=== PATIENT | female | born 1945 | race Caucasian/White ===

== ENCOUNTER 2017-12-18 03:31 | Inpatient (IN) | payer MEDICARE, SELFPAY ==
[2017-12-18] VITALS (13 sets, daily range): BP systolic 89–109; BP diastolic 45–74; PULSE 54–115; RESP 16–20; TEMP 36.7–38.5; O2SAT 88–98; BMI 31.6
--- NOTE | 2017-12-18 03:53 | RAD_ITS ---
STUDY: X-RAY CHEST REASON FOR EXAM: Female, 72 years old. Status post port placement Friday 12/15. Stage IV endocrine cancer. Nausea, vomiting, fever 100.6 TECHNIQUE: Single AP portable view of the chest. COMPARISON: None. FINDINGS: Right internal jugular approach port with catheter tip over the mid superior vena cava in good position. There is no demonstrated pneumothorax. Indistinct parenchymal opacification, somewhat masslike 2.7 x 3 cm right base. Overall increased interstitial markings. There is no demonstrated pleural abnormality. Normal size heart. Normal mediastinum and nikolay. Normal visualized pulmonary arteries. There is atherosclerotic calcification of the aortic arch with tortuosity. Status post lower thoracic hardik placement.. Normal visualized ribs, clavicles, and shoulders. There is no demonstrated abnormality of the visualized soft tissue structures of the upper abdomen. RAD/Chest 1 View (Portable) IMPRESSION: Port appears in good position, no pneumothorax. Airspace disease in the right base possible pneumonia, neoplasm not entirely excluded, follow-up examination to resolution recommended. Mild interstitial prominence may be acute or chronic. Electronically Signed: Rebekah Vegas MD at 5:10 EST , Service support ,
--- NOTE | 2017-12-18 03:57 | ED.VISSUMM ---
- ER Visit Summary Date of Service: 12/18/17 Chief Complaint: [] Fever History of Present Illness: The patient is a 72 F [] presents with fever with a history of endocrine cancer requiring chemo and radiation therapy. Patient had a chest port placed less than 48 hours ago. Patient has mild tenderness around the site. Patient's daughter at the bedside reports patient had a fever of 100.6 at home. Patient reports nausea/vomiting/diarrhea. Reports mild headache. Denies hematemesis. No other complaints at this time. Physical Examination: [] Afebrile, vital signs stable. Elderly female no acute distress. Cardiovascular exam is regular rate and rhythm. Lungs are clear to auscultation. Abdomen is soft and nontender. No lower extremity edema. Test Results: [] Elevated white blood cell count of 27.5. Chemistries normal. LFTs normal. Lactic acid 1.5. Flu swab negative. Chest x-ray 2 views shows right lower lobe infiltrate. Urinalysis pending, blood cultures and urine cultures pending. Emergency Department Course and Treatment: [] Patient provided fluids, Phenergan, Toradol, Benadryl. On serial examination patient had improvement of symptoms. After x-ray results are identified patient was started on vancomycin and Zosyn for broad-spectrum antibiotic coverage. Patient was counseled regarding her diagnostic and laboratory findings as well as the family. They are amenable to admission and further treatment. Case was discussed with the hospitalist Dr. Harmon. Patient will be admitted to the general medical floor. Treatment Plan: [] Admit to general medical floor for IV antibiotics. Disposition: [] Admit, stable. Impression: [] Health care acquired pneumonia Endocrine cancer This note was generated with [employer] dictation software. It may contain incorrect words, spelling, and punctuation that were not noted in review of the chart prior to signing ED Disposition - Plan for ED Patient: Chief Complaint: Nausea/Vomiting/Diarrhea Referrals: Mitchell Whiteside MD [Primary Care Provider] -
[2017-12-18 04:32] LABS: Absolute Lymphocyte Count 1.09 X10^3/ul (0.83-4.51); Absolute Neutrophil Count 23.5 X10^3/uL (2.0-7.7); Basophil# 0.03 X10^3/uL; Basophil% 0.1 % (0-1); Eosinophil# 0.04 X10^3/uL; Eosinophils% 0.1 % (0-5); Hematocrit 35.7 % (37-47); Hemoglobin 11.3 g/dl (12.0-15.0); Lymphocyte # 1.09 X10^3/ul (4.0); Mean Corp Hgb Conc 31.7 g/gl (32-36); Mean Corpuscular Hgb 30.3 pg (27.0-32.0); Mean Corpuscular Volume 95.7 fL (81-99); Mean Platelet Vol. 9.3 fl (6.2-12.0); Monocyte# 2.73 X10^3/uL; Monocyte% 9.9 % (0-10); Neutrophil # 23.51 X10^3/uL (2.7-7.7); Neutrophil % 85.6 % (47-70); Platelet Count 278 K/mm3 (150-450); RBC Distribution Width CV 14.8 % (11.6-14.6); RBC Distribution Width SD 49.2 fl (35.1-43.9); Red Blood Count 3.73 M/mm3 (4.2-5.4); White Blood Count 27.5 K/mm3 (4.4-11.0)
[2017-12-18 04:35] LABS: Differential Indicated SCAN CRITERIA MET; POSITIVE COUNT NO; POSITIVE DIFFERENTIAL YES; POSITIVE MORPHOLOGY NO
[2017-12-18] MEDS: Ketorolac 30 MG/ML Syringe 15 MG IV (04:39)
[2017-12-18] MEDS: DiphenhydrAMINE 50 MG/ML Syringe 25 MG IV (04:40)
[2017-12-18 04:45] LABS: ALB/GLOB Ratio 0.6 RATIO (0.9-2.4); AST(SGOT) 15 U/L (15-37); Alanine Aminotransfer ALT/SGPT 19 U/L (12-78); Albumin, Serum 2.9 g/dL (3.4-5.0); Alkaline Phosphatase 86 U/L (45-117); Anion Gap 9 (5-15); BUN 11 mg/dL (7-18); BUN/Creat Ratio 10.5 RATIO (10-20); Chloride 100 mmol/L (98-107); Creatinine, Serum 1.05 mg/dL (0.55-1.02); EST Glomerular Filtration Rate 55 mL/min (>60); Est Glom Filt Rate - Afr Amer 67 mL/min (>60); Estimated Creatinine Clearance 43.05 ml/min; Globulin 4.7 g/dL (2.2-4.2); Glucose 146 mg/dL (70-110); Lactic Acid 1.5 mmol/L (0.4-2.0); Potassium 3.4 mmol/L (3.5-5.1); Protein, Total 7.6 g/dL (6.4-8.2); Sodium Level 134 mmol/L (136-145)
[2017-12-18 05:00] LABS: Differential Comment SCANNED
--- NOTE | 2017-12-18 05:31 | PCM.HP.STD ---
Problem List (1) Endocrine cancer Status: Chronic (2) History of tobacco use Status: Chronic (3) Obesity (BMI 30.0-34.9) Status: Chronic History of Present Illness Date of Admission: 12/18/17 Chief Complaint: Nausea, emesis, diarrhea, fever The patient is a 72 y/o F w/ PMHx: Obesity, Former Tobacco use, Stage IV Endocrine Cancer on chemotherapy and radiation with port placement ~ 48 hours prior who presents to the [facility] ED on 12/18/17 w/ no marked pulmonary sxs although daughter notes an occasional cough to clear her throat over the last 2 weeks with onset starting at 4:00 pm the day prior fatigue, malaise, poor appetite followed by the abrupt onset early this AM of nausea, emesis and diarrhea. She and her family note she recently completed treatment for clostridium difficile infection. The daughter notes the smell of the stool was similar. She denies any dyspnea complaints. She recently transitioned from [facility] to [facility] continued treatment and notes that she has recently been noted to have cervical and mediastinal lymphadenopathy primarily on the R with Dr. Arriaga belief that there is right lung involvement. She was supposed to start her second round of chemotherapy on this coming Thursday. Her daughter notes that she originally dx when she noted worsening pelvic and thoracic back pain w/ eventually noted tumor on her T 10 spinal region w/ surgical intervention and bx at that time w/ noted metastatic disease following further evaluation to the cervical region, lumbar region, pelvic region as well as the lower skull. In the ED work-up included T 98.8, HR 54, BP 108/74, RR 20, 94%, CBC w/ WBC 27.5, Hgb 11.3, Plts 278 with L shift, CMP w/ Na 134, K 3.4, BUn/Cr 11/1.05, glucose 146, LA 1.5, CXR w/ port in place, Bld Cx x 2, influenza rapid panel unremarkable, airspace disease in the right base, possible pneumonia, neoplasm not entirely excluded, mild interstitial prominence. Past Medical History Past Medical History (Chronic Problems): Chronic Problems Endocrine cancer (Chronic) History of tobacco use (Chronic) Obesity (BMI 30.0-34.9) (Chronic) Allergies diazepam [From Valium] Adverse Reaction (Verified 12/18/17 03:38) Other Home Medications: Ambulatory Orders Medication Instructions Recorded Acetaminophen [Tylenol] 650 mg PO TID PRN 12/18/17 Lactobacillus Acidophilus 1 each PO DAILY 12/18/17 [Acidophilus Lactobacilli] Morphine Sulfate [Morphine Sulfate 15 mg PO Q8 12/18/17 ER] Omeprazole [Prilosec] 20 mg PO DAILY 12/18/17 Oxycodone [Oxyir] 5 mg PO Q4H PRN PRN 12/18/17 ProCHLORPERazine [Compazine] 10 mg PO Q8 PRN 12/18/17 Surgical History: - - Back surgery, port placement. 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 Review of Systems Constitutional: Reports: Anorexia, Chills, Fever, Malaise, Weakness, Fatigue. Denies: Weight Change HEENT: Denies: Head Aches, Sinus Congestion, Sinus Drainage Cardiovascular: Denies: Chest Pain, Palpitations Respiratory: Reports: Cough. Denies: Shortness of Breath, Shortness of breath at rest, Shortness of breath upon exertion, Sputum production Gastrointestinal: Reports: Diarrhea, Nausea, Vomiting. Denies: Abdominal Pain Genitourinary: Denies: Dysuria Musculoskeletal: Reports: Back Pain, Joint Pain, Joint stiffness, Joint swelling, Joint Tenderness, Neck Pain, Shoulder Pain Skin: Denies: Rash, Wounds Neurological: Denies: Numbness, Tingling, Focal weakness Psychiatric: Denies: Anxiety, Depression, Homicidal Ideations, Suicidal Ideations Hematologic/ Lymphatic: Denies: Easy Bruising, Easy Bleeding VTE Information - Inpt Only VTE Present on Admission: No VTE Mechan Device Prophylaxis: SCD's VTE Pharm Prophylaxis ordered?: Yes Subjective: Seated upright in the ED bed, fatigued appearance. Objective: Physical Examination: General: awake, alert, oriented x 3 and cooperative, seated upright in the ED bed, fatigued appearance, ill appearing. Skin: normal color, turgor, no icterus, cyanosis. HEENT: AT/NC, EOMI, PERRLA, dry MM, no carotid bruits or JVD noted. Lungs: Diminished BS BL bases, moderate effort, no rales, ronchi or wheezing. Heart: Regular rate and rhythm; no gallop, rub audible. Abdomen: soft, mild generalized TTP, not markedly distended, mildly hyperactive BS, no HSM. Extremities: no cyanosis, clubbing, or edema. Neurological: patient awake, alert, oriented x 3; cognitive function intact; pupils equally reactive to light and accomodation; cranial nerves II-XII grossly normal, moving all 4 extremities, no focal deficits, strength severely globally decreased secondary to acute presentation. Psychiatric: affect appears fatigued, no acute evidence of depressive or anxiety feelings. - Physical Exam Vital Signs Temp Pulse Resp BP Pulse Ox 98.8 F 54 L 20 H 108/74 94 12/18/17 03:33 12/18/17 03:33 12/18/17 03:33 12/18/17 03:33 12/18/17 03:33 Weight: 184 lb 8.43 oz Body Mass Index (BMI) 31.6 Microbiology Past 72 Hours 12/18/17 04:24 Influenza Types A,B Direct FA (RODNEY) - Final Mucosa - Nasopharyngeal Laboratory Tests Past 24 Hrs 12/18/17 12/18/17 12/18/17 04:10 04:10 04:10 WBC 27.5 H RBC 3.73 L Hgb 11.3 L Hct 35.7 L MCV 95.7 MCH 30.3 MCHC 31.7 L RDW 14.8 H RDW Differential 49.2 H Plt Count 278 MPV 9.3 Immature Gran % (Auto) 0.300 Neut % (Auto) 85.6 H Lymph % (Auto) 4.0 L [place] % (Auto) 9.9 Eos % (Auto) 0.1 Baso % (Auto) 0.1 Absolute Neuts (auto) 23.5 H Absolute Lymphs (auto) 1.09 Total Counted Not Reportable Differential Comment SCANNED Diff Path Review May foll Sodium 134 L Potassium 3.4 L Chloride 100 Carbon Dioxide 25.0 Anion Gap 9 BUN 11 Creatinine 1.05 H Estim Creat Clear Calc 43.05 Est GFR (MDRD) Af Amer 67 Est GFR (MDRD) Non-Af 55 L BUN/Creatinine Ratio 10.5 Glucose 146 H Lactic Acid 1.5 Calcium 9.0 Total Bilirubin 0.60 AST 15 ALT 19 Alkaline Phosphatase 86 Total Protein 7.6 Albumin 2.9 L Globulin 4.7 H Albumin/Globulin Ratio 0.6 L Assessment/Plan The patient is a 72 y/o F w/ PMHx: Obesity, Former Tobacco use, Stage IV Endocrine Cancer on chemotherapy and radiation with port placement ~ 48 hours prior who presents to the [facility] ED on 12/18/17 w/ no marked pulmonary sxs although daughter notes an occasional cough to clear her throat over the last 2 weeks with onset starting at 4:00 pm the day prior fatigue, malaise, poor appetite followed by the abrupt onset early this AM of nausea, emesis and diarrhea. She and her family note she recently completed treatment for clostridium difficile infection. 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 PNA: CXR in the ED w/ ? RLL infiltrate although from discussions with patient lend me to believe this is more likely cancer. She was already administered vanc and zosyn per ED secondary to their belief of possible PNA. Admission CBC w/ WBC 27.5 with L shift. Will admit to [facility] on telemetry, maintain on oxygen with wean as tolerated to room air, PRN albuterol, initiate oral vancomycin and IV flagyl for suspected c-diff infection pending stool studies, HOB, IS parameters, will additionally request sputum cultures and urine antigens given possibility of PNA. Bld cx x 2 obtained in the ED. May need to consider CT Chest. Hem/Onc consulted, pending. Defer further PNA abx given already dosed in the ED and lower suspicion and do not want to worsen c-diff status. Will allow clears if able to tolerate, PRN anti-emetics, pain regimen. Hold famotidine/PPI regimens given c-diff history and current suspicions. (2) Hypokalemia: Admission K+ 3.4, supplementation given, repeat level in AM. (3) Hyperglycemia: Admission glucose 146, likely stress with infection, HgbA1c pending. (4) Obesity: Weight loss and lifestyle changes encouraged. (5) History of Tobacco use: Encourage continued cessation. (6) Metastatic Stage IV Endocrine Cancer: s/p recent port < 48 hours prior, s/p chemo and radiation treatment history, mag and phos pending. Hem/Onc consulted, pending. (7) Chronic Pain Syndrome: Maintain on chronic pain regimen, PRN additional oral/IV, fall precautions, position changes, PT and OT assessment. (8) DVT Prophylaxis: SCDs, lovenox. Code Visit Inpatient E&M: 66297 Init Hosp L3
[2017-12-18 05:39] LABS: Bacteria 0 SEEN /hpf (None Seen)
[2017-12-18 05:44] LABS: Color, Urine Yellow (Yellow); Glucose, Dipstick Normal (Normal); Ketone-Dipstick 5 mg/dl (Negative); Leukocyte Esterase-Dipstick 100 /ul (Negative); Nitrite-Dipstick Negative (Negative); Occult Blood-Urine 250 /ul (Negative); Protein-Dipstick 100 mg/dl (Negative); Urine Bilirubin Dipstick Negative (Negative); Urine Clarity Sl. Cloudy (Clear); Urine Urobilinogen Normal (Normal)
--- NOTE | 2017-12-18 05:45 | HP.PCM_ITS ---
Problem List (1) Endocrine cancer Status: Chronic (2) History of tobacco use Status: Chronic (3) Obesity (BMI 30.0-34.9) Status: Chronic History of Present Illness Date of Admission: 12/18/17 Chief Complaint: Nausea, emesis, diarrhea, fever The patient is a 72 y/o F w/ PMHx: Obesity, Former Tobacco use, Stage IV Endocrine Cancer on chemotherapy and radiation with port placement ~ 48 hours prior who presents to the [facility] ED on 12/18/17 w/ no marked pulmonary sxs although daughter notes an occasional cough to clear her throat over the last 2 weeks with onset starting at 4:00 pm the day prior fatigue, malaise, poor appetite followed by the abrupt onset early this AM of nausea, emesis and diarrhea. She and her family note she recently completed treatment for clostridium difficile infection. The daughter notes the smell of the stool was similar. She denies any dyspnea complaints. She recently transitioned from [facility] to [facility] continued treatment and notes that she has recently been noted to have cervical and mediastinal lymphadenopathy primarily on the R with Dr. Arriaga belief that there is right lung involvement. She was supposed to start her second round of chemotherapy on this coming Thursday. Her daughter notes that she originally dx when she noted worsening pelvic and thoracic back pain w / eventually noted tumor on her T 10 spinal region w/ surgical intervention and bx at that time w/ noted metastatic disease following further evaluation to the cervical region, lumbar region, pelvic region as well as the lower skull. In the ED work-up included T 98.8, HR 54, BP 108/74, RR 20, 94%, CBC w/ WBC 27.5, Hgb 11.3, Plts 278 with L shift, CMP w/ Na 134, K 3.4, BUn/Cr 11/1.05, glucose 146, LA 1.5, CXR w/ port in place, Bld Cx x 2, influenza rapid panel unremarkable, airspace disease in the right base, possible pneumonia, neoplasm not entirely excluded, mild interstitial prominence. Past Medical History Past Medical History (Chronic Problems): Chronic Problems Endocrine cancer (Chronic) History of tobacco use (Chronic) Obesity (BMI 30.0-34.9) (Chronic) Allergies diazepam [From Valium] Adverse Reaction (Verified 12/18/17 03:38) Other Home Medications: Ambulatory Orders Medication Instructions Recorded Acetaminophen [Tylenol] 650 mg PO TID PRN 12/18/17 Lactobacillus Acidophilus 1 each PO DAILY 12/18/17 [Acidophilus Lactobacilli] Morphine Sulfate [Morphine Sulfate 15 mg PO Q8 12/18/17 ER] Omeprazole [Prilosec] 20 mg PO DAILY 12/18/17 Oxycodone [Oxyir] 5 mg PO Q4H PRN PRN 12/18/17 ProCHLORPERazine [Compazine] 10 mg PO Q8 PRN 12/18/17 Surgical History: - - Back surgery, port placement. 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 Review of Systems Constitutional: Reports: Anorexia, Chills, Fever, Malaise, Weakness, Fatigue. Denies: Weight Change HEENT: Denies: Head Aches, Sinus Congestion, Sinus Drainage Cardiovascular: Denies: Chest Pain, Palpitations Respiratory: Reports: Cough. Denies: Shortness of Breath, Shortness of breath at rest, Shortness of breath upon exertion, Sputum production Gastrointestinal: Reports: Diarrhea, Nausea, Vomiting. Denies: Abdominal Pain Genitourinary: Denies: Dysuria Musculoskeletal: Reports: Back Pain, Joint Pain, Joint stiffness, Joint swelling , Joint Tenderness, Neck Pain, Shoulder Pain Skin: Denies: Rash, Wounds Neurological: Denies: Numbness, Tingling, Focal weakness Psychiatric: Denies: Anxiety, Depression, Homicidal Ideations, Suicidal Ideations Hematologic/ Lymphatic: Denies: Easy Bruising, Easy Bleeding VTE Information - Inpt Only VTE Present on Admission: No VTE Mechan Device Prophylaxis: SCD's VTE Pharm Prophylaxis ordered?: Yes Subjective: Seated upright in the ED bed, fatigued appearance. Objective: Physical Examination: General: awake, alert, oriented x 3 and cooperative, seated upright in the ED bed, fatigued appearance, ill appearing. Skin: normal color, turgor, no icterus, cyanosis. HEENT: AT/NC, EOMI, PERRLA, dry MM, no carotid bruits or JVD noted. Lungs: Diminished BS BL bases, moderate effort, no rales, ronchi or wheezing. Heart: Regular rate and rhythm; no gallop, rub audible. Abdomen: soft, mild generalized TTP, not markedly distended, mildly hyperactive BS, no HSM. Extremities: no cyanosis, clubbing, or edema. Neurological: patient awake, alert, oriented x 3; cognitive function intact; pupils equally reactive to light and accomodation; cranial nerves II-XII grossly normal, moving all 4 extremities, no focal deficits, strength severely globally decreased secondary to acute presentation. Psychiatric: affect appears fatigued, no acute evidence of depressive or anxiety feelings. - Physical Exam Vital Signs Temp Pulse Resp BP Pulse Ox 98.8 F 54 L 20 H 108/74 94 12/18/17 03:33 12/18/17 03:33 12/18/17 03:33 12/18/17 03:33 12/18/17 03:33 Weight: 184 lb 8.43 oz Body Mass Index (BMI) 31.6 Microbiology Past 72 Hours 12/18/17 04:24 Influenza Types A,B Direct FA (RODNEY) - Final Mucosa - Nasopharyngeal Laboratory Tests Past 24 Hrs 12/18/17 12/18/17 12/18/17 04:10 04:10 04:10 WBC 27.5 H RBC 3.73 L Hgb 11.3 L Hct 35.7 L MCV 95.7 MCH 30.3 MCHC 31.7 L RDW 14.8 H RDW Differential 49.2 H Plt Count 278 MPV 9.3 Immature Gran % (Auto) 0.300 Neut % (Auto) 85.6 H Lymph % (Auto) 4.0 L [place] % (Auto) 9.9 Eos % (Auto) 0.1 Baso % (Auto) 0.1 Absolute Neuts (auto) 23.5 H Absolute Lymphs (auto) 1.09 Total Counted Not Reportable Differential Comment SCANNED Diff Path Review May foll Sodium 134 L Potassium 3.4 L Chloride 100 Carbon Dioxide 25.0 Anion Gap 9 BUN 11 Creatinine 1.05 H Estim Creat Clear Calc 43.05 Est GFR (MDRD) Af Amer 67 Est GFR (MDRD) Non-Af 55 L BUN/Creatinine Ratio 10.5 Glucose 146 H Lactic Acid 1.5 Calcium 9.0 Total Bilirubin 0.60 AST 15 ALT 19 Alkaline Phosphatase 86 Total Protein 7.6 Albumin 2.9 L Globulin 4.7 H Albumin/Globulin Ratio 0.6 L Assessment/Plan The patient is a 72 y/o F w/ PMHx: Obesity, Former Tobacco use, Stage IV Endocrine Cancer on chemotherapy and radiation with port placement ~ 48 hours prior who presents to the [facility] ED on 12/18/17 w/ no marked pulmonary sxs although daughter notes an occasional cough to clear her throat over the last 2 weeks with onset starting at 4:00 pm the day prior fatigue, malaise, poor appetite followed by the abrupt onset early this AM of nausea, emesis and diarrhea. She and her family note she recently completed treatment for clostridium difficile infection. 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 PNA: CXR in the ED w/ ? RLL infiltrate although from discussions with patient lend me to believe this is more likely cancer. She was already administered vanc and zosyn per ED secondary to their belief of possible PNA. Admission CBC w/ WBC 27.5 with L shift. Will admit to [facility] on telemetry, maintain on oxygen with wean as tolerated to room air, PRN albuterol, initiate oral vancomycin and IV flagyl for suspected c-diff infection pending stool studies, HOB, IS parameters, will additionally request sputum cultures and urine antigens given possibility of PNA. Bld cx x 2 obtained in the ED. May need to consider CT Chest. Hem/Onc consulted, pending. Defer further PNA abx given already dosed in the ED and lower suspicion and do not want to worsen c-diff status. Will allow clears if able to tolerate, PRN anti-emetics, pain regimen. Hold famotidine/PPI regimens given c-diff history and current suspicions. (2) Hypokalemia: Admission K+ 3.4, supplementation given, repeat level in AM. (3) Hyperglycemia: Admission glucose 146, likely stress with infection, HgbA1c pending. (4) Obesity: Weight loss and lifestyle changes encouraged. (5) History of Tobacco use: Encourage continued cessation. (6) Metastatic Stage IV Endocrine Cancer: s/p recent port < 48 hours prior, s/p chemo and radiation treatment history, mag and phos pending. Hem/Onc consulted, pending. (7) Chronic Pain Syndrome: Maintain on chronic pain regimen, PRN additional oral /IV, fall precautions, position changes, PT and OT assessment. (8) DVT Prophylaxis: SCDs, lovenox. Code Visit Inpatient E&M: 47497 Init Hosp L3
[2017-12-18 05:55] LABS: Amorphous Sediment 1+ URATE; Mucous, Urine 2+ /hpf (<or=2+); Red Blood Cells-Urine 10-25 SEEN /hpf (0-5); Squamous Epithelial Cells - UA 0-5 SEEN /hpf (5-10); White Blood Cells 5-10 SEEN /hpf (0-5)
[2017-12-18 08:20] LABS: Magnesium 1.2 mg/dL (1.6-2.6); Phosphorus 3.3 mg/dL (2.5-4.9)
[2017-12-18 08:31] LABS: Hemoglobin A1c 5.3 % (4.2-6.3)
[2017-12-18] MEDS: 0.9% Normal Saline 1,000 ML 125 ML IV ×2 (09:53→18:04)
[2017-12-18] MEDS: Enoxaparin 40 MG/0.4 ML Syringe SC (09:58)
[2017-12-18] MEDS: guaiFENesin 1,200 MG Tablet 1200 MG PO ×2 (09:58→21:23)
--- NOTE | 2017-12-18 09:58 | ONC.CONSUL2 ---
(1) SCLC (small cell lung carcinoma) Status: Acute (2) Regional lymph node metastasis present Status: Acute (3) Bone metastases Status: Acute Consult Referring Physician: Hospitalist staff Consult Results: Metastatic small cell lung cancer Subjective Date of Service:: 12/18/17 Chief Complaint: Fever History of Present Illness: Patient is a 72-year-old female with metastatic small cell cancer who just moved to [facility] to be with her daughters. She smoked cigarettes since her teens until the diagnosis of cancer in September 2017. She presented at [facility] [place], [place] in September 2017 with increasing right hip and back pain that escalated rapidly over the course of a few days. 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 She had extensive workup including a PET scan that revealed pathologic adenopathy in the right supraclavicular and mediastinal lymph nodes but no primary in the lung visualized. She has evidence for widely spread metastatic disease to bones including multiple levels in the spine, skull, ribs, and left iliac bone. No evidence for spinal cord compression or spinal canal encroachment was seen on MRIs of the spine. Brain MRI did not show evidence for metastatic disease either. She recovered well from her spinal fusion and in late September through October 23 received her first cycle of chemotherapy with carboplatin and etoposide. This was complicated with Pseudomonas sepsis, pneumonia and UTI requiring hospitalization in October 2017 and after recovery from her sepsis is suffered from C. difficile colitis treated with vancomycin completed course December 07, 2017 and appears to had recovered fully from this. Care so far had been at [facility] in [place]. She was scheduled to resume systemic chemotherapy December 22, 2017. She presented in the early hours of December 18, 2017 acute onset less than 24 hours of fever, increasing dyspnea, increasing cough, nausea and recurrent diarrhea. Chest x-ray shows a right lower lobe infiltrate and stool for C. difficile is pending. Power of Manager Channel: Yes Living Will: Yes Advance Directives on File: Yes Health History: Social History Smoking Status Former smoker Past Medical History - Most Recent Inpatient Visit Past Medical History Start: 12/18/17 07:50 Text: Status: Complete Freq: ONCE Protocol: Document 12/18/17 07:50 SJS (Rec: 12/18/17 08:03 SJS [id number]) BMI Required to complete PMH What is Patient's BMI 31.6 Past Medical History Unable History Recalled Yes Query Text:Pt Unable/Family Not Present Neurologic Medical History Hx Stroke/TIA No Hx Dementia/Alzheimer's No Hx Parkinson's Disease No Hx Seizures No Hx Multiple Sclerosis No Hx Migraines No Cardiac Medical History VTE Present on Admission No Hx of Deep Vein Thrombosis/VTE/PE No Hx Hypertension No Hx Chest Pain/Angina No Hx Heart Attack No Hx Cardiac Surgery/Stents/Etc. No Hx Heart Failure No Hx Pacemaker/AICD No Hx Irregular Heartbeat and/or Afib No Hx Anticoagulant Therapy No Query Text:(Coumadin, Aspirin, Plavix, Xarelto, etc.) Hx Pain in Legs when Walking/Leg Cramps No Respiratory Medical History Hx COPD No Hx Emphysema No Hx Smoking No Smoking Status Former smoker Hx Tobacco Use in last 12 months Yes Sent to PSN Yes Hx Sleep Apnea No Do you snore loudly (louder than talking No or can be heard through closed doors)? Do you often feel tired/ fatigued/ No sleepy during daytime? Has anyone observed you stop breathing No during sleep? STOP Results Negative GI Medical History Hx Ulcer No Hx Hepatitis No Hx Cirrhosis No Hx GI Bleed No Hx Unplanned Weight Loss Yes Comments APPROX 25LB WEIGHT LOSS SINCE SEP Genitourinary Medical History Indwelling Catheter in Place on Arrival/ No Admission Hx Renal Disease No Hx Dialysis No Musculoskeletal History Hx Arthritis No Hx Rheumatoid Arthritis No Comments BACK SURGERY OCT 05, 2017 Endocrine Medical History Hx Diabetes No Hx Thyroid Disease No Hematologic Medical History Hx of Blood Transfusion Yes Hx of Transfusion in last 3 Months Yes Date of Last Transfusion (if within last OCTOBER 2017 3 months) Ever experience any problems with No transfusion(s)? Hx of Preganancy in last 3 Months N/A Nurse Filling Out Transfusion & SSWORD Questions: Date: 12/18/17 Time: 08:01 Psycho/Social Medical History Hx Behavior Disorder No Hx Alcohol Use No Hx Substance Use No Other Medical History Hx Blood Disorders No Hx Anemia Yes Hx Cancer Yes: ENDOCRINE Hx Drug Resistant Organism No Wound/Pressure Injury Present on Arrival No /Admission Query Text:If yes, chart assessment in Shift/Clinical Findings Central Line/PICC/VAD Present on Arrival Yes /Admission Antibiotics within last 7 days? No Comments RECENT ANTIBIOTIC FOR CDIFF, BUT NOT WITHIN LAST 7 DAYS Methicillin Resistant Staphylococcus aureus Screening Active MRSA No Risk for Readmission Number of Risk Factors 4 At Risk for Readmission Patient is At Risk For Readmission Patient is eligible for Call Back Y Allergies/Adverse Reactions: Allergy/AdvReac Type Severity Reaction Status Date / Time diazepam [From Valium] AdvReac Other Verified 12/18/17 03:38 Home Medications Medication Instructions Recorded Acetaminophen [Tylenol] 650 mg PO TID PRN 12/18/17 Lactobacillus Acidophilus 1 each PO DAILY 12/18/17 [Acidophilus Lactobacilli] Morphine Sulfate [Morphine Sulfate 15 mg PO Q8 12/18/17 ER] Omeprazole [Prilosec] 20 mg PO DAILY 12/18/17 Oxycodone [Oxyir] 5 mg PO Q4H PRN PRN 12/18/17 ProCHLORPERazine [Compazine] 10 mg PO Q8 PRN 12/18/17 Review of Systems Constitutional:: Reports: Weakness, Fatigue, Fever, Weight loss, Appetite change. Denies: Sweats, Chills Cardiovascular:: Reports: Dyspnea on exertion. Denies: Chest pain, Palpitations, Orthopnea, PND, Shortness of breath Respiratory: Reports: Cough, Shortness of breath upon exertion, Sputum production, Wheezing. Denies: Hemoptysis, Shortness of Breath Gastrointestinal:: Reports: Abdominal pain, Nausea, Diarrhea. Denies: Vomiting, Constipation, Hematochezia Genitourinary: Denies: Dysuria, Hematuria, 15, Flank pain Musculoskeletal:: Reports: Back pain - Controlled with narcotic analgesia,. Denies: Myalgia, Arthralgia Skin: Denies: Rash, Skin Changes, Wounds Neurological:: Denies: Headache, Dizziness, Visual changes, Tinnitus, Hearing loss Psychiatric: Denies: Anxiety, Depression, Homicidal Ideations, Suicidal Ideations Vital Signs Height 5 ft 4 in Weight: 83.518 kg Weight in Pounds 184.0 lbs Pulse Ox 96 Temperature 99.0 F Pulse Rate 115 Respiratory Rate 18 Blood Pressure 109/67 - Physical Exam General: Alert, Oriented x3, No apparent distress, - - ECOG 2-3 HEENT: Atraumatic, PERRLA, EOMI, Normocephalic, - - Alopecia Oropharynx:: Dry mucosa, - - No thrush Neck:: Supple, Trachea midline. Negative for: JVD, bilateral Cardiac:: Regular rate, Regular rhythm, Normal S1, Normal S2. Negative for: Murmur Lungs: Diminished, Excusion symmetrical. Negative for: Rhonchi, Wheezes Abdomen:: Soft, Non-tender, Non-distended. Negative for: Hepatosplenomegaly Extremities:: Negative for: Cyanosis, Edema Neurological: Neuro grossly intact Skin:: Negative for: Lesions, Rash, Petechiae, Ecchymosis Psychiatric:: Appropriate affect, Euthymic Lymphatics:: Negative for: Cervical lymphadenopathy, Supraclavicular lymphadenopathy, Axillary lymphadenopathy Laboratory Data: Laboratory Tests 12/18/17 04:10 WBC 27.5 H Hgb 11.3 L Hct 35.7 L Plt Count 278 Absolute Neuts (auto) 23.5 H Diagnostic Data: Diagnostic Data Chest X-Ray 12/18/17 03:53 IMPRESSION: Port appears in good position, no pneumothorax. Airspace disease in the right base possible pneumonia, neoplasm not entirely excluded, follow-up examination to resolution recommended. Mild interstitial prominence may be acute or chronic. 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 Patient is status post spinal fusion for a painful compression fracture of T10 in September 2017, 1 cycle of chemotherapy with carboplatin and etoposide in October 2017 at [facility]. This was complicated with Pseudomonas sepsis, pneumonia and UTI requiring hospitalization in October 2017 and after recovery from her sepsis is suffered from C. difficile colitis treated with vancomycin completed course December 07, 2017 and appears to had recovered fully from this. Care so far had been at [facility] in [place]. She moved to [facility] to be with her family and she was scheduled to resume systemic chemotherapy December 22, 2017. She was acutely hospitalized December 18, 2017 with a working diagnosis of right lower lobe pneumonia, acute diarrheal illness possible recurrent C. difficile. Her blood counts show a neutrophilic leukocytosis of acute onset consistent with an acute phase reaction. Recommendations from oncology: 1. Treatment of any infection as per primary service. 2. Will delay her next cycle of chemotherapy at least 1 week until full recovery from any active infection. 3. Continue with current management plan of her painful bony metastatic disease as per commended by pain management (see outpatient consult) Thank you for involving me in her care, will follow up Medications: Prescriptions This Visit Medication Instructions Recorded Acetaminophen [Tylenol] 650 mg PO TID PRN 12/18/17 Lactobacillus Acidophilus 1 each PO DAILY 12/18/17 [Acidophilus Lactobacilli] Morphine Sulfate [Morphine Sulfate 15 mg PO Q8 12/18/17 ER] Omeprazole [Prilosec] 20 mg PO DAILY 12/18/17 Oxycodone [Oxyir] 5 mg PO Q4H PRN PRN 12/18/17 ProCHLORPERazine [Compazine] 10 mg PO Q8 PRN 12/18/17 Medications Added to Medication List This Visit Category Date Time Status 0.9% Saline Lock Med 12/18/17 08:33 Active 5 - 30 ml IV UD PRN HydrALAZINE [Apresoline] Med 12/18/17 07:48 Active 10 mg IV Q4H PRN PRN Lactobacillus Acidophilus [Acidophilus] Med 12/18/17 10:00 Active 1 tablet PO DAILY Metronidazole [Flagyl] Med 12/18/17 08:00 Active 500 mg in 100 ml IV Q8 MorphINE [MS Contin] Med 12/18/17 07:48 Active 15 mg PO Q8 Vancomcyin 125 MG/ 5 ML Susp [Vancomycin 125mg/5mL Susp Med 12/18/17 07:48 Active ] 125 mg PO Q6 Primary Care Provider: Mitchell Whiteside MD Referring Provider:
--- NOTE | 2017-12-18 10:08 | CON.PCM_ITS ---
(1) SCLC (small cell lung carcinoma) Status: Acute (2) Regional lymph node metastasis present Status: Acute (3) Bone metastases Status: Acute Consult Referring Physician: Hospitalist staff Consult Results: Metastatic small cell lung cancer Subjective Date of Service:: 12/18/17 Chief Complaint: Fever History of Present Illness: Patient is a 72-year-old female with metastatic small cell cancer who just moved to [facility] to be with her daughters. She smoked cigarettes since her teens until the diagnosis of cancer in September 2017. She presented at [facility] [place] in September 2017 with increasing right hip and back pain that escalated rapidly over the course of a few days. 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 She had extensive workup including a PET scan that revealed pathologic adenopathy in the right supraclavicular and mediastinal lymph nodes but no primary in the lung visualized. She has evidence for widely spread metastatic disease to bones including multiple levels in the spine, skull, ribs, and left iliac bone. No evidence for spinal cord compression or spinal canal encroachment was seen on MRIs of the spine. Brain MRI did not show evidence for metastatic disease either. She recovered well from her spinal fusion and in late September through October 23 received her first cycle of chemotherapy with carboplatin and etoposide. This was complicated with Pseudomonas sepsis, pneumonia and UTI requiring hospitalization in October 2017 and after recovery from her sepsis is suffered from C. difficile colitis treated with vancomycin completed course December 07, 2017 and appears to had recovered fully from this. Care so far had been at [facility] in [place]. She was scheduled to resume systemic chemotherapy December 22, 2017. She presented in the early hours of December 18, 2017 acute onset less than 24 hours of fever, increasing dyspnea, increasing cough, nausea and recurrent diarrhea. Chest x-ray shows a right lower lobe infiltrate and stool for C. difficile is pending. Power of Image Archivist: Yes Living Will: Yes Advance Directives on File: Yes Health History: Social History Smoking Status Former smoker Past Medical History - Most Recent Inpatient Visit Past Medical History Start: 12/18/17 07: 50 Text: Status: Complete Freq: ONCE Protocol: Document 12/18/17 07:50 SJS (Rec: 12/18/17 08:03 SJS [id number]) BMI Required to complete PMH What is Patient's BMI 31.6 Past Medical History Unable History Recalled Yes Query Text:Pt Unable/Family Not Present Neurologic Medical History Hx Stroke/TIA No Hx Dementia/Alzheimer's No Hx Parkinson's Disease No Hx Seizures No Hx Multiple Sclerosis No Hx Migraines No Cardiac Medical History VTE Present on Admission No Hx of Deep Vein Thrombosis/VTE/PE No Hx Hypertension No Hx Chest Pain/Angina No Hx Heart Attack No Hx Cardiac Surgery/Stents/Etc. No Hx Heart Failure No Hx Pacemaker/AICD No Hx Irregular Heartbeat and/or Afib No Hx Anticoagulant Therapy No Query Text:(Coumadin, Aspirin, Plavix, Xarelto, etc.) Hx Pain in Legs when Walking/Leg Cramps No Respiratory Medical History Hx COPD No Hx Emphysema No Hx Smoking No Smoking Status Former smoker Hx Tobacco Use in last 12 months Yes Sent to PSN Yes Hx Sleep Apnea No Do you snore loudly (louder than talking No or can be heard through closed doors)? Do you often feel tired/ fatigued/ No sleepy during daytime? Has anyone observed you stop breathing No during sleep? STOP Results Negative GI Medical History Hx Ulcer No Hx Hepatitis No Hx Cirrhosis No Hx GI Bleed No Hx Unplanned Weight Loss Yes Comments APPROX 25LB WEIGHT LOSS SINCE SEP Genitourinary Medical History Indwelling Catheter in Place on Arrival/ No Admission Hx Renal Disease No Hx Dialysis No Musculoskeletal History Hx Arthritis No Hx Rheumatoid Arthritis No Comments BACK SURGERY OCT 05, 2017 Endocrine Medical History Hx Diabetes No Hx Thyroid Disease No Hematologic Medical History Hx of Blood Transfusion Yes Hx of Transfusion in last 3 Months Yes Date of Last Transfusion (if within last OCTOBER 2017 3 months) Ever experience any problems with No transfusion(s)? Hx of Preganancy in last 3 Months N/A Nurse Filling Out Transfusion & SSWORD Questions: Date: 12/18/17 Time: 08:01 Psycho/Social Medical History Hx Behavior Disorder No Hx Alcohol Use No Hx Substance Use No Other Medical History Hx Blood Disorders No Hx Anemia Yes Hx Cancer Yes: ENDOCRINE Hx Drug Resistant Organism No Wound/Pressure Injury Present on Arrival No /Admission Query Text:If yes, chart assessment in Shift/Clinical Findings Central Line/PICC/VAD Present on Arrival Yes /Admission Antibiotics within last 7 days? No Comments RECENT ANTIBIOTIC FOR CDIFF, BUT NOT WITHIN LAST 7 DAYS Methicillin Resistant Staphylococcus aureus Screening Active MRSA No Risk for Readmission Number of Risk Factors 4 At Risk for Readmission Patient is At Risk For Readmission Patient is eligible for Call Back Y Allergies/Adverse Reactions: Allergy/AdvReac Type Severity Reaction Status Date / Time diazepam [From Valium] AdvReac Other Verified 12/18/17 03:38 Home Medications Medication Instructions Recorded Acetaminophen [Tylenol] 650 mg PO TID PRN 12/18/17 Lactobacillus Acidophilus 1 each PO DAILY 12/18/17 [Acidophilus Lactobacilli] Morphine Sulfate [Morphine Sulfate 15 mg PO Q8 12/18/17 ER] Omeprazole [Prilosec] 20 mg PO DAILY 12/18/17 Oxycodone [Oxyir] 5 mg PO Q4H PRN PRN 12/18/17 ProCHLORPERazine [Compazine] 10 mg PO Q8 PRN 12/18/17 Review of Systems Constitutional:: Reports: Weakness, Fatigue, Fever, Weight loss, Appetite change. Denies: Sweats, Chills Cardiovascular:: Reports: Dyspnea on exertion. Denies: Chest pain, Palpitations , Orthopnea, PND, Shortness of breath Respiratory: Reports: Cough, Shortness of breath upon exertion, Sputum production, Wheezing. Denies: Hemoptysis, Shortness of Breath Gastrointestinal:: Reports: Abdominal pain, Nausea, Diarrhea. Denies: Vomiting , Constipation, Hematochezia Genitourinary: Denies: Dysuria, Hematuria, 15, Flank pain Musculoskeletal:: Reports: Back pain - Controlled with narcotic analgesia,. Denies: Myalgia, Arthralgia Skin: Denies: Rash, Skin Changes, Wounds Neurological:: Denies: Headache, Dizziness, Visual changes, Tinnitus, Hearing loss Psychiatric: Denies: Anxiety, Depression, Homicidal Ideations, Suicidal Ideations Vital Signs Height 5 ft 4 in Weight: 83.518 kg Weight in Pounds 184.0 lbs Pulse Ox 96 Temperature 99.0 F Pulse Rate 115 Respiratory Rate 18 Blood Pressure 109/67 - Physical Exam General: Alert, Oriented x3, No apparent distress, - - ECOG 2-3 HEENT: Atraumatic, PERRLA, EOMI, Normocephalic, - - Alopecia Oropharynx:: Dry mucosa, - - No thrush Neck:: Supple, Trachea midline. Negative for: JVD, bilateral Cardiac:: Regular rate, Regular rhythm, Normal S1, Normal S2. Negative for: Murmur Lungs: Diminished, Excusion symmetrical. Negative for: Rhonchi, Wheezes Abdomen:: Soft, Non-tender, Non-distended. Negative for: Hepatosplenomegaly Extremities:: Negative for: Cyanosis, Edema Neurological: Neuro grossly intact Skin:: Negative for: Lesions, Rash, Petechiae, Ecchymosis Psychiatric:: Appropriate affect, Euthymic Lymphatics:: Negative for: Cervical lymphadenopathy, Supraclavicular lymphadenopathy, Axillary lymphadenopathy Laboratory Data: Laboratory Tests 12/18/17 04:10 WBC 27.5 H Hgb 11.3 L Hct 35.7 L Plt Count 278 Absolute Neuts (auto) 23.5 H Diagnostic Data: Diagnostic Data Chest X-Ray 12/18/17 03:53 IMPRESSION: Port appears in good position, no pneumothorax. Airspace disease in the right base possible pneumonia, neoplasm not entirely excluded, follow-up examination to resolution recommended. Mild interstitial prominence may be acute or chronic. 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 Patient is status post spinal fusion for a painful compression fracture of T10 in September 2017, 1 cycle of chemotherapy with carboplatin and etoposide in October 2017 at [facility]. This was complicated with Pseudomonas sepsis, pneumonia and UTI requiring hospitalization in October 2017 and after recovery from her sepsis is suffered from C. difficile colitis treated with vancomycin completed course December 07, 2017 and appears to had recovered fully from this. Care so far had been at [facility] in [place]. She moved to [facility] to be with her family and she was scheduled to resume systemic chemotherapy December 22, 2017. She was acutely hospitalized December 18, 2017 with a working diagnosis of right lower lobe pneumonia, acute diarrheal illness possible recurrent C. difficile. Her blood counts show a neutrophilic leukocytosis of acute onset consistent with an acute phase reaction. Recommendations from oncology: 1. Treatment of any infection as per primary service. 2. Will delay her next cycle of chemotherapy at least 1 week until full recovery from any active infection. 3. Continue with current management plan of her painful bony metastatic disease as per commended by pain management (see outpatient consult) Thank you for involving me in her care, will follow up Medications: Prescriptions This Visit Medication Instructions Recorded Acetaminophen [Tylenol] 650 mg PO TID PRN 12/18/17 Lactobacillus Acidophilus 1 each PO DAILY 12/18/17 [Acidophilus Lactobacilli] Morphine Sulfate [Morphine Sulfate 15 mg PO Q8 12/18/17 ER] Omeprazole [Prilosec] 20 mg PO DAILY 12/18/17 Oxycodone [Oxyir] 5 mg PO Q4H PRN PRN 12/18/17 ProCHLORPERazine [Compazine] 10 mg PO Q8 PRN 12/18/17 Medications Added to Medication List This Visit Category Date Time Status 0.9% Saline Lock Med 12/18/17 08:33 Active 5 - 30 ml IV UD PRN HydrALAZINE [Apresoline] Med 12/18/17 07:48 Active 10 mg IV Q4H PRN PRN Lactobacillus Acidophilus [Acidophilus] Med 12/18/17 10:00 Active 1 tablet PO DAILY Metronidazole [Flagyl] Med 12/18/17 08:00 Active 500 mg in 100 ml IV Q8 MorphINE [MS Contin] Med 12/18/17 07:48 Active 15 mg PO Q8 Vancomcyin 125 MG/ 5 ML Susp [Vancomycin 125mg/5mL Susp Med 12/18/17 07:48 Active ] 125 mg PO Q6 Primary Care Provider: Mitchell Whiteside MD Referring Provider:
[2017-12-18] MEDS: Ondansetron 4 MG/2 ML Vial IV ×2 (10:22→20:29)
[2017-12-18] MEDS: 0.9% NaCl Peripheral Flush Adult/Peds IV (10:22)
--- NOTE | 2017-12-18 12:24 | NURSING ---
PT PLACED ON O2 2L NC
[2017-12-18] MEDS: Acetaminophen 325 MG Tablet 650 MG PO (12:35)
--- NOTE | 2017-12-18 12:44 | NURSING ---
PT TEMP 101.[address]PORAL[address] TEXT SENT TO DR AVILA REGARDING SAME.
[2017-12-18 13:54] LABS: Pathologist Review Reviewed
--- NOTE | 2017-12-18 14:33 | CASEMGMT ---
See RN CM RN CM called to [facility]. They have had 3 referrals to start pt, but were unable. (pt was readmitted to hospital and referral was cancelled because order was sent by PCP Miesha to [facility]. [facility] cannot take pt's insurance @ this time.) -Will continue to follow and call [facility] closer to dc to be sure home with [facility] is actual dc plan. -If PT/OT recommends, pt may need short term SNF stay. Aparna MOONN RN ACM
[2017-12-18] MEDS: Menthol/Lanolin/Calamine/Znox 113 GM Tube 1 APPLIC TOPICAL (21:23)
[2017-12-18] MEDS: 0.9% Normal Saline 1,000 ML 999 ML IV (22:00)
[2017-12-19] VITALS (11 sets, daily range): BP systolic 105–128; BP diastolic 55–67; PULSE 84–104; RESP 16–18; TEMP 36.3–37.4; O2SAT 94–98
[2017-12-19] MEDS: 0.9% Normal Saline 1,000 ML 125 ML IV ×3 (03:10→19:57)
--- NOTE | 2017-12-19 04:25 | NURSING ---
Elevated HR with exertion.
[2017-12-19] MEDS: Ondansetron 4 MG/2 ML Vial IV ×3 (04:48→22:49)
[2017-12-19] MEDS: 0.9% NaCl Peripheral Flush Adult/Peds IV ×2 (04:48→22:49)
[2017-12-19] MEDS: Menthol/Lanolin/Calamine/Znox 113 GM Tube 1 APPLIC TOPICAL ×3 (04:48→22:54)
[2017-12-19 05:03] LABS: Anion Gap 8 (5-15); BUN 13 mg/dL (7-18); BUN/Creat Ratio 13.3 RATIO (10-20); Calcium,Total 7.9 mg/dL (8.5-10.1); Chloride 105 mmol/L (98-107); Creatinine, Serum 0.97 mg/dL (0.55-1.02); EST Glomerular Filtration Rate 60 mL/min (>60); Est Glom Filt Rate - Afr Amer 73 mL/min (>60); Glucose 105 mg/dL (70-110); Potassium 3.4 mmol/L (3.5-5.1); Sodium Level 135 mmol/L (136-145)
[2017-12-19 05:09] LABS: Absolute Lymphocyte Count 1.88 X10^3/ul (0.83-4.51); Absolute Neutrophil Count 21.6 X10^3/uL (2.0-7.7); Basophil# 0.03 X10^3/uL; Basophil% 0.1 % (0-1); Eosinophils% 0.8 % (0-5); Hematocrit 31.4 % (37-47); Hemoglobin 9.9 g/dl (12.0-15.0); Lymphocyte # 1.88 X10^3/ul (4.0); Lymphocyte % 7.6 % (19-41); Mean Corp Hgb Conc 31.5 g/gl (32-36); Mean Corpuscular Volume 95.2 fL (81-99); Mean Platelet Vol. 9.4 fl (6.2-12.0); Monocyte# 1.16 X10^3/uL; Monocyte% 4.7 % (0-10); Neutrophil # 21.57 X10^3/uL (2.7-7.7); Neutrophil % 86.6 % (47-70); Platelet Count 238 K/mm3 (150-450); RBC Distribution Width SD 52.3 fl (35.1-43.9); White Blood Count 24.9 K/mm3 (4.4-11.0)
[2017-12-19 05:17] LABS: Differential Indicated SCAN CRITERIA MET; POSITIVE COUNT NO; POSITIVE DIFFERENTIAL YES; POSITIVE MORPHOLOGY YES
[2017-12-19 05:48] LABS: Platelet Estimate ADEQUATE (ADEQ)
[2017-12-19 05:49] LABS: Anisocytosis 1+; Differential Comment SCANNED
[2017-12-19] MEDS: guaiFENesin 1,200 MG Tablet 1200 MG PO ×2 (09:00→22:56)
[2017-12-19] MEDS: Enoxaparin 40 MG/0.4 ML Syringe SC (09:00)
--- NOTE | 2017-12-19 11:26 | PCA ---
daughter in room with pt
--- NOTE | 2017-12-19 14:08 | PCM.PROGNOTE ---
Patient Problems: Active and Suspected Problems SCLC (small cell lung carcinoma) (Acute) Bone metastases (Acute) Regional lymph node metastasis present (Acute) Back pain (Acute) Leukocytosis (Acute) Nausea (Acute) Diarrhea (Acute) Pneumonia (Acute) Fever (Acute) Subjective: Patient was seen and examined today, she complains of frequent diarrhea and continued weakness, her stool was positive for C. difficile toxin, her white blood cell count has decreased from yesterday. - Physical Exam General: Alert, Oriented x3, Cooperative, Well developed HEENT: Atraumatic, PERRLA, EOMI, Normocephalic Oral: Moist Mucosa Neck: Supple, No JVD, No Nuchal Rigidity, Trachea Midline, Thyroid Normal Size and Texture Lungs: Clear to auscultation, Normal air movement, No rhonchi, No wheeze, No rales Cardiovascular: Regular rate, Regular Rhythm, Normal S1, Normal S2, No murmurs, No Ectopic Activity, PMI Normal, No rub noted, No Gallop Abdomen: Bowel Sounds Present, Soft, Non Tender, Non-Distended, No hernias noted Extremities: No clubbing, No cyanosis, No edema, Capillary Refill Less than 3 Seconds Skin: No rashes, No breakdown Musculoskeletal: No Tenderness to Palpation of Joints or Extremities Neurological: Cranial nerves II-XII grossly intact, Neuro grossly intact, Sensory exam intact to light touch and pain, Coordination normal Psych/Mental Status: Normal Affect, Appropriate, Alert and oriented to time, place, person, mood and affect Vital Signs Temp Pulse Resp BP Pulse Ox 97.8 F 95 18 115/55 L 94 12/19/17 08:30 12/19/17 08:30 12/19/17 08:30 12/19/17 08:30 12/19/17 09:28 Oxygen Flow Rate 1 Oxygen Delivery Method Nasal Cannula Weight: 83.518 kg Body Mass Index (BMI) 31.6 Intake and Output for Last 24 Hours 12/17/17 12/18/17 12/19/17 23:59 23:59 23:59 Intake Total 2802 / 2802 940 / 940 Output Total 300 / 300 Balance 2502 / 2502 940 / 940 Microbiology Past 72 Hours 12/18/17 09:41 Enteric Bacteriology - Final Stool 12/18/17 09:41 C. difficile DNA Amplification - Final Stool Toxigenic C. difficile DNA Laboratory Tests Past 24 Hrs 12/19/17 12/19/17 04:40 04:40 WBC 24.9 H RBC 3.30 L Hgb 9.9 L Hct 31.4 L MCV 95.2 MCH 30.0 MCHC 31.5 L RDW 15.0 H RDW Differential 52.3 H Plt Count 238 MPV 9.4 Immature Gran % (Auto) 0.200 Neut % (Auto) 86.6 H Lymph % (Auto) 7.6 L [place] % (Auto) 4.7 Eos % (Auto) 0.8 Baso % (Auto) 0.1 Absolute Neuts (auto) 21.6 H Absolute Lymphs (auto) 1.88 Total Counted Not Reportable Differential Comment SCANNED Platelet Estimate ADEQUATE Anisocytosis 1+ Sodium 135 L Potassium 3.4 L Chloride 105 Carbon Dioxide 22.0 Anion Gap 8 BUN 13 Creatinine 0.97 Estim Creat Clear Calc 46.60 Est GFR (MDRD) Af Amer 73 Est GFR (MDRD) Non-Af 60 BUN/Creatinine Ratio 13.3 Glucose 105 Calcium 7.9 L Assessment/Plan Active and Suspected Problems SCLC (small cell lung carcinoma) (Acute) Bone metastases (Acute) Regional lymph node metastasis present (Acute) Back pain (Acute) Leukocytosis (Acute) Nausea (Acute) Diarrhea (Acute) Pneumonia (Acute) Fever (Acute) #1 C. difficile colitis-continue p.o. vancomycin, encourage fluid intake, continue IV fluid administration, patient requests advancing to a soft diet I think this is okay #2 small cell lung cancer with metastatic spread #3 hypokalemia-insignificant, recheck BMP tomorrow #4 Right lower lobe infiltrate-possible tumor versus atelectasis, I will recheck her chest x-ray tomorrow, I do not think she has pneumonia Code Visit Inpatient E&M: 37062 Subs Hosp L2
[2017-12-19] MEDS: Acetaminophen 325 MG Tablet 650 MG PO (14:36)
[2017-12-19] MEDS: oxyCODONE 5 MG Tablet PO (18:03)
[2017-12-20] VITALS (8 sets, daily range): BP systolic 119–133; BP diastolic 64–75; PULSE 77–95; RESP 16–18; TEMP 36.2–37.1; O2SAT 93–98
[2017-12-20] MEDS: oxyCODONE 5 MG Tablet PO (02:15)
[2017-12-20] MEDS: 0.9% Normal Saline 1,000 ML 125 ML IV ×2 (02:15→10:49)
[2017-12-20] MEDS: Menthol/Lanolin/Calamine/Znox 113 GM Tube 1 APPLIC TOPICAL ×3 (05:23→21:08)
[2017-12-20] MEDS: Enoxaparin 40 MG/0.4 ML Syringe SC (09:01)
[2017-12-20] MEDS: guaiFENesin 1,200 MG Tablet 1200 MG PO ×2 (09:01→21:08)
[2017-12-20] MEDS: Ondansetron 4 MG/2 ML Vial IV ×2 (09:05→17:12)
--- NOTE | 2017-12-20 15:10 | RAD_ITS ---
STUDY: X-RAY CHEST REASON FOR EXAM: Female, 72 years old. Pneumonia TECHNIQUE: Frontal view of the chest COMPARISON: 12/18/2017 FINDINGS: Again noted is a right-sided port with its tip in the superior vena cava. There is a right lower lobe infiltrate which is slightly decreased in size when compared with the prior exam. The lungs are otherwise clear. There are no pleural effusions. There is no pneumothorax. The heart is normal in size. Again noted are spinal fusion rods. RAD/Chest 1 View (Portable) IMPRESSION: Slight interval decrease in size of the right lower lobe infiltrate. Electronically Signed: Haroldo Molina, at 19:57 EST Tel , Service support ,
--- NOTE | 2017-12-20 15:10 | PN_ITS ---
Patient Problems: Active and Suspected Problems SCLC (small cell lung carcinoma) (Acute) Bone metastases (Acute) Regional lymph node metastasis present (Acute) Back pain (Acute) Leukocytosis (Acute) Nausea (Acute) Diarrhea (Acute) Pneumonia (Acute) Fever (Acute) Subjective: Since seen and examined today, she continued to complain of generalized weakness , she is still had some diarrhea this morning. - Physical Exam General: Alert, Oriented x3, Cooperative, No apparent distress, Well developed, Well nourished HEENT: Atraumatic, PERRLA, EOMI, Normocephalic Oral: Moist Mucosa Neck: Supple, No Nuchal Rigidity, Trachea Midline, Thyroid Normal Size and Texture Lungs: Clear to auscultation, Normal air movement, No rhonchi, No wheeze, No rales Cardiovascular: Regular rate, Regular Rhythm, Normal S1, Normal S2, No murmurs, No Ectopic Activity, PMI Normal, No rub noted, No Gallop Abdomen: Bowel Sounds Present, Soft, Non Tender, Non-Distended Extremities: No clubbing, No cyanosis, No edema, Capillary Refill Less than 3 Seconds Skin: No rashes, No breakdown Musculoskeletal: No Tenderness to Palpation of Joints or Extremities Neurological: Cranial nerves II-XII grossly intact, Neuro grossly intact, Sensory exam intact to light touch and pain, Coordination normal Psych/Mental Status: Normal Affect, Appropriate, Alert and oriented to time, place, person, mood and affect Vital Signs Temp Pulse Resp BP Pulse Ox 97.7 F L 95 16 133/75 H 98 12/20/17 14:01 12/20/17 14:01 12/20/17 14:01 12/20/17 14:01 12/20/17 14:01 Oxygen Flow Rate 1 Oxygen Delivery Method Room Air Weight: 83.518 kg Body Mass Index (BMI) 31.6 Intake and Output for Last 24 Hours 12/18/17 12/19/17 12/20/17 23:59 23:59 23:59 Intake Total 2802 / 2802 1708 / 1708 1842 / 1842 Output Total 300 / 300 Balance 2502 / 2502 1708 / 1708 184 / 1842 Microbiology Past 72 Hours 12/18/17 09:41 Enteric Bacteriology - Final Stool 12/18/17 09:41 C. difficile DNA Amplification - Final Stool Toxigenic C. difficile DNA Assessment/Plan Active and Suspected Problems SCLC (small cell lung carcinoma) (Acute) Bone metastases (Acute) Regional lymph node metastasis present (Acute) Back pain (Acute) Leukocytosis (Acute) Nausea (Acute) Diarrhea (Acute) Pneumonia (Acute) Fever (Acute) #1 C. difficile colitis-continue p.o. vancomycin, encourage fluid intake, continue IV fluid administration-I reduced her IV fluids today, hopefully she will be stable to be discharged tomorrow #2 small cell lung cancer/neuroendocrine cancer with metastatic spread #3 hypokalemia-I repeated the patient's BMP today and her potassium was 3, she will receive oral potassium, I will recheck her BMP tomorrow, I will also recheck her magnesium. She has gotten chemotherapy and this is probably depleting her electrolytes #4 Right lower lobe infiltrate-probable tumor versus atelectasis-I redid the patient's chest x-ray today, I looked at the x-ray myself and there is an infiltrate/mass in the right lower lobe, I do not feel this is a pneumonia, I talked with the patient's oncologist Dr. Jones, he thinks it is likely the cancer and he agrees with not ordering a CAT scan or any other additional imaging studies. #5 generalized debility-I do not think the patient will require skilled care Summary: This 72-year-old white female with history of metastatic small cell cancer was admitted with an elevated white blood cell count and found to have C. difficile colitis. There is a area of abnormal density in the right lower lung field, chest x-ray will be repeated today to check on this, I do not feel the patient had a clinical pneumonia. She is currently on oral vancomycin Code Visit Inpatient E&M: 23498 Subs Hosp L2
[2017-12-20 16:24] LABS: Anion Gap 7 (5-15); BUN 7 mg/dL (7-18); Chloride 110 mmol/L (98-107); EST Glomerular Filtration Rate 88 mL/min (>60); Est Glom Filt Rate - Afr Amer 106 mL/min (>60); Glucose 102 mg/dL (70-110); Sodium Level 139 mmol/L (136-145)
[2017-12-20] MEDS: 0.9% Normal Saline 1,000 ML 100 ML IV (21:08)
[2017-12-20] MEDS: Zolpidem Tartrate 5 MG Tablet PO (23:13)
[2017-12-21 02:53] VITALS: BP 114/64; PULSE 86; RESP 16; TEMP 36.5; O2SAT 94
[2017-12-21] MEDS: Menthol/Lanolin/Calamine/Znox 113 GM Tube 1 APPLIC TOPICAL ×3 (05:33→21:20)
[2017-12-21] MEDS: 0.9% NaCl Peripheral Flush Adult/Peds IV (05:38)
[2017-12-21 06:19] LABS: Absolute Lymphocyte Count 2.08 X10^3/ul (0.83-4.51); Basophil# 0.02 X10^3/uL; Basophil% 0.2 % (0-1); Eosinophil# 1.65 X10^3/uL; Eosinophils% 12.8 % (0-5); Hematocrit 28.1 % (37-47); Hemoglobin 9.1 g/dl (12.0-15.0); Lymphocyte # 2.08 X10^3/ul (4.0); Lymphocyte % 16.1 % (19-41); Mean Corp Hgb Conc 32.4 g/gl (32-36); Mean Corpuscular Hgb 30.7 pg (27.0-32.0); Mean Corpuscular Volume 94.9 fL (81-99); Mean Platelet Vol. 9.7 fl (6.2-12.0); Monocyte# 1.12 X10^3/uL; Monocyte% 8.7 % (0-10); Neutrophil # 8.03 X10^3/uL (2.7-7.7); Neutrophil % 61.9 % (47-70); Platelet Count 271 K/mm3 (150-450); RBC Distribution Width CV 14.7 % (11.6-14.6); RBC Distribution Width SD 48.5 fl (35.1-43.9); Red Blood Count 2.96 M/mm3 (4.2-5.4); White Blood Count 12.9 K/mm3 (4.4-11.0)
[2017-12-21 06:29] LABS: POSITIVE COUNT NO; POSITIVE DIFFERENTIAL NO; POSITIVE MORPHOLOGY NO
[2017-12-21 06:35] LABS: Anion Gap 8 (5-15); BUN 5 mg/dL (7-18); BUN/Creat Ratio 8.7 RATIO (10-20); Calcium,Total 7.9 mg/dL (8.5-10.1); Chloride 109 mmol/L (98-107); Creatinine, Serum 0.57 mg/dL (0.55-1.02); EST Glomerular Filtration Rate 111 mL/min (>60); Est Glom Filt Rate - Afr Amer 134 mL/min (>60); Glucose 77 mg/dL (70-110); Magnesium 1.4 mg/dL (1.6-2.6); Potassium 3.1 mmol/L (3.5-5.1); Sodium Level 140 mmol/L (136-145)
[2017-12-21] MEDS: 0.9% Normal Saline 1,000 ML 100 ML IV ×2 (06:49→20:31)
--- NOTE | 2017-12-21 07:31 | PCM.PN.HOSP ---
Patient Problems: Active and Suspected Problems SCLC (small cell lung carcinoma) (Acute) Bone metastases (Acute) Regional lymph node metastasis present (Acute) Subjective: Patient with ongoing copious diarrhea, noted to still have at least 8-9 bowel movements although she notes these have been firming. Notes continued difficulties getting to the restroom appropriately to avoid swelling herself. Adjust physical and occupational therapy assessment with recommendation for continued home therapies and at least 24 hour supervision, given current status encouraging consideration for [facility] facility. Patient does state she is improved since prior and notably since admission. He will has notable nausea with oral intake and copious diarrhea following abdominal cramping and discomfort associated. Patient denies fevers, chills, chest pain or dyspnea. Objective: Physical Examination: General: awake, alert, oriented x 3 and cooperative, seated upright in the bed, fatigued appearance. Skin: normal color, turgor, no icterus, cyanosis. HEENT: AT/NC, EOMI, PERRLA, mildly dry MM. Lungs: Diminished BS BL bases, moderate effort, no rales, ronchi or wheezing. Heart: Regular rate and rhythm; no gallop, rub audible. Abdomen: soft, mild generalized TTP, not markedly distended, continued mildly hyperactive BS. Extremities: no cyanosis, clubbing, or edema. Neurological: patient awake, alert, oriented x 3; cognitive function intact; pupils equally reactive to light and accomodation; cranial nerves II-XII grossly normal, moving all 4 extremities, no focal deficits, strength severely globally decreased secondary to acute presentation. Psychiatric: affect appears fatigued, no acute evidence of depressive or anxiety feelings. Vitals/I&O's: Vital Signs Temp Pulse Resp BP Pulse Ox 97.7 F L 86 16 114/64 94 12/21/17 02:53 12/21/17 02:53 12/21/17 02:53 12/21/17 02:53 12/21/17 02:53 Oxygen Flow Rate 1 Oxygen Delivery Method Room Air Weight: 184 lb 2.011 oz Body Mass Index (BMI) 31.6 Intake and Output for Last 24 Hours 12/19/17 12/20/17 12/21/17 23:59 23:59 23:59 Intake Total 1708 / 1708 2799 / 2799 1538 / 1538 Balance 1708 / 1708 2799 / 2799 1538 / 1538 Microbiology Past 72 Hours 12/18/17 09:41 Stool Enteric Bacteriology - Final 12/18/17 09:41 Stool C. difficile DNA Amplification - Final Toxigenic C. difficile DNA Laboratory Results 12/20/17 15:50: Sodium 139, Potassium 3.0 L, Chloride 110 H, Carbon Dioxide 22.0, Anion Gap 7, BUN 7, Creatinine 0.70, Estim Creat Clear Calc 45.20, Est GFR (MDRD) Af Amer 106, Est GFR (MDRD) Non-Af 88, BUN/Creatinine Ratio 10.0, Glucose 102, Calcium 8.0 L 12/21/17 05:35: WBC 12.9 H, RBC 2.96 L, Hgb 9.1 L, Hct 28.1 L, MCV 94.9, MCH 30.7, MCHC 32.4, RDW 14.7 H, RDW Differential 48.5 H, Plt Count 271, MPV 9.7, Immature Gran % (Auto) 0.300, Neut % (Auto) 61.9, Lymph % (Auto) 16.1 L, [place] % (Auto) 8.7, Eos % (Auto) 12.8 H, Baso % (Auto) 0.2, Absolute Neuts (auto) 8.0 H, Absolute Lymphs (auto) 2.08, Total Counted Not Reportable 12/21/17 05:35: Sodium 140, Potassium 3.1 L, Chloride 109 H, Carbon Dioxide 23.0, Anion Gap 8, BUN 5 L, Creatinine 0.57, Estim Creat Clear Calc 45.20, Est GFR (MDRD) Af Amer 134, Est GFR (MDRD) Non-Af 111, BUN/Creatinine Ratio 8.7 L, Glucose 77, Calcium 7.9 L, Magnesium 1.4 L Current Medications Acetaminophen (Tylenol) 650 mg PO Q6H PRN PRN PRN Reason: Mild Pain (scale 0-3)/T>100.7 Last Admin: 12/19/17 14:36 Dose: 650 mg Al Hydroxide/Mg Hydroxide (Mylanta Ii) 30 ml PO Q6H PRN PRN PRN Reason: Gastric burning Albuterol Sulfate (Ventolin Aerosols) 2.5 mg INHALATION Q2H PRN PRN PRN Reason: SHORTNESS OF BREATH Calamine/Phenol (Calmoseptine Ointment) 1 applic TOPICAL TID [facility] PRN Reason: Protocol Last Admin: 12/21/17 05:33 Dose: 1 applicatio Enoxaparin Sodium (Lovenox) 40 mg SC DAILY@1000 [facility] Last Admin: 12/20/17 09:01 Dose: 40 mg Guaifenesin (Mucinex) 1,200 mg PO BID [facility] Last Admin: 12/20/17 21:08 Dose: 1,200 mg Sodium Chloride () 1,000 mls @ 100 mls/hr IV .Q10H [facility] Last Admin: 12/21/17 06:49 Dose: 100 mls/hr Lactobacillus Acidophilus (Acidophilus) 1 tablet PO DAILY [facility] Last Admin: 12/20/17 09:01 Dose: 1 tablet Magnesium Hydroxide (Milk Of Magnesia) 30 ml PO DAILY PRN PRN PRN Reason: Constipation Morphine Sulfate (Morphine) 2 - 4 mg IV Q3H PRN PRN PRN Reason: Severe Pain (pain scale 6-10) Last Admin: 12/18/17 18:18 Dose: 2 mg Morphine Sulfate (Morphine) 1 - 2 mg IV Q4H PRN PRN PRN Reason: Moderate Pain (pain scale 4-5) Morphine Sulfate (Ms Contin) 15 mg PO Q8 [facility] Last Admin: 12/21/17 05:32 Dose: 15 mg Nutritional Formula (Lactose Free) (Ensure Enlive) 120 ml PO 4X/DAY [facility] Last Admin: 12/20/17 20:46 Dose: Not Given Ondansetron HCl (Zofran) 4 mg IV Q8H PRN PRN PRN Reason: NAUSEA Last Admin: 12/20/17 17:12 Dose: 4 mg Oxycodone HCl (Oxyir) 5 - 10 mg PO Q4H PRN PRN PRN Reason: Moderate Pain (pain scale 4-5) Last Admin: 12/20/17 02:15 Dose: 10 mg Promethazine HCl (Phenergan (Ll)) 12.5 mg IV Q6H PRN PRN PRN Reason: NAUSEA/VOMITING Sodium Chloride () 5 - 30 ml IV UD PRN PRN Reason: SALINE FLUSH Last Admin: 12/21/17 05:38 Dose: 20 ml Vancomycin HCl (Vancomycin 125mg/5ml Susp) 125 mg PO Q6 [facility] Last Admin: 12/21/17 05:32 Dose: 125 mg Zolpidem Tartrate (Ambien (Generic)) 5 mg PO QHS PRN PRN PRN Reason: SLEEP Last Admin: 12/20/17 23:13 Dose: 5 mg Assessment/Plan Active and Suspected Problems SCLC (small cell lung carcinoma) (Acute) Bone metastases (Acute) Regional lymph node metastasis present (Acute) The patient is a 72 y/o F w/ PMHx: Obesity, Former Tobacco use, Stage IV Endocrine Cancer on chemotherapy and radiation with port placement ~ 48 hours prior who presents to the [facility] ED on 12/18/17 w/ no marked pulmonary sxs although daughter notes an occasional cough to clear her throat over the last 2 weeks with onset starting at 4:00 pm the day prior fatigue, malaise, poor appetite followed by the abrupt onset early this AM of nausea, emesis and diarrhea. She and her family note she recently completed treatment for clostridium difficile infection. (1) Recurrent Clostridium Difficile Infection: Admission CBC w/ WBC 27.5 with L shift-->12/21/17 CBC w/ WBC 12.9, Hgb 9.1, Plts 271 with improved L shift. Maintained on MS, maintain on oral vancomycin and IV flagyl initially-->oral vanc only, +c-diff assay obtained, HOB, IS parameters, additionally given CXR findings upon admission although lower suspicion, requested sputum cultures and urine antigens given possibility of PNA which were noted to be unremarkable, Bld Cx x 2 without growth, influenza rapid negative. PRN anti-emetics, pain regimen. Hold famotidine/PPI regimens given c-diff. PT, OT with current recommendation for discharge to home with home health and 24 hour supervision; however, given extent of ongoing GI losses and difficulty with soiling herself, discussed w/ electrical discharge machine operator to encourage consideration of SNF. Once medically appropriate, would plan 14 days of treatment with stop date after 12/31/17. Given severity of ongoing diarrhea, will consult ID given recurrent c-difficile for close monitoring and outpatient follow-up for consideration of pulse dosing if necessary. (2) RLL Infiltrate, Suspected Tumor versus Atelectasis w/ Metastatic Small Cell Lung Carcinoma: CXR in the ED w/ ? RLL infiltrate although from discussions with patient lend me to believe this is more likely cancer. Hem/Onc following, suspected tumor, deferred additional imaging per Hem/Onc. 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 (4) Hypokalemia, Hypomagnesium: Admission K+ 3.1, magnesium 1.4, supplementation given, repeat level in AM. (5) Hyperglycemia: Admission glucose 146, likely stress with infection, HgbA1c 5.3%. (6) Obesity: Weight loss and lifestyle changes encouraged. (7) History of Tobacco use: Encourage continued cessation. (8) Chronic Pain Syndrome: Maintain on chronic pain regimen, PRN additional oral/IV, fall precautions, position changes, PT and OT assessment. (9) DVT Prophylaxis: SCDs, lovenox. Code Visit Inpatient E&M: 34738 Subs Hosp L3
--- NOTE | 2017-12-21 07:39 | PN_ITS ---
Patient Problems: Active and Suspected Problems SCLC (small cell lung carcinoma) (Acute) Bone metastases (Acute) Regional lymph node metastasis present (Acute) Subjective: Patient with ongoing copious diarrhea, noted to still have at least 8-9 bowel movements although she notes these have been firming. Notes continued difficulties getting to the restroom appropriately to avoid swelling herself. Adjust physical and occupational therapy assessment with recommendation for continued home therapies and at least 24 hour supervision, given current status encouraging consideration for senior living facility. Patient does state she is improved since prior and notably since admission. He will has notable nausea with oral intake and copious diarrhea following abdominal cramping and discomfort associated. Patient denies fevers, chills, chest pain or dyspnea. Objective: Physical Examination: General: awake, alert, oriented x 3 and cooperative, seated upright in the bed, fatigued appearance. Skin: normal color, turgor, no icterus, cyanosis. HEENT: AT/NC, EOMI, PERRLA, mildly dry MM. Lungs: Diminished BS BL bases, moderate effort, no rales, ronchi or wheezing. Heart: Regular rate and rhythm; no gallop, rub audible. Abdomen: soft, mild generalized TTP, not markedly distended, continued mildly hyperactive BS. Extremities: no cyanosis, clubbing, or edema. Neurological: patient awake, alert, oriented x 3; cognitive function intact; pupils equally reactive to light and accomodation; cranial nerves II-XII grossly normal, moving all 4 extremities, no focal deficits, strength severely globally decreased secondary to acute presentation. Psychiatric: affect appears fatigued, no acute evidence of depressive or anxiety feelings. Vitals/I&O's: Vital Signs Temp Pulse Resp BP Pulse Ox 97.7 F L 86 16 114/64 94 12/21/17 02:53 12/21/17 02:53 12/21/17 02:53 12/21/17 02:53 12/21/17 02:53 Oxygen Flow Rate 1 Oxygen Delivery Method Room Air Weight: 184 lb 2.011 oz Body Mass Index (BMI) 31.6 Intake and Output for Last 24 Hours 12/19/17 12/20/17 12/21/17 23:59 23:59 23:59 Intake Total 1708 / 1708 2799 / 2799 1538 / 1538 Balance 1708 / 1708 2799 / 2799 1538 / 1538 Microbiology Past 72 Hours 12/18/17 09:41 Stool Enteric Bacteriology - Final 12/18/17 09:41 Stool C. difficile DNA Amplification - Final Toxigenic C. difficile DNA Laboratory Results 12/20/17 15:50: Sodium 139, Potassium 3.0 L, Chloride 110 H, Carbon Dioxide 22.0 , Anion Gap 7, BUN 7, Creatinine 0.70, Estim Creat Clear Calc 45.20, Est GFR ( MDRD) Af Amer 106, Est GFR (MDRD) Non-Af 88, BUN/Creatinine Ratio 10.0, Glucose 102, Calcium 8.0 L 12/21/17 05:35: WBC 12.9 H, RBC 2.96 L, Hgb 9.1 L, Hct 28.1 L, MCV 94.9, MCH 30.7, MCHC 32.4, RDW 14.7 H, RDW Differential 48.5 H, Plt Count 271, MPV 9.7, Immature Gran % (Auto) 0.300, Neut % (Auto) 61.9, Lymph % (Auto) 16.1 L, [place] % (Auto) 8.7, Eos % (Auto) 12.8 H, Baso % (Auto) 0.2, Absolute Neuts (auto) 8.0 H , Absolute Lymphs (auto) 2.08, Total Counted Not Reportable 12/21/17 05:35: Sodium 140, Potassium 3.1 L, Chloride 109 H, Carbon Dioxide 23.0 , Anion Gap 8, BUN 5 L, Creatinine 0.57, Estim Creat Clear Calc 45.20, Est GFR ( MDRD) Af Amer 134, Est GFR (MDRD) Non-Af 111, BUN/Creatinine Ratio 8.7 L, Glucose 77, Calcium 7.9 L, Magnesium 1.4 L Current Medications Acetaminophen (Tylenol) 650 mg PO Q6H PRN PRN PRN Reason: Mild Pain (scale 0-3)/T>100.7 Last Admin: 12/19/17 14:36 Dose: 650 mg Al Hydroxide/Mg Hydroxide (Mylanta Ii) 30 ml PO Q6H PRN PRN PRN Reason: Gastric burning Albuterol Sulfate (Ventolin Aerosols) 2.5 mg INHALATION Q2H PRN PRN PRN Reason: SHORTNESS OF BREATH Calamine/Phenol (Calmoseptine Ointment) 1 applic TOPICAL TID [facility] PRN Reason: Protocol Last Admin: 12/21/17 05:33 Dose: 1 applicatio Enoxaparin Sodium (Lovenox) 40 mg SC DAILY@1000 [facility] Last Admin: 12/20/17 09:01 Dose: 40 mg Guaifenesin (Mucinex) 1,200 mg PO BID [facility] Last Admin: 12/20/17 21:08 Dose: 1,200 mg Sodium Chloride () 1,000 mls @ 100 mls/hr IV .Q10H [facility] Last Admin: 12/21/17 06:49 Dose: 100 mls/hr Lactobacillus Acidophilus (Acidophilus) 1 tablet PO DAILY [facility] Last Admin: 12/20/17 09:01 Dose: 1 tablet Magnesium Hydroxide (Milk Of Magnesia) 30 ml PO DAILY PRN PRN PRN Reason: Constipation Morphine Sulfate (Morphine) 2 - 4 mg IV Q3H PRN PRN PRN Reason: Severe Pain (pain scale 6-10) Last Admin: 12/18/17 18:18 Dose: 2 mg Morphine Sulfate (Morphine) 1 - 2 mg IV Q4H PRN PRN PRN Reason: Moderate Pain (pain scale 4-5) Morphine Sulfate (Ms Contin) 15 mg PO Q8 [facility] Last Admin: 12/21/17 05:32 Dose: 15 mg Nutritional Formula (Lactose Free) (Ensure Enlive) 120 ml PO 4X/DAY [facility] Last Admin: 12/20/17 20:46 Dose: Not Given Ondansetron HCl (Zofran) 4 mg IV Q8H PRN PRN PRN Reason: NAUSEA Last Admin: 12/20/17 17:12 Dose: 4 mg Oxycodone HCl (Oxyir) 5 - 10 mg PO Q4H PRN PRN PRN Reason: Moderate Pain (pain scale 4-5) Last Admin: 12/20/17 02:15 Dose: 10 mg Promethazine HCl (Phenergan (Ll)) 12.5 mg IV Q6H PRN PRN PRN Reason: NAUSEA/VOMITING Sodium Chloride () 5 - 30 ml IV UD PRN PRN Reason: SALINE FLUSH Last Admin: 12/21/17 05:38 Dose: 20 ml Vancomycin HCl (Vancomycin 125mg/5ml Susp) 125 mg PO Q6 [facility] Last Admin: 12/21/17 05:32 Dose: 125 mg Zolpidem Tartrate (Ambien (Generic)) 5 mg PO QHS PRN PRN PRN Reason: SLEEP Last Admin: 12/20/17 23:13 Dose: 5 mg Assessment/Plan Active and Suspected Problems SCLC (small cell lung carcinoma) (Acute) Bone metastases (Acute) Regional lymph node metastasis present (Acute) The patient is a 72 y/o F w/ PMHx: Obesity, Former Tobacco use, Stage IV Endocrine Cancer on chemotherapy and radiation with port placement ~ 48 hours prior who presents to the [facility] ED on 12/18/17 w/ no marked pulmonary sxs although daughter notes an occasional cough to clear her throat over the last 2 weeks with onset starting at 4:00 pm the day prior fatigue, malaise, poor appetite followed by the abrupt onset early this AM of nausea, emesis and diarrhea. She and her family note she recently completed treatment for clostridium difficile infection. (1) Recurrent Clostridium Difficile Infection: Admission CBC w/ WBC 27.5 with L shift-->12/21/17 CBC w/ WBC 12.9, Hgb 9.1, Plts 271 with improved L shift. Maintained on MS, maintain on oral vancomycin and IV flagyl initially-->oral vanc only, +c-diff assay obtained, HOB, IS parameters, additionally given CXR findings upon admission although lower suspicion, requested sputum cultures and urine antigens given possibility of PNA which were noted to be unremarkable, Bld Cx x 2 without growth, influenza rapid negative. PRN anti-emetics, pain regimen. Hold famotidine/PPI regimens given c-diff. PT, OT with current recommendation for discharge to home with home health and 24 hour supervision; however, given extent of ongoing GI losses and difficulty with soiling herself, discussed w/ rn discharge to encourage consideration of SNF. Once medically appropriate, would plan 14 days of treatment with stop date after 12/31/17. Given severity of ongoing diarrhea, will consult ID given recurrent c-difficile for close monitoring and outpatient follow-up for consideration of pulse dosing if necessary. (2) RLL Infiltrate, Suspected Tumor versus Atelectasis w/ Metastatic Small Cell Lung Carcinoma: CXR in the ED w/ ? RLL infiltrate although from discussions with patient lend me to believe this is more likely cancer. Hem/Onc following, suspected tumor, deferred additional imaging per Hem/Onc. 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 (4) Hypokalemia, Hypomagnesium: Admission K+ 3.1, magnesium 1.4, supplementation given, repeat level in AM. (5) Hyperglycemia: Admission glucose 146, likely stress with infection, HgbA1c 5.3%. (6) Obesity: Weight loss and lifestyle changes encouraged. (7) History of Tobacco use: Encourage continued cessation. (8) Chronic Pain Syndrome: Maintain on chronic pain regimen, PRN additional oral /IV, fall precautions, position changes, PT and OT assessment. (9) DVT Prophylaxis: SCDs, lovenox. Code Visit Inpatient E&M: 39964 Subs Hosp L3
[2017-12-21 09:07] VITALS: BP 135/70; PULSE 90; RESP 18; TEMP 36.6; O2SAT 96
[2017-12-21] MEDS: guaiFENesin 1,200 MG Tablet 1200 MG PO ×2 (09:09→21:20)
[2017-12-21] MEDS: Enoxaparin 40 MG/0.4 ML Syringe SC (09:09)
--- NOTE | 2017-12-21 10:02 | NURSING ---
Spoke with Chayo at Dr. Fernando's office- notified of consult- states she will notify him.
--- NOTE | 2017-12-21 11:23 | PCM.HP.ID ---
Problem List (1) Diarrhea Status: Acute Reason for Consult: cdiff Consulted by: Dr. Harmon History of Present Illness: The patient is a 72 year old F with recent dx of metastatic small cell lung cancer at [facility]. Since then with multiple prolonged hospital stays. Had been treated for cdiff twice as well as for pneumonia and uti. Has been given chemo and radiation. Recently transferred care to [place] to be closer to daughter. Had port placed two days prior to admission. No issues at port site. Has been off po vanc for about 2 weeks. Does take probiotics. Developed fever, abd cramping, heavy diarrhea with incontinence, associated with nausea. No blood in stool. Came to ED, started on flagyl, zosyn, iv vanc, and po vanc. Cxs remain neg, cdiff was (+). Abx narrowed to just po vanc, and stool is firming up. Reported 8-9 BM yesterday. Full ROS performed and neg except as noted above. - Medical History Past Medical History (Chronic Problems): Chronic Problems History of tobacco use (Chronic) Obesity (BMI 30.0-34.9) (Chronic) Allergies/Adverse Reactions: Allergies diazepam [From Valium] Adverse Reaction (Verified 12/18/17 03:38) Other Home Medications: Ambulatory Orders Medication Instructions Recorded Acetaminophen [Tylenol] 650 mg PO TID PRN 12/18/17 Lactobacillus Acidophilus 1 each PO DAILY 12/18/17 [Acidophilus Lactobacilli] Morphine Sulfate [Morphine Sulfate 15 mg PO Q8 12/18/17 ER] Omeprazole [Prilosec] 20 mg PO DAILY 12/18/17 Oxycodone [Oxyir] 5 mg PO Q4H PRN PRN 12/18/17 ProCHLORPERazine [Compazine] 10 mg PO Q8 PRN 12/18/17 - Social History SMOKING STATUS:: Former smoker Vital Signs Temp Pulse Resp BP Pulse Ox 97.8 F 90 18 135/70 H 96 12/21/17 09:07 12/21/17 09:07 12/21/17 09:07 12/21/17 09:07 12/21/17 09:07 Oxygen Flow Rate 1 Oxygen Delivery Method Room Air Weight: 83.518 kg Body Mass Index (BMI) 31.6 Microbiology Past 72 Hours 12/18/17 09:41 Enteric Bacteriology - Final Stool 12/18/17 09:41 C. difficile DNA Amplification - Final Stool Toxigenic C. difficile DNA Laboratory Tests Past 24 Hrs 12/20/17 12/21/17 12/21/17 15:50 05:35 05:35 WBC 12.9 H RBC 2.96 L Hgb 9.1 L Hct 28.1 L MCV 94.9 MCH 30.7 MCHC 32.4 RDW 14.7 H RDW Differential 48.5 H Plt Count 271 MPV 9.7 Immature Gran % (Auto) 0.300 Neut % (Auto) 61.9 Lymph % (Auto) 16.1 L [place] % (Auto) 8.7 Eos % (Auto) 12.8 H Baso % (Auto) 0.2 Absolute Neuts (auto) 8.0 H Absolute Lymphs (auto) 2.08 Total Counted Not Reportable Sodium 139 140 Potassium 3.0 L 3.1 L Chloride 110 H 109 H Carbon Dioxide 22.0 23.0 Anion Gap 7 8 BUN 7 5 L Creatinine 0.70 0.57 Estim Creat Clear Calc 45.20 45.20 Est GFR (MDRD) Af Amer 106 134 Est GFR (MDRD) Non-Af 88 111 BUN/Creatinine Ratio 10.0 8.7 L Glucose 102 77 Calcium 8.0 L 7.9 L Magnesium 1.4 L - Other Studies Radiology: [] reviewed Other Studies: [] Route of nutrition/ use of supplements: [] Nutritional Intake: [] IV Site: [] Bustillo Catheter: [] - Physical Exam General: Alert, Oriented x3, Cooperative, - - tearful HEENT: Atraumatic, PERRLA, EOMI Neck: Supple, No Nodes Lungs: Clear to auscultation, Normal air movement Cardiovascular: Regular rate, Regular Rhythm, No murmurs Abdomen: Bowel Sounds Present, Soft, Non Tender, Non-Distended Extremities: Edema - mild Skin: No rashes IV Site: Central Line, without redness Musculoskeletal: No Tenderness to Palpation of Joints or Extremities Neurological: Cranial nerves II-XII grossly intact - Assessment/Plan Antibiotics: [] Assessment/Plan: [] Active and Suspected Problems SCLC (small cell lung carcinoma) (Acute) Bone metastases (Acute) Regional lymph node metastasis present (Acute) Recurrent cdiff - she reports this is her 3rd episode. Improving on po vanc. Other abx have been stopped. Is on probiotics. Plan for discharge will be long vanc taper given recurrent nature and need for chemotherapy. Po vanc taper: 125mg 4x/day for 2 weeks 125mg 2x/day for 1 week 125mg 1x/day for 1 week 125mg 1q48h for 2 weeks Total 82 doses over 6 weeks. Thank you, will follow.
--- NOTE | 2017-12-21 13:07 | CASEMGMT ---
Intro role of CM to patient in room. Pt still would like to return home. She states she is ambulatory, able to assist with ADL's and is working with PT/OT. Ambulated 80' with PT yesterday. Pt lives with daughter, would like to resume [facility] on discharge. Pt requested CM speak with daughter this afternoon. Aparna MOONN RN ACM
[2017-12-21 14:51] VITALS: BP 125/70; PULSE 85; RESP 18; TEMP 37; O2SAT 96
--- NOTE | 2017-12-21 15:39 | PCM.PROGNOTE ---
Patient Problems: Active and Suspected Problems (This Medical Record has been edited. Action required.) C. difficile colitis (Acute) SCLC (small cell lung carcinoma) (Acute) Regional lymph node metastasis present (Acute) Bone metastases (Acute) Subjective: No fever No nausea or vomiting Diarrhea is less than on day of admission and no [place] bleed. Bony aches and pains respond to analgesia. No dyspnea or cough or chest pain Objective: Chronically ill looking but in no acute distress Alert and oriented - Physical Exam Vital Signs Temp Pulse Resp BP Pulse Ox 98.6 F 85 18 125/70 H 96 12/21/17 14:51 12/21/17 14:51 12/21/17 14:51 12/21/17 14:51 12/21/17 14:51 Oxygen Flow Rate 1 Oxygen Delivery Method Room Air Weight: 83.518 kg Body Mass Index (BMI) 31.6 Intake and Output for Last 24 Hours 12/19/17 12/20/17 12/21/17 23:59 23:59 23:59 Intake Total 1708 / 1708 2799 / 2799 2022 Balance 1708 / 1708 2799 / 2799 2022 Microbiology Past 72 Hours 12/18/17 09:41 Enteric Bacteriology - Final Stool 12/18/17 09:41 C. difficile DNA Amplification - Final Stool Toxigenic C. difficile DNA Laboratory Tests Past 24 Hrs 12/20/17 12/21/17 12/21/17 15:50 05:35 05:35 WBC 12.9 H RBC 2.96 L Hgb 9.1 L Hct 28.1 L MCV 94.9 MCH 30.7 MCHC 32.4 RDW 14.7 H RDW Differential 48.5 H Plt Count 271 MPV 9.7 Immature Gran % (Auto) 0.300 Neut % (Auto) 61.9 Lymph % (Auto) 16.1 L [place] % (Auto) 8.7 Eos % (Auto) 12.8 H Baso % (Auto) 0.2 Absolute Neuts (auto) 8.0 H Absolute Lymphs (auto) 2.08 Total Counted Not Reportable Sodium 139 140 Potassium 3.0 L 3.1 L Chloride 110 H 109 H Carbon Dioxide 22.0 23.0 Anion Gap 7 8 BUN 7 5 L Creatinine 0.70 0.57 Estim Creat Clear Calc 45.20 45.20 Est GFR (MDRD) Af Amer 106 134 Est GFR (MDRD) Non-Af 88 111 BUN/Creatinine Ratio 10.0 8.7 L Glucose 102 77 Calcium 8.0 L 7.9 L Magnesium 1.4 L Assessment/Plan Active and Suspected Problems (This Medical Record has been edited. Action required.) C. difficile colitis (Acute) SCLC (small cell lung carcinoma) (Acute) Regional lymph node metastasis present (Acute) Bone metastases (Acute) 72-year-old female with metastatic, stage IV small cell cancer most likely primary right lung with metastases into mediastinal, right supraclavicular, and widespread bone metastases. Patient is status post spinal fusion for a painful compression fracture of T10 in September 2017, 1 cycle of chemotherapy with carboplatin and etoposide in October 2017 at [facility]. This was complicated with Pseudomonas sepsis, pneumonia and UTI requiring hospitalization in October 2017 and after recovery from her sepsis is suffered from C. difficile colitis treated with vancomycin completed course December 07, 2017 Care so far had been at [facility] in [place]. She moved to [facility] to be with her family and she was scheduled to resume systemic chemotherapy December 22, 2017. She was acutely hospitalized December 18, 2017 with recurrent acute C. difficile colitis. 1. Treatment of colitis as per primary service. 2. Will delay her next cycle of chemotherapy at least 1 week after full recovery from any active infection. 3. Continue with current management plan of her painful bony metastatic disease as per commended by pain management (see outpatient consult) Seen was her sister, impression and plan discussed
--- NOTE | 2017-12-21 15:44 | PN_ITS ---
Patient Problems: Active and Suspected Problems (This Medical Record has been edited. Action required.) C. difficile colitis (Acute) SCLC (small cell lung carcinoma) (Acute) Regional lymph node metastasis present (Acute) Bone metastases (Acute) Subjective: No fever No nausea or vomiting Diarrhea is less than on day of admission and no [place] bleed. Bony aches and pains respond to analgesia. No dyspnea or cough or chest pain Objective: Chronically ill looking but in no acute distress Alert and oriented - Physical Exam Vital Signs Temp Pulse Resp BP Pulse Ox 98.6 F 85 18 125/70 H 96 12/21/17 14:51 12/21/17 14:51 12/21/17 14:51 12/21/17 14:51 12/21/17 14:51 Oxygen Flow Rate 1 Oxygen Delivery Method Room Air Weight: 83.518 kg Body Mass Index (BMI) 31.6 Intake and Output for Last 24 Hours 12/19/17 12/20/17 12/21/17 23:59 23:59 23:59 Intake Total 1708 / 1708 2799 / 2799 2022 Balance 1708 / 1708 2799 / 2799 2022 Microbiology Past 72 Hours 12/18/17 09:41 Enteric Bacteriology - Final Stool 12/18/17 09:41 C. difficile DNA Amplification - Final Stool Toxigenic C. difficile DNA Laboratory Tests Past 24 Hrs 12/20/17 12/21/17 12/21/17 15:50 05:35 05:35 WBC 12.9 H RBC 2.96 L Hgb 9.1 L Hct 28.1 L MCV 94.9 MCH 30.7 MCHC 32.4 RDW 14.7 H RDW Differential 48.5 H Plt Count 271 MPV 9.7 Immature Gran % (Auto) 0.300 Neut % (Auto) 61.9 Lymph % (Auto) 16.1 L [place] % (Auto) 8.7 Eos % (Auto) 12.8 H Baso % (Auto) 0.2 Absolute Neuts (auto) 8.0 H Absolute Lymphs (auto) 2.08 Total Counted Not Reportable Sodium 139 140 Potassium 3.0 L 3.1 L Chloride 110 H 109 H Carbon Dioxide 22.0 23.0 Anion Gap 7 8 BUN 7 5 L Creatinine 0.70 0.57 Estim Creat Clear Calc 45.20 45.20 Est GFR (MDRD) Af Amer 106 134 Est GFR (MDRD) Non-Af 88 111 BUN/Creatinine Ratio 10.0 8.7 L Glucose 102 77 Calcium 8.0 L 7.9 L Magnesium 1.4 L Assessment/Plan Active and Suspected Problems (This Medical Record has been edited. Action required.) C. difficile colitis (Acute) SCLC (small cell lung carcinoma) (Acute) Regional lymph node metastasis present (Acute) Bone metastases (Acute) 72-year-old female with metastatic, stage IV small cell cancer most likely primary right lung with metastases into mediastinal, right supraclavicular, and widespread bone metastases. Patient is status post spinal fusion for a painful compression fracture of T10 in September 2017, 1 cycle of chemotherapy with carboplatin and etoposide in October 2017 at [facility]. This was complicated with Pseudomonas sepsis, pneumonia and UTI requiring hospitalization in October 2017 and after recovery from her sepsis is suffered from C. difficile colitis treated with vancomycin completed course December 07, 2017 Care so far had been at [facility] in [place]. She moved to [facility] to be with her family and she was scheduled to resume systemic chemotherapy December 22, 2017. She was acutely hospitalized December 18, 2017 with recurrent acute C. difficile colitis. 1. Treatment of colitis as per primary service. 2. Will delay her next cycle of chemotherapy at least 1 week after full recovery from any active infection. 3. Continue with current management plan of her painful bony metastatic disease as per commended by pain management (see outpatient consult) Seen was her sister, impression and plan discussed
[2017-12-21 16:10] VITALS: O2SAT 96
--- NOTE | 2017-12-21 16:58 | CASEMGMT ---
RN JOSE DAVID spoke with daughter rell. Discussed dc options of home with [facility] vs physician recommendation for SNF. Daughter will discuss with patient and call [facility] tomorrow. Aparna DONOVAN BSN ACM
[2017-12-21 20:20] VITALS: BP 127/67; PULSE 75; RESP 18; TEMP 37.2; O2SAT 96
[2017-12-22] MEDS: 0.9% Normal Saline 1,000 ML 100 ML IV ×2 (05:25→19:33)
[2017-12-22] MEDS: Menthol/Lanolin/Calamine/Znox 113 GM Tube 1 APPLIC TOPICAL ×3 (05:25→22:31)
[2017-12-22 05:26] VITALS: BP 109/65; PULSE 76; RESP 16; TEMP 36.4; O2SAT 94
[2017-12-22 06:16] LABS: Absolute Lymphocyte Count 2.33 X10^3/ul (0.83-4.51); Absolute Neutrophil Count 3.7 X10^3/uL (2.0-7.7); Basophil# 0.03 X10^3/uL; Basophil% 0.3 % (0-1); Eosinophil# 1.34 X10^3/uL; Eosinophils% 15.6 % (0-5); Hematocrit 27.4 % (37-47); Hemoglobin 8.6 g/dl (12.0-15.0); Lymphocyte # 2.33 X10^3/ul (4.0); Lymphocyte % 27.1 % (19-41); Mean Corp Hgb Conc 31.4 g/gl (32-36); Mean Corpuscular Hgb 29.8 pg (27.0-32.0); Mean Corpuscular Volume 94.8 fL (81-99); Mean Platelet Vol. 9.3 fl (6.2-12.0); Monocyte# 0.99 X10^3/uL; Monocyte% 11.5 % (0-10); Neutrophil # 3.73 X10^3/uL (2.7-7.7); Neutrophil % 43.5 % (47-70); Platelet Count 282 K/mm3 (150-450); RBC Distribution Width CV 14.8 % (11.6-14.6); RBC Distribution Width SD 48.5 fl (35.1-43.9); Red Blood Count 2.89 M/mm3 (4.2-5.4); White Blood Count 8.6 K/mm3 (4.4-11.0)
[2017-12-22 06:18] LABS: POSITIVE COUNT YES; POSITIVE DIFFERENTIAL NO; POSITIVE MORPHOLOGY YES
[2017-12-22 06:20] LABS: Anion Gap 6 (5-15); BUN 4 mg/dL (7-18); BUN/Creat Ratio 7.2 RATIO (10-20); Chloride 111 mmol/L (98-107); Creatinine, Serum 0.56 mg/dL (0.55-1.02); EST Glomerular Filtration Rate 115 mL/min (>60); Est Glom Filt Rate - Afr Amer 139 mL/min (>60); Glucose 83 mg/dL (70-110); Magnesium 1.8 mg/dL (1.6-2.6); Phosphorus 2.9 mg/dL (2.5-4.9); Potassium 3.6 mmol/L (3.5-5.1); Sodium Level 143 mmol/L (136-145)
[2017-12-22 08:15] VITALS: O2SAT 92
--- NOTE | 2017-12-22 08:36 | PCM.PN.HOSP ---
Patient Problems: Active and Suspected Problems (This Medical Record has been edited. Action required.) SCLC (small cell lung carcinoma) (Acute) Regional lymph node metastasis present (Acute) Bone metastases (Acute) Subjective: Patient with no acute events overnight per self and per nursing report. She has had less than diarrhea and is less fatigued than the day prior. Discussed current ongoing events including patient amenable for TCU with pending insurance evaluation for transition in addition to frustration with needing more information regarding her underlying cancer and whether or not pursuing aggressive therapy including chemotherapy is appropriate. Discussed these types of questions with her as well as with case management and contact heme oncology with planned family meeting with him oncology at 3 PM tomorrow. Patient denies fevers, chills, nausea, emesis, abdominal pain, chest pain or dyspnea. Objective: Physical Examination: General: awake, alert, oriented x 3 and cooperative, seated upright in the bed, less fatigued, moving better. Skin: normal color, turgor, no icterus, cyanosis. HEENT: AT/NC, EOMI, PERRLA, improved MMM. Lungs: Diminished BS BL bases,R>L moderate effort, no rales, ronchi or wheezing. Heart: Regular rate and rhythm; no gallop, rub audible. Abdomen: soft, improved, NTTP, ND, less hyperactive BS. Extremities: no cyanosis, clubbing, or edema. Neurological: patient awake, alert, oriented x 3; cognitive function intact; pupils equally reactive to light and accomodation; cranial nerves II-XII grossly normal, moving all 4 extremities, no focal deficits, strength improved, still moderately to severely globally decreased secondary to acute presentation. Psychiatric: affect appears improved, but during conversation was tearful regarding frustrations with her cancer and needing specific answers regarding prognosis as she is unsure what route to take as she feels as though she does not have enough information. Vitals/I&O's: Vital Signs Temp Pulse Resp BP Pulse Ox 97.5 F L 76 16 109/65 94 12/22/17 05:26 12/22/17 05:26 12/22/17 05:26 12/22/17 05:26 12/22/17 05:26 Oxygen Flow Rate 1 Oxygen Delivery Method Room Air Weight: 184 lb 2.011 oz Body Mass Index (BMI) 31.6 Intake and Output for Last 24 Hours 12/20/17 12/21/17 12/22/17 23:59 23:59 23:59 Intake Total 2799 / 2799 2022 1636 / 1636 Output Total 450 / 450 Balance 2799 / 2799 2022 1186 / 1186 Laboratory Results 12/22/17 05:30: WBC 8.6, RBC 2.89 L, Hgb 8.6 L, Hct 27.4 L, MCV 94.8, MCH 29.8, MCHC 31.4 L, RDW 14.8 H, RDW Differential 48.5 H, Plt Count 282, MPV 9.3, Immature Gran % (Auto) 2.000 H, Neut % (Auto) 43.5 L, Lymph % (Auto) 27.1, [place] % (Auto) 11.5 H, Eos % (Auto) 15.6 H, Baso % (Auto) 0.3, Absolute Neuts (auto) 3.7, Absolute Lymphs (auto) 2.33, Total Counted Not Reportable, Diff Path Review March12/22/17 05:30: Sodium 143, Potassium 3.6, Chloride 111 H, Carbon Dioxide 26.0, Anion Gap 6, BUN 4 L, Creatinine 0.56, Estim Creat Clear Calc 45.20, Est GFR (MDRD) Af Amer 139, Est GFR (MDRD) Non-Af 115, BUN/Creatinine Ratio 7.2 L, Glucose 83, Calcium 8.0 L, Phosphorus 2.9, Magnesium 1.8 Current Medications Acetaminophen (Tylenol) 650 mg PO Q6H PRN PRN PRN Reason: Mild Pain (scale 0-3)/T>100.7 Last Admin: 12/19/17 14:36 Dose: 650 mg Al Hydroxide/Mg Hydroxide (Mylanta Ii) 30 ml PO Q6H PRN PRN PRN Reason: Gastric burning Albuterol Sulfate (Ventolin Aerosols) 2.5 mg INHALATION Q2H PRN PRN PRN Reason: SHORTNESS OF BREATH Calamine/Phenol (Calmoseptine Ointment) 1 applic TOPICAL TID [facility] PRN Reason: Protocol Last Admin: 12/22/17 05:25 Dose: 1 applicatio Enoxaparin Sodium (Lovenox) 40 mg SC DAILY@1000 DANY Last Admin: 12/21/17 09:09 Dose: 40 mg Guaifenesin (Mucinex) 1,200 mg PO BID [facility] Last Admin: 12/21/17 21:20 Dose: 1,200 mg Sodium Chloride () 1,000 mls @ 100 mls/hr IV .Q10H [facility] Last Admin: 12/22/17 05:25 Dose: 100 mls/hr Lactobacillus Acidophilus (Acidophilus) 1 tablet PO DAILY [facility] Last Admin: 12/21/17 09:09 Dose: 1 tablet Magnesium Hydroxide (Milk Of Magnesia) 30 ml PO DAILY PRN PRN PRN Reason: Constipation Morphine Sulfate (Morphine) 2 - 4 mg IV Q3H PRN PRN PRN Reason: Severe Pain (pain scale 6-10) Last Admin: 12/18/17 18:18 Dose: 2 mg Morphine Sulfate (Morphine) 1 - 2 mg IV Q4H PRN PRN PRN Reason: Moderate Pain (pain scale 4-5) Morphine Sulfate (Ms Contin) 15 mg PO Q8 [facility] Last Admin: 12/22/17 05:25 Dose: 15 mg Nutritional Formula (Lactose Free) (Ensure Enlive) 120 ml PO 4X/DAY [facility] Last Admin: 12/21/17 21:20 Dose: 120 ml Ondansetron HCl (Zofran) 4 mg IV Q8H PRN PRN PRN Reason: NAUSEA Last Admin: 12/20/17 17:12 Dose: 4 mg Oxycodone HCl (Oxyir) 5 - 10 mg PO Q4H PRN PRN PRN Reason: Moderate Pain (pain scale 4-5) Last Admin: 12/20/17 02:15 Dose: 10 mg [facility] ([facility] Last Admin: 12/21/17 17:54 Dose: 40 meq Promethazine HCl (Phenergan (Ll)) 12.5 mg IV Q6H PRN PRN PRN Reason: NAUSEA/VOMITING Sodium Chloride () 5 - 30 ml IV UD PRN PRN Reason: SALINE FLUSH Last Admin: 12/21/17 05:38 Dose: 20 ml Vancomycin HCl (Vancomycin 125mg/5ml Susp) 125 mg PO Q6 [facility] Last Admin: 12/22/17 05:25 Dose: 125 mg Zolpidem Tartrate (Ambien (Generic)) 5 mg PO QHS PRN PRN PRN Reason: SLEEP Last Admin: 12/20/17 23:13 Dose: 5 mg Assessment/Plan Active and Suspected Problems (This Medical Record has been edited. Action required.) SCLC (small cell lung carcinoma) (Acute) Regional lymph node metastasis present (Acute) Bone metastases (Acute) The patient is a 72 y/o F w/ PMHx: Obesity, Former Tobacco use, Stage IV Endocrine Cancer on chemotherapy and radiation with port placement ~ 48 hours prior who presents to the [facility] ED on 12/18/17 w/ no marked pulmonary sxs although daughter notes an occasional cough to clear her throat over the last 2 weeks with onset starting at 4:00 pm the day prior fatigue, malaise, poor appetite followed by the abrupt onset early this AM of nausea, emesis and diarrhea. She and her family note she recently completed treatment for clostridium difficile infection. (1) Recurrent Clostridium Difficile Infection: Admission CBC w/ WBC 27.5 with L shift-->12/21/17 CBC w/ WBC 12.9, Hgb 9.1, Plts 271 with improved L shift. Maintained on MS, maintain on oral vancomycin and IV flagyl initially-->oral vanc only, +c-diff assay obtained, HOB, IS parameters, additionally given CXR findings upon admission although lower suspicion, requested sputum cultures and urine antigens given possibility of PNA which were noted to be unremarkable, Bld Cx x 2 without growth, influenza rapid negative. PRN anti-emetics, pain regimen. Hold famotidine/PPI regimens given c-diff. PT, OT with current recommendation for discharge to home with home health and 24 hour supervision; however, given extent of ongoing GI losses and difficulty with soiling herself, discussed w/ charge account authorizer to encourage consideration of SNF with pending evaluation with insurance for possible TCU transition. Given severity of diarrhea and recurrence, 12/21/17 ID evaluation performed with recommendation discharge on: 125mg 4x/day for 2 weeks 125mg 2x/day for 1 week 125mg 1x/day for 1 week 125mg 1q48h for 2 weeks Total 82 doses over 6 weeks. (2) RLL Infiltrate, Suspected Tumor versus Atelectasis w/ Metastatic Small Cell Lung Carcinoma: CXR in the ED w/ ? RLL infiltrate although from discussions with patient lend me to believe this is more likely cancer. Hem/Onc following, suspected tumor, deferred additional imaging per Hem/Onc. 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 Continue current management plan of painful bony metastatic disease w/ pain management. Discussed with Hem/Onc and will plan family meeting with patient, her children and hem/onc on 12/23/17 3 pm to address her specific questions including prognosis, appropriate route which may include hospice. Given remarkable pulse dose vanc needs, Hem/Onc would plan several week delay of restart chemotherapy thus transitioning to comfort measures may be in her best interest. (4) Hypokalemia, Hypomagnesium: Admission K+ 3.1, magnesium 1.4, supplementation given, repeat level in AM. (5) Hyperglycemia: Admission glucose 146, likely stress with infection, HgbA1c 5.3%. (6) Severe Protein-Calorie Malnutrition: Evidenced per weight loss, muscle loss, nutrition consulted. (7) History of Tobacco use: Encourage continued cessation. (8) Chronic Pain Syndrome: Maintain on chronic pain regimen, PRN additional oral/IV, fall precautions, position changes, PT and OT assessment. (9) DVT Prophylaxis: SCDs, lovenox. Prolonged visit time: Patient evaluation performed, examination performed with initial discussions approximately 70 minutes. Repeat discussions pursued with patient and also with social work present given notable concerns and ongoing issues regarding her cancer prognosis as well as decisions regarding possible TCU transition for further therapies requiring an addition 65 minutes of care time above the daily time noted. Code Visit Inpatient E&M: 06713 Subs Hosp L2 Procedures: 65088 Prolonged InPt Service; first hour
--- NOTE | 2017-12-22 08:39 | PN_ITS ---
Patient Problems: Active and Suspected Problems (This Medical Record has been edited. Action required.) SCLC (small cell lung carcinoma) (Acute) Regional lymph node metastasis present (Acute) Bone metastases (Acute) Subjective: Patient with no acute events overnight per self and per nursing report. She has had less than diarrhea and is less fatigued than the day prior. Discussed current ongoing events including patient amenable for TCU with pending insurance evaluation for transition in addition to frustration with needing more information regarding her underlying cancer and whether or not pursuing aggressive therapy including chemotherapy is appropriate. Discussed these types of questions with her as well as with case management and contact heme oncology with planned family meeting with him oncology at 3 PM tomorrow. Patient denies fevers, chills, nausea, emesis, abdominal pain, chest pain or dyspnea. Objective: Physical Examination: General: awake, alert, oriented x 3 and cooperative, seated upright in the bed, less fatigued, moving better. Skin: normal color, turgor, no icterus, cyanosis. HEENT: AT/NC, EOMI, PERRLA, improved MMM. Lungs: Diminished BS BL bases,R>L moderate effort, no rales, ronchi or wheezing. Heart: Regular rate and rhythm; no gallop, rub audible. Abdomen: soft, improved, NTTP, ND, less hyperactive BS. Extremities: no cyanosis, clubbing, or edema. Neurological: patient awake, alert, oriented x 3; cognitive function intact; pupils equally reactive to light and accomodation; cranial nerves II-XII grossly normal, moving all 4 extremities, no focal deficits, strength improved, still moderately to severely globally decreased secondary to acute presentation. Psychiatric: affect appears improved, but during conversation was tearful regarding frustrations with her cancer and needing specific answers regarding prognosis as she is unsure what route to take as she feels as though she does not have enough information. Vitals/I&O's: Vital Signs Temp Pulse Resp BP Pulse Ox 97.5 F L 76 16 109/65 94 12/22/17 05:26 12/22/17 05:26 12/22/17 05:26 12/22/17 05:26 12/22/17 05:26 Oxygen Flow Rate 1 Oxygen Delivery Method Room Air Weight: 184 lb 2.011 oz Body Mass Index (BMI) 31.6 Intake and Output for Last 24 Hours 12/20/17 12/21/17 12/22/17 23:59 23:59 23:59 Intake Total 2799 / 2799 2022 1636 / 1636 Output Total 450 / 450 Balance 2799 / 2799 2022 1186 / 1186 Laboratory Results 12/22/17 05:30: WBC 8.6, RBC 2.89 L, Hgb 8.6 L, Hct 27.4 L, MCV 94.8, MCH 29.8, MCHC 31.4 L, RDW 14.8 H, RDW Differential 48.5 H, Plt Count 282, MPV 9.3, Immature Gran % (Auto) 2.000 H, Neut % (Auto) 43.5 L, Lymph % (Auto) 27.1, [place] % (Auto) 11.5 H, Eos % (Auto) 15.6 H, Baso % (Auto) 0.3, Absolute Neuts (auto) 3.7, Absolute Lymphs (auto) 2.33, Total Counted Not Reportable, Diff Path Review March12/22/17 05:30: Sodium 143, Potassium 3.6, Chloride 111 H, Carbon Dioxide 26.0, Anion Gap 6, BUN 4 L, Creatinine 0.56, Estim Creat Clear Calc 45.20, Est GFR ( MDRD) Af Amer 139, Est GFR (MDRD) Non-Af 115, BUN/Creatinine Ratio 7.2 L, Glucose 83, Calcium 8.0 L, Phosphorus 2.9, Magnesium 1.8 Current Medications Acetaminophen (Tylenol) 650 mg PO Q6H PRN PRN PRN Reason: Mild Pain (scale 0-3)/T>100.7 Last Admin: 12/19/17 14:36 Dose: 650 mg Al Hydroxide/Mg Hydroxide (Mylanta Ii) 30 ml PO Q6H PRN PRN PRN Reason: Gastric burning Albuterol Sulfate (Ventolin Aerosols) 2.5 mg INHALATION Q2H PRN PRN PRN Reason: SHORTNESS OF BREATH Calamine/Phenol (Calmoseptine Ointment) 1 applic TOPICAL TID [facility] PRN Reason: Protocol Last Admin: 12/22/17 05:25 Dose: 1 applicatio Enoxaparin Sodium (Lovenox) 40 mg SC DAILY@1000 DANY Last Admin: 12/21/17 09:09 Dose: 40 mg Guaifenesin (Mucinex) 1,200 mg PO BID [facility] Last Admin: 12/21/17 21:20 Dose: 1,200 mg Sodium Chloride () 1,000 mls @ 100 mls/hr IV .Q10H [facility] Last Admin: 12/22/17 05:25 Dose: 100 mls/hr Lactobacillus Acidophilus (Acidophilus) 1 tablet PO DAILY [facility] Last Admin: 12/21/17 09:09 Dose: 1 tablet Magnesium Hydroxide (Milk Of Magnesia) 30 ml PO DAILY PRN PRN PRN Reason: Constipation Morphine Sulfate (Morphine) 2 - 4 mg IV Q3H PRN PRN PRN Reason: Severe Pain (pain scale 6-10) Last Admin: 12/18/17 18:18 Dose: 2 mg Morphine Sulfate (Morphine) 1 - 2 mg IV Q4H PRN PRN PRN Reason: Moderate Pain (pain scale 4-5) Morphine Sulfate (Ms Contin) 15 mg PO Q8 [facility] Last Admin: 12/22/17 05:25 Dose: 15 mg Nutritional Formula (Lactose Free) (Ensure Enlive) 120 ml PO 4X/DAY [facility] Last Admin: 12/21/17 21:20 Dose: 120 ml Ondansetron HCl (Zofran) 4 mg IV Q8H PRN PRN PRN Reason: NAUSEA Last Admin: 12/20/17 17:12 Dose: 4 mg Oxycodone HCl (Oxyir) 5 - 10 mg PO Q4H PRN PRN PRN Reason: Moderate Pain (pain scale 4-5) Last Admin: 12/20/17 02:15 Dose: 10 mg Potassium Chloride ([facility]Dur) [facility] Last Admin: 12/21/17 17:54 Dose: 40 meq Promethazine HCl (Phenergan (Ll)) 12.5 mg IV Q6H PRN PRN PRN Reason: NAUSEA/VOMITING Sodium Chloride () 5 - 30 ml IV UD PRN PRN Reason: SALINE FLUSH Last Admin: 12/21/17 05:38 Dose: 20 ml Vancomycin HCl (Vancomycin 125mg/5ml Susp) 125 mg PO Q6 [facility] Last Admin: 12/22/17 05:25 Dose: 125 mg Zolpidem Tartrate (Ambien (Generic)) 5 mg PO QHS PRN PRN PRN Reason: SLEEP Last Admin: 12/20/17 23:13 Dose: 5 mg Assessment/Plan Active and Suspected Problems (This Medical Record has been edited. Action required.) SCLC (small cell lung carcinoma) (Acute) Regional lymph node metastasis present (Acute) Bone metastases (Acute) The patient is a 72 y/o F w/ PMHx: Obesity, Former Tobacco use, Stage IV Endocrine Cancer on chemotherapy and radiation with port placement ~ 48 hours prior who presents to the [facility] ED on 12/18/17 w/ no marked pulmonary sxs although daughter notes an occasional cough to clear her throat over the last 2 weeks with onset starting at 4:00 pm the day prior fatigue, malaise, poor appetite followed by the abrupt onset early this AM of nausea, emesis and diarrhea. She and her family note she recently completed treatment for clostridium difficile infection. (1) Recurrent Clostridium Difficile Infection: Admission CBC w/ WBC 27.5 with L shift-->12/21/17 CBC w/ WBC 12.9, Hgb 9.1, Plts 271 with improved L shift. Maintained on MS, maintain on oral vancomycin and IV flagyl initially-->oral vanc only, +c-diff assay obtained, HOB, IS parameters, additionally given CXR findings upon admission although lower suspicion, requested sputum cultures and urine antigens given possibility of PNA which were noted to be unremarkable, Bld Cx x 2 without growth, influenza rapid negative. PRN anti-emetics, pain regimen. Hold famotidine/PPI regimens given c-diff. PT, OT with current recommendation for discharge to home with home health and 24 hour supervision; however, given extent of ongoing GI losses and difficulty with soiling herself, discussed w/ plate washer to encourage consideration of SNF with pending evaluation with insurance for possible TCU transition. Given severity of diarrhea and recurrence, 12/21/17 ID evaluation performed with recommendation discharge on: 125mg 4x/day for 2 weeks 125mg 2x/day for 1 week 125mg 1x/day for 1 week 125mg 1q48h for 2 weeks Total 82 doses over 6 weeks. (2) RLL Infiltrate, Suspected Tumor versus Atelectasis w/ Metastatic Small Cell Lung Carcinoma: CXR in the ED w/ ? RLL infiltrate although from discussions with patient lend me to believe this is more likely cancer. Hem/Onc following, suspected tumor, deferred additional imaging per Hem/Onc. 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 Continue current management plan of painful bony metastatic disease w/ pain management. Discussed with Hem/Onc and will plan family meeting with patient, her children and hem/onc on 12/23/17 3 pm to address her specific questions including prognosis, appropriate route which may include hospice. Given remarkable pulse dose vanc needs, Hem/Onc would plan several week delay of restart chemotherapy thus transitioning to comfort measures may be in her best interest. (4) Hypokalemia, Hypomagnesium: Admission K+ 3.1, magnesium 1.4, supplementation given, repeat level in AM. (5) Hyperglycemia: Admission glucose 146, likely stress with infection, HgbA1c 5.3%. (6) Severe Protein-Calorie Malnutrition: Evidenced per weight loss, muscle loss , nutrition consulted. (7) History of Tobacco use: Encourage continued cessation. (8) Chronic Pain Syndrome: Maintain on chronic pain regimen, PRN additional oral /IV, fall precautions, position changes, PT and OT assessment. (9) DVT Prophylaxis: SCDs, lovenox. Prolonged visit time: Patient evaluation performed, examination performed with initial discussions approximately 70 minutes. Repeat discussions pursued with patient and also with social work present given notable concerns and ongoing issues regarding her cancer prognosis as well as decisions regarding possible TCU transition for further therapies requiring an addition 65 minutes of care time above the daily time noted. Code Visit Inpatient E&M: 42674 Subs Hosp L2 Procedures: 71464 Prolonged InPt Service; first hour
[2017-12-22 08:58] VITALS: BP 126/69; PULSE 80; RESP 16; TEMP 36.7; O2SAT 92
[2017-12-22] MEDS: guaiFENesin 1,200 MG Tablet 1200 MG PO ×2 (09:19→22:29)
[2017-12-22] MEDS: Enoxaparin 40 MG/0.4 ML Syringe SC (09:20)
--- NOTE | 2017-12-22 09:45 | CASEMGMT ---
Meeting with pt and Dr. Harmon to discuss dc planning. Pt very tearful, states she feels she does not have enough information in regards to her cancer diagnosis, prognosis. She would like to have a family meeting with oncologist, hospitalist and her family. Dr. Harmon spoke with Dr. Arriaga and he will meet tomorrow @ 3 pm. Pt called daughter Rebecca, was able to let her know plan re: TCU, precert and family meeting tomorrow via speaker on her cell phone. Daughter will be in and will notify her other family. Emotional support and questions answered. Pt calm upon end of meeting. -Per physician, if pt decides to stop treatment with oncology and pursue Hospice, plan would be TCU then home with Hospice. -Per Elisabeth, TCU manager budget, bed is available, she can start precert today. Aparna MOONN RN ACM
--- NOTE | 2017-12-22 10:01 | PCM.PN.ID ---
Patient Problems: Active and Suspected Problems (This Medical Record has been edited. Action required.) SCLC (small cell lung carcinoma) (Acute) Regional lymph node metastasis present (Acute) Bone metastases (Acute) Subjective: Diarrhea improved, no fever, feeling better - Physical Exam General: Alert, Cooperative, No apparent distress Lungs: Clear to auscultation, Normal air movement Cardiovascular: Regular rate, Regular Rhythm Abdomen: Soft, Non Tender, Non-Distended Skin: No rashes, - - R chest port Vital Signs Temp Pulse Resp BP Pulse Ox 98.0 F 80 16 126/69 H 92 12/22/17 08:58 12/22/17 08:58 12/22/17 08:58 12/22/17 08:58 12/22/17 08:58 Oxygen Flow Rate 1 Oxygen Delivery Method Room Air Weight: 83.518 kg Body Mass Index (BMI) 31.6 Intake and Output for Last 24 Hours 12/20/17 12/21/17 12/22/17 23:59 23:59 23:59 Intake Total 2799 / 2799 2022 1636 / 1636 Output Total 450 / 450 Balance 2799 / 2799 2022 1186 / 1186 Laboratory Tests Past 24 Hrs 12/22/17 12/22/17 05:30 05:30 WBC 8.6 RBC 2.89 L Hgb 8.6 L Hct 27.4 L MCV 94.8 MCH 29.8 MCHC 31.4 L RDW 14.8 H RDW Differential 48.5 H Plt Count 282 MPV 9.3 Immature Gran % (Auto) 2.000 H Neut % (Auto) 43.5 L Lymph % (Auto) 27.1 [place] % (Auto) 11.5 H Eos % (Auto) 15.6 H Baso % (Auto) 0.3 Absolute Neuts (auto) 3.7 Absolute Lymphs (auto) 2.33 Total Counted Not Reportable Diff Path Review March Sodium 143 Potassium 3.6 Chloride 111 H Carbon Dioxide 26.0 Anion Gap 6 BUN 4 L Creatinine 0.56 Estim Creat Clear Calc 45.20 Est GFR (MDRD) Af Amer 139 Est GFR (MDRD) Non-Af 115 BUN/Creatinine Ratio 7.2 L Glucose 83 Calcium 8.0 L Phosphorus 2.9 Magnesium 1.8 Route of nutrition/ use of supplements: [] Nutritional Intake: [] IV Site: [] Bustillo Catheter: [] - Assessment/Plan Antibiotics: [] Assessment/Plan: [] Active and Suspected Problems SCLC (small cell lung carcinoma) (Acute) Bone metastases (Acute) Regional lymph node metastasis present (Acute) Recurrent cdiff - she reports this is her 2rd episode. Improving on po vanc. Other abx have been stopped. Is on probiotics. Plan for discharge will be long vanc taper given recurrent nature and need for chemotherapy. Diarrhea much better today and wbc now back to normal. Po vanc taper: 125mg 4x/day for 2 weeks 125mg 2x/day for 1 week 125mg 1x/day for 1 week 125mg 1q48h for 2 weeks Total 82 doses over 6 weeks. will follow.
--- NOTE | 2017-12-22 11:31 | CASEMGMT ---
Social Work Note Updated by RN JOSE DAVID - Ab Capps - that pre-cert has been initiated for skilled stay at TCU. Also reports that pt has a cancer diagnosis and is overwhelmed. Ab Capps requesting SW not see this date as she mentioned she felt like too many people she did not know were constantly in and out of her room. Will continue to follow and assist as needed. Adenike Boyce, GEOTHERMAL OPERATIONS ENGINEER DISPUTE COORDINATOR
[2017-12-22 13:57] VITALS: BP 133/75; PULSE 87; RESP 18; TEMP 36.3; O2SAT 95
[2017-12-22 16:46] LABS: Pathologist Review Reviewed
[2017-12-22 20:15] VITALS: BP 136/77; PULSE 87; RESP 18; TEMP 37.1; O2SAT 98
[2017-12-23 02:15] VITALS: BP 118/79; PULSE 83; RESP 16; TEMP 37.7; O2SAT 94
[2017-12-23] MEDS: 0.9% Normal Saline 1,000 ML 100 ML IV (05:57)
[2017-12-23] MEDS: Menthol/Lanolin/Calamine/Znox 113 GM Tube 1 APPLIC TOPICAL ×2 (05:58→14:16)
[2017-12-23] MEDS: 0.9% NaCl Peripheral Flush Adult/Peds IV ×3 (05:58→16:59)
[2017-12-23 06:16] LABS: Absolute Lymphocyte Count 2.93 X10^3/ul (0.83-4.51); Absolute Neutrophil Count 4.7 X10^3/uL (2.0-7.7); Basophil# 0.05 X10^3/uL; Basophil% 0.5 % (0-1); Differential Indicated SCAN CRITERIA MET; Eosinophil# 1.28 X10^3/uL; Eosinophils% 12.4 % (0-5); Hematocrit 29.5 % (37-47); Hemoglobin 9.5 g/dl (12.0-15.0); Lymphocyte # 2.93 X10^3/ul (4.0); Lymphocyte % 28.4 % (19-41); Mean Corp Hgb Conc 32.2 g/gl (32-36); Mean Corpuscular Hgb 30.4 pg (27.0-32.0); Mean Corpuscular Volume 94.6 fL (81-99); Mean Platelet Vol. 9.2 fl (6.2-12.0); Monocyte# 1.12 X10^3/uL; Monocyte% 10.9 % (0-10); Neutrophil # 4.67 X10^3/uL (2.7-7.7); Neutrophil % 45.3 % (47-70); POSITIVE COUNT YES; POSITIVE DIFFERENTIAL NO; POSITIVE MORPHOLOGY YES; Platelet Count 267 K/mm3 (150-450); RBC Distribution Width CV 15.3 % (11.6-14.6); RBC Distribution Width SD 51.8 fl (35.1-43.9); Red Blood Count 3.12 M/mm3 (4.2-5.4); White Blood Count 10.3 K/mm3 (4.4-11.0)
[2017-12-23 06:44] LABS: Anion Gap 5 (5-15); BUN 4 mg/dL (7-18); BUN/Creat Ratio 7.1 RATIO (10-20); Calcium,Total 8.2 mg/dL (8.5-10.1); Chloride 110 mmol/L (98-107); Creatinine, Serum 0.57 mg/dL (0.55-1.02); EST Glomerular Filtration Rate 112 mL/min (>60); Est Glom Filt Rate - Afr Amer 136 mL/min (>60); Glucose 84 mg/dL (70-110); Magnesium 1.6 mg/dL (1.6-2.6); Phosphorus 3.4 mg/dL (2.5-4.9); Potassium 3.9 mmol/L (3.5-5.1); Sodium Level 142 mmol/L (136-145)
--- NOTE | 2017-12-23 06:57 | PCM.PN.HOSP ---
Patient Problems: Active and Suspected Problems (This Medical Record has been edited. Action required.) SCLC (small cell lung carcinoma) (Acute) Regional lymph node metastasis present (Acute) Bone metastases (Acute) Subjective: Patient with no acute events overnight per self and per nursing report. Patient has had marketed reduction in diarrhea, overnight only 3 bowel movements and is more alert and active. Discussed again plan for family meeting at 3 PM to determine next step on outpatient basis for whether or not chemotherapy is an appropriate course for her. Discussed plan for continued pulse dose fashion vancomycin to prevent recurrent C. difficile infection. Patient strength has improved and patient more appropriate for home health with discharge to home to which she is amenable and daughter who is present is amenable. Patient denies fevers, chills, nausea, emesis, abdominal pain, chest pain or dyspnea. Objective: Physical Examination: General: awake, alert, oriented x 3 and cooperative, seated upright in the bed, improved appearance. Skin: normal color, turgor, no icterus, cyanosis. HEENT: AT/NC, EOMI, PERRLA, improved MMM. Lungs: Improved BS, < diminished bases, moderate effort, no rales, ronchi or wheezing. Heart: Regular rate and rhythm; no gallop, rub audible. Abdomen: soft, improved, NTTP, ND, normalized BS. Extremities: no cyanosis, clubbing, or edema. Neurological: patient awake, alert, oriented x 3; cognitive function intact; pupils equally reactive to light and accomodation; cranial nerves II-XII grossly normal, moving all 4 extremities, no focal deficits, strength improved, moderately globally decreased secondary to acute presentation. Psychiatric: affect appears improved, did have some tearfulness during conversation, does not appear ready for hospice concept. Vitals/I&O's: Vital Signs Temp Pulse Resp BP Pulse Ox 99.8 F H 83 16 118/79 94 12/23/17 02:15 12/23/17 02:15 12/23/17 02:15 12/23/17 02:15 12/23/17 02:15 Oxygen Flow Rate 1 Oxygen Delivery Method Room Air Weight: 184 lb 2.011 oz Body Mass Index (BMI) 31.6 Intake and Output for Last 24 Hours 12/21/17 12/22/17 12/23/17 23:59 23:59 23:59 Intake Total 2022 3340 / 3340 840 / 840 Output Total 450 / 450 1000 / 1000 Balance 2022 2890 / 2890 -160 / -160 Laboratory Results 12/22/17 05:30: Diff Path Review Reviewed 12/23/17 06:00: WBC 10.3, RBC 3.12 L, Hgb 9.5 L, Hct 29.5 L, MCV 94.6, MCH 30.4, MCHC 32.2, RDW 15.3 H, RDW Differential 51.8 H, Plt Count 267, MPV 9.2, Immature Gran % (Auto) 2.500 H, Neut % (Auto) 45.3 L, Lymph % (Auto) 28.4, [place] % (Auto) 10.9 H, Eos % (Auto) 12.4 H, Baso % (Auto) 0.5, Absolute Neuts (auto) 4.7, Absolute Lymphs (auto) 2.93, Total Counted Not Reportable, Diff Path Review May foll 12/23/17 06:00: Sodium 142, Potassium 3.9, Chloride 110 H, Carbon Dioxide 27.0, Anion Gap 5, BUN 4 L, Creatinine 0.57, Estim Creat Clear Calc 45.20, Est GFR (MDRD) Af Amer 136, Est GFR (MDRD) Non-Af 112, BUN/Creatinine Ratio 7.1 L, Glucose 84, Calcium 8.2 L, Phosphorus 3.4, Magnesium 1.6 Current Medications Acetaminophen (Tylenol) 650 mg PO Q6H PRN PRN PRN Reason: Mild Pain (scale 0-3)/T>100.7 Last Admin: 12/19/17 14:36 Dose: 650 mg Al Hydroxide/Mg Hydroxide (Mylanta Ii) 30 ml PO Q6H PRN PRN PRN Reason: Gastric burning Albuterol Sulfate (Ventolin Aerosols) 2.5 mg INHALATION Q2H PRN PRN PRN Reason: SHORTNESS OF BREATH Calamine/Phenol (Calmoseptine Ointment) 1 applic TOPICAL TID [facility] PRN Reason: Protocol Last Admin: 12/23/17 05:58 Dose: 1 applicatio Enoxaparin Sodium (Lovenox) 40 mg SC DAILY@1000 [facility] Last Admin: 12/22/17 09:20 Dose: 40 mg Guaifenesin (Mucinex) 1,200 mg PO BID [facility] Last Admin: 12/22/17 22:29 Dose: 1,200 mg Sodium Chloride () 1,000 mls @ 100 mls/hr IV .Q10H [facility] Last Admin: 12/23/17 05:57 Dose: 100 mls/hr Lactobacillus Acidophilus (Acidophilus) 1 tablet PO DAILY [facility] Last Admin: 12/22/17 09:19 Dose: 1 tablet Magnesium Hydroxide (Milk Of Magnesia) 30 ml PO DAILY PRN PRN PRN Reason: Constipation Morphine Sulfate (Morphine) 2 - 4 mg IV Q3H PRN PRN PRN Reason: Severe Pain (pain scale 6-10) Last Admin: 12/18/17 18:18 Dose: 2 mg Morphine Sulfate (Morphine) 1 - 2 mg IV Q4H PRN PRN PRN Reason: Moderate Pain (pain scale 4-5) Morphine Sulfate (Ms Contin) 15 mg PO Q8 [facility] Last Admin: 12/23/17 05:57 Dose: 15 mg Nutritional Formula (Lactose Free) (Ensure Enlive) 120 ml PO 4X/DAY [facility] Last Admin: 12/22/17 22:29 Dose: 120 ml Ondansetron HCl (Zofran) 4 mg IV Q8H PRN PRN PRN Reason: NAUSEA Last Admin: 12/20/17 17:12 Dose: 4 mg Oxycodone HCl (Oxyir) 5 - 10 mg PO Q4H PRN PRN PRN Reason: Moderate Pain (pain scale 4-5) Last Admin: 12/20/17 02:15 Dose: 10 mg [facility]assium [facility] ([facility]Dur) [facility] Last Admin: 12/22/17 17:50 Dose: 40 meq Promethazine HCl (Phenergan (Ll)) 12.5 mg IV Q6H PRN PRN PRN Reason: NAUSEA/VOMITING Sodium Chloride () 5 - 30 ml IV UD PRN PRN Reason: SALINE FLUSH Last Admin: 12/23/17 05:59 Dose: 10 ml Vancomycin HCl (Vancomycin 125mg/5ml Susp) 125 mg PO Q6 [facility] Last Admin: 12/23/17 06:03 Dose: 125 mg Zolpidem Tartrate (Ambien (Generic)) 5 mg PO QHS PRN PRN PRN Reason: SLEEP Last Admin: 12/20/17 23:13 Dose: 5 mg Assessment/Plan Active and Suspected Problems (This Medical Record has been edited. Action required.) SCLC (small cell lung carcinoma) (Acute) Regional lymph node metastasis present (Acute) Bone metastases (Acute) The patient is a 72 y/o F w/ PMHx: Obesity, Former Tobacco use, Stage IV Endocrine Cancer on chemotherapy and radiation with port placement ~ 48 hours prior who presents to the [facility] ED on 12/18/17 w/ no marked pulmonary sxs although daughter notes an occasional cough to clear her throat over the last 2 weeks with onset starting at 4:00 pm the day prior fatigue, malaise, poor appetite followed by the abrupt onset early this AM of nausea, emesis and diarrhea. She and her family note she recently completed treatment for clostridium difficile infection. (1) Recurrent Clostridium Difficile Infection: Admission CBC w/ WBC 27.5 with L shift-->12/21/17 CBC w/ WBC 12.9, Hgb 9.1, Plts 271 with improved L shift. Maintained on MS, maintain on oral vancomycin and IV flagyl initially-->oral vanc only, +c-diff assay obtained, HOB, IS parameters, additionally given CXR findings upon admission although lower suspicion, requested sputum cultures and urine antigens given possibility of PNA which were noted to be unremarkable, Bld Cx x 2 without growth, influenza rapid negative. PRN anti-emetics, pain regimen. Hold famotidine/PPI regimens given c-diff. PT, OT with current recommendation for discharge to home with home health and 24 hour supervision; however, notable improvement 12/22-12/23 with decreased stooling and improved appearance. Discussed with patient and family and arranging discharge to home with home health therapies. Given severity of diarrhea and recurrence, ID encouraged continued probiotics as well as discharge regimen: 125mg 4x/day for 2 weeks (start date technically 12/18/17 when other abx were discontinued per ID recommendation) 125mg 2x/day for 1 week 125mg 1x/day for 1 week 125mg 1q48h for 2 weeks Total 82 doses over 6 weeks. (2) RLL Infiltrate, Suspected Tumor versus Atelectasis w/ Metastatic Small Cell Lung Carcinoma: CXR in the ED w/ ? RLL infiltrate although from discussions with patient lend me to believe this is more likely cancer. Hem/Onc following, suspected tumor, deferred additional imaging per Hem/Onc. 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 Continue current management plan of painful bony metastatic disease w/ pain management. Given remarkable pulse dose vanc needs, Hem/Onc would plan several week delay of restart chemotherapy thus pending Hem/Onc family meeting with patient, her children 12/23/17 3 pm to address her specific questions including prognosis, appropriate route, delay of chemotherapy. (4) Hypokalemia, Hypomagnesium: Admission K+ 3.1, magnesium 1.4, supplementation given, serial repeat levels and supplementation as needed, 12/23/17 K 3.9, mag 1.6. (5) Hyperglycemia: Admission glucose 146, likely stress with infection, HgbA1c 5.3%. (6) Severe Protein-Calorie Malnutrition: Evidenced per weight loss, muscle loss, nutrition consulted. (7) History of Tobacco use: Encourage continued cessation. (8) Chronic Pain Syndrome: Maintain on chronic pain regimen, PRN additional oral/IV, fall precautions, position changes, PT and OT assessment. (9) DVT Prophylaxis: SCDs, lovenox.
[2017-12-23 08:10] VITALS: O2SAT 95
[2017-12-23 08:15] VITALS: BP 133/67; PULSE 78; RESP 16; TEMP 36.4; O2SAT 93
[2017-12-23] MEDS: guaiFENesin 1,200 MG Tablet 1200 MG PO (08:31)
[2017-12-23] MEDS: Enoxaparin 40 MG/0.4 ML Syringe SC (08:31)
--- NOTE | 2017-12-23 10:33 | PCM.PN.ID ---
Patient Problems: Active and Suspected Problems (This Medical Record has been edited. Action required.) SCLC (small cell lung carcinoma) (Acute) Regional lymph node metastasis present (Acute) Bone metastases (Acute) Subjective: No more abd pain or diarrhea. No fever. - Physical Exam General: Alert, Cooperative, No apparent distress Lungs: Clear to auscultation, Normal air movement Cardiovascular: Regular rate, Regular Rhythm Abdomen: Soft, Non Tender, Non-Distended Skin: No rashes Vital Signs Temp Pulse Resp BP Pulse Ox 97.6 F L 78 16 133/67 H 93 12/23/17 08:15 12/23/17 08:15 12/23/17 08:15 12/23/17 08:15 12/23/17 08:15 Oxygen Flow Rate 1 Oxygen Delivery Method Room Air Weight: 83.518 kg Body Mass Index (BMI) 31.6 Intake and Output for Last 24 Hours 12/21/17 12/22/17 12/23/17 23:59 23:59 23:59 Intake Total 2022 3340 / 3340 840 / 840 Output Total 450 / 450 1000 / 1000 Balance 2022 2890 / 2890 -160 / -160 Laboratory Tests Past 24 Hrs 12/22/17 12/23/17 12/23/17 05:30 06:00 06:00 WBC 10.3 RBC 3.12 L Hgb 9.5 L Hct 29.5 L MCV 94.6 MCH 30.4 MCHC 32.2 RDW 15.3 H RDW Differential 51.8 H Plt Count 267 MPV 9.2 Immature Gran % (Auto) 2.500 H Neut % (Auto) 45.3 L Lymph % (Auto) 28.4 [place] % (Auto) 10.9 H Eos % (Auto) 12.4 H Baso % (Auto) 0.5 Absolute Neuts (auto) 4.7 Absolute Lymphs (auto) 2.93 Total Counted Not Reportable Diff Path Review Reviewed March Sodium 142 Potassium 3.9 Chloride 110 H Carbon Dioxide 27.0 Anion Gap 5 BUN 4 L Creatinine 0.57 Estim Creat Clear Calc 45.20 Est GFR (MDRD) Af Amer 136 Est GFR (MDRD) Non-Af 112 BUN/Creatinine Ratio 7.1 L Glucose 84 Calcium 8.2 L Phosphorus 3.4 Magnesium 1.6 Route of nutrition/ use of supplements: [] Nutritional Intake: [] IV Site: [] Bustillo Catheter: [] - Assessment/Plan Antibiotics: [] Assessment/Plan: [] Active and Suspected Problems SCLC (small cell lung carcinoma) (Acute) Bone metastases (Acute) Regional lymph node metastasis present (Acute) Recurrent cdiff - she reports this is her 2rd episode. Improving on po vanc. Other abx have been stopped. Is on probiotics. Plan for discharge will be long vanc taper given recurrent nature and need for chemotherapy. Diarrhea resolved today and wbc now back to normal. Po vanc taper: 125mg 4x/day for 2 weeks 125mg 2x/day for 1 week 125mg 1x/day for 1 week 125mg 1q48h for 2 weeks Total 82 doses over 6 weeks. Start date was when she came off other abx (12/18/17) will follow. D/w Dr. Harmon. Family meeting planned for today.
[2017-12-23 10:40] LABS: Pathologist Review Reviewed
--- NOTE | 2017-12-23 12:10 | CASEMGMT ---
TCU has been denied. Per physician pt plans to return home with Home Health. Referral faxed to [facility]. Call to let them know, and they plan for start of care on Thursday.Aparna MOONN RN ACM
--- NOTE | 2017-12-23 12:16 | PCM.DC ---
- Discharge Diagnoses Current Active Problems: Current Active and Chronic Problems (This Medical Record has been edited. 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 (6) Severe Protein-Calorie Malnutrition (7) History of Tobacco use (8) Chronic Pain Syndrome You will use the following diet at home:: No restrictions Your food should be the consistency of: Regular Your liquids should be the consistency of: Regular/Thin Discharge Activity: - - Avoid aggressive activity until resolution diarrhea. Avoid public places and crowds until diarrhea completely resolves. May resume sexual activity in: - - Avoid until diarrhea resolves. Weight Bearing Status: Weight bearing as tolerated Call your doctor if you observe: Fever of 101 or Higher, Inability to urinate, Inability to have a bowel movement, Shortness of breath, Dizziness, Fainting spells, Chest pain, Uncontrolled pain Instructions: Clostridium difficile Infection, Clostridium Difficile Toxin Stool Additional Instructions: Home Health will assist in continued care of your recently placed port. Please contact them with any questions or concerns. Allergies/Adverse Reactions: Allergies diazepam [From Valium] Adverse Reaction (Verified 12/15/17 16:20) Other Medications to take at Discharge Morphine Sulfate [Morphabond ER] 15 mg PO TID 12/10/17 Oxycodone HCl [Roxicodone] 5 mg PO Q4H PRN PRN 12/10/17 Probiotic 1 tab PO DAILY 12/10/17 Lidocaine/Prilocaine [Lidocaine-Prilocaine Cream] 30 gm TP DAILY PRN PRN 12/15/17 Prochlorperazine Maleate 10 mg PO Q8H PRN PRN #30 tab 12/15/17 Lactobacillus Acidophilus [Acidophilus Lactobacilli] 1 each PO DAILY 12/18/17 Omeprazole [Prilosec] 20 mg PO DAILY 12/18/17 Acetaminophen [Tylenol Tablet] 650 mg PO Q6H PRN PRN tablet 12/23/17 Lactobacillus Acidophilus [Acidophilus] 1 tab PO BID #60 tab 12/23/17 Menthol/Lanolin/Calamine/Znox [Calmoseptine Ointment] 1 applic TOPICAL TID #1 tube 12/23/17 Vancomcyin 125 MG/ 5 ML Susp [Vancomycin 125mg/5mL Susp] 125 mg PO UD 37 Days po.syringe 12/23/17 The following prescriptions were given: Vancomcyin 125 MG/ 5 ML Susp [Vancomycin 125mg/5mL Susp] 125 mg PO UD 37 Days po.syringe Lactobacillus Acidophilus [Acidophilus] 1 tab PO BID #60 tab Menthol/Lanolin/Calamine/Znox [Calmoseptine Ointment] 1 applic TOPICAL TID #1 tube Primary Care Physician: Mitchell Whiteside MD [Primary Care Provider] - Please Follow Up With: Stevie Seymour MD When: Please follow-up as previously arranged. Please Follow Up With: Shayla Arriaga MD When: Please follow-up per Hem/Onc discretion. Please Follow Up With: Leonardo Fernando MD When: Contact infectious disease with questions concerning regimen or concerns. Proposed Discharge Date: 12/23/17
--- NOTE | 2017-12-23 12:26 | PCM.DC.SUM ---
Discharge Date and Diagnosis - Problem List Patient Problems: Active and Suspected Problems (This Medical Record has been edited. Action required.) SCLC (small cell lung carcinoma) (Acute) Regional lymph node metastasis present (Acute) Bone metastases (Acute) Date of Admission: 12/18/17 Date of Discharge: 12/23/17 - Primary Discharge Diagnosis Active and Suspected Problems (This Medical Record has been edited. 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 (6) Severe Protein-Calorie Malnutrition (7) History of Tobacco use (8) Chronic Pain Syndrome - Secondary Discharge Diagnosis Chronic Problems (This Medical Record has been edited. Action required.) History of tobacco use (Chronic) Obesity (BMI 30.0-34.9) (Chronic) Spine fracture (Chronic) Hospital Course and Treatment Shayla Oneill Hem/Onc Leonardo Herrera Infectious disease Operations: None Procedures: EKG Summary of Care Provided: The patient is a 72 y/o F w/ PMHx: Obesity, Former Tobacco use, Stage IV Endocrine Cancer on chemotherapy and radiation with port placement ~ 48 hours prior who presented to the [facility] ED on 12/18/17 w/ no marked pulmonary sxs although daughter notes an occasional cough to clear her throat over the last 2 weeks with onset starting at 4:00 pm the day prior fatigue, malaise, poor appetite followed by the abrupt onset early this AM of nausea, emesis and diarrhea. She and her family note she recently completed treatment for clostridium difficile infection. Admission CBC w/ WBC 27.5 with L shift-->12/21/17 CBC w/ WBC 12.9, Hgb 9.1, Plts 271 with improved L shift. Admitted to MS, maintained on MS, maintained on oral vancomycin and IV flagyl initially-->oral vanc only, +c-diff assay obtained however, she was given initially abx for ? PNA in the ED given CXR findings upon admission although lower suspicion and following further evaluation felt likely cancer. Bld Cx x 2 without growth, influenza rapid negative. Held famotidine/PPI regimens given c-diff. PT, OT initially with recommendation for home with home health and 24 hour supervision and possible consideration SNF; however, notable improvement 12/22-12/23 with decreased stooling and improved appearance. Discussed with patient and family and arranging discharge to home with home health therapies. Given severity of diarrhea and recurrence, ID encouraged continued probiotics as well as discharge pulse dose aggressive regimen which would continue for an additional 37 days. Prior to discharge secondary to patient status and notable questions regarding her Metastatic Stage IV Small Cell Lung Carcinoma Hem/Onc family meeting with patient, her children 12/23/17 3 pm performed to address her specific questions including prognosis, appropriate route, delay of chemotherapy with per discussions w/ Hem/Onc poor prognosis likely. During admission she was maintained on her chronic pain regimen, PRN additional oral/IV additionally, fall precautions, position changes. Patient encouraged to follow upon discharge w/ her PCP, Hem/Onc, ID contact if any concerns or questions in addition to continued routine evaluation per pain management. Discharge Activity: - - Avoid aggressive activity until resolution diarrhea. Avoid public places and crowds until diarrhea completely resolves. May resume sexual activity in: - - Avoid until diarrhea resolves. Weight Bearing Status: Weight bearing as tolerated Call your doctor if you observe: Fever of 101 or Higher, Inability to urinate, Inability to have a bowel movement, Shortness of breath, Dizziness, Fainting spells, Chest pain, Uncontrolled pain Home Medications: Medications to take at Discharge Morphine Sulfate [Morphabond ER] 15 mg PO TID 12/10/17 Oxycodone HCl [Roxicodone] 5 mg PO Q4H PRN PRN 12/10/17 Probiotic 1 tab PO DAILY 12/10/17 Lidocaine/Prilocaine [Lidocaine-Prilocaine Cream] 30 gm TP DAILY PRN PRN 12/15/17 Prochlorperazine Maleate 10 mg PO Q8H PRN PRN #30 tab 12/15/17 Lactobacillus Acidophilus [Acidophilus Lactobacilli] 1 each PO DAILY 12/18/17 Acetaminophen [Tylenol Tablet] 650 mg PO Q6H PRN PRN tablet 12/23/17 Lactobacillus Acidophilus [Acidophilus] 1 tab PO BID #60 tab 12/23/17 Menthol/Lanolin/Calamine/Znox [Calmoseptine Ointment] 1 applic TOPICAL TID #1 tube 12/23/17 Vancomcyin 125 MG/ 5 ML Susp [Vancomycin 125mg/5mL Susp] 125 mg PO UD 37 Days po.syringe 12/23/17 Following Prescrptions Were Given to Patient: Vancomcyin 125 MG/ 5 ML Susp [Vancomycin 125mg/5mL Susp] 125 mg PO UD 37 Days po.syringe Lactobacillus Acidophilus [Acidophilus] 1 tab PO BID #60 tab Menthol/Lanolin/Calamine/Znox [Calmoseptine Ointment] 1 applic TOPICAL TID #1 tube Primary Care Physician: Mitchell Whiteside MD [Primary Care Provider] - Please Follow Up With: Stevie Seymour MD When: Please follow-up as previously arranged. Please Follow Up With: Shayla Arriaga MD When: Please follow-up per Hem/Onc discretion. Please Follow Up With: Leonardo Fernando MD When: Contact infectious disease with questions concerning regimen or concerns. Patient Instructions: Clostridium Difficile Toxin Stool, Clostridium difficile Infection Disposition: Home with Home Health Minutes spent on discharge:: 35 Patient Condition:: Stable Meaningful Use Info Meaningful Use Diagnoses (Choose all that apply): None applicable Code Visit Inpatient E&M: 81343 Disch Hosp
--- NOTE | 2017-12-23 12:34 | DS.PCM_ITS ---
Discharge Date and Diagnosis - Problem List Patient Problems: Active and Suspected Problems (This Medical Record has been edited. Action required.) SCLC (small cell lung carcinoma) (Acute) Regional lymph node metastasis present (Acute) Bone metastases (Acute) Date of Admission: 12/18/17 Date of Discharge: 12/23/17 - Primary Discharge Diagnosis Active and Suspected Problems (This Medical Record has been edited. 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 (6) Severe Protein-Calorie Malnutrition (7) History of Tobacco use (8) Chronic Pain Syndrome - Secondary Discharge Diagnosis Chronic Problems (This Medical Record has been edited. Action required.) History of tobacco use (Chronic) Obesity (BMI 30.0-34.9) (Chronic) Spine fracture (Chronic) Hospital Course and Treatment Shayla Oneill Hem/Onc Leoanrdo Herrera Infectious disease Operations: None Procedures: EKG Summary of Care Provided: The patient is a 72 y/o F w/ PMHx: Obesity, Former Tobacco use, Stage IV Endocrine Cancer on chemotherapy and radiation with port placement ~ 48 hours prior who presented to the [facility] ED on 12/18/17 w/ no marked pulmonary sxs although daughter notes an occasional cough to clear her throat over the last 2 weeks with onset starting at 4:00 pm the day prior fatigue, malaise, poor appetite followed by the abrupt onset early this AM of nausea, emesis and diarrhea. She and her family note she recently completed treatment for clostridium difficile infection. Admission CBC w/ WBC 27.5 with L shift--> CBC w/ WBC 12.9, Hgb 9.1, Plts 271 with improved L shift. Admitted to MS, maintained on MS, maintained on oral vancomycin and IV flagyl initially-->oral vanc only, +c-diff assay obtained however, she was given initially abx for ? PNA in the ED given CXR findings upon admission although lower suspicion and following further evaluation felt likely cancer. Bld Cx x 2 without growth, influenza rapid negative. Held famotidine/PPI regimens given c-diff. PT, OT initially with recommendation for home with home health and 24 hour supervision and possible consideration SNF; however, notable improvement 12/22-12/23 with decreased stooling and improved appearance. Discussed with patient and family and arranging discharge to home with home health therapies. Given severity of diarrhea and recurrence, ID encouraged continued probiotics as well as discharge pulse dose aggressive regimen which would continue for an additional 37 days. Prior to discharge secondary to patient status and notable questions regarding her Metastatic Stage IV Small Cell Lung Carcinoma Hem/Onc family meeting with patient, her children 12/23/17 3 pm performed to address her specific questions including prognosis, appropriate route, delay of chemotherapy with per discussions w/ Hem/Onc poor prognosis likely. During admission she was maintained on her chronic pain regimen, PRN additional oral/ IV additionally, fall precautions, position changes. Patient encouraged to follow upon discharge w/ her PCP, Hem/Onc, ID contact if any concerns or questions in addition to continued routine evaluation per pain management. Discharge Activity: - - Avoid aggressive activity until resolution diarrhea. Avoid public places and crowds until diarrhea completely resolves. May resume sexual activity in: - - Avoid until diarrhea resolves. Weight Bearing Status: Weight bearing as tolerated Call your doctor if you observe: Fever of 101 or Higher, Inability to urinate, Inability to have a bowel movement, Shortness of breath, Dizziness, Fainting spells, Chest pain, Uncontrolled pain Home Medications: Medications to take at Discharge Morphine Sulfate [Morphabond ER] 15 mg PO TID 12/10/17 Oxycodone HCl [Roxicodone] 5 mg PO Q4H PRN PRN 12/10/17 Probiotic 1 tab PO DAILY 12/10/17 Lidocaine/Prilocaine [Lidocaine-Prilocaine Cream] 30 gm TP DAILY PRN PRN Prochlorperazine Maleate 10 mg PO Q8H PRN PRN #30 tab 12/15/17 Lactobacillus Acidophilus [Acidophilus Lactobacilli] 1 each PO DAILY 12/18/17 Acetaminophen [Tylenol Tablet] 650 mg PO Q6H PRN PRN tablet 12/23/17 Lactobacillus Acidophilus [Acidophilus] 1 tab PO BID #60 tab 12/23/17 Menthol/Lanolin/Calamine/Znox [Calmoseptine Ointment] 1 applic TOPICAL TID #1 tube 12/23/17 Vancomcyin 125 MG/ 5 ML Susp [Vancomycin 125mg/5mL Susp] 125 mg PO UD 37 Days po.syringe 12/23/17 Following Prescrptions Were Given to Patient: Vancomcyin 125 MG/ 5 ML Susp [Vancomycin 125mg/5mL Susp] 125 mg PO UD 37 Days po.syringe Lactobacillus Acidophilus [Acidophilus] 1 tab PO BID #60 tab Menthol/Lanolin/Calamine/Znox [Calmoseptine Ointment] 1 applic TOPICAL TID #1 tube Primary Care Physician: Mitchell Whiteside MD [Primary Care Provider] - Please Follow Up With: Stevie Seymour MD When: Please follow-up as previously arranged. Please Follow Up With: Shayla Arriaga MD When: Please follow-up per Hem/Onc discretion. Please Follow Up With: Leonardo Fernando MD When: Contact infectious disease with questions concerning regimen or concerns. Patient Instructions: Clostridium Difficile Toxin Stool, Clostridium difficile Infection Disposition: Home with Home Health Minutes spent on discharge:: 35 Patient Condition:: Stable Meaningful Use Info Meaningful Use Diagnoses (Choose all that apply): None applicable Code Visit Inpatient E&M: 45216 Disch Hosp
--- NOTE | 2017-12-23 13:42 | CASEMGMT ---
Addendum entered by Loki Capps 12/23/17 13:58: Discharge instructions, clinical information faxed to [facility]. Aparna QURESHI RN ACM Original Note: Call for prior authorization for vancomycin po. Called to [facility] pharmacy precertification . Spoke with Rep Gupta, prior authorization was received. Case # [id number]. Aparna QURESHI RN ACM
[2017-12-23 14:13] VITALS: BP 136/68; PULSE 100; RESP 18; TEMP 36.9; O2SAT 95
--- NOTE | 2017-12-23 15:53 | PN_ITS ---
Progress Note December 23, 2017, 3 PM Meeting with patient and family (2 daughters) Dr. Harmon attended the meeting. Patient and family wished to discuss prognosis and options. In summary patient presented with an advanced stage IV metastatic incurable and aggressive small cell cancer with a primary most likely in the right lung. She was able to receive only 1 cycle of systemic chemotherapy in late September- early October 2017 followed by multiple life-threatening infectious complications including Pseudomonas sepsis while neutropenic, and recurrent C. difficile colitis which is still ongoing. She is now on a protracted (4-6 weeks ) course of vancomycin. Her systemic chemotherapy have to be withheld during any active infection and even if she were to recover from the current C. difficile colitis the risk of recurrence is higher than average and if such a recurrence would happen when she is neutropenic is very likely to prove fatal. Weighing these grave risks with resuming chemotherapy in the future and a modest survival benefit that can be achieved from chemotherapy that is not curable I believe that the risks are excessive and may deprive the patient from a peaceful inevitable . In my opinion treatment of her ongoing infections with antibiotics to achieve palliation and providing maximum comfort measures at home on the palliative transitioning into hospice is the best plan of action. The patient's alternative option is to wait until C. difficile is clear and revisit systemic chemotherapy if she has an adequate performance status which is very unlikely with the inevitable progression of her cancer while recovering from infection. This was discussed in detail with the patient and family. She wishes some time before making final decision. She is looking forward to going home on oral antibiotics and will convey her decision to us in the next few days. Total time spent in [id number] discussion 35 minutes.
--- NOTE | 2017-12-23 16:00 | ONC.CON.INP2 ---
(1) SCLC (small cell lung carcinoma) Status: Acute (2) Regional lymph node metastasis present Status: Acute (3) Bone metastases Status: Acute Consult Consult Results: Metastatic small cell lung cancer Subjective Chief Complaint: Fever History of Present Illness: Patient is a 72-year-old female with metastatic small cell cancer who just moved to [facility] to be with her daughters. She smoked cigarettes since her teens until the diagnosis of cancer in September 2017. She presented at [facility] in [place] in September 2017 with increasing right hip and back pain that escalated rapidly over the course of a few days. 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 She had extensive workup including a PET scan that revealed pathologic adenopathy in the right supraclavicular and mediastinal lymph nodes but no primary in the lung visualized. She has evidence for widely spread metastatic disease to bones including multiple levels in the spine, skull, ribs, and left iliac bone. No evidence for spinal cord compression or spinal canal encroachment was seen on MRIs of the spine. Brain MRI did not show evidence for metastatic disease either. She recovered well from her spinal fusion and in late September through October 23 received her first cycle of chemotherapy with carboplatin and etoposide. This was complicated with Pseudomonas sepsis, pneumonia and UTI requiring hospitalization in October 2017 and after recovery from her sepsis is suffered from C. difficile colitis treated with vancomycin completed course December 07, 2017 and appears to had recovered fully from this. Care so far had been at [facility] in [place]. She was scheduled to resume systemic chemotherapy December 22, 2017. She presented in the early hours of December 18, 2017 acute onset less than 24 hours of fever, increasing dyspnea, increasing cough, nausea and recurrent diarrhea. Chest x-ray shows a right lower lobe infiltrate and stool for C. difficile is pending. Power of Lever Miller: Yes Living Will: Yes Advance Directives on File: Yes Past Medical History: Chronic Problems (This Medical Record has been edited. Action required.) History of tobacco use (Chronic) Obesity (BMI 30.0-34.9) (Chronic) Spine fracture (Chronic) Past Medical/Surgical History: Social History Smoking Status Former smoker Past Medical History - Most Recent Inpatient Visit Past Medical History Start: 12/18/17 07:50 Text: Status: Complete Freq: ONCE Protocol: Document 12/18/17 07:50 [facility] (Rec: 12/18/17 08:03 [facility] [id number]) BMI Required to complete PMH What is Patient's BMI 31.6 Past Medical History Unable History Recalled Yes Query Text:Pt Unable/Family Not Present Neurologic Medical History Hx Stroke/TIA No Hx Dementia/Alzheimer's No Hx Parkinson's Disease No Hx Seizures No Hx Multiple Sclerosis No Hx Migraines No Cardiac Medical History VTE Present on Admission No Hx of Deep Vein Thrombosis/VTE/PE No Hx Hypertension No Hx Chest Pain/Angina No Hx Heart Attack No Hx Cardiac Surgery/Stents/Etc. No Hx Heart Failure No Hx Pacemaker/AICD No Hx Irregular Heartbeat and/or Afib No Hx Anticoagulant Therapy No Query Text:(Coumadin, Aspirin, Plavix, Xarelto, etc.) Hx Pain in Legs when Walking/Leg Cramps No Respiratory Medical History Hx COPD No Hx Emphysema No Hx Smoking No Smoking Status Former smoker Hx Tobacco Use in last 12 months Yes Sent to [facility] Yes Hx Sleep Apnea No Do you snore loudly (louder than talking No or can be heard through closed doors)? Do you often feel tired/ fatigued/ No sleepy during daytime? Has anyone observed you stop breathing No during sleep? STOP Results Negative GI Medical History Hx Ulcer No Hx Hepatitis No Hx Cirrhosis No Hx GI Bleed No Hx Unplanned Weight Loss Yes Comments APPROX 25LB WEIGHT LOSS SINCE SEP Genitourinary Medical History Indwelling Catheter in Place on Arrival/ No Admission Hx Renal Disease No Hx Dialysis No Musculoskeletal History Hx Arthritis No Hx Rheumatoid Arthritis No Comments BACK SURGERY OCT 05, 2017 Endocrine Medical History Hx Diabetes No Hx Thyroid Disease No Hematologic Medical History Hx of Blood Transfusion Yes Hx of Transfusion in last 3 Months Yes Date of Last Transfusion (if within last OCTOBER 2017 3 months) Ever experience any problems with No transfusion(s)? Hx of Preganancy in last 3 Months N/A Nurse Filling Out Transfusion & SSWORD Questions: Date: 12/18/17 Time: 08:01 Psycho/Social Medical History Hx Behavior Disorder No Hx Alcohol Use No Hx Substance Use No Other Medical History Hx Blood Disorders No Hx Anemia Yes Hx Cancer Yes: ENDOCRINE Hx Drug Resistant Organism No Wound/Pressure Injury Present on Arrival No /Admission Query Text:If yes, chart assessment in Shift/Clinical Findings Central Line/PICC/VAD Present on Arrival Yes /Admission Antibiotics within last 7 days? No Comments RECENT ANTIBIOTIC FOR CDIFF, BUT NOT WITHIN LAST 7 DAYS Methicillin Resistant Staphylococcus aureus Screening Active MRSA No Risk for Readmission Number of Risk Factors 4 At Risk for Readmission Patient is At Risk For Readmission Patient is eligible for Call Back Y Lives: With Family Smoking Status: Former smoker Tobacco Use: Non-smoker Alcohol: None Drugs: None Maternal Family History: Family History (This Medical Record has been edited. Action required.) Brother Heart disease Father Cerebral aneurysm rupture Family History: No pertinent history Paternal Family History: Family History (This Medical Record has been edited. Action required.) Brother Heart disease Father Cerebral aneurysm rupture Family History: - - from an aneurysm at age 38. Allergies/Adverse Reactions: Allergy/AdvReac Type Severity Reaction Status Date / Time diazepam [From Valium] AdvReac Other Verified 12/15/17 16:20 Home Medications Medication Instructions Recorded Morphine Sulfate [Morphabond ER] 15 mg PO TID 12/10/17 Oxycodone HCl [Roxicodone] 5 mg PO Q4H PRN PRN 12/10/17 Probiotic 1 tab PO DAILY 12/10/17 Lidocaine/Prilocaine 30 gm TP DAILY PRN PRN 12/15/17 [Lidocaine-Prilocaine Cream] Prochlorperazine Maleate 10 mg PO Q8H PRN PRN #30 tab 12/15/17 Lactobacillus Acidophilus 1 each PO DAILY 12/18/17 [Acidophilus Lactobacilli] Acetaminophen [Tylenol Tablet] 650 mg PO Q6H PRN PRN tablet 12/23/17 Lactobacillus Acidophilus 1 tab PO BID #60 tab 12/23/17 [Acidophilus] Menthol/Lanolin/Calamine/Znox 1 applic TOPICAL TID #1 tube 12/23/17 [Calmoseptine Ointment] Vancomcyin 125 MG/ 5 ML Susp 125 mg PO UD 37 Days po.syringe 12/23/17 [Vancomycin 125mg/5mL Susp] Vital Signs Height 5 ft 4 in Weight: 83.518 kg Weight in Pounds 184.1 lbs Pulse Ox 95 Temperature 98.5 F Pulse Rate 100 Respiratory Rate 18 Blood Pressure 136/68 Blood Pressure Position Semi-Fowlers Laboratory Data: Laboratory Tests 12/23/17 12/23/1718 Range/Units 06:00 06:00 05:30 WBC 10.3 (4.4-11.0) K/mm3 RBC 3.12 L (4.2-5.4) M/mm3 Hgb 9.5 L (12.0-15.0) g/dl Hct 29.5 L (37-47) % MCV 94.6 (81-99) fL MCH 30.4 (27.0-32.0) pg MCHC 32.2 (32-36) g/gl RDW 15.3 H (11.6-14.6) % RDW Differential 51.8 H (35.1-43.9) fl Plt Count 267 (150-450) K/mm3 MPV 9.2 (6.2-12.0) fl Immature Gran % (Auto) 2.500 H (0.0-0.9) % Neut % (Auto) 45.3 L (47-70) % Lymph % (Auto) 28.4 (19-41) % Piute % (Auto) 10.9 H (0-10) % Eos % (Auto) 12.4 H (0-5) % Baso % (Auto) 0.5 (0-1) % Absolute Neuts (auto) 4.7 (2.0-7.7) X10^3/uL Absolute Lymphs (auto) 2.93 (0.83-4.51) X10^3/ul Total Counted Not Reportable Diff Path Review Reviewed Reviewed Sodium 142 (136-145) mmol/L Potassium 3.9 (3.5-5.1) mmol/L Chloride 110 H (98-107) mmol/L Carbon Dioxide 27.0 (21.0-32.0) mmol/L Anion Gap 5 (5-15) BUN 4 L (7-18) mg/dL Creatinine 0.57 (0.55-1.02) mg/dL Estim Creat Clear Calc 45.20 ml/min Est GFR (MDRD) Af Amer 136 (>60) mL/min Est GFR (MDRD) Non-Af 112 (>60) mL/min BUN/Creatinine Ratio 7.1 L (10-20) RATIO Glucose 84 (70-110) mg/dL Calcium 8.2 L (8.5-10.1) mg/dL Phosphorus 3.4 (2.5-4.9) mg/dL Magnesium 1.6 (1.6-2.6) mg/dL Diagnostic Data: Diagnostic Data Chest X-Ray 12/20/17 15:10 IMPRESSION: Slight interval decrease in size of the right lower lobe infiltrate. Electronically Signed: Haroldo Molina, at 19:57 EST Tel , Service support , Assessment and Plan 72-year-old female with metastatic, stage IV small cell cancer most likely primary right lung with metastases into mediastinal, right supraclavicular, and widespread bone metastases. Patient is status post spinal fusion for a painful compression fracture of T10 in September 2017, 1 cycle of chemotherapy with carboplatin and etoposide in October 2017 at [facility]. This was complicated with Pseudomonas sepsis, pneumonia and UTI requiring hospitalization in October 2017 and after recovery from her sepsis is suffered from C. difficile colitis treated with vancomycin completed course December 07, 2017 Care so far had been at [facility] in [place]. She moved to [facility] to be with her family and she was scheduled to resume systemic chemotherapy December 22, 2017. She was acutely hospitalized December 18, 2017 with recurrent acute C. difficile colitis. 1. Treatment of colitis as per primary service. 2. Will delay her next cycle of chemotherapy at least 1 week after full recovery from any active infection. 3. Continue with current management plan of her painful bony metastatic disease as per commended by pain management (see outpatient consult) Seen was her sister, impression and plan discussed Medications: Prescriptions This Visit Medication Instructions Recorded Lactobacillus Acidophilus 1 each PO DAILY 12/18/17 [Acidophilus Lactobacilli] Acetaminophen [Tylenol Tablet] 650 mg PO Q6H PRN PRN tablet 12/23/17 Lactobacillus Acidophilus 1 tab PO BID #60 tab 12/23/17 [Acidophilus] Menthol/Lanolin/Calamine/Znox 1 applic TOPICAL TID #1 tube 12/23/17 [Calmoseptine Ointment] Vancomcyin 125 MG/ 5 ML Susp 125 mg PO UD 37 Days po.syringe 12/23/17 [Vancomycin 125mg/5mL Susp]
--- NOTE | 2017-12-23 16:11 | CON.PCM_ITS ---
(1) SCLC (small cell lung carcinoma) Status: Acute (2) Regional lymph node metastasis present Status: Acute (3) Bone metastases Status: Acute Consult Consult Results: Metastatic small cell lung cancer Subjective Chief Complaint: Fever History of Present Illness: Patient is a 72-year-old female with metastatic small cell cancer who just moved to [facility] to be with her daughters. She smoked cigarettes since her teens until the diagnosis of cancer in September 2017. She presented at [facility] in [place] in September 2017 with increasing right hip and back pain that escalated rapidly over the course of a few days. 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 She had extensive workup including a PET scan that revealed pathologic adenopathy in the right supraclavicular and mediastinal lymph nodes but no primary in the lung visualized. She has evidence for widely spread metastatic disease to bones including multiple levels in the spine, skull, ribs, and left iliac bone. No evidence for spinal cord compression or spinal canal encroachment was seen on MRIs of the spine. Brain MRI did not show evidence for metastatic disease either. She recovered well from her spinal fusion and in late September through October 23 received her first cycle of chemotherapy with carboplatin and etoposide. This was complicated with Pseudomonas sepsis, pneumonia and UTI requiring hospitalization in October 2017 and after recovery from her sepsis is suffered from C. difficile colitis treated with vancomycin completed course December 07, 2017 and appears to had recovered fully from this. Care so far had been at [facility] in [place]. She was scheduled to resume systemic chemotherapy December 22, 2017. She presented in the early hours of December 18, 2017 acute onset less than 24 hours of fever, increasing dyspnea, increasing cough, nausea and recurrent diarrhea. Chest x-ray shows a right lower lobe infiltrate and stool for C. difficile is pending. Power of Electrician Technician: Yes Living Will: Yes Advance Directives on File: Yes Past Medical History: Chronic Problems (This Medical Record has been edited. Action required.) History of tobacco use (Chronic) Obesity (BMI 30.0-34.9) (Chronic) Spine fracture (Chronic) Past Medical/Surgical History: Social History Smoking Status Former smoker Past Medical History - Most Recent Inpatient Visit Past Medical History Start: 12/18/17 07: 50 Text: Status: Complete Freq: ONCE Protocol: Document 12/18/17 07:50 [facility] (Rec: 12/18/17 08:03 [facility] [id number]) BMI Required to complete PMH What is Patient's BMI 31.6 Past Medical History Unable History Recalled Yes Query Text:Pt Unable/Family Not Present Neurologic Medical History Hx Stroke/TIA No Hx Dementia/Alzheimer's No Hx Parkinson's Disease No Hx Seizures No Hx Multiple Sclerosis No Hx Migraines No Cardiac Medical History VTE Present on Admission No Hx of Deep Vein Thrombosis/VTE/PE No Hx Hypertension No Hx Chest Pain/Angina No Hx Heart Attack No Hx Cardiac Surgery/Stents/Etc. No Hx Heart Failure No Hx Pacemaker/AICD No Hx Irregular Heartbeat and/or Afib No Hx Anticoagulant Therapy No Query Text:(Coumadin, Aspirin, Plavix, Xarelto, etc.) Hx Pain in Legs when Walking/Leg Cramps No Respiratory Medical History Hx COPD No Hx Emphysema No Hx Smoking No Smoking Status Former smoker Hx Tobacco Use in last 12 months Yes Sent to PSN Yes Hx Sleep Apnea No Do you snore loudly (louder than talking No or can be heard through closed doors)? Do you often feel tired/ fatigued/ No sleepy during daytime? Has anyone observed you stop breathing No during sleep? STOP Results Negative GI Medical History Hx Ulcer No Hx Hepatitis No Hx Cirrhosis No Hx GI Bleed No Hx Unplanned Weight Loss Yes Comments APPROX 25LB WEIGHT LOSS SINCE SEP Genitourinary Medical History Indwelling Catheter in Place on Arrival/ No Admission Hx Renal Disease No Hx Dialysis No Musculoskeletal History Hx Arthritis No Hx Rheumatoid Arthritis No Comments BACK SURGERY OCT 05, 2017 Endocrine Medical History Hx Diabetes No Hx Thyroid Disease No Hematologic Medical History Hx of Blood Transfusion Yes Hx of Transfusion in last 3 Months Yes Date of Last Transfusion (if within last OCTOBER 2017 3 months) Ever experience any problems with No transfusion(s)? Hx of Preganancy in last 3 Months N/A Nurse Filling Out Transfusion & SSWORD Questions: Date: 12/18/17 Time: 08:01 Psycho/Social Medical History Hx Behavior Disorder No Hx Alcohol Use No Hx Substance Use No Other Medical History Hx Blood Disorders No Hx Anemia Yes Hx Cancer Yes: ENDOCRINE Hx Drug Resistant Organism No Wound/Pressure Injury Present on Arrival No /Admission Query Text:If yes, chart assessment in Shift/Clinical Findings Central Line/PICC/VAD Present on Arrival Yes /Admission Antibiotics within last 7 days? No Comments RECENT ANTIBIOTIC FOR CDIFF, BUT NOT WITHIN LAST 7 DAYS Methicillin Resistant Staphylococcus aureus Screening Active MRSA No Risk for Readmission Number of Risk Factors 4 At Risk for Readmission Patient is At Risk For Readmission Patient is eligible for Call Back Y Lives: With Family Smoking Status: Former smoker Tobacco Use: Non-smoker Alcohol: None Drugs: None Maternal Family History: Family History (This Medical Record has been edited. Action required.) Brother Heart disease Father Cerebral aneurysm rupture Family History: No pertinent history Paternal Family History: Family History (This Medical Record has been edited. Action required.) Brother Heart disease Father Cerebral aneurysm rupture Family History: - - from an aneurysm at age 38. Allergies/Adverse Reactions: Allergy/AdvReac Type Severity Reaction Status Date / Time diazepam [From Valium] AdvReac Other Verified 12/15/17 16:20 Home Medications Medication Instructions Recorded Morphine Sulfate [Morphabond ER] 15 mg PO TID 12/10/17 Oxycodone HCl [Roxicodone] 5 mg PO Q4H PRN PRN 12/10/17 Probiotic 1 tab PO DAILY 12/10/17 Lidocaine/Prilocaine 30 gm TP DAILY PRN PRN 12/15/17 [Lidocaine-Prilocaine Cream] Prochlorperazine Maleate 10 mg PO Q8H PRN PRN #30 tab 12/15/17 Lactobacillus Acidophilus 1 each PO DAILY 12/18/17 [Acidophilus Lactobacilli] Acetaminophen [Tylenol Tablet] 650 mg PO Q6H PRN PRN tablet 12/23/17 Lactobacillus Acidophilus 1 tab PO BID #60 tab 12/23/17 [Acidophilus] Menthol/Lanolin/Calamine/Znox 1 applic TOPICAL TID #1 tube 12/23/17 [Calmoseptine Ointment] Vancomcyin 125 MG/ 5 ML Susp 125 mg PO UD 37 Days po.syringe 12/23/17 [Vancomycin 125mg/5mL Susp] Vital Signs Height 5 ft 4 in Weight: 83.518 kg Weight in Pounds 184.1 lbs Pulse Ox 95 Temperature 98.5 F Pulse Rate 100 Respiratory Rate 18 Blood Pressure 136/68 Blood Pressure Position Semi-Fowlers Laboratory Data: Laboratory Tests 3 12/23/17 12/23/1712/22/18 Range/Units 06:00 06:00 05:30 WBC 10.3 (4.4-11.0) K/mm3 RBC 3.12 L (4.2-5.4) M/mm3 Hgb 9.5 L (12.0-15.0) g/dl Hct 29.5 L (37-47) % MCV 94.6 (81-99) fL MCH 30.4 (27.0-32.0) pg MCHC 32.2 (32-36) g/gl RDW 15.3 H (11.6-14.6) % RDW Differential 51.8 H (35.1-43.9) fl Plt Count 267 (150-450) K/mm3 MPV 9.2 (6.2-12.0) fl Immature Gran % (Auto) 2.500 H (0.0-0.9) % Neut % (Auto) 45.3 L (47-70) % Lymph % (Auto) 28.4 (19-41) % Millard % (Auto) 10.9 H (0-10) % Eos % (Auto) 12.4 H (0-5) % Baso % (Auto) 0.5 (0-1) % Absolute Neuts (auto) 4.7 (2.0-7.7) X10^3/uL Absolute Lymphs (auto) 2.93 (0.83-4.51) X10^3/ul Total Counted Not Reportable Diff Path Review Reviewed Reviewed Sodium 142 (136-145) mmol/L Potassium 3.9 (3.5-5.1) mmol/L Chloride 110 H (98-107) mmol/L Carbon Dioxide 27.0 (21.0-32.0) mmol/L Anion Gap 5 (5-15) BUN 4 L (7-18) mg/dL Creatinine 0.57 (0.55-1.02) mg/dL Estim Creat Clear Calc 45.20 ml/min Est GFR (MDRD) Af Amer 136 (>60) mL/min Est GFR (MDRD) Non-Af 112 (>60) mL/min BUN/Creatinine Ratio 7.1 L (10-20) RATIO Glucose 84 (70-110) mg/dL Calcium 8.2 L (8.5-10.1) mg/dL Phosphorus 3.4 (2.5-4.9) mg/dL Magnesium 1.6 (1.6-2.6) mg/dL Diagnostic Data: Diagnostic Data Chest X-Ray 12/20/17 15:10 IMPRESSION: Slight interval decrease in size of the right lower lobe infiltrate. Electronically Signed: Haroldo Molina, at 19:57 EST Tel , Service support , Assessment and Plan 72-year-old female with metastatic, stage IV small cell cancer most likely primary right lung with metastases into mediastinal, right supraclavicular, and widespread bone metastases. Patient is status post spinal fusion for a painful compression fracture of T10 in September 2017, 1 cycle of chemotherapy with carboplatin and etoposide in October 2017 at [facility]. This was complicated with Pseudomonas sepsis, pneumonia and UTI requiring hospitalization in October 2017 and after recovery from her sepsis is suffered from C. difficile colitis treated with vancomycin completed course December 07, 2017 Care so far had been at [facility] in [place]. She moved to [facility] to be with her family and she was scheduled to resume systemic chemotherapy December 22, 2017. She was acutely hospitalized December 18, 2017 with recurrent acute C. difficile colitis. 1. Treatment of colitis as per primary service. 2. Will delay her next cycle of chemotherapy at least 1 week after full recovery from any active infection. 3. Continue with current management plan of her painful bony metastatic disease as per commended by pain management (see outpatient consult) Seen was her sister, impression and plan discussed Medications: Prescriptions This Visit Medication Instructions Recorded Lactobacillus Acidophilus 1 each PO DAILY 12/18/17 [Acidophilus Lactobacilli] Acetaminophen [Tylenol Tablet] 650 mg PO Q6H PRN PRN tablet 12/23/17 Lactobacillus Acidophilus 1 tab PO BID #60 tab 12/23/17 [Acidophilus] Menthol/Lanolin/Calamine/Znox 1 applic TOPICAL TID #1 tube 12/23/17 [Calmoseptine Ointment] Vancomcyin 125 MG/ 5 ML Susp 125 mg PO UD 37 Days po.syringe 12/23/17 [Vancomycin 125mg/5mL Susp]
--- NOTE | 2017-12-23 16:32 | CASEMGMT ---
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 Pt had questions re: expectations of chemotherapy, quality of life. Physician spoke frankly to pt with encouragement towards stopping chemo and palliative/hospice referral recommendations. Pt tearful, emotional. Pt was able to discuss concerns and have questions answered. RN JOSE DAVID explained Palliative Care and Hospice. Pt states she is overwhelmed and would like to think about plans, requested Palliative referral not be made yet. Brochure given to daughter and she will contact Oscar. -Information including clinical, face to face faxed earlier to [facility] and they will plan start of care Thursday. Pt is aware that [facility] requested pt be home Thursday to be sure they can see her. -Vancomycin script has been prior authorized. No further dc needs identified. Charge nurse and nurse notified of above and plan for home today. Aparna MOONN RN AC
--- NOTE | 2017-12-23 17:05 | CON.PCM_ITS ---
(1) SCLC (small cell lung carcinoma) Status: Acute (2) Regional lymph node metastasis present Status: Acute (3) Bone metastases Status: Acute Consult Referring Physician: Hospitalist service, Dr. Harmon Consult Results: Metastatic small cell lung cancer Subjective Date of Service:: 12/18/17 Chief Complaint: Fever History of Present Illness: Patient is a 72-year-old female with metastatic small cell cancer who just moved to [facility] to be with her daughters. She smoked cigarettes since her teens until the diagnosis of cancer in September 2017. She presented at [facility] in September 2017 with increasing right hip and back pain that escalated rapidly over the course of a few days. 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 She had extensive workup including a PET scan that revealed pathologic adenopathy in the right supraclavicular and mediastinal lymph nodes but no primary in the lung visualized. She has evidence for widely spread metastatic disease to bones including multiple levels in the spine, skull, ribs, and left iliac bone. No evidence for spinal cord compression or spinal canal encroachment was seen on MRIs of the spine. Brain MRI did not show evidence for metastatic disease either. She recovered well from her spinal fusion and in late September through October 23 received her first cycle of chemotherapy with carboplatin and etoposide. This was complicated with Pseudomonas sepsis, pneumonia and UTI requiring hospitalization in October 2017 and after recovery from her sepsis is suffered from C. difficile colitis treated with vancomycin completed course December 07, 2017 and appears to had recovered fully from this. Care so far had been at [facility] in [place]. She was scheduled to resume systemic chemotherapy December 22, 2017. She presented in the early hours of December 18, 2017 acute onset less than 24 hours of fever, increasing dyspnea, increasing cough, nausea and recurrent diarrhea. Chest x-ray shows a right lower lobe infiltrate and stool for C. difficile is pending. Power of Human Resources Manager Manufacturing: Yes Living Will: Yes Advance Directives on File: Yes Past Medical History: Chronic Problems (This Medical Record has been edited. Action required.) History of tobacco use (Chronic) Obesity (BMI 30.0-34.9) (Chronic) Spine fracture (Chronic) Past Medical/Surgical History: Past Medical History - Most Recent Inpatient Visit Past Medical History Start: 12/18/17 07: 50 Text: Status: Complete Freq: ONCE Protocol: Document 12/18/17 07:50 [facility] (Rec: 12/18/17 08:03 S [id number]) BMI Required to complete PMH What is Patient's BMI 31.6 Past Medical History Unable History Recalled Yes Query Text:Pt Unable/Family Not Present Neurologic Medical History Hx Stroke/TIA No Hx Dementia/Alzheimer's No Hx Parkinson's Disease No Hx Seizures No Hx Multiple Sclerosis No Hx Migraines No Cardiac Medical History VTE Present on Admission No Hx of Deep Vein Thrombosis/VTE/PE No Hx Hypertension No Hx Chest Pain/Angina No Hx Heart Attack No Hx Cardiac Surgery/Stents/Etc. No Hx Heart Failure No Hx Pacemaker/AICD No Hx Irregular Heartbeat and/or Afib No Hx Anticoagulant Therapy No Query Text:(Coumadin, Aspirin, Plavix, Xarelto, etc.) Hx Pain in Legs when Walking/Leg Cramps No Respiratory Medical History Hx COPD No Hx Emphysema No Hx Smoking No Smoking Status Former smoker Hx Tobacco Use in last 12 months Yes Sent to PSN Yes Hx Sleep Apnea No Do you snore loudly (louder than talking No or can be heard through closed doors)? Do you often feel tired/ fatigued/ No sleepy during daytime? Has anyone observed you stop breathing No during sleep? STOP Results Negative GI Medical History Hx Ulcer No Hx Hepatitis No Hx Cirrhosis No Hx GI Bleed No Hx Unplanned Weight Loss Yes Comments APPROX 25LB WEIGHT LOSS SINCE SEP Genitourinary Medical History Indwelling Catheter in Place on Arrival/ No Admission Hx Renal Disease No Hx Dialysis No Musculoskeletal History Hx Arthritis No Hx Rheumatoid Arthritis No Comments BACK SURGERY OCT 05, 2017 Endocrine Medical History Hx Diabetes No Hx Thyroid Disease No Hematologic Medical History Hx of Blood Transfusion Yes Hx of Transfusion in last 3 Months Yes Date of Last Transfusion (if within last OCTOBER 2017 3 months) Ever experience any problems with No transfusion(s)? Hx of Preganancy in last 3 Months N/A Nurse Filling Out Transfusion & SSWORD Questions: Date: 12/18/17 Time: 08:01 Psycho/Social Medical History Hx Behavior Disorder No Hx Alcohol Use No Hx Substance Use No Other Medical History Hx Blood Disorders No Hx Anemia Yes Hx Cancer Yes: ENDOCRINE Hx Drug Resistant Organism No Wound/Pressure Injury Present on Arrival No /Admission Query Text:If yes, chart assessment in Shift/Clinical Findings Central Line/PICC/VAD Present on Arrival Yes /Admission Antibiotics within last 7 days? No Comments RECENT ANTIBIOTIC FOR CDIFF, BUT NOT WITHIN LAST 7 DAYS Methicillin Resistant Staphylococcus aureus Screening Active MRSA No Risk for Readmission Number of Risk Factors 4 At Risk for Readmission Patient is At Risk For Readmission Patient is eligible for Call Back Y Past Medical History (This Medical Record has been edited. Action required.) Small cell carcinoma (Acute) Bone metastases (Acute) Metastasis to mediastinal lymph node (Acute) Metastasis to supraclavicular lymph node (Acute) Pseudomonas sepsis (Resolved) Spine fracture (Chronic) C. difficile colitis (Resolved) History of Clostridium difficile infection (Acute) History of pneumonia (Acute) Past Surgical History (This Medical Record has been edited. Action required.) History of back surgery (Acute) Lives: With Family Smoking Status: Former smoker Tobacco Use: Non-smoker Alcohol: None Drugs: None Maternal Family History: Family History (This Medical Record has been edited. Action required.) Brother Heart disease Father Cerebral aneurysm rupture Family History: No pertinent history Paternal Family History: Family History (This Medical Record has been edited. Action required.) Brother Heart disease Father Cerebral aneurysm rupture Family History: - - from an aneurysm at age 38. Allergies/Adverse Reactions: Allergy/AdvReac Type Severity Reaction Status Date / Time diazepam [From Valium] AdvReac Other Verified 12/15/17 16:20 Home Medications Medication Instructions Recorded Morphine Sulfate [Morphabond ER] 15 mg PO TID 12/10/17 Oxycodone HCl [Roxicodone] 5 mg PO Q4H PRN PRN 12/10/17 Probiotic 1 tab PO DAILY 12/10/17 Lidocaine/Prilocaine 30 gm TP DAILY PRN PRN 12/15/17 [Lidocaine-Prilocaine Cream] Prochlorperazine Maleate 10 mg PO Q8H PRN PRN #30 tab 12/15/17 Lactobacillus Acidophilus 1 each PO DAILY 12/18/17 [Acidophilus Lactobacilli] Acetaminophen [Tylenol Tablet] 650 mg PO Q6H PRN PRN tablet 12/23/17 Lactobacillus Acidophilus 1 tab PO BID #60 tab 12/23/17 [Acidophilus] Menthol/Lanolin/Calamine/Znox 1 applic TOPICAL TID #1 tube 12/23/17 [Calmoseptine Ointment] Vancomcyin 125 MG/ 5 ML Susp 125 mg PO UD 37 Days po.syringe 12/23/17 [Vancomycin 125mg/5mL Susp] Vital Signs Height 5 ft 4 in Weight: 83.518 kg Weight in Pounds 184.1 lbs Pulse Ox 95 Temperature 98.5 F Pulse Rate 100 Respiratory Rate 18 Blood Pressure 136/68 Blood Pressure Position Semi-Fowlers Laboratory Data: Laboratory Tests 3 12/23/17 12/23/17 Range/Units 06:00 06:00 WBC 10.3 (4.4-11.0) K/mm3 RBC 3.12 L (4.2-5.4) M/mm3 Hgb 9.5 L (12.0-15.0) g/dl Hct 29.5 L (37-47) % MCV 94.6 (81-99) fL MCH 30.4 (27.0-32.0) pg MCHC 32.2 (32-36) g/gl RDW 15.3 H (11.6-14.6) % RDW Differential 51.8 H (35.1-43.9) fl Plt Count 267 (150-450) K/mm3 MPV 9.2 (6.2-12.0) fl Immature Gran % (Auto) 2.500 H (0.0-0.9) % Neut % (Auto) 45.3 L (47-70) % Lymph % (Auto) 28.4 (19-41) % Cobb % (Auto) 10.9 H (0-10) % Eos % (Auto) 12.4 H (0-5) % Baso % (Auto) 0.5 (0-1) % Absolute Neuts (auto) 4.7 (2.0-7.7) X10^3/uL Absolute Lymphs (auto) 2.93 (0.83-4.51) X10^3/ul Total Counted Not Reportable Diff Path Review Reviewed Sodium 142 (136-145) mmol/L Potassium 3.9 (3.5-5.1) mmol/L Chloride 110 H (98-107) mmol/L Carbon Dioxide 27.0 (21.0-32.0) mmol/L Anion Gap 5 (5-15) BUN 4 L (7-18) mg/dL Creatinine 0.57 (0.55-1.02) mg/dL Estim Creat Clear Calc 45.20 ml/min Est GFR (MDRD) Af Amer 136 (>60) mL/min Est GFR (MDRD) Non-Af 112 (>60) mL/min BUN/Creatinine Ratio 7.1 L (10-20) RATIO Glucose 84 (70-110) mg/dL Calcium 8.2 L (8.5-10.1) mg/dL Phosphorus 3.4 (2.5-4.9) mg/dL Magnesium 1.6 (1.6-2.6) mg/dL Diagnostic Data: Diagnostic Data Chest X-Ray 12/20/17 15:10 IMPRESSION: Slight interval decrease in size of the right lower lobe infiltrate. Electronically Signed: Haroldo Molina, at 19:57 EST Tel , Service support , Assessment and Plan Medications: Prescriptions This Visit Medication Instructions Recorded Lactobacillus Acidophilus 1 each PO DAILY 12/18/17 [Acidophilus Lactobacilli] Acetaminophen [Tylenol Tablet] 650 mg PO Q6H PRN PRN tablet 12/23/17 Lactobacillus Acidophilus 1 tab PO BID #60 tab 12/23/17 [Acidophilus] Menthol/Lanolin/Calamine/Znox 1 applic TOPICAL TID #1 tube 12/23/17 [Calmoseptine Ointment] Vancomcyin 125 MG/ 5 ML Susp 125 mg PO UD 37 Days po.syringe 12/23/17 [Vancomycin 125mg/5mL Susp] Medications Added to Medication List This Visit Category Date Time Status 0.9% Saline Lock Med 12/23/17 16:32 Active 10 ml IV UD PRN Heparin Sodium,Porcine/Pf [Heparin 500 Unit/5 ml (100/ Med 12/23/17 16:32 Active ml)] 500 unit IV UD PRN
== END 2017-12-23 17:07 | disposition home health service (06) | DRG 371 ==
LOC: ED 06:14 → MS2 06:24
PROVIDERS: Internal Medicine; Admitting Provider Family Medicine; Emergency Provider Emergency Medicine; Family Provider Internal Medicine; PCP Internal Medicine; Visit Provider Family Medicine
DX: A04.71 Enterocolitis due to Clostridium difficile, recurrent (principal); E43 Unspecified severe protein-calorie malnutrition; C79.51 Secondary malignant neoplasm of bone; C77.0 Secondary and unspecified malignant neoplasm of lymph nodes of head, face and neck; C77.1 Secondary and unspecified malignant neoplasm of intrathoracic lymph nodes; E83.42 Hypomagnesemia; C34.90 Malignant neoplasm of unspecified part of unspecified bronchus or lung; J98.11 Atelectasis; D64.9 Anemia, unspecified; E87.6 Hypokalemia; E66.9 Obesity, unspecified; Z68.31 Body mass index [BMI] 31.0-31.9, adult; Z87.891 Personal history of nicotine dependence; Z92.3 Personal history of irradiation; R73.9 Hyperglycemia, unspecified; T45.1X5A Adverse effect of antineoplastic and immunosuppressive drugs, initial encounter; G89.4 Chronic pain syndrome; Z98.1 Arthrodesis status; Z78.0 Asymptomatic menopausal state; Z87.01 Personal history of pneumonia (recurrent); Z86.19 Personal history of other infectious and parasitic diseases; Z79.899 Other long term (current) drug therapy
CPT/HCPCS: 71045; 77001; 80048; 80053; 81001; 83036; 83605; 83735; 84100; 85025; 87040; 87086; 87088; 87449; 87493; 87506; 87804; 94667; 94668; 97110; 97116; 97162; 97166; 97530; 97535; 99284; 99406; J7030; J7040; J7120; A4216; C1788; J2405

== ENCOUNTER → 2017-12-30 15:47 | Outpatient (CLI) | payer MEDICARE, SELFPAY ==
[2017-12-30 15:09] VITALS: BP 136/68; BMI 31.6
[2017-12-30 18:42] LABS: Vitamin D,25 Hydroxy 24.4 ng/mL (19.95-100.01)
== END ==
PROVIDERS: Family Provider Internal Medicine; PCP Internal Medicine; Visit Provider Internal Medicine
DX: M85.80 Other specified disorders of bone density and structure, unspecified site (principal)
CPT/HCPCS: 36415; 82306

== ENCOUNTER → 2018-01-25 12:56 | Outpatient (CLI) | payer MEDICARE, SELFPAY ==
--- NOTE | 2018-01-25 13:01 | CT_ITS ---
STUDY: CT ABDOMEN WITH CONTRAST REASON FOR EXAM: Female, 72 years old. Small cell lung cancer restaging RADIATION DOSAGE (If Supplied By Facility): CTDIvol = ( 15.37 ) mGy, DLP = ( 1074.38 ) mGycm TECHNIQUE: Transaxial images were obtained post I.V. administration of 100mL ml of Isovue 300 contrast, and without oral contrast. Sagittal and coronal images were reconstructed. Individualized dose optimization techniques were used for this CT. COMPARISON: None. FINDINGS: The visualized lung bases are unremarkable. The visualized portions of the heart are within normal limits. Vague 1.75 cm zone of decreased density in the anteromedial aspect of segment 4 of the liver near the falciform ligament (series 3 image 30) is typical site of focal fatty infiltration. The patent portal vein diameter is 14 mm. Normal size gallbladder and extrahepatic biliary system. Mild deformity at the tip of the gallbladder fundus consistent with a phrygian cap. Normal spleen. Normal pancreas. Normal bilateral adrenal glands. The right kidney is moderately rotated on its horizontal axis. A well-defined, mildly exophytic 14.5 x 13 x 14 mm cortical cyst seen at the lateral lower pole. There are several left renal cortical cysts. The largest is an exophytic cyst at the posterior upper pole, measuring 3.05 x 3.6 x 3.1 cm. No hydronephrosis. Normal visualized stomach. Normal small intestine. Subcentimeter rim calcification along the anterior margin of the mid descending colon may be calcified lymph node or calcium within a diverticulum. There is non-visualization of the appendix. There is diffuse atherosclerotic calcification of the abdominal aorta and visualized common iliac arteries. There is 2.4 x 2.25 cm fusiform dilatation of the distal abdominal aorta. Normal inferior vena cava. Normal retroperitoneum. Normal abdominal wall. There is a fracture of the T10 vertebra. Patient has undergone prior posterior thoracic spinal fixation with metal hardware, the lowermost transpedicular fixation screws at T11. There are degenerative changes of the lower thoracic and lower lumbar spine. CT/Abdomen WITH IV Contrast IMPRESSION: 1. No findings of abdominal metastatic disease. Low-density at the anterior margin of segment 4 of the liver is likely a focus of fatty infiltration. If clinically indicated, this could be further characterized with MRI. 2. T10 vertebral fracture, age and etiology uncertain. Prior bilateral posterior thoracic spinal fixation with metal hardware, the most inferior transpedicular screws at T11. 3. Aortoiliac atherosclerotic calcification which, by itself, portends significant risk for future cardiovascular event, Abdominal Aortic Calcific Deposits Are an Important Predictor of Vascular Morbidity and Mortality; Kelby Qureshi, et al. Circulation, 2001;103:7719-8011. There is 2.4 cm fusiform dilatation of the distal abdominal aorta. 4. Rim calcified lymph node versus diverticulum along the mid descending colon. The bowel is otherwise unremarkable without signs of obstruction. 5. Bilateral renal cortical cysts, as described. No hydronephrosis. Electronically Signed: Lino Zarate MD at 17:03 EST , Service support ,
--- NOTE | 2018-01-25 13:01 | CT_ITS ---
STUDY: CT CHEST WITH CONTRAST REASON FOR EXAM: Female, 72 years old. Restaging small cell lung cancer chemotherapy power port RADIATION DOSAGE (If Supplied By Facility): CTDIvol = ( 15.37 ) mGy, DLP = ( 1074.38 ) mGycm TECHNIQUE: Transaxial imaging was performed following intravenous administration of 100mL ml of Isovue 300 contrast material. Individualized dose optimization techniques were used for this CT. COMPARISON: Prior CT comparison studies are not available for review at this time. There is a chest x-ray from December 16, 2017. FINDINGS: There is a pattern of emphysematous change within the lung apices especially the right upper lobe. There is a pattern of subtle scattered groundglass opacity within the lungs. Within the right lower lobe just posterior to the minor fissure there is a solid spiculated mass measuring 1.3 x 0.7 x 1.0 cm. There is some surrounding inflammatory change. There is an adjacent nodule measures 0.8 x 0.6 cm. There is no demonstrated pleural abnormality. There are coronary calcifications. To the right of the trachea there is a 1.7 x 0.8 cm lymph node image #37. There is a precarinal lymph node just behind the aorta measures 1.6 x 1.8 cm. There is a left midline precarinal node measuring 1.7 cm. There is a conglomeration of similar density lymphadenopathy measuring 4.1 x 2.3 x 2.5 cm. There is a lymph node present measuring 1.8 x 1.6 cm. Normal enhanced pulmonary arteries. There is atherosclerotic tortuosity of the aortic arch and descending thoracic aorta. There is a thoracic spine fusion from T9 to T11 transfixing a fragmented appearing T10 vertebral body. There are subtle sclerotic densities within the right upper posterior chest. There is a focal healed irregular appearing rib fracture although it right rib 6. There are periportal lymph nodes seen at the level of the right hepatic artery. One measures 1.3 cm, one measuring 1.0 cm. There is a small hiatal hernia. There is mild thickening of the base of the adrenal gland up to 0.8 cm partially visualized on this study. The chest x-ray provided for comparison is December 16, 2017 aligned for limitations the mass today appears smaller. On prior study measured approximately 2.5 x 3.5 cm. A direct comparison to CT chest to be preferred. There are nonspecific bilateral axillary lymph nodes. There is a right-sided Port-A-Cath with the diagnosis for vena cava. CT/Chest WITH Contrast IMPRESSION: The chest x-ray provided for comparison is December 16, 2017 allowing for limitations the mass today appears smaller. On prior study measured approximately 2.5 x 3.5 cm. A direct comparison to CT chest would be preferred. Extensive mediastinal lymphadenopathy. Recommend comparison to prior CT. Pulmonary emphysema. Minimal groundglass opacity could consider minimal pulmonary edema. Degenerative changes of the thoracolumbar spine status post spinal fusion as detailed above Electronically Signed: Mary Arriola MD at 16:06 EST Tel , Service support ,
== END ==
PROVIDERS: Family Provider Internal Medicine; PCP Internal Medicine; Visit Provider Internal Medicine Hematology & Oncology
DX: C34.90 Malignant neoplasm of unspecified part of unspecified bronchus or lung (principal); C77.9 Secondary and unspecified malignant neoplasm of lymph node, unspecified; C79.51 Secondary malignant neoplasm of bone
CPT/HCPCS: 71260; 74160; Q9967; A4216

== ENCOUNTER → 2018-03-06 10:35 | Outpatient (CLI) | payer MEDICARE, SELFPAY ==
--- NOTE | 2018-03-06 10:43 | RAD_ITS ---
STUDY: X-RAY - UNILATERAL RIBS ( RIGHT ) WITH CHEST REASON FOR EXAM: Female, 72 years old. Patient has a history of cancer. Pain TECHNIQUE - RIBS: view(s) of the ribs. TECHNIQUE - CHEST: COMPARISON: None. FINDINGS - RIBS: Normal visualized ribs without a demonstrated fracture. No osteolytic or osteoblastic changes are seen FINDINGS - CHEST: The lungs are clear and expanded. There is no demonstrated pleural abnormality. Normal size heart. Normal mediastinum and nikolay. Normal visualized pulmonary arteries. Normal visualized aortic arch and descending thoracic aorta. Plates and transpedicular screws are in the lower thoracic spine.. Normal visualized ribs, clavicles, and shoulders. [id number] through the right internal jugular vein has its tip in the superior vena cava There is no demonstrated abnormality of the visualized soft tissue structures of the upper abdomen. RAD/Ribs Uni Min 3V w/PA Chest IMPRESSION: RIBS: Normal x-ray examination of the ribs. No osteolytic or osteoblastic changes are seen CHEST: Normal x-ray examination of the chest. Electronically Signed: Jh Delarosa, at 3:34 EDT Tel , Service support ,
== END ==
PROVIDERS: Visit Provider Anesthesiology
DX: C77.1 Secondary and unspecified malignant neoplasm of intrathoracic lymph nodes (principal); C79.51 Secondary malignant neoplasm of bone
CPT/HCPCS: 71101

== ENCOUNTER → 2018-04-07 13:09 | Outpatient (CLI) | payer MEDICARE, SELFPAY ==
--- NOTE | 2018-04-07 13:12 | CT_ITS ---
STUDY: CT CHEST WITH CONTRAST REASON FOR EXAM: Female, 72 years old. Restaging lung cancer. No new problems. RADIATION DOSAGE (If Supplied By Facility): CTDIvol = ( 16.27 ) mGy, DLP = ( 1244.32 ) mGycm TECHNIQUE: Transaxial imaging was performed following intravenous administration of 100mL ml of Isovue 300 contrast material. Multiplanar coronal and sagittal images were reformatted. Individualized dose optimization techniques were used for this CT. COMPARISON: CT of the chest, 06/27/2018. FINDINGS: There is a right jugular Port-A-Cath. The lungs are well expanded. There is a small soft tissue density in the lateral aspect of the right upper lobe which measures 1 x 1.2 x 0.6 cm (image 65, series 6). There is mild stranding to the thickened oblique fissure and pleural surface. Slightly more anterior and medially there is a soft tissue mass with mild spiculation measuring 1.2 x 0.6 x 0.6 cm (image 67, series 6. The lungs are otherwise clear. There is no demonstrated pleural abnormality. Normal heart and pericardium. There are calcifications of the coronary arteries. There is subcentimeter and nonspecific mediastinal lymphadenopathy. There is minimal soft tissue density in the right hilum. Normal enhanced pulmonary arteries. There is atherosclerotic calcification of the aortic arch with tortuosity and elongation of the aortic arch and descending thoracic aorta. There are multi-level degenerative changes of the thoracic spine. There is evidence of posterior fusion of T9-T11 with sclerosis of the T10 vertebra and partial collapse. There is increased sclerosis of the C6, T1, T3 and T9 vertebra suggesting metastatic disease. There is slight increased sclerosis and irregularity of the anterolateral left seventh rib. There is no demonstrated abnormality of the visualized upper abdomen. IMPRESSION: 1. Decrease in size of the two right lower lobe masses when compared to prior study. 2. Marked decrease in mediastinal and right hilar lymph adenopathy when compared to prior study 3. Increased sclerosis of multiple thoracic vertebra suggesting worsening bone metastases. Electronically Signed: Kendrick AlbertDO at 17:33 EDT Tel [phone], Service support , STUDY: CT ABDOMEN WITH CONTRAST REASON FOR EXAM: Female, 72 years old. History of lung cancer. RADIATION DOSAGE (If Supplied By Facility): CTDIvol = ( 18 ) mGy, DLP = ( 1244.32 ) mGycm TECHNIQUE: Transaxial images were obtained post I.V. administration of 100 ml of 100mL Isovue-300 contrast, and without oral contrast. Sagittal and coronal images were reconstructed. Individualized dose optimization techniques were used for this CT. COMPARISON: Comparison is made with prior study dated January 25, 2018. FINDINGS: The visualized lung bases are unremarkable. Coronary artery calcification. Normal liver. Normal gallbladder and extrahepatic biliary system. Normal spleen. Normal pancreas. Normal bilateral adrenal glands. 1 cm cyst in the anterior midportion of the right kidney. 4.3 cm x 3.2 Darius's cyst in the left kidney. There is a small hiatal hernia. Normal small intestine. Normal colon. The appendix is visualized and appears normal. There is diffuse atherosclerotic calcification of the abdominal aorta. Stable dilatation of the distal abdominal aorta with a transverse dimension of 2.3 cm. Normal inferior vena cava. There is borderline retroperitoneal lymphadenopathy with enlarged nodes no greater than 10mm in the short axis diameter. Normal abdominal wall. Status post fixation of the lower thoracic spine. Sclerosis and loss of height of the T10 vertebrae. CT/Abdomen WITH IV Contrast IMPRESSION: Stable examination. Electronically Signed: Rashi Frank MD at 9:15 EDT Tel [phone], Service support ,
--- NOTE | 2018-04-07 13:23 | CT_ITS ---
STUDY: CT CHEST WITH CONTRAST REASON FOR EXAM: Female, 72 years old. Restaging lung cancer. No new problems. RADIATION DOSAGE (If Supplied By Facility): CTDIvol = ( 16.27 ) mGy, DLP = ( 1244.32 ) mGycm TECHNIQUE: Transaxial imaging was performed following intravenous administration of 100mL ml of Isovue 300 contrast material. Multiplanar coronal and sagittal images were reformatted. Individualized dose optimization techniques were used for this CT. COMPARISON: CT of the chest, 06/27/2018. FINDINGS: There is a right jugular Port-A-Cath. The lungs are well expanded. There is a small soft tissue density in the lateral aspect of the right upper lobe which measures 1 x 1.2 x 0.6 cm (image 65, series 6). There is mild stranding to the thickened oblique fissure and pleural surface. Slightly more anterior and medially there is a soft tissue mass with mild spiculation measuring 1.2 x 0.6 x 0.6 cm (image 67, series 6. The lungs are otherwise clear. There is no demonstrated pleural abnormality. Normal heart and pericardium. There are calcifications of the coronary arteries. There is subcentimeter and nonspecific mediastinal lymphadenopathy. There is minimal soft tissue density in the right hilum. Normal enhanced pulmonary arteries. There is atherosclerotic calcification of the aortic arch with tortuosity and elongation of the aortic arch and descending thoracic aorta. There are multi-level degenerative changes of the thoracic spine. There is evidence of posterior fusion of T9-T11 with sclerosis of the T10 vertebra and partial collapse. There is increased sclerosis of the C6, T1, T3 and T9 vertebra suggesting metastatic disease. There is slight increased sclerosis and irregularity of the anterolateral left seventh rib. There is no demonstrated abnormality of the visualized upper abdomen. IMPRESSION: 1. Decrease in size of the two right lower lobe masses when compared to prior study. 2. Marked decrease in mediastinal and right hilar lymph adenopathy when compared to prior study 3. Increased sclerosis of multiple thoracic vertebra suggesting worsening bone metastases. Electronically Signed: Kendrick Albert at 17:33 EDT Tel [phone], Service support , STUDY: CT ABDOMEN WITH CONTRAST REASON FOR EXAM: Female, 72 years old. History of lung cancer. RADIATION DOSAGE (If Supplied By Facility): CTDIvol = ( 18 ) mGy, DLP = ( 1244.32 ) mGycm TECHNIQUE: Transaxial images were obtained post I.V. administration of 100 ml of 100mL Isovue-300 contrast, and without oral contrast. Sagittal and coronal images were reconstructed. Individualized dose optimization techniques were used for this CT. COMPARISON: Comparison is made with prior study dated January 25, 2018. FINDINGS: The visualized lung bases are unremarkable. Coronary artery calcification. Normal liver. Normal gallbladder and extrahepatic biliary system. Normal spleen. Normal pancreas. Normal bilateral adrenal glands. 1 cm cyst in the anterior midportion of the right kidney. 4.3 cm x 3.2 Darius's cyst in the left kidney. There is a small hiatal hernia. Normal small intestine. Normal colon. The appendix is visualized and appears normal. There is diffuse atherosclerotic calcification of the abdominal aorta. Stable dilatation of the distal abdominal aorta with a transverse dimension of 2.3 cm. Normal inferior vena cava. There is borderline retroperitoneal lymphadenopathy with enlarged nodes no greater than 10mm in the short axis diameter. Normal abdominal wall. Status post fixation of the lower thoracic spine. Sclerosis and loss of height of the T10 vertebrae. CT/Chest WITH Contrast IMPRESSION: Stable examination. Electronically Signed: Rashi Frank MD at 9:15 EDT Tel [phone], Service support ,
== END ==
PROVIDERS: Family Provider Internal Medicine; PCP Internal Medicine; Visit Provider Internal Medicine Hematology & Oncology
DX: C34.90 Malignant neoplasm of unspecified part of unspecified bronchus or lung (principal); C79.51 Secondary malignant neoplasm of bone; C77.1 Secondary and unspecified malignant neoplasm of intrathoracic lymph nodes; C77.0 Secondary and unspecified malignant neoplasm of lymph nodes of head, face and neck; Z79.899 Other long term (current) drug therapy
CPT/HCPCS: 71260; 74160; Q9967; A4216

== ENCOUNTER 2018-04-29 08:07 | Emergency (ER) | payer MEDICARE, SELFPAY ==
--- NOTE | 2018-04-29 08:35 | DT_ITS ---
This patient was seen during an EMR downtime April 26, 2018 - May 03, 2018. This patient may have a combination of paper and electronic documentation or all paper documentation. All documentation is viewable within the e-chart portion of [facility] for each patient visit.
== END 2018-04-29 09:04 | disposition home or self-care (01) ==
PROVIDERS: Emergency Provider Emergency Medicine; Family Provider Internal Medicine; PCP Internal Medicine
DX: S01.21XA Laceration without foreign body of nose, initial encounter (principal); S00.81XA Abrasion of other part of head, initial encounter; S80.211A Abrasion, right knee, initial encounter; W18.09XA Striking against other object with subsequent fall, initial encounter; Y93.9 Activity, unspecified; Y92.9 Unspecified place or not applicable; C34.90 Malignant neoplasm of unspecified part of unspecified bronchus or lung; Z87.891 Personal history of nicotine dependence; Z79.899 Other long term (current) drug therapy
CPT/HCPCS: 12011; 99282

== ENCOUNTER → 2018-05-18 09:43 | Outpatient (CLI) | payer MEDICARE, SELFPAY ==
--- NOTE | 2018-05-18 09:45 | RAD_ITS ---
STUDY: X-RAY - LUMBAR SPINE REASON FOR EXAM: Female, 73 years old. Low back pain. TECHNIQUE: 5 view(s) of the lumbar spine were obtained. COMPARISON: Weren't FINDINGS: Normal lumbar lordosis. There is no substantial scoliosis. There is a normal alignment of the vertebrae. There are postsurgical changes in the lower thoracic spine. Normal vertebral bodies. There is multilevel spondylosis.. Normal disc space heights. For degenerative changes of the facet joints throughout the mid and lower spine. There is atherosclerotic calcification of the abdominal aorta without a demonstrated aneurysm. RAD/L/S Spine Min 4 Views IMPRESSION: Degenerative changes of the spine, as detailed above. No demonstrated fracture or subluxation. Electronically Signed: Mina Mckeon MD at 6:47 EDT , Service support ,
== END ==
PROVIDERS: Family Provider Internal Medicine; PCP Internal Medicine; Visit Provider Anesthesiology
DX: M54.5 Low back pain (principal)
CPT/HCPCS: 72110; 85025; 86850; 86900; 86920; 86922

== ENCOUNTER → 2018-06-25 17:36 | Outpatient (CLI) | payer MEDICARE, SELFPAY ==
[2018-06-25 18:43] LABS: Amphetamine Urine VISTA NEGATIVE (<1000 ng/mL); Barbiturate Urine VISTA NEGATIVE (< 200 ng/mL); Benzodiazepine Urine VISTA NEGATIVE (< 200 ng/mL); Cocaine Urine VISTA NEGATIVE (< 300 ng/mL); Ecstacy Urine VISTA NEGATIVE (< 500 ng/mL); Methadone Urine VISTA NEGATIVE (< 300 ng/mL); PCP Urine VISTA NEGATIVE (< 25 ng/mL); THC Urine VISTA NEGATIVE (< 50 ng/mL); Vista UDS pH Range 6
== END ==
PROVIDERS: Family Provider Internal Medicine; PCP Internal Medicine; Visit Provider Anesthesiology
DX: F11.20 Opioid dependence, uncomplicated (principal)
CPT/HCPCS: 80307

== ENCOUNTER → 2018-07-05 09:51 | Outpatient (CLI) | payer MEDICARE, SELFPAY | PROVIDERS: Family Provider Internal Medicine; PCP Internal Medicine; Visit Provider Internal Medicine Hematology & Oncology | DX: C34.90 Malignant neoplasm of unspecified part of unspecified bronchus or lung (principal); C79.51 Secondary malignant neoplasm of bone; C77.9 Secondary and unspecified malignant neoplasm of lymph node, unspecified | CPT/HCPCS: 78306 ==

== ENCOUNTER → 2018-07-06 12:20 | Outpatient (CLI) | payer MEDICARE, SELFPAY ==
[2018-07-06 16:30] LABS: CREATININE FINGERSTICK 0.6 mg/dL (0.55-1.02); EGFR FINGERSTICK > 60.0000 mL/min (>60)
== END ==
PROVIDERS: Family Provider Internal Medicine; PCP Internal Medicine; Visit Provider Internal Medicine Hematology & Oncology
DX: C34.90 Malignant neoplasm of unspecified part of unspecified bronchus or lung (principal); C79.51 Secondary malignant neoplasm of bone; C77.1 Secondary and unspecified malignant neoplasm of intrathoracic lymph nodes; C77.0 Secondary and unspecified malignant neoplasm of lymph nodes of head, face and neck
CPT/HCPCS: 70553; 71260; 74177; A9585; Q9967; A4216

== ENCOUNTER → 2018-09-06 13:21 | Outpatient (CLI) | payer MEDICARE, SELFPAY ==
[2018-07-19 10:18] VITALS: BMI 33.9
--- NOTE | 2018-09-06 13:28 | CT_ITS ---
STUDY: CT ABDOMEN WITH CONTRAST REASON FOR EXAM: Female, 73 years old. Restaging small cell lung cancer. RADIATION DOSAGE (If Supplied By Facility): CTDIvol = ( ) mGy, DLP = ( ) mGycm TECHNIQUE: Transaxial images were obtained post I.V. administration of 100ml ml of Isovue 300 contrast, and without oral contrast. Sagittal and coronal images were reconstructed. Individualized dose optimization techniques were used for this CT. COMPARISON: 07/06/2018. FINDINGS: See separate report for CT of the chest. Normal liver. Normal gallbladder and extrahepatic biliary system. Normal spleen. Normal pancreas. Normal bilateral adrenal glands. No acute abnormalities of the kidneys. No stones or hydronephrosis. Bilateral small to moderate simple renal cysts. Evaluation of the GI tract is limited by absence of oral contrast. Cannot exclude stomach wall thickening. No dilated loops of bowel or evidence for obstruction. Cannot exclude segmental thickening of the almaraz of the small or large bowel. Cannot exclude enteritis or colitis. Moderate diffuse fecal retention. There is diffuse atherosclerotic calcification of the abdominal aorta, without a demonstrated aneurysm. Normal inferior vena cava. Normal retroperitoneum. Normal abdominal wall. Stable appearance of blastic metastatic disease to L5 and both iliac bones. CT/Abdomen WITH IV Contrast IMPRESSION: Stable appearance of metastatic disease to the bones. No evidence of soft tissue metastatic disease. Electronically Signed: Fernando Cantu MD at 17:38 EDT , Service support ,
--- NOTE | 2018-09-06 13:28 | CT_ITS ---
STUDY: CT CHEST WITH CONTRAST REASON FOR EXAM: Female, 73 years old. Restaging small cell lung cancer. RADIATION DOSAGE (If Supplied By Facility): CTDIvol = ( 13.72 ) mGy, DLP = ( 974.82 ) mGycm TECHNIQUE: Transaxial imaging was performed following intravenous administration of 100ml ml of Isovue 300 contrast material. Individualized dose optimization techniques were used for this CT. COMPARISON: 07/06/2018. FINDINGS: There is hyperexpansion of the lungs. On the right, there is stable irregular pulmonary density involving the superior segment of the right lower lobe, axial images 61-66 with 2 separate, but connected spiculated pulmonary nodules. Uppermost measures approximately 1.2 cm in greatest dimension on sagittal images and lowermost measures approximately 1.3 cm on sagittal images. These 2 nodular and adjacent streaky densities are exactly similar to the prior exam and may represent posttherapeutic scarring/fibrosis. Mild areas of patchy scattered pulmonary fibrosis seen in the periphery of both lungs also. No other suspicious nodules or masses. No infiltrates or effusions. There is mild mediastinal adenopathy again seen, possibly very slightly larger than on the previous exam. As examples, on coronal image 128 there is soft tissue adenopathy anterolateral to the lower trachea with greatest dimension of 2.3 cm and this same area of adenopathy previously measured approximately 2 cm. No definite hilar adenopathy. Normal heart and pericardium. There are calcifications of the coronary arteries. Normal enhanced pulmonary arteries. There is atherosclerotic calcification of the aortic arch with tortuosity and elongation of the aortic arch and descending thoracic aorta. Stable appearance of the skeletal structures where there are numerous areas of blastic metastatic disease including several vertebral bodies. Again seen are the postsurgical changes of the lower thoracic spine bridging a compression fracture of T10. This postsurgical length appears stable. There are no definitely new metastases. Grossly stable appearance of numerous cystic lesions of the ribs. Limited views of the upper abdomen show no definite acute abnormalities. CT/Chest WITH Contrast IMPRESSION: Stable appearance of the lungs which show COPD and probable area of focal scarring in the right lower lobe, stable. Slight increase in size of middle mediastinal adenopathy. Stable appearance of extensive blastic skeletal metastatic disease. Electronically Signed: Fernando Cantu MD at 15:19 EDT , Service support ,
[2018-09-06 14:08] LABS: Absolute Lymphocyte Count 1.83 X10^3/ul (0.83-4.51); Absolute Neutrophil Count 2.7 X10^3/uL (2.0-7.7); Basophil# 0.02 X10^3/uL; Basophil% 0.3 % (0-1); Eosinophil# 0.27 X10^3/uL; Eosinophils% 4.6 % (0-5); Hematocrit 37.8 % (37-47); Hemoglobin 12.4 g/dl (12.0-15.0); Lymphocyte # 1.83 X10^3/ul (4.0); Mean Corp Hgb Conc 32.8 g/gl (32-36); Mean Corpuscular Hgb 31.8 pg (27.0-32.0); Mean Corpuscular Volume 96.9 fL (81-99); Mean Platelet Vol. 9.4 fl (6.2-12.0); Monocyte% 18.6 % (0-10); Neutrophil # 2.68 X10^3/uL (2.7-7.7); Neutrophil % 45.3 % (47-70); Platelet Count 100 K/mm3 (150-450); RBC Distribution Width CV 13.6 % (11.6-14.6); RBC Distribution Width SD 48.6 fl (35.1-43.9); White Blood Count 5.9 K/mm3 (4.4-11.0)
[2018-09-06 14:10] LABS: Differential Indicated SCAN CRITERIA MET; POSITIVE COUNT NO; POSITIVE DIFFERENTIAL NO; POSITIVE MORPHOLOGY YES
[2018-09-06 14:31] LABS: ALB/GLOB Ratio 0.8 RATIO (0.9-2.4); AST(SGOT) 21 U/L (15-37); Alanine Aminotransfer ALT/SGPT 23 U/L (13-56); Albumin, Serum 3.4 g/dL (3.2-5.0); Alkaline Phosphatase 45 U/L (45-117); Anion Gap 7 (5-15); Atypical Lymphocyte RARE %; BUN 19 mg/dL (7-18); BUN/Creat Ratio 22.9 RATIO (10-20); Calcium,Total 9.4 mg/dL (8.5-10.1); Chloride 104 mmol/L (98-107); Creatinine, Serum 0.83 mg/dL (0.55-1.02); EST Glomerular Filtration Rate 72 mL/min (>60); Est Glom Filt Rate - Afr Amer 87 mL/min (>60); Globulin 4.2 g/dL (2.2-4.2); Glucose 85 mg/dL (74-106); Potassium 3.8 mmol/L (3.5-5.1); Protein, Total 7.6 g/dL (6.4-8.2); Sodium Level 137 mmol/L (136-145)
[2018-09-06 22:01] LABS: Xtra Tube EP Lab EXTRA TUBE
== END ==
PROVIDERS: Family Provider Internal Medicine; PCP Internal Medicine; Referring Provider Internal Medicine Hematology & Oncology; Visit Provider Internal Medicine Hematology & Oncology
DX: C34.90 Malignant neoplasm of unspecified part of unspecified bronchus or lung (principal); C79.51 Secondary malignant neoplasm of bone
CPT/HCPCS: 71260; 74160; 80053; 85025; Q9967; A4216

== ENCOUNTER → 2018-10-06 09:35 | Outpatient (CLI) | payer MEDICARE, SELFPAY ==
[2018-07-19 10:18] VITALS: BMI 33.9
--- NOTE | 2018-10-06 09:40 | MRI_ITS ---
STUDY: MRI BRAIN WITH AND WITHOUT CONTRAST REASON FOR EXAM: Female, 73 years old. SMALL CELL LUNG CA WITH METS TO SPINE. TECHNIQUE: Standardized multiplanar fat and water weighted pulse sequences were obtained. 8 ml of Gadavist contrast material was administered intravenously for the contrast portion of the examination. COMPARISON: July 06, 2018 FINDINGS: Normal size of the ventricles and extra-axial spaces for the patient's age. There are a limited number of small white matter hyperintensities, distributed throughout the deep white matter tracts of the cerebral hemispheres, consistent with mild chronic white matter ischemic changes. Normal bilateral basal ganglia. Normal thalami. There is no extra-axial fluid accumulation. Normal flow voids within the major intracranial circulation suggesting patency by spin echo criteria. Normal venous enhancement. There is no enhancing intra-axial or extra-axial abnormality. Normal sella turcica, pituitary gland, infundibular stalk, optic chiasm and hypothalamus. Normal tectal plate and pineal gland. Normal midbrain, delvis and medulla. Normal cerebellum. Normal basal cisterns. Normal bilateral temporal bones. Normal bilateral internal auditory canals. No demonstrated orbital abnormality, within the constraints of a routine brain study. Normal visualized paranasal sinuses. Normal calvarium and skull base. Normal visualized soft tissue structures. Normal visualized upper cervical spine. MRI/Brain W/WO Contrast IMPRESSION: No evidence of metastatic disease. No acute intracranial abnormality. Electronically Signed: Terence Castañeda MD at 10:23 EST Tel , Service support ,
== END ==
PROVIDERS: Family Provider Internal Medicine; PCP Internal Medicine; Referring Provider Student in an Organized Health Care Education/Training Program; Visit Provider Student in an Organized Health Care Education/Training Program
DX: C34.90 Malignant neoplasm of unspecified part of unspecified bronchus or lung (principal); C79.51 Secondary malignant neoplasm of bone
CPT/HCPCS: 70553; A4216

== ENCOUNTER → 2018-11-25 12:26 | Outpatient (CLI) | payer MEDICARE, SELFPAY ==
[2018-07-19 10:18] VITALS: BMI 33.9
[2018-10-18 11:41] VITALS: BMI 31.6
--- NOTE | 2018-11-25 12:29 | CT_ITS ---
STUDY: CT ABDOMEN WITH CONTRAST REASON FOR EXAM: Female, 73 years old. Lung cancer with bone metastasis, restaging RADIATION DOSAGE (If Supplied By Facility): CTDIvol = ( 22.6 ) mGy, DLP = ( 2545.37 ) mGycm TECHNIQUE: Transaxial images were obtained post I.V. administration of 100 ml of Isovue 300 contrast, and with oral contrast. Sagittal and coronal images were reconstructed. Individualized dose optimization techniques were used for this CT. COMPARISON: CT from 09/06/2018 FINDINGS: Base of the chest described on chest CT report. Normal liver. Normal gallbladder and extrahepatic biliary system. Normal spleen. Normal pancreas. Normal bilateral adrenal glands. Bilateral simple renal cysts are stable. Normal visualized stomach. Normal small intestine. There are multiple colonic diverticula consistent with diverticulosis. The appendix is visualized and appears normal. There is diffuse atherosclerotic calcification of the abdominal aorta, without a demonstrated aneurysm. Normal inferior vena cava. Normal retroperitoneum. Normal abdominal wall. Fusion hardware of the lumbar spine again identified. Multiple small sclerotic lesions involving multiple vertebral bodies (particularly L5) as well as the left more than right iliac bones similar since prior study. CT/Abdomen WITH IV Contrast IMPRESSION: 1. Since 09/06/2018, stable exam. Lumbar vertebral body and iliac bone osteoblastic metastasis. 2. Additional stable chronic changes, as above. Electronically Signed: Real Villalobos MD at 11:11 EST , Service support ,
--- NOTE | 2018-11-25 12:30 | CT_ITS ---
STUDY: CT CHEST WITH CONTRAST REASON FOR EXAM: Female, 73 years old. Restaging of small cell lung cancer with bone metastasis RADIATION DOSAGE (If Supplied By Facility): CTDIvol = ( 22.6 ) mGy, DLP = ( 2545.37 ) mGycm TECHNIQUE: Transaxial imaging was performed following intravenous administration of 100 ml of Isovue 300 contrast material. Multiplanar coronal and sagittal images were reformatted. Individualized dose optimization techniques were used for this CT. COMPARISON: 09/06/2018 FINDINGS: Right jugular chest port is identified with tip terminating at the cavoatrial junction. Noncalcified mildly lobular nodule on axial image 71 is stable in size measuring up to 1.2 cm. Medial and likely contiguous to this nodule, there is a 1.3 cm nodule on image 73. No new pulmonary nodules are seen. Mild degree of parenchymal and subpleural reticulation and multiple pulmonary lobe similar since the prior study. No new pulmonary nodule is demonstrated. No pleural effusion or pneumothorax. Heart size is normal. There is small pericardial thickening, new. There are calcifications of the coronary arteries. Stable mild adenopathy of the middle mediastinum measuring (short axis) up to 1.3 cm (station 4) and 1.8 cm (station 7). No hilar adenopathy is identified. Normal enhanced pulmonary arteries. There is atherosclerotic calcification of the aortic arch with tortuosity and elongation of the aortic arch and descending thoracic aorta. Numerous sclerotic lesions involving multiple thoracic vertebral bodies are similar in size and number since the prior study. Thoracic fusion hardware identified spanning compression deformity of T10. Upper abdomen described on abdomen/pelvis CT. CT/Chest WITH Contrast IMPRESSION: 1. Since 09/06/2017, STABLE right lower lobe noncalcified nodules (measuring up to 1.3 cm) and mediastinal adenopathy. 2. Stable thoracic spine osteoblastic metastasis. 3. Small pericardial effusion/thickening new. Electronically Signed: Real Villalobos MD at 11:30 EST , Service support ,
--- NOTE | 2018-11-25 12:30 | CT_ITS ---
STUDY: CT PELVIS WITHOUT CONTRAST REASON FOR EXAM: Female, 73 years old. 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 RADIATION DOSAGE (If Supplied By Facility): CTDIvol = ( ) mGy, DLP = ( ) mGycm TECHNIQUE: Transaxial imaging of the pelvis was performed without oral contrast, and without intravenous administration of contrast material. Multiplanar coronal and sagittal images were reformatted. Individualized dose optimization techniques were used for this CT. COMPARISON: CT abdomen and pelvis July 06, 2018; whole body bone scan July 05, 2018 FINDINGS: Normal visualized urinary bladder. Normal visualized small intestine. Normal visualized colon. There is no pelvic fluid. There are surgical clips in the area of the right adnexa and/or small bowel loops near the right uterine cornu. There is no pelvic mass lesion or lymphadenopathy. There is atrophy of the uterus. There are atherosclerotic calcifications of the visualized proximal pelvic and common femoral arteries. Normal visualized abdominal wall. There is osteoarthritic degenerative change of the lower right sacroiliac joint. Normal visualized right iliac wing and right sacrum. Normal visualized right superior pubic ramus. There are subtle, stable sclerotic densities in the inferior pubic ramus, similarly, there is a stable, moderately defined mildly sclerotic 1.8 x 1.0 x 1.85 cm lesion in the lower right ischium (series 8 image 57, series 608 image 52). Additional, smaller, stable rounded sclerotic densities are seen in the posterior column of the acetabulum (series 8 image 42, series 608 image 48) and upper right ischium (series 8 image 50, series 608 image 49). Subcentimeter, subcortical sclerotic density in the superior aspect of the femoral head (series 608 image 34) is also stable. Normal acetabulum. There is mild articular joint space narrowing of the hip. There is no demonstrated osseous destructive lesion or acute fracture. CT/Extremity Lower without Contra IMPRESSION: 1. Stable sclerotic densities in the superior right femoral head, posterior column of the right acetabulum, right ischium, and right inferior pubic ramus. These did not show any suspicious uptake on bone scan of June 2018. 2. Surgical clips again noted in the right pelvis. There is age-appropriate uterine atrophy. Electronically Signed: Lino Zarate MD at 14:27 EST , Service support ,
== END ==
PROVIDERS: Family Provider Internal Medicine; PCP Internal Medicine; Referring Provider Internal Medicine Hematology & Oncology; Visit Provider Internal Medicine Hematology & Oncology
DX: C34.90 Malignant neoplasm of unspecified part of unspecified bronchus or lung (principal); C79.51 Secondary malignant neoplasm of bone
CPT/HCPCS: 71260; 73700; 74160; Q9967; A4216

== ENCOUNTER → 2019-01-06 12:23 | Outpatient (CLI) | payer MEDICARE, SELFPAY ==
[2018-07-19 10:18] VITALS: BMI 33.9
[2018-10-18 11:41] VITALS: BMI 31.6
[2018-12-31 14:10] VITALS: BMI 33.7
--- NOTE | 2019-01-06 12:30 | MRI_ITS ---
HISTORY: lung ca, RE-STAGING TECHNIQUE: Multiplanar and multisequence MR images of the brain were obtained with and without IV gadolinium. IV Contrast dosage and agent: 8 cc Gadavist COMPARISON: 10/06/18 and 07/06/18 MRIs of the brain. FINDINGS: # of images incl. paperwork: [id number] PARANASAL SINUSES AND MASTOID AIR CELLS: Clear. CALVARIUM: Unremarkable. INTRACRANIAL HEMORRHAGE: No evidence of intracranial hemorrhage. BRAIN PARENCHYMA: No acute infarct. Cerebrum, cerebellum and brainstem are unremarkable. Normal sella turcica, pituitary gland, infundibular stalk, optic chiasm and hypothalamus. The internal auditory canals are patent. No mass effect or midline shift. Central and cortical involutional changes are noted. There is increased T2 and FLAIR signal abnormality in the periventricular white matter. CONTRAST: No abnormal enhancement. CSF SPACES: Appropriate for age. There is no hydrocephalus. Patent basal cisterns. VASCULAR SYSTEM: Normal flow voids in the major intracranial circulation. ORBITS: Both globes, extraocular muscles, optic nerves and retrobulbar fat appear unremarkable. MRI/Brain W/WO Contrast IMPRESSION: No concerning interval change. No evidence of metastatic disease. at 1603 Reported and signed by: Valerio Boss MD Electronically Signed: Valerio Boss, at 16:02 EST Tel , Service support ,
== END ==
PROVIDERS: Family Provider Internal Medicine; PCP Internal Medicine; Referring Provider Student in an Organized Health Care Education/Training Program; Visit Provider Student in an Organized Health Care Education/Training Program
DX: C34.90 Malignant neoplasm of unspecified part of unspecified bronchus or lung (principal)
CPT/HCPCS: 70553; A9585; A4216

== ENCOUNTER 2019-02-18 12:00 | Outpatient (RCR) | payer MEDICARE, SELFPAY ==
[2018-07-19 10:18] VITALS: BMI 33.9
[2018-12-31 14:10] VITALS: BMI 33.7
--- NOTE | 2019-01-18 10:54 | HP.PTEVAL_ITS ---
Patient's Visit Information JENNIFER PADGETT is a 73 year old F referred to Physical Therapy by Deuce Gomez MD with a diagnosis of LBP. Date of Evaluation: 01/13/19 Physical Therapist: Kenney Fenton DPT, OCS, CSCS - Visit Plan Frequency: 3x /Week Duration: 4-6 Weeks Plan: 3x/week for 3-4 weeks for. Aquatic therapy for core strength, general UE adn LE strength adn stretch of HS and gastroc and progress to I program as member. May require some machine based strength once I with pool ex. - Subjective Findings: Had fractured spine with CA 16 months ago. Had surgery and put three pins in spine. Been through chemo done in April, radition in July adn is now in partial remission. Gets no exercises and needs more activity. Two concerns... 1. On morphine and dumping it downa dn taking tylenol with codeine now at bedtime. Back still hurts alot. comfortable at rest but lifting hurts. Can vaccuum but cannot carry up steps or shovel snow. 2. Gets tingling in feet when sits too long or lies too long. Goes away with stance and walking. Doctor feels she needs to be stronger and more active. Has OP. Has steps at home and can walk around house but no other exercise. When she goes out and does things she feels really good but staying home for a couple days makes her stiff. Dressing self and cooks and cleans Ok. Lives with daughter and . Balance is pretty good. No falls. Sleep is OK, wakes up 2-3 x/night for bathroom or time for tylenol. 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 Has to be carefula dn cannot lift like she used to. - Pain LBP Pain Intensity (Out of 10): 0 Pain Intensity Range: 0, 5 - Objective Walks I, trasnfers I. Steps reciprocal with one rail. C/s AROM WFL adn painfree. L/S AROM WFL, limited mod in ext adn min in flexion and min in B SB adn no pain today. UE and LE AROM WFL at 140 degree elevation arms and Full AROM knees and ankles, hip ext limited to neutral and tightness present minimally in quads and moderately in HS and gastroc. LE strength hips 4- felxiona dn add and 3+ abd and ext. Knee felx /ext 4- adn ankles DF PF 4-. reflexes 2/3 patella and achilles adn bi and tri. Sensation LE WNL to gross light touch today. - Balance Scores Functional Gait Assessment Score: 23 % Disability: 23.3400 CATSIB Score (Max score 120 seconds): 120 - Goals Goal 1:: Pt I with appropriate ex to limit deleterious effects of sedentarism adn feel 75% better overall in pain and activity level Goal Time Frame: 4-6 Weeks Goal 2:: Strength 4+/5 in LE to make fundraising more tolerable Goal Time Frame: 4-6 Weeks Goal 3:: Less than 15% disability on oswestry. Goal Time Frame: 4-6 Weeks - Rehabilitation Potential Physical Therapy Diagnosis: LBP with general sedentarism. Rehabilitation Potential: Fair - Anticipated Interventions Patient/Client Instruction: Educate patient on: Condition, Plan of Care For the Purpose of:: To decrease pain, To increase ROM, To improve muscle performance and motor function Therapeutic Exercise to Include: Strength training, Flexibilty training, In an aquatic setting For the Purpose of:: To decrease pain, To increase ROM, To improve ability of physical actions for home/community/work/leisure Thank you for the opportunity to evaluate your patient. For Medicare and Medicare HMO plans, please review the plan of care and approve it. It will need to be FAXED BACK to us at [phone] for Medicare purposes. For Medicare only, by signing this I certify the plan of care. Please let me know if there are questions or concerns regarding this plan of care. Physician Signature: Date:
--- NOTE | 2019-02-18 12:27 | HP.PTREVAL_ITS ---
Deuce Gomez MD, It has been my pleasure to treat JENNIFER PADGETT over the last 7 visits for LBP. Please see the progress note below for an update on the physical therapy plan of care! Subjective: Better. More aware mentlly. Not aas painful. Pain 1-2/10 intermittently later in day. Sleep is OK. Mix ee doctor every 9 months. Numbness in feet almost totally gone. Pt wants to get membership on pool and land to continue toward I. Needs a couple more visits to work to I in pool and then to learn land exercises. To Dr. Gomez next Thursday. Doing some leg exercises 115 minutes per day at home gently. Objective/Function: LB ROM without pain today, still stiff in hip flexors adn ITB but moves without pain today. Strength in LE 4/5 without pain complaints. Walks without gait deviations today, trasnfers to adn fro supine and sit with stiffness but I. PT DOING VERY WELL AND PROGRESSING QUICKER THAN EXPECTED HOWEVER NOT CONFIDENT THAT SHE COULD CONTINUE IN The [employer] HERSELF YET ADN CERTAINLY DOES NOT KNOW WHAT TO DO IN THE GYM DESPITE HAVING THE MTOIVATION TO JOIN AND CONTINUE. Plan Plan: 2X/WEEK X 4 WEEKS . 2 visits in the pool to progress current execises then patient to join I. Then spend 4-5 visits teaching appropr machines in gym for LE stretch, LB ROM and core. LE/postural strengthening, ensure tolerance, teach progressions, and give list once safe. One new goal and fair prognosis. Goals Goal 1:: Pt I with appropriate ex to limit deleterious effects of sedentarism adn feel 75% better overall in pain and activity level Goal Time Frame: 4-6 Weeks Goal Progress: Progressing Goal 2:: Strength 4+/5 in LE to make fundraising more tolerable Goal Time Frame: 4-6 Weeks Goal Progress: Progressing Goal 3:: Less than 15% disability on oswestry. Goal Time Frame: 4-6 Weeks Goal Progress: Goal Met Goal 4:: i approp gym ex to maintain improvements Goal Time Frame: 2-4 Weeks Goal Progress: NEW GOAL Anticipated Interventions Patient/Client Instruction: Educate patient on: Condition, Plan of Care For the Purpose of:: To decrease pain, To increase ROM, To improve muscle performance and motor function Therapeutic Exercise to Include: Strength training, Flexibilty training, In an aquatic setting For the Purpose of:: To decrease pain, To increase ROM, To improve ability of physical actions for home/community/work/leisure Please do not hesitate to contact me at [phone] by phone or if you have questions or concerns regarding this new plan of care! Sincerely, Kenney Fenton, DPT, OCS, CSCS
--- NOTE | 2019-03-28 15:05 | HP.PTDCNRP_ITS ---
HP - Discharge Summary (1) - Patient Information JENNIFER PADGETT was seen in my office for initial evaluation on 01/13/19. The following Plan of Care was established for this patient: Initial Frequency: 3x /Week Initial Duration: 4-6 Weeks - Anticipated Interventions Patient/Client Instruction: Educate patient on: Condition, Plan of Care For the Purpose of:: To decrease pain, To increase ROM, To improve muscle perf ormance and motor function Therapeutic Exercise to Include: Strength training, Flexibilty training, In an aquatic setting For the Purpose of:: To decrease pain, To increase ROM, To improve ability of physical actions for home/community/work/leisure This patient was last seen in our office 02/18/19. Pertinent comments regarding their Physical therapy will appear below: Pt seen 7 visits and was planned for 3 more. We attempted to contact but were unable to get visits scheduled. at this point, it has been over 4 weeks adn I will discontinue. At this point I will be discontinuing this patient from physical therapy. I would be happy to see this patient again in the future if found appropriate by the physician. Thank you! Kenney Fenton, DPT, OCS, CSCS
== END 2019-02-18 19:00 | disposition home or self-care (01) ==
LOC: PT 12:00
PROVIDERS: Family Provider Internal Medicine; PCP Internal Medicine; Referring Provider Anesthesiology; Visit Provider Anesthesiology
DX: M54.5 Low back pain (principal); M54.6 Pain in thoracic spine
CPT/HCPCS: 97113; 97162; 97530

== ENCOUNTER → 2019-02-21 10:20 | Outpatient (CLI) | payer MEDICARE, SELFPAY ==
[2018-07-19 10:18] VITALS: BMI 33.9
[2019-01-25 11:31] VITALS: BMI 35.4
--- NOTE | 2019-02-21 10:22 | NM_ITS ---
CLINICAL: 73-year-old female with reported history of carcinoma of the lung with current complaint of low back discomfort. WHOLE BODY 99m Tc MDP RADIONUCLIDE BONE SCINTIGRAPHY COMPARISON: Previous whole body bone scintigraphy study dated 07/05/2018 FINDINGS: Following the intravenous administration of 25.6 mCi of 99m Tc MDP, whole body bone images reveal: 1. Both redefined and newly visualized foci of increased radiopharmaceutical concentration are noted on review of whole body projections to include the right sacral ala, left sacroiliac joint, left iliac crest, third lumbar vertebra posteriorly in the midline, the right posterior sixth and eighth ribs, the fourth, ninth and 10th thoracic vertebra, proximal sternum, left mid humeral diaphysis, left mid femoral diaphysis. 2. Facilitated tracer concentration is presently visualized in the acromioclavicular compartments of both shoulders, bilateral wrists, right and left knees, fifth lumbar vertebra posteriorly on the right. 3. The remaining skeletal structures are scintigraphically unremarkable with normal-appearing renal images and urinary bladder activity identified. NM/Bone Scan Whole Body IMPRESSION: 1. The multifocal increase in radiopharmaceutical concentration defined in the appendicular and axial skeletal structures is commensurate with osteoblastic turnover activity to skeletal metastatic disease. 2. Degenerative arthritis appears expressed in the bilateral shoulders, right and left knees, wrists bilaterally and fifth lumbar vertebra. 3. Overall compared to the previous whole body bone scintigraphy study dated 07/05/2018, there is interim progression of defined skeletal metastatic disease. Electronically Signed: Jan Cooper DO at 23:01 EDT Tel , Service support ,
== END ==
LOC: NM 10:20
PROVIDERS: Family Provider Internal Medicine; PCP Internal Medicine; Referring Provider Internal Medicine Hematology & Oncology; Visit Provider Internal Medicine Hematology & Oncology
DX: C34.90 Malignant neoplasm of unspecified part of unspecified bronchus or lung (principal); C79.51 Secondary malignant neoplasm of bone; C77.9 Secondary and unspecified malignant neoplasm of lymph node, unspecified
CPT/HCPCS: 78306

== ENCOUNTER → 2019-02-25 12:54 | Outpatient (CLI) | payer MEDICARE, SELFPAY ==
[2018-07-19 10:18] VITALS: BMI 33.9
[2019-01-25 11:31] VITALS: BMI 35.4
--- NOTE | 2019-02-25 12:56 | CT_ITS ---
STUDY: CT CHEST WITH CONTRAST REASON FOR EXAM: Female, 73 years old. History of small cell lung cancer. Follow-up exam. RADIATION DOSAGE (If Supplied By Facility): CTDIvol = ( 20.43 ) mGy, DLP = ( 1547.82 ) mGycm TECHNIQUE: Transaxial imaging was performed following intravenous administration of 100CC IV Isovue 300. Individualized dose optimization techniques were used for this CT. COMPARISON: 11/25/2018. FINDINGS: There again is a 1.2 cm noncalcified nodule in the superior segment of the right lower lobe with adjacent mild stranding unchanged since the prior examination. Vague opacities in both lower lobes are seen again unchanged since prior examination. There is no demonstrated pleural fusions. The heart size is normal. There again is mild anterior pericardial thickening/effusion. There are coronary calcifications. Few mediastinal nodes in the aortopulmonic window and left hilar regions are again seen unchanged since the prior examination. Normal hilar regions. Normal enhanced pulmonary arteries. There is atherosclerotic calcification of the aortic arch with tortuosity and elongation of the aortic arch and descending thoracic aorta. The osseous structures are unchanged demonstrating again sclerotic lesions in multiple thoracic vertebrae consistent with metastases. The patient again is status post fusion of the lower thoracic spine with pedicle screws. The visualized portions of the upper abdomen demonstrate nodular changes in the left adrenal gland partially visualized on this examination. The spleen is markedly heterogeneous with low-density areas within it that could represent splenic masses or may represent flow defects from arterial phase of scanning. CT scan of the abdomen is recommended. CT/Chest WITH Contrast IMPRESSION: 1. Persistent right lower lobe noncalcified nodule unchanged since prior examination. 2. Mild stranding/scarring again unchanged. 3. Osteoblastic densities in several thoracic vertebrae unchanged. 4. Questionable splenic lesion and left adrenal lesion as described above. Further evaluation with CT scan of the abdomen is recommended. Electronically Signed: Parviz Cardozo MD at 13:46 EDT Tel , Service support ,
--- NOTE | 2019-02-25 12:56 | CT_ITS ---
STUDY: CT ABDOMEN WITH CONTRAST REASON FOR EXAM: Female, 73 years old. History of small cell cancer. Follow-up exam. RADIATION DOSAGE (If Supplied By Facility): CTDIvol = ( 20.43 ) mGy, DLP = ( 1547.82 ) mGycm TECHNIQUE: Transaxial images were obtained post I.V. administration of 100CC IV Isovue 300, and oral contrast. Sagittal and coronal images were reconstructed. Individualized dose optimization techniques were used for this CT. COMPARISON: 11/25/2018. FINDINGS: The lung bases are reported separately. The heart size is normal. Mild anterior pericardial thickening or trace of pericardial effusion are again seen unchanged. Normal liver. Normal gallbladder and extrahepatic biliary system. The spleen appears unremarkable. The questionable splenic lesion seen on the CT scan appears to represent flow defects. There is diffuse enlargement of the pancreas with neena-pancreatic edema suggesting acute pancreatitis. The right adrenal gland is unremarkable. The left adrenal gland is slightly nodular but no focal lesion is definitely identified. Bilateral renal cysts larger on the left side are again seen. There is no evidence of hydronephrosis. There is a large hiatal hernia composed mostly of the fundus of the stomach. There are nonspecific fluid-filled small bowel loops. There is no evidence of bowel obstruction. There is fecal retention. There are surgical clips in the region of the appendix consistent with a prior appendectomy. There is diffuse atherosclerotic calcification of the abdominal aorta with elongation and tortuosity, but without a demonstrated aneurysm. Normal inferior vena cava. Normal retroperitoneum. Normal abdominal wall. Sclerotic bony lesions are again seen unchanged since the prior examination. CT/Abdomen WITH IV Contrast IMPRESSION: 1. No significant change since previous examination. 2. Metastatic bone disease unchanged. 3. No new lesions are identified. 4. Unremarkable spleen. Electronically Signed: Parviz Cardozo MD at 13:52 EDT Tel , Service support ,
== END ==
LOC: CT 12:55
PROVIDERS: Family Provider Internal Medicine; PCP Internal Medicine; Referring Provider Internal Medicine Hematology & Oncology; Visit Provider Internal Medicine Hematology & Oncology
DX: C34.90 Malignant neoplasm of unspecified part of unspecified bronchus or lung (principal); C77.9 Secondary and unspecified malignant neoplasm of lymph node, unspecified; C79.51 Secondary malignant neoplasm of bone
CPT/HCPCS: 71260; 74160; Q9967

== ENCOUNTER → 2019-04-05 09:30 | Outpatient (CLI) | payer MEDICARE, SELFPAY ==
[2018-07-19 10:18] VITALS: BMI 33.9
[2018-12-31 14:10] VITALS: BMI 33.7
[2019-03-28 10:35] VITALS: BMI 36.6
--- NOTE | 2019-04-05 10:00 | MRI_ITS ---
STUDY: MRI BRAIN WITH AND WITHOUT CONTRAST REASON FOR EXAM: Female, 73 years old. SMALL CELL LUNG CA, re-staging, no symptoms. TECHNIQUE: Standardized multiplanar fat and water weighted pulse sequences were obtained. 17 IV Dotarem was administered for the contrast portion of the examination. COMPARISON: 01/06/2019 FINDINGS: There is mild cerebral atrophy with widening of the extra-axial spaces and ventricular dilatation. There are a limited number of small white matter hyperintensities, distributed throughout the deep white matter tracts of the cerebral hemispheres, consistent with mild chronic white matter ischemic changes. Normal bilateral basal ganglia. Normal thalami. There is no extra-axial fluid accumulation. Normal flow voids within the major intracranial circulation suggesting patency by spin echo criteria. Normal venous enhancement. There is no enhancing intra-axial or extra-axial abnormality. Normal sella turcica, pituitary gland, infundibular stalk, optic chiasm and hypothalamus. Normal tectal plate and pineal gland. There are chronic white matter ischemic changes of the delvis. The midbrain and medulla are otherwise normal. Normal cerebellum. Normal basal cisterns. MRI/Brain W/WO Contrast IMPRESSION: No acute intracranial abnormality or masses. Electronically Signed: Terence Castañeda MD at 15:28 EDT Tel , Service support ,
== END ==
PROVIDERS: Family Provider Internal Medicine; PCP Internal Medicine; Referring Provider Student in an Organized Health Care Education/Training Program; Visit Provider Student in an Organized Health Care Education/Training Program
DX: C34.90 Malignant neoplasm of unspecified part of unspecified bronchus or lung (principal)
CPT/HCPCS: 70553; A9575; A4216

== ENCOUNTER → 2019-05-30 10:21 | Outpatient (CLI) | payer MEDICARE, SELFPAY ==
[2018-07-19 10:18] VITALS: BMI 33.9
[2019-05-16 09:30] VITALS: BMI 38.1
[2019-05-23 09:50] VITALS: BMI 38.0
--- NOTE | 2019-05-30 10:22 | NM_ITS ---
CLINICAL: 74-year-old female with reported history of carcinoma of the lung metastatic to bone. WHOLE BODY 99m Tc MDP RADIONUCLIDE BONE SCINTIGRAPHY COMPARISON: Prior whole body bone scintigraphy study dated 02/21/2019 FINDINGS: Following the intravenous administration of 26.7 mCi of 99m Tc MDP, whole body bone images reveal: 1. Increased radiopharmaceutical concentration is newly defined in the bilateral posterior acetabulum, second lumbar vertebra, right posterior ilium, several bilateral ribs anteriorly, right mid femoral diaphysis and persistently visualized in the left mid humeral diaphysis, multiple thoracic and lumbar vertebra, the left mid femoral diaphysis, bilateral hemipelvis several right posterior ribs. 2. Facilitated the uptake is currently identified in the acromioclavicular compartments of both shoulders, the bilateral knees, right forefoot. 3. The remaining skeletal structures are scintigraphically unremarkable with normal-appearing renal images and urinary bladder activity identified. NM/Bone Scan Whole Body IMPRESSION: 1. The multifocal increase in radiopharmaceutical concentration redemonstrated and newly apparent in the appendicular and axial skeletal structures is consistent with osseous metastatic disease. 2. Degenerative arthritis is presently expressed in the right and left shoulders, knees bilaterally and right forefoot. 3. Overall compared to the previous whole body bone scintigraphy study dated 02/21/2019, there is interval progression of defined skeletal metastatic disease. Electronically Signed: Jan Cooper DO at 23:36 EDT Tel , Service support ,
== END ==
PROVIDERS: Family Provider Internal Medicine; PCP Internal Medicine; Referring Provider Internal Medicine Hematology & Oncology; Visit Provider Internal Medicine Hematology & Oncology
DX: C80.1 Malignant (primary) neoplasm, unspecified (principal); C34.90 Malignant neoplasm of unspecified part of unspecified bronchus or lung; C77.9 Secondary and unspecified malignant neoplasm of lymph node, unspecified; C79.51 Secondary malignant neoplasm of bone
CPT/HCPCS: 78306; A4216

== ENCOUNTER → 2019-06-03 12:36 | Outpatient (CLI) | payer MEDICARE, SELFPAY ==
[2018-07-19 10:18] VITALS: BMI 33.9
[2019-05-16 09:30] VITALS: BMI 38.1
[2019-05-23 09:50] VITALS: BMI 38.0
--- NOTE | 2019-06-03 12:38 | CT_ITS ---
STUDY: CT CHEST WITH CONTRAST REASON FOR EXAM: Female, 74 years old. Restaging of lung cancer with bone metastases RADIATION DOSAGE (If Supplied By Facility): CTDIvol = ( 27.48 ) mGy, DLP = ( 1615.80 ) mGycm TECHNIQUE: Transaxial imaging was performed following intravenous administration of 100 IV Isovue 300. Individualized dose optimization techniques were used for this CT. COMPARISON: 25 February 2019, 25 November 2018 FINDINGS: There is a stable cluster of irregular soft tissue nodules in the lateral basal segment of the right lower lobe, adjacent to the fissure and pleura, stable since multiple priors and presumably representing treated metastatic disease. Remainder of the lungs are emphysematous with mild changes of bronchiolitis in the upper lobes. Central airways are patent. Pleural surfaces are intact. There is conglomerate mediastinal lymphadenopathy/soft tissue mass which is difficult to separate and. The transverse diameter soft tissue measures 2.6 cm adjacent to the aorta and right upper lobe artery. Visually there is increasing volume of mediastinal metastatic disease. There are new right hilar lymph nodes which were not present on the prior study, largest one measuring 1.6 cm. Central airways are patent. Pulmonary artery and aorta are patent. There is minor physiologic pericardial effusion. There is advanced coronary artery disease. There are multiple mixed predominantly blastic osseous metastases throughout the spinal column, ribs, sternum. There is a new sclerotic lesion along the posterolateral T5 vertebral body measuring 1.7 cm in CC dimension. Remainder of the vertebral metastatic disease is stable. Rib lesions appear more extensive in length. There is stable appearance of lower thoracic pedicular fusion with compression fracture of T10. For Abdominal findings refer to dedicated report. CT/Chest WITH Contrast IMPRESSION: 1. Disease progression. 2. Progression of soft tissue disease, enlarging mediastinal lymphadenopathy. 3. Progression of osseous disease, new osseous metastasis. Electronically Signed: Jovany Sol, at 17:24 EDT Tel , Service support ,
--- NOTE | 2019-06-03 12:38 | CT_ITS ---
STUDY: CT ABDOMEN WITH CONTRAST REASON FOR EXAM: Female, 74 years old. Restaging, lung cancer with metastases RADIATION DOSAGE (If Supplied By Facility): CTDIvol = ( 27.48 ) mGy, DLP = ( 1615.80 ) mGycm TECHNIQUE: Transaxial images were obtained post I.V. administration of 100 IV Isovue 300, and oral contrast. Sagittal and coronal images were reconstructed. Individualized dose optimization techniques were used for this CT. COMPARISON: 25 February 2019, 06 September 2018, report from 25 January 2018 without images available for review FINDINGS: Refer to chest report for dedicated details. There are multiple new hepatic lesions which are predominantly hypodense. There is no biliary dilation. Gallbladder is normal. There is an enlarging lesion in the tail of the pancreas with enhancement greater than the rest of the pancreatic parenchyma, presumed metastasis. Spleen is normal. There is uniform thickening of the left adrenal gland compared to the right which has been stable since August 2018 and is presumably benign. There are bilateral renal cysts. There are no solid renal masses, stones or hydronephrosis. Bladder is normal. There is no intestinal obstruction. There is diffuse osseous blastic metastatic disease. The L2 vertebral lesion has enlarged compared to prior. Pelvic disease comparison is difficult as pelvis was not imaged on the prior scan. CT/Abdomen WITH IV Contrast IMPRESSION: 1. Disease progression. 2. Multiple new hepatic metastases. 3. New osseous metastases. Electronically Signed: Jovany Sol, at 19:26 EDT Tel , Service support ,
== END ==
PROVIDERS: Family Provider Internal Medicine; PCP Internal Medicine; Referring Provider Internal Medicine Hematology & Oncology; Visit Provider Internal Medicine Hematology & Oncology
DX: C34.90 Malignant neoplasm of unspecified part of unspecified bronchus or lung (principal); C77.0 Secondary and unspecified malignant neoplasm of lymph nodes of head, face and neck; C77.9 Secondary and unspecified malignant neoplasm of lymph node, unspecified; C79.51 Secondary malignant neoplasm of bone; C7A.8 Other malignant neuroendocrine tumors; C7B.8 Other secondary neuroendocrine tumors
CPT/HCPCS: 71260; 74160; A4216

== ENCOUNTER → 2019-07-19 10:12 | Outpatient (CLI) | payer MEDICARE, SELFPAY ==
[2018-07-19 10:18] VITALS: BMI 33.9
[2019-05-16 09:30] VITALS: BMI 38.1
[2019-07-04 10:32] VITALS: BMI 37.3
--- NOTE | 2019-07-19 10:47 | MRI_ITS ---
STUDY: MRI BRAIN WITH AND WITHOUT CONTRAST REASON FOR EXAM: Female, 74 years old. Lung cancer, evaluate for metastases TECHNIQUE: Standardized multiplanar fat and water weighted pulse sequences were obtained. 18 IV Dotarem was administered for the contrast portion of the examination. COMPARISON: None. FINDINGS: There is a FLAIR and DWI hyperintense, 6 mm enhancing lesion in the right frontal lobe subcortical white matter on series 10 image 15. There is no vasogenic edema or mass effect. Normal size of the ventricles and extra-axial spaces for the patient's age. There are a limited number of small white matter hyperintensities, distributed throughout the deep white matter tracts of the cerebral hemispheres, consistent with mild chronic white matter ischemic changes. Normal T2* images of the brain without demonstrated susceptibility artifact. There is no demonstrated hemosiderin stain. Normal bilateral basal ganglia. Normal thalami. There is no extra-axial fluid accumulation. Normal flow voids within the major intracranial circulation suggesting patency by spin echo criteria. Normal venous enhancement. Normal sella turcica, pituitary gland, infundibular stalk, optic chiasm and hypothalamus. Normal tectal plate and pineal gland. Normal midbrain, delvis and medulla. Normal cerebellum. Normal basal cisterns. Normal bilateral temporal bones. Normal bilateral internal auditory canals. No demonstrated orbital abnormality, within the constraints of a routine brain study. Normal visualized paranasal sinuses. Normal calvarium and skull base. Normal visualized soft tissue structures. There is T1 hypointense signal in the visualized C3 vertebral body concerning for metastasis. MRI/Brain W/WO Contrast IMPRESSION: 6 mm metastasis in the right frontal lobe subcortical white matter. No vasogenic edema. T1 hypointense signal in the visualized C3 vertebral body concerning for metastasis. Consider dedicated MRI or PET imaging for further evaluation. Electronically Signed: Dar Suarez, at 14:49 EDT Tel , Service support ,
== END ==
PROVIDERS: Family Provider Internal Medicine; PCP Internal Medicine; Referring Provider Student in an Organized Health Care Education/Training Program; Visit Provider Student in an Organized Health Care Education/Training Program
DX: C34.90 Malignant neoplasm of unspecified part of unspecified bronchus or lung (principal)
CPT/HCPCS: 70553; A9575; A4216

== ENCOUNTER 2019-08-26 17:39 | Inpatient (IN) | payer MEDICARE, SELFPAY ==
[2018-07-19 10:18] VITALS: BMI 33.9
[2019-08-24 15:56] VITALS: BMI 36.0
[2019-08-26 17:40] VITALS: BP 134/72; PULSE 105; RESP 16; TEMP 36.1; O2SAT 95; BMI 34.9
[2019-08-26 18:19] VITALS: O2SAT 97
--- NOTE | 2019-08-26 18:19 | EKG12_ITS ---
Test Reason : LOWER EXT PAIN Blood Pressure : / mmHG Vent. Rate : 108 BPM Atrial Rate : 108 BPM P-R Int : 148 ms QRS Dur : 074 ms QT Int : 332 ms P-R-T Axes : 069 058 075 degrees QTc Int : 444 ms Sinus tachycardia Low voltage QRS Borderline ECG Confirmed by BALJINDER QUIJANO ([id number]), acquisitions editor JOHN PINZON ([id number] on 09/05/2019 3:49:27 PM Referred By: VIANCA Confirmed By:BALJINDER QUIJANO
--- NOTE | 2019-08-26 18:25 | ED.VISSUMM ---
- ER Visit Summary Date of Service: 08/26/19 Chief Complaint: Swollen legs and short of breath History of Present Illness: The patient is a 74 F with leg swelling and shortness of breath. Symptoms have been going on for about a week. They are gradually getting worse. 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 She is on chemotherapy. She denies any history of CHF. Denies any chest pain. Denies any history of heart disease. Denies PE. She says her legs have been swollen over the past week. They look pale to her. Her doctor could not feel pulses. Physical Examination: Afebrile and vital signs unremarkable except for heart rate of 105. Patient in no acute distress. Lungs show faint extra Tory wheeze in all boateng. Heart is otherwise regular. Abdomen soft. Extremities are slightly pale, but capillary refill is normal. She has dopplerable pulses. Calves are soft and supple. Good strength and sensation. Symmetric. Otherwise exam unremarkable. Test Results: EKG and chest x-ray pending. Laboratory studies pending. Patient was placed on a monitor. Will recheck. Emergency Department Course and Treatment: EKG showed sinus rhythm at a rate of 108. Chest x-ray was normal. Hemoglobin 10.2 and platelets 72, stable. Chemistry panel showed mild elevated liver enzymes which were stable. Troponin 0.121 and BNP 228. Evaluation, the patient is stable. I am concerned she may have CHF. Given the severity of her symptoms and the progression, I contacted the hospitalist for further care. Hospitalist requested CTA prior to admission. There was no PE. Patient had modest enlargement of her lung mass with some increased lymphadenopathy. Other nodules were stable. Spine mets noted. Stable pathologic fracture. Please refer to the full separate CTA report Treatment Plan: As above Disposition: Admission Impression: 1. Elevated troponin 2. Anemia 3. Thrombocytopenia This note was generated with [employer] dictation software. It may contain incorrect words, spelling, and punctuation that were not noted in review of the chart prior to signing ED Disposition - Plan for ED Patient: Referrals: Mitchell Whiteside MD [Primary Care Provider] -
--- NOTE | 2019-08-26 18:30 | RAD_ITS ---
STUDY: X-RAY CHEST REASON FOR EXAM: Female, 74 years old. Short of breath. History of spinal cancer. TECHNIQUE: Single AP portable view of the chest. COMPARISON: 03/06/2018. FINDINGS: Right Mediport catheter terminates in the upper SVC. The lungs are clear and expanded. There is no demonstrated pleural abnormality. Normal size heart. Normal mediastinum and nikolay. Normal visualized pulmonary arteries. Normal visualized aortic arch and descending thoracic aorta. Stable appearance of fixation hardware of the lower thoracic spine. There is no demonstrated abnormality of the visualized soft tissue structures of the upper abdomen. RAD/Chest 1 View (Portable) IMPRESSION: No acute chest disease. Electronically Signed: Fernando Cantu MD at 19:05 EDT , Service support ,
[2019-08-26 19:39] VITALS: BP 131/81; PULSE 103; RESP 16; O2SAT 98
[2019-08-26 19:44] LABS: Hematocrit 31.1 % (37-47); Hemoglobin 10.2 g/dL (12.0-15.0); Mean Corp Hgb Conc 32.8 g/dL (32-36); Mean Corpuscular Hgb 32.8 pg (27.0-32.0); Mean Platelet Vol. 10.9 fl (6.2-12.0); POSITIVE COUNT YES; POSITIVE MORPHOLOGY YES; Platelet Count 72 K/mm3 (150-450); RBC Distribution Width CV 15.6 % (11.6-14.6); RBC Distribution Width SD 57.1 fl (35.1-43.9); Red Blood Count 3.11 M/mm3 (4.2-5.4); White Blood Count 10.6 K/mm3 (4.4-11.0)
[2019-08-26 19:45] LABS: Differential Indicated MANUAL DIFF
[2019-08-26 19:50] LABS: AST(SGOT) 61 U/L (15-37); Alanine Aminotransfer ALT/SGPT 69 U/L (13-56); Albumin, Serum 1.9 g/dL (3.2-5.0); Alkaline Phosphatase 206 U/L (45-117); Anion Gap 6 (5-15); BUN 27 mg/dL (7-18); BUN/Creat Ratio 30.3 RATIO (10-20); Bilirubin, Direct 0.14 mg/dL (0.00-0.30); Calcium,Total 9.5 mg/dL (8.5-10.1); Chloride 106 mmol/L (98-107); Creatinine, Serum 0.89 mg/dL (0.55-1.02); EST Glomerular Filtration Rate 66 mL/min (>60); Est Glom Filt Rate - Afr Amer 80 mL/min (>60); Estimated Creatinine Clearance 47.26 ml/min; Globulin 4.4 g/dL (2.2-4.2); Glucose 126 mg/dL (74-106); Potassium 3.5 mmol/L (3.5-5.1); Protein, Total 6.3 g/dL (6.4-8.2); Sodium Level 139 mmol/L (136-145)
[2019-08-26 20:17] LABS: BNP,B-Type NATRIURETIC PEPTIDE 228.3 pg/mL (0-100)
[2019-08-26 20:24] LABS: Eosinophil 3 % (0-5); Lymphocyte 27 % (19-41); Metamyelocyte 1 % (0-1); Monocyte 9 % (0-10); Neutrophil-Band 12 % (0-5); Neutrophil-Segmented 48 % (47-70); Total Cells Counted 100 (MANUAL DIFF)
[2019-08-26 20:26] LABS: Anisocytosis 1+; Hypochromasia 1+; Macrocytosis 1+; Platelet Estimate MOD DEC (ADEQ); Polychromasia RARE
[2019-08-26 20:32] LABS: Absolute Lymphocyte Count 2.86 X10^3/uL (0.83-4.51); Absolute Neutrophil Count 6.4 X10^3/uL (2.0-7.7); Lymphocyte # 2.86 X10^3/ul (4.0); Neutrophil # 6.36 X10^3/uL (2.7-7.7)
[2019-08-26 20:33] LABS: Toxic Granulation RARE
--- NOTE | 2019-08-26 22:00 | PCM.HP.STD ---
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 (8) History of Clostridium difficile infection Status: Chronic (9) History of tobacco use Status: Chronic (10) Obesity (BMI 30.0-34.9) Status: Chronic (11) SCLC (small cell lung carcinoma) Status: Chronic (12) Small cell carcinoma Status: Chronic (13) Bone metastases Status: Chronic (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 Associated with symptoms is fatigue. She reported she does not have any energy. She had to use a cane to walk. She went to Dr. Oakley's office, pain management and because a pulse could not be obtained in her bilateral feet she was sent to the emergency department. At the emergency department pulse in the bilateral feet could be obtained with an ultrasound. In regards to his small cell lung cancer he completed a dose of steroid taper on 16 August 2019. She reported when she was on steroids she had high energy. Past Medical History Past Medical History (Chronic Problems): Chronic Problems (Last Reviewed 08/27/19 @ 04:10 by Butch Ruiz MD) Brain metastases (Chronic) SIADH (syndrome of inappropriate ADH production) (Chronic) Liver metastases (Chronic) Small cell lung cancer (Chronic) Neuroendocrine carcinoma metastatic to multiple sites (Chronic) History of Clostridium difficile infection (Chronic) History of tobacco use (Chronic) Obesity (BMI 30.0-34.9) (Chronic) SCLC (small cell lung carcinoma) (Chronic) Regional lymph node metastasis present (Chronic) Small cell carcinoma (Chronic) Bone metastases (Chronic) 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 difficile colitis (Inactive) A04.72 Allergies diazepam [From Valium] Adverse Reaction (Severe, Verified 08/24/19 15:55) Other Home Medications: Ambulatory Orders Medication Instructions Recorded Probiotic 1 tab PO BID 12/10/17 Calcium Carbonate [Calcium] 2,000 mg PO DAILY 01/05/18 Acetaminophen/Codeine #3 [Tylenol 1 tab PO TID PRN 07/13/18 #3 Tablet] cholecalciferol (vitamin D3) 2,000 2,000 unit PO DAILY 07/16/18 unit capsule multivitamin capsule 1 cap PO DAILY 07/16/18 Methocarbamol [Robaxin] 500 mg PO BID PRN 09/13/18 Cyanocobalamin (Vitamin B-12) 2,000 mcg PO BID 11/30/18 [Vitamin B-12] Gabapentin [Neurontin] 300 mg PO QHS 03/28/19 Lidocaine/Prilocaine HCl [Emla 1 applicatio TOPICAL X1 PRN #1 tube 05/16/19 Cream W/Tegaderm] Demeclocycline [Declomycin] 300 mg PO DAILY 07/26/19 Surgical History: Surgical History (Last Reviewed 08/27/19 @ 04:10 by Butch Ruiz MD) History of back surgery (Inactive) Z98.890 Surgical History: - Psychiatric History: No pertinent psych hx 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 Review of Systems Constitutional: Reports: Weakness, Fatigue. Denies: Chills, Fever, Weight Change HEENT: Denies: Head Aches, Sinus Congestion, Sinus Drainage Cardiovascular: Reports: Edema. Denies: Chest Pain, Palpitations Respiratory: Reports: Shortness of Breath. Denies: Cough Gastrointestinal: Denies: Abdominal Pain, Nausea, Vomiting Genitourinary: Denies: Dysuria Musculoskeletal: Denies: Joint Pain, Joint Tenderness Skin: Denies: Rash, Wounds Neurological: Denies: Numbness, Tingling, Focal weakness Psychiatric: Denies: Anxiety, Depression, Homicidal Ideations, Suicidal Ideations Hematologic/ Lymphatic: Denies: Easy Bruising, Easy Bleeding VTE Information - Inpt Only VTE Present on Admission: No VTE Mechan Device Prophylaxis: None VTE Pharm Prophylaxis ordered?: Yes Patient Problems: Active and Suspected Problems (Last Reviewed 08/27/19 @ 04:10 by Butch Ruiz MD) Fatigue (Acute) - Physical Exam General: Alert, Oriented x3, Cooperative HEENT: Atraumatic, PERRLA, EOMI, Normocephalic Neck: Supple, No JVD, Negative Carotid Bruits Lungs: No rales, Wheezes Cardiovascular: Regular Rhythm, Normal S1, Normal S2, No murmurs, Tachycardic Abdomen: Bowel Sounds Present, Soft, Non Tender Extremities: No edema, Capillary Refill Less than 3 Seconds Skin: No rashes, No breakdown, - - cool bilateral feet Musculoskeletal: No Tenderness to Palpation of Joints or Extremities Neurological: Cranial nerves II-XII grossly intact Psych/Mental Status: Normal Affect, Appropriate Vital Signs Temp Pulse Resp BP Pulse Ox 97 F L 103 H 16 131/81 H 98 08/26/19 17:40 08/26/19 19:39 08/26/19 19:39 08/26/19 19:39 08/26/19 19:39 Oxygen Delivery Method Room Air Weight: 89.358 kg Body Mass Index (BMI) 34.9 Laboratory Tests Past 24 Hrs 08/26/19 08/26/19 08/26/19 19:10 19:10 19:10 WBC 10.6 RBC 3.11 L Hgb 10.2 L Hct 31.1 L MCV 100.0 H MCH 32.8 H MCHC 32.8 RDW Std Deviation 57.1 H RDW Coeff of Apple 15.6 H Plt Count 72 L MPV 10.9 Neut % (Auto) Not Reportable Absolute Neuts (auto) 6.4 Absolute Lymphs (auto) 2.86 Total Counted 100 Neutrophils % (Manual) 48 Band Neutrophils % 12 H Lymphocytes % (Manual) 27 Monocytes % (Manual) 9 Eosinophils % (Manual) 3 Metamyelocytes % 1 [address] Review May foll Toxic Granulation RARE Platelet Estimate MOD DEC Polychromasia RARE Hypochromasia 1+ Anisocytosis 1+ Macrocytosis 1+ Sodium 139 Potassium 3.5 Chloride 106 Carbon Dioxide 27.0 Anion Gap 6 BUN 27 H Creatinine 0.89 Estim Creat Clear Calc 47.26 Est GFR (MDRD) Af Amer 80 Est GFR (MDRD) Non-Af 66 BUN/Creatinine Ratio 30.3 H Glucose 126 H Calcium 9.5 Total Bilirubin 0.40 Direct Bilirubin 0.14 AST 61 H ALT 69 H Alkaline Phosphatase 206 H Troponin I 0.121 H B-Natriuretic Peptide 228.3 H Total Protein 6.3 L Albumin 1.9 L Globulin 4.4 H Assessment/Plan All Active Problems (Last Reviewed 08/27/19 @ 04:10 by Butch Ruiz MD) Fatigue (Acute) The patient is a 74 year old F with a significant history of metastatic small cell lung cancer status post stereotactic radiosurgery and on Keytruda therapy; and SIADH who presented with shortness of breath and bilateral lower feet edema; and with low energy consistent with debility. Debility Etiology could be from cancer; or from adverse effects of chemotherapy. PT and OT to work with patient Patient's oncologist is . Will consult oncology. Dyspnea Chest x-ray was unremarkable. Chest CT showed increasing size of masses. There is increase in size could be from inflammatory changes of Keytruda or from worsening cancer. Will start patient on scheduled breathing treatment. Will defer steroid treatment to oncologist in the setting of patient on Keytruda therapy and have not recently completed steroid taper. Chest x-ray and chest CTA did not show pulmonary infiltrates pointing towards heart failure. BNP is unremarkable. However for completeness it will be appropriate to do an echocardiogram. Will order an echocardiogram. Bilateral lower leg swelling Likely from low albumin Nursing communication to elevate bilateral lower legs. Indeed patient reports that at home she elevate her lower extremities. Probable peripheral artery disease Bilateral leg with decreased pulses and coolness. We will get arterial duplex of bilateral lower explained. Elevated troponin Likely type II [place] from demand ischemia secondary to increased work of breathing. Trend troponin. SIADH On home demeclocycline. On presentation declined to take it. Tobacco abuse Reports cutting down on smoking and now smokes few cigarettes on some days. Counseled. DVT prophylaxis Subcutaneous Lovenox. Code Visit Inpatient E&M: 21528 Init Hosp L3
--- NOTE | 2019-08-26 22:08 | CT_ITS ---
STUDY: CTA CHEST REASON FOR EXAM: Female, 74 years old. Shortness of breath and leg swelling. History of small cell lung cancer with metastasis to brain and bone. Currently on chemotherapy. History of prior back surgery. RADIATION DOSAGE (If Supplied By Facility): CTDIvol = ( 9.80 ) mGy, DLP = ( 517.05 ) mGycm TECHNIQUE: The examination was performed with the intravenous administration of IV 100mL Isovue-370 100ML. Post-processing of the angiographic images was performed, with multiplanar reformation and 3D reconstruction. Individualized dose optimization techniques were used for this CT. COMPARISON: Prior chest CT exam of June 03, 2019 FINDINGS: Normal enhancement of the main pulmonary artery and right and left pulmonary arteries. Normal enhancement of the bilateral peripheral pulmonary arteries. There is no demonstrated pulmonary embolism. There is atherosclerotic calcification of the aortic arch with tortuosity. There is no demonstrated aortic dissection. Normal heart and pericardium. Coronary calcifications. There is a conglomerate mediastinal mass or adenopathy which is retrocaval anterior to the jaymei is somewhat increased in size on the prior exam measuring 3.7 x 3.0 cm compared to a comparable measurement of 3.4 x 2.9 cm. 1 left hilar lymph node on the left has increased in size now long axis measurement of 1.5 cm. Prior measurement 1.1 cm . Other small lymph nodes at the aortopulmonary window have increased slightly. There is increased subcarinal density, not well defined. Stable shotty right hilar lymph nodes. Increased size shotty left hilar lymph nodes. There are 2 nodular opacities in the anterior right lower lobe. The more inferior nodule measures 8 mm similar in size to the prior exam but somewhat more well defined. A more inferior nodule is unchanged from the prior exam. Somewhat more prominent bronchial thickening in the bilateral lower lobes. Otherwise, stable chronic changes. Negative for pleural effusion. Normal chest wall structures. Multilevel sclerotic vertebral body lesions in the same distribution as prior exam. Stable pathologic compression deformity of T10 status post posterior spinal fusion of T9, T10 and T11 multiple scattered bilateral sclerotic rib lesions consistent with metastatic disease. Lobulated cyst upper pole of the left kidney. CT/CTA Chest W/WO Contrast IMPRESSION: Negative for pulmonary embolus. Atherosclerotic plaque of the aorta. Coronary calcifications. Modest increase size of the middle mediastinal mass/retrocaval to anterior jaymie. Modest increase in left hilar and AP window lymph nodes. Stable right hilar adenopathy. No change or slightly larger lobular nodule of the anterior right lower lobe. Elongated or flattened nodule of the anterior right lower lobe unchanged. Somewhat more prominent bronchial thickening in the bilateral lower lobes without new major consolidation, atelectasis or pleural effusion. Otherwise stable chronic changes as previously described. Metastatic disease of the thoracic spine and ribs. Stable pathologic compression fracture of T10 status post spinal fusion of T9-T11. Electronically Signed: Jeanine Fernandez MD at 23:50 EDT , Service support ,
[2019-08-27] VITALS (15 sets, daily range): BP systolic 103–156; BP diastolic 50–87; PULSE 104–117; RESP 14–24; TEMP 36.4–37; O2SAT 92–96; BMI 34.4
--- NOTE | 2019-08-27 01:00 | ECHOCS_ITS ---
Reason For Study: DYSPNEA Procedure This was a 2D Doppler, Color Flow transthoracic echocardiogram. The study was technically difficult. Contrast injection was performed. Exam performed portable in patient room. Left Ventricle Normal size and thickness. The estimated ejection fraction is 55 %. Mid-Anterior : Mildly hypokinetic. Mid-anteroseptal : Mildly hypokinetic. Right Ventricle Normal size and thickness. Normal systolic function. Atria Normal left atrium. Normal right atrium. Normal atrial septum. Mitral Valve The mitral valve is structurally normal. No prolapse or stenosis seen. Tricuspid Valve Normal tricuspid valve. Unable to estimate RV systolic pressure due to insufficient tricuspid regurgitant envelope. Aortic Valve Trisinus/trileaflet aortic valve. Mild focal aortic valve thickening. There is no aortic stenosis. Pulmonic Valve The pulmonic valve is not well visualized. Great Vessels Normal aortic root. Normal arch. Normal inferior vena cava. Inferior vena cava collapse with sniff. Pericardium/Pleural No pericardial effusion. Medication Diluted definity 2.0ml given slow IV push to enhance endocardial definition. MMode/2D Measurements & Calculations LVIDd: 4.3 cm IVSd: 0.83 cm Ao root diam: 3.5 cm LVIDs: 2.9 cm LVPWd: 0.98 cm RVDd: 2.7 cm FS: 33.3 % LAV(MOD-bp): 26.9 ml LA A4 area: 12.9 cm2 LA dimension(2D): 3.4 cm LAV(MOD-bp) Indexed: 14.0 ml/m2 LAV(MOD-sp2): 20.8 ml LAV(MOD-sp4): 30.9 ml RA A4 area: 10.2 cm2 Doppler Measurements & Calculations Lat Peak E' Amrit: 10.2 cm/sec Med Peak E' Amrit: 7.2 cm/sec Ao V2 max: 153.7 cm/sec Ao max P.5 mmHg LV V1 max: 114.4 cm/sec PA V2 max: 99.0 cm/sec LV V1 max P.2 mmHg Interpretation Summary The estimated ejection fraction is 55 %. Mid-Anterior : Mildly hypokinetic Mid-anteroseptal : Mildly hypokinetic Unable to estimate RV systolic pressure due to insufficient tricuspid regurgitant envelope. The study was technically difficult. Contrast injection was performed. There is no comparison study available. Ordering Physician: Butch Ruiz Referring Physician: Mitchell Whiteside Performed By: Lashawn Edwards, MARY ANN, RVT
[2019-08-27] MEDS: 0.9% NaCl VAD Flush IV ×4 (01:50→15:39)
[2019-08-27] MEDS: Acetaminophen 325 MG Tablet 650 MG PO (02:18)
[2019-08-27] MEDS: Methocarbamol 500 MG Tablet PO ×2 (02:18→21:32)
[2019-08-27] MEDS: Gabapentin 300 MG Capsule PO ×2 (02:19→21:33)
[2019-08-27 06:47] LABS: Hematocrit 30.9 % (37-47); Hemoglobin 10.3 g/dL (12.0-15.0); Mean Corp Hgb Conc 33.3 g/dL (32-36); Mean Corpuscular Hgb 32.7 pg (27.0-32.0); Mean Corpuscular Volume 98.1 fL (81-99); Mean Platelet Vol. 11.6 fl (6.2-12.0); POSITIVE COUNT YES; POSITIVE MORPHOLOGY YES; Platelet Count 70 K/mm3 (150-450); RBC Distribution Width CV 15.4 % (11.6-14.6); RBC Distribution Width SD 55.5 fl (35.1-43.9); Red Blood Count 3.15 M/mm3 (4.2-5.4); White Blood Count 10.8 K/mm3 (4.4-11.0)
[2019-08-27 06:53] LABS: Differential Indicated MANUAL DIFF
[2019-08-27 07:13] LABS: Eosinophil 4 % (0-5); Lymphocyte 25 % (19-41); Monocyte 8 % (0-10); Neutrophil-Segmented 63 % (47-70); Total Cells Counted 100 (MANUAL DIFF)
[2019-08-27 07:14] LABS: Absolute Lymphocyte Count 2.69 X10^3/uL (0.83-4.51); Absolute Neutrophil Count 6.8 X10^3/uL (2.0-7.7)
[2019-08-27 07:15] LABS: Anion Gap 4 (5-15); BUN 23 mg/dL (7-18); BUN/Creat Ratio 29.2 RATIO (10-20); Calcium,Total 9.1 mg/dL (8.5-10.1); Chloride 107 mmol/L (98-107); Creatinine, Serum 0.79 mg/dL (0.55-1.02); EST Glomerular Filtration Rate 76 mL/min (>60); Est Glom Filt Rate - Afr Amer 92 mL/min (>60); Estimated Creatinine Clearance 42.07 ml/min; Glucose 89 mg/dL (74-106); Platelet Estimate MOD DEC (ADEQ); Potassium 3.6 mmol/L (3.5-5.1); Red Cell Morphology NORM C+C NORMAL (NORM C&C); Sodium Level 139 mmol/L (136-145)
[2019-08-27] MEDS: Ipratropium/Albuterol Sulfate 3 ML AMPUL.NEB INHALATION ×4 (07:16→19:46)
[2019-08-27] MEDS: Multivitamins,Therapeutic Tablet 1 TABLET PO (10:51)
[2019-08-27] MEDS: Calcium (Elemental) 500 MG Tablet 2000 MG PO (10:51)
[2019-08-27] MEDS: Enoxaparin 40 MG/0.4 ML Syringe SC (10:52)
[2019-08-27] MEDS: Acetaminophen/Codeine #3 Tablet 1 TABLET PO ×2 (10:55→21:32)
--- NOTE | 2019-08-27 12:48 | PCM.PROGNOTE ---
<Frantz Jose - Last Filed: 08/27/19 12:48> Patient Problems: Active and Suspected Problems (Last Reviewed 08/27/19 @ 04:10 by Butch Ruiz MD) Fatigue (Acute) Subjective: Pt continues to have SOB with light exertion such as getting out of bed. She complains primarily of severe fatigue. She denies COLBERT, dizziness, LH, double vision or SOB. She is not SOB at rest. No cough/fevers/chills. She has ongoing LE edema. - Physical Exam General: Alert, Oriented x3, Cooperative HEENT: Atraumatic, PERRLA, EOMI, Normocephalic Neck: Supple, No JVD, Negative Carotid Bruits Lungs: Clear to auscultation, Diminished Cardiovascular: Regular rate, No murmurs Abdomen: Bowel Sounds Present, Soft, Non Tender Extremities: No edema, Capillary Refill Less than 3 Seconds, Edema - 2-3+ pitting edema at the ankle/murphy Skin: No rashes, No breakdown Musculoskeletal: No Tenderness to Palpation of Joints or Extremities Neurological: Cranial nerves II-XII grossly intact Psych/Mental Status: Normal Affect, Appropriate, Alert and oriented to time, place, person, mood and affect Vital Signs Temp Pulse Resp BP Pulse Ox 97.8 F 107 H 16 124/66 H 96 08/27/19 08:27 08/27/19 11:22 08/27/19 11:22 08/27/19 08:27 08/27/19 08:27 Oxygen Delivery Method Room Air Weight: 193 lb 9.054 oz Body Mass Index (BMI) 34.4 Intake and Output for Last 24 Hours 08/25/19 08/26/19 08/27/19 23:59 23:59 23:59 Intake Total 500 / 500 Balance 500 / 500 Laboratory Tests Past 24 Hrs 08/26/19 08/26/19 08/26/19 19:10 19:10 19:10 WBC 10.6 RBC 3.11 L Hgb 10.2 L Hct 31.1 L MCV 100.0 H MCH 32.8 H MCHC 32.8 RDW Std Deviation 57.1 H RDW Coeff of Apple 15.6 H Plt Count 72 L MPV 10.9 Neut % (Auto) Not Reportable Absolute Neuts (auto) 6.4 Absolute Lymphs (auto) 2.86 Total Counted 100 Neutrophils % (Manual) 48 Band Neutrophils % 12 H Lymphocytes % (Manual) 27 Monocytes % (Manual) 9 Eosinophils % (Manual) 3 Metamyelocytes % [address] Review May foll Toxic Granulation RARE Platelet Estimate MOD DEC RBC Morphology Polychromasia RARE Hypochromasia 1+ Anisocytosis 1+ Macrocytosis 1+ Sodium 139 Potassium 3.5 Chloride 106 Carbon Dioxide 27.0 Anion Gap 6 BUN 27 H Creatinine 0.89 Estim Creat Clear Calc 47.26 Est GFR (MDRD) Af Amer 80 Est GFR (MDRD) Non-Af 66 BUN/Creatinine Ratio 30.3 H Glucose 126 H Calcium 9.5 Total Bilirubin 0.40 Direct Bilirubin 0.14 AST 61 H ALT 69 H Alkaline Phosphatase 206 H Troponin I 0.121 H B-Natriuretic Peptide 228.3 H Total Protein 6.3 L Albumin 1.9 L Globulin 4.4 H 08/27/19 08/27/19 08/27/19 03:21 06:30 06:30 WBC 10.8 RBC 3.15 L Hgb 10.3 L Hct 30.9 L MCV 98.1 MCH 32.7 H MCHC 33.3 RDW Std Deviation 55.5 H RDW Coeff of Apple 15.4 H Plt Count 70 L MPV 11.6 Neut % (Auto) Not Reportable Absolute Neuts (auto) 6.8 Absolute Lymphs (auto) 2.69 Total Counted 100 Neutrophils % (Manual) 63 Band Neutrophils % Lymphocytes % (Manual) 25 Monocytes % (Manual) 8 Eosinophils % (Manual) 4 Metamyelocytes % Diff Path Review May foll Toxic Granulation Platelet Estimate MOD DEC RBC Morphology NORM C+C Polychromasia Hypochromasia Anisocytosis Macrocytosis Sodium 139 Potassium 3.6 Chloride 107 Carbon Dioxide 28.0 Anion Gap 4 L BUN 23 H Creatinine 0.79 Estim Creat Clear Calc 42.07 Est GFR (MDRD) Af Amer 92 Est GFR (MDRD) Non-Af 76 BUN/Creatinine Ratio 29.2 H Glucose 89 Calcium 9.1 Total Bilirubin Direct Bilirubin AST ALT Alkaline Phosphatase Troponin I 0.104 H B-Natriuretic Peptide Total Protein Albumin Globulin 08/27/19 06:30 WBC RBC Hgb Hct MCV MCH MCHC RDW Std Deviation RDW Coeff of Apple Plt Count MPV Neut % (Auto) Absolute Neuts (auto) Absolute Lymphs (auto) Total Counted Neutrophils % (Manual) Band Neutrophils % Lymphocytes % (Manual) Monocytes % (Manual) Eosinophils % (Manual) Metamyelocytes % Diff Path Review Toxic Granulation Platelet Estimate RBC Morphology Polychromasia Hypochromasia Anisocytosis Macrocytosis Sodium Potassium Chloride Carbon Dioxide Anion Gap BUN Creatinine Estim Creat Clear Calc Est GFR (MDRD) Af Amer Est GFR (MDRD) Non-Af BUN/Creatinine Ratio Glucose Calcium Total Bilirubin Direct Bilirubin AST ALT Alkaline Phosphatase Troponin I 0.113 H B-Natriuretic Peptide Total Protein Albumin Globulin Medical Necessity - Tobacco Use Smoking Status: Current some day smoker Tobacco Use: Cigarettes Assessment/Plan All Active Problems (Last Reviewed 08/27/19 @ 04:10 by Butch Ruiz MD) Fatigue (Acute) 1. Dyspnea - likely 2/2 underlying lung cancer or side effect of keytruda. Oncology is consulted and recommends decadron. Doubt CHF. Echo pending. BNP mildly elevated. CXR not suggestive of CHF. CTA shows enlarging masses, no PE or pleural effusion. Echo with EF 55% and mild segmental hypokinesis. 2. 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 recently on Keytruda. Recent radiation therapy to the brain at [facility]. LFTs elevated. 3. BL LE edema - US pending. Apply VERÓNICA wraps. Zeus protein/albumin. 4. Indeterminate troponin - has remained flat. No CP. Echo with mild segmental hypokinesis, preserved EF. Maintain on tele. Stress test may be beneficial unless patient does not want to pursue further workup or invasive procedures. 5. Thrombocytopenia - stable, unclear etiology, liver dz vs oncologic process, vs medication reaction. 6. SIADH - stop declomycin. 7. Hx cdiff. DVT ppx: lovenox DC planning: PTOT. Prognosis is poor. Consider hospice referral if no improvement. This patient was seen by Frantz Jose PA-C under the supervision of Dr. Bassett. <Kenney Bassett - Last Filed: 08/27/19 13:16> Subjective: States that shortly after discontinuing her steroids, she became weak. States the demeclocycline she takes if very difficult to swallow. - Physical Exam General: Alert, Cooperative HEENT: Atraumatic, Normocephalic Lungs: Clear to auscultation, Normal air movement, No rhonchi, No wheeze Cardiovascular: Regular rate, Regular Rhythm, Normal S1, Normal S2 Abdomen: Bowel Sounds Present, Non Tender, Non-Distended Extremities: Edema Skin: No rashes, No breakdown Vital Signs Temp Pulse Resp BP Pulse Ox 36.6 C 107 H 16 124/66 H 96 08/27/19 08:27 08/27/19 11:22 08/27/19 11:22 08/27/19 08:27 08/27/19 08:27 Oxygen Delivery Method Room Air Weight: 87.8 kg Body Mass Index (BMI) 34.4 Intake and Output for Last 24 Hours 08/25/19 08/26/19 08/27/19 23:59 23:59 23:59 Intake Total 500 / 500 Balance 500 / 500 Laboratory Tests Past 24 Hrs 08/26/19 08/26/19 08/26/19 19:10 19:10 19:10 WBC 10.6 RBC 3.11 L Hgb 10.2 L Hct 31.1 L MCV 100.0 H MCH 32.8 H MCHC 32.8 RDW Std Deviation 57.1 H RDW Coeff of Apple 15.6 H Plt Count 72 L MPV 10.9 Neut % (Auto) Not Reportable Absolute Neuts (auto) 6.4 Absolute Lymphs (auto) 2.86 Total Counted 100 Neutrophils % (Manual) 48 Band Neutrophils % 12 H Lymphocytes % (Manual) 27 Monocytes % (Manual) 9 Eosinophils % (Manual) 3 Metamyelocytes % [address] Review May foll Toxic Granulation RARE Platelet Estimate MOD DEC RBC Morphology Polychromasia RARE Hypochromasia 1+ Anisocytosis 1+ Macrocytosis 1+ Sodium 139 Potassium 3.5 Chloride 106 Carbon Dioxide 27.0 Anion Gap 6 BUN 27 H Creatinine 0.89 Estim Creat Clear Calc 47.26 Est GFR (MDRD) Af Amer 80 Est GFR (MDRD) Non-Af 66 BUN/Creatinine Ratio 30.3 H Glucose 126 H Calcium 9.5 Total Bilirubin 0.40 Direct Bilirubin 0.14 AST 61 H ALT 69 H Alkaline Phosphatase 206 H Troponin I 0.121 H B-Natriuretic Peptide 228.3 H Total Protein 6.3 L Albumin 1.9 L Globulin 4.4 H 08/27/19 08/27/19 08/27/19 03:21 06:30 06:30 WBC 10.8 RBC 3.15 L Hgb 10.3 L Hct 30.9 L MCV 98.1 MCH 32.7 H MCHC 33.3 RDW Std Deviation 55.5 H RDW Coeff of Apple 15.4 H Plt Count 70 L MPV 11.6 Neut % (Auto) Not Reportable Absolute Neuts (auto) 6.8 Absolute Lymphs (auto) 2.69 Total Counted 100 Neutrophils % (Manual) 63 Band Neutrophils % Lymphocytes % (Manual) 25 Monocytes % (Manual) 8 Eosinophils % (Manual) 4 Metamyelocytes % Diff Path Review May foll Toxic Granulation Platelet Estimate MOD DEC RBC Morphology NORM C+C Polychromasia Hypochromasia Anisocytosis Macrocytosis Sodium 139 Potassium 3.6 Chloride 107 Carbon Dioxide 28.0 Anion Gap 4 L BUN 23 H Creatinine 0.79 Estim Creat Clear Calc 42.07 Est GFR (MDRD) Af Amer 92 Est GFR (MDRD) Non-Af 76 BUN/Creatinine Ratio 29.2 H Glucose 89 Calcium 9.1 Total Bilirubin Direct Bilirubin AST ALT Alkaline Phosphatase Troponin I 0.104 H B-Natriuretic Peptide Total Protein Albumin Globulin 08/27/19 06:30 WBC RBC Hgb Hct MCV MCH MCHC RDW Std Deviation RDW Coeff of Apple Plt Count MPV Neut % (Auto) Absolute Neuts (auto) Absolute Lymphs (auto) Total Counted Neutrophils % (Manual) Band Neutrophils % Lymphocytes % (Manual) Monocytes % (Manual) Eosinophils % (Manual) Metamyelocytes % Diff Path Review Toxic Granulation Platelet Estimate RBC Morphology Polychromasia Hypochromasia Anisocytosis Macrocytosis Sodium Potassium Chloride Carbon Dioxide Anion Gap BUN Creatinine Estim Creat Clear Calc Est GFR (MDRD) Af Amer Est GFR (MDRD) Non-Af BUN/Creatinine Ratio Glucose Calcium Total Bilirubin Direct Bilirubin AST ALT Alkaline Phosphatase Troponin I 0.113 H B-Natriuretic Peptide Total Protein Albumin Globulin Assessment/Plan Patient seen and examined independently. Data reviewed. I agree with the above note by the physician medical assistant float. 1. Failure to thrive: Likely multifactorial due to the patient's underlying malignancy and possibly with a recent withdrawal of the Decadron. We will restart Decadron [address]iscuss[address] with Dr. Lynch, who advised for patient to follow-up with Dr. Thomason, to see how long that will need to be continued. Patient be evaluated by physical and occupational therapy and look to have placement in a [place] [facility] facility if she qualifies. 2. SIADH, malignancy induced: Currently her sodiums are stable at 139. Patient requesting been taking off demeclocycline which is used for SIADH. I told her that that would be fine and part of my concern is to help palliate her symptoms. Being that her sodium is well within normal limits I think that is more than reasonable at this time. 3. Stage IV lung cancer, small cell lung cancer. Numerous metastasis. Follow-up with oncology as outpatient. 4. Elevated troponin: Unclear etiology. Echo shows ejection fraction of 55%. Mid anterior is mildly hypokinetic, mid anterior septal is mildly hypokinetic. Ideally, patient should undergo a stress test for further cardiac risk stratification and potential heart cath if warranted. However, given the patient's stage IV cancer any cardiac intervention would essentially be futile as it would not change the ultimate outcome, which unfortunately is poor. Given that we are trying to palliate her symptoms, would not pursue any other additional work-up at this time. Code Visit Inpatient E&M: 48026 Subs Hosp L2
[2019-08-27] MEDS: dexAMETHasone 4 MG Tablet PO (13:43)
--- NOTE | 2019-08-27 14:28 | CM.UR ---
RN CM Assessment Introduced role of RN CM to patient. Patient is alert and able to participate in RN CM Assessment. Care providers, pharmacy, and demographics verified. daughter at bedside. Patient sitting in chair with feet elevated. Presentation: for increased sob and leg swelling. Admit Dx: Debility Re-Admit: no Barriers/Issues: Motivation. PCP: Miesha Cadena [facility]acy: [facility] Insurance: [employer] Benefit: yes, denies problems affording medications. LNOK: Daughter Rebecca LW/HPOA: yes. States HPOA is rebecca. they state we have a copy. Living Arrangements: Lives with daughter in a 1 story home with 2 steps to get in. ADL?s: Able to most things on a normal basis. Occasionally needs some assistance. Transportation: Still driving. Daughter can drive when she is not able to. DME: cane, rollator, BSC, hospital bed and frame for toilet. HHC: [facility]. SNF: None Goal: to return home with daughter. DC PLAN: Home, denies any needs. Andreea Steiner RN, CCM.
[2019-08-27] MEDS: Alteplase 2 MG/2 ML Vial IV (15:39)
--- NOTE | 2019-08-27 16:49 | ONC.CONS.INP ---
Consult Referring Physician: Dr. Gila Bassett. Consult Results: General weakness. Metastatic Small cell lung cancer. Subjective Date of Service:: 08/27/19 Chief Complaint: leg pain History of Present Illness: 74-year-old woman was diagnosed with stage IV small cell lung cancer in September 2017. She was treated with 6 cycles of carbo etoposide from October 2017 to April 2018. She received palliative radiation therapy to T8-T12 spine from 08/09/2018 to 08/13/2018. She had progressive disease and treated with weekly Taxol from February 2019 24 May 2019. She had progressive disease again and started Keytruda in May 2019. She was found to have a solitary brain metastasis and received SBRT at [facility] on 08/02/2019. She is now admitted with poor appetite, shortness of breath on exertion, general weakness, and swelling of the legs. CTA done on 08/26/2019 was negative. Echocardiogram done on 08/27/2019 showed EF 55%. 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) Past Medical/Surgical History: Past Medical History - Most Recent Inpatient Visit Past Medical History Start: 08/27/19 01:06 Text: Status: Complete Freq: ONCE Protocol: Document 08/27/19 01:06 CM (Rec: 08/27/19 01:31 CM [id number]) BMI Required to complete PMH What is Patient's BMI 34.4 Past Medical History Unable History Recalled Yes Query Text:Pt Unable/Family Not Present Neurologic Medical History Hx Stroke/TIA No Hx Dementia/Alzheimer's No Hx Parkinson's Disease No Hx Seizures No Hx Multiple Sclerosis No Hx Migraines No Cardiac Medical History VTE Present on Admission No Hx of Deep Vein Thrombosis/VTE/PE No Hx Hypertension No Hx Chest Pain/Angina No Hx Heart Attack No Hx Cardiac Surgery/Stents/Etc. No Hx Heart Failure No Hx Pacemaker/AICD No Hx Irregular Heartbeat and/or Afib No Hx Anticoagulant Therapy No Query Text:(Coumadin, Aspirin, Plavix, Xarelto, etc.) Hx Pain in Legs when Walking/Leg Cramps No Respiratory Medical History Hx COPD No Hx Emphysema No Hx Smoking No Smoking Status Current some day smoker Hx Tobacco Use in last 12 months Yes Sent to [facility] Yes Hx Sleep Apnea No Do you snore loudly (louder than talking No or can be heard through closed doors)? Do you often feel tired/ fatigued/ No sleepy during daytime? Has anyone observed you stop breathing No during sleep? STOP Results Negative GI Medical History Hx Ulcer No Hx Hepatitis No Hx Cirrhosis No Hx GI Bleed No Hx Unplanned Weight Loss Yes Genitourinary Medical History Indwelling Catheter in Place on Arrival/ No Admission Hx Renal Disease No Hx Dialysis No Musculoskeletal History Hx Arthritis No Hx Rheumatoid Arthritis No Endocrine Medical History Hx Diabetes No Hx Thyroid Disease No Hematologic Medical History Hx of Blood Transfusion No Hx of Transfusion in last 3 Months No Ever experience any problems with No transfusion(s)? Hx of Preganancy in last 3 Months No Nurse Filling Out Transfusion & CMAST2 Questions: Date: 08/27/19 Time: 01:28 Psycho/Social Medical History Hx Depression No Hx Anxiety No Hx Behavior Disorder No Hx Alcohol Use No Hx Substance Use No Other Medical History Hx Blood Disorders No Hx Anemia Yes Hx Cancer Yes: bone w/mets to brain Hx Drug Resistant Organism No Wound/Pressure Injury Present on Arrival No /Admission Query Text:If yes, chart assessment in Shift/Clinical Findings Central Line/PICC/VAD Present on Arrival Yes /Admission Antibiotics within last 7 days? 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 difficile colitis (Inactive) Past Surgical History (Last Reviewed 08/27/19 @ 04:10 by Butch Ruiz MD) History of back surgery (Inactive) Maternal Family History: Family History (Last Reviewed 08/27/19 @ 04:10 by Butch Ruiz MD) Brother Heart disease Myocardial infarction, Onset Age: 50 Father Cerebral aneurysm rupture Family History: No pertinent history Paternal Family History: Family History (Last Reviewed 08/27/19 @ 04:10 by Butch Ruiz MD) Brother Heart disease Myocardial infarction, Onset Age: 50 Father Cerebral aneurysm rupture Family History: - - from an aneurysm at age 38. - Social History Smoking Status: Current some day smoker Tobacco Use: Cigarettes Allergies/Adverse Reactions: Allergy/AdvReac Type Severity Reaction Status Date / Time diazepam [From Valium] AdvReac Severe Other Verified 08/24/19 15:55 Review of Systems Constitutional:: Reports: Weakness, Fatigue, Appetite change - poor Cardiovascular:: Denies: Chest pain, Palpitations, Dyspnea on exertion, Orthopnea, PND, Shortness of breath Respiratory: Reports: Shortness of breath upon exertion Gastrointestinal:: Denies: Abdominal pain, Nausea, Vomiting, Diarrhea, Constipation, Hematochezia Genitourinary: Denies: Dysuria, Hematuria, 15, Flank pain Musculoskeletal:: Reports: Muscle weakness Skin: Denies: Rash, Skin Changes, Wounds Neurological:: Reports: Muscle weakness. Denies: Headache, Seizure Psychiatric: Denies: Anxiety, Depression, Homicidal Ideations, Suicidal Ideations Vital Signs Height 5 ft 3 in Weight: 87.8 kg Weight in Pounds 193.6 lbs BMI 33.9 Pulse Ox 95 Temperature 97.5 F Pulse Rate 108 Respiratory Rate 16 Blood Pressure 103/50 Blood Pressure Position Sitting - Physical Exam General: Alert, Oriented x3, No apparent distress HEENT: Atraumatic, PERRLA, EOMI, Normocephalic Oropharynx:: Dry mucosa Neck:: Supple, Trachea midline. Negative for: JVD, bilateral Cardiac:: Regular rate, Regular rhythm, Normal S1, Normal S2. Negative for: Murmur Lungs: Clear to auscultation, Excusion symmetrical. Negative for: Rhonchi, Wheezes Abdomen:: Bowel sounds x 4, Soft, Non-tender, Non-distended. Negative for: Hepatosplenomegaly Extremities:: Edema. Negative for: Cyanosis Neurological: Cranial nerves II-XII grossly intact Skin:: Negative for: Lesions, Rash, Petechiae, Ecchymosis Psychiatric:: Appropriate affect, Euthymic Lymphatics:: Negative for: Cervical lymphadenopathy, Supraclavicular lymphadenopathy, Axillary lymphadenopathy Laboratory Data: Laboratory Tests 08/27/19 08/27/19 08/27/19 Range/Units 06:30 06:30 06:30 WBC 10.8 (4.4-11.0) K/mm3 RBC 3.15 L (4.2-5.4) M/mm3 Hgb 10.3 L (12.0-15.0) g/dL Hct 30.9 L (37-47) % MCV 98.1 (81-99) fL MCH 32.7 H (27.0-32.0) pg MCHC 33.3 (32-36) g/dL RDW Std Deviation 55.5 H (35.1-43.9) fl RDW Coeff of Apple 15.4 H (11.6-14.6) % Plt Count 70 L (150-450) K/mm3 MPV 11.6 (6.2-12.0) fl Neut % (Auto) Not Reportable Absolute Neuts (auto) 6.8 (2.0-7.7) X10^3/uL Absolute Lymphs (auto) 2.69 (0.83-4.51) X10^3/uL Total Counted 100 (MANUAL DIFF) Neutrophils % (Manual) 63 (47-70) % Band Neutrophils % (0-5) % Lymphocytes % (Manual) 25 (19-41) % Monocytes % (Manual) 8 (0-10) % Eosinophils % (Manual) 4 (0-5) % Metamyelocytes % (0-1) % Diff Path Review May foll Toxic Granulation Platelet Estimate MOD DEC (ADEQ) RBC Morphology NORM C+C (NORM C&C) NORMAL Polychromasia Hypochromasia Anisocytosis Macrocytosis Sodium 139 (136-145) mmol/L Potassium 3.6 (3.5-5.1) mmol/L Chloride 107 (98-107) mmol/L Carbon Dioxide 28.0 (21.0-32.0) mmol/L Anion Gap 4 L (5-15) BUN 23 H (7-18) mg/dL Creatinine 0.79 (0.55-1.02) mg/dL Estim Creat Clear Calc 42.07 ml/min Est GFR (MDRD) Af Amer 92 (>60) mL/min Est GFR (MDRD) Non-Af 76 (>60) mL/min BUN/Creatinine Ratio 29.2 H (10-20) RATIO Glucose 89 (74-106) mg/dL Calcium 9.1 (8.5-10.1) mg/dL Total Bilirubin (0.20-1.00) mg/dL Direct Bilirubin (0.00-0.30) mg/dL AST (15-37) U/L ALT (13-56) U/L Alkaline Phosphatase (45-117) U/L Troponin I 0.113 H (<0.045) ng/mL B-Natriuretic Peptide (0-100) pg/mL Total Protein (6.4-8.2) g/dL Albumin (3.2-5.0) g/dL Globulin (2.2-4.2) g/dL 08/27/19 08/26/19 08/26/19 Range/Units 03:21 19:10 19:10 WBC 10.6 (4.4-11.0) K/mm3 RBC 3.11 L (4.2-5.4) M/mm3 Hgb 10.2 L (12.0-15.0) g/dL Hct 31.1 L (37-47) % MCV 100.0 H (81-99) fL MCH 32.8 H (27.0-32.0) pg MCHC 32.8 (32-36) g/dL RDW Std Deviation 57.1 H (35.1-43.9) fl RDW Coeff of Apple 15.6 H (11.6-14.6) % Plt Count 72 L (150-450) K/mm3 MPV 10.9 (6.2-12.0) fl Neut % (Auto) Not Reportable Absolute Neuts (auto) 6.4 (2.0-7.7) X10^3/uL Absolute Lymphs (auto) 2.86 (0.83-4.51) X10^3/uL Total Counted 100 (MANUAL DIFF) Neutrophils % (Manual) 48 (47-70) % Band Neutrophils % 12 H (0-5) % Lymphocytes % (Manual) 27 (19-41) % Monocytes % (Manual) 9 (0-10) % Eosinophils % (Manual) 3 (0-5) % Metamyelocytes % 1 (0-1) % Diff Path Review May foll Toxic Granulation RARE Platelet Estimate MOD DEC (ADEQ) RBC Morphology (NORM C&C) NORMAL Polychromasia RARE Hypochromasia 1+ Anisocytosis 1+ Macrocytosis 1+ Sodium (136-145) mmol/L Potassium (3.5-5.1) mmol/L Chloride (98-107) mmol/L Carbon Dioxide (21.0-32.0) mmol/L Anion Gap (5-15) BUN (7-18) mg/dL Creatinine (0.55-1.02) mg/dL Estim Creat Clear Calc ml/min Est GFR (MDRD) Af Amer (>60) mL/min Est GFR (MDRD) Non-Af (>60) mL/min BUN/Creatinine Ratio (10-20) RATIO Glucose (74-106) mg/dL Calcium (8.5-10.1) mg/dL Total Bilirubin (0.20-1.00) mg/dL Direct Bilirubin (0.00-0.30) mg/dL AST (15-37) U/L ALT (13-56) U/L Alkaline Phosphatase (45-117) U/L Troponin I 0.104 H (<0.045) ng/mL B-Natriuretic Peptide 228.3 H (0-100) pg/mL Total Protein (6.4-8.2) g/dL Albumin (3.2-5.0) g/dL Globulin (2.2-4.2) g/dL 08/26/19 Range/Units 19:10 WBC (4.4-11.0) K/mm3 RBC (4.2-5.4) M/mm3 Hgb (12.0-15.0) g/dL Hct (37-47) % MCV (81-99) fL MCH (27.0-32.0) pg MCHC (32-36) g/dL RDW Std Deviation (35.1-43.9) fl RDW Coeff of Apple (11.6-14.6) % Plt Count (150-450) K/mm3 MPV (6.2-12.0) fl Neut % (Auto) Absolute Neuts (auto) (2.0-7.7) X10^3/uL Absolute Lymphs (auto) (0.83-4.51) X10^3/uL Total Counted (MANUAL DIFF) Neutrophils % (Manual) (47-70) % Band Neutrophils % (0-5) % Lymphocytes % (Manual) (19-41) % Monocytes % (Manual) (0-10) % Eosinophils % (Manual) (0-5) % Metamyelocytes % (0-1) % Diff Path Review Toxic Granulation Platelet Estimate (ADEQ) RBC Morphology (NORM C&C) NORMAL Polychromasia Hypochromasia Anisocytosis Macrocytosis Sodium 139 (136-145) mmol/L Potassium 3.5 (3.5-5.1) mmol/L Chloride 106 (98-107) mmol/L Carbon Dioxide 27.0 (21.0-32.0) mmol/L Anion Gap 6 (5-15) BUN 27 H (7-18) mg/dL Creatinine 0.89 (0.55-1.02) mg/dL Estim Creat Clear Calc 47.26 ml/min Est GFR (MDRD) Af Amer 80 (>60) mL/min Est GFR (MDRD) Non-Af 66 (>60) mL/min BUN/Creatinine Ratio 30.3 H (10-20) RATIO Glucose 126 H (74-106) mg/dL Calcium 9.5 (8.5-10.1) mg/dL Total Bilirubin 0.40 (0.20-1.00) mg/dL Direct Bilirubin 0.14 (0.00-0.30) mg/dL AST 61 H (15-37) U/L ALT 69 H (13-56) U/L Alkaline Phosphatase 206 H (45-117) U/L Troponin I 0.121 H (<0.045) ng/mL B-Natriuretic Peptide (0-100) pg/mL Total Protein 6.3 L (6.4-8.2) g/dL Albumin 1.9 L (3.2-5.0) g/dL Globulin 4.4 H (2.2-4.2) g/dL Diagnostic Data: Diagnostic Data Chest X-Ray 08/26/19 18:30 IMPRESSION: No acute chest disease. Electronically Signed: Fernando Cantu MD at 19:05 EDT , Service support , Chest CTA 08/26/19 22:08 IMPRESSION: Negative for pulmonary embolus. Atherosclerotic plaque of the aorta. Coronary calcifications. Modest increase size of the middle mediastinal mass/retrocaval to anterior jaymie. Modest increase in left hilar and AP window lymph nodes. Stable right hilar adenopathy. No change or slightly larger lobular nodule of the anterior right lower lobe. Elongated or flattened nodule of the anterior right lower lobe unchanged. Somewhat more prominent bronchial thickening in the bilateral lower lobes without new major consolidation, atelectasis or pleural effusion. Otherwise stable chronic changes as previously described. Metastatic disease of the thoracic spine and ribs. Stable pathologic compression fracture of T10 status post spinal fusion of T9-T11. Electronically Signed: Jeanine Fernandez MD at 23:50 EDT , Service support , Assessment and Plan General Weakness with Poor appetite may be related to steroid withdrawal. Metastatic SCLC with Brain metastasis S/P SBRT. Protein malnutrition. Suggestion: 1. Start Decadron 4 mg daily. 2: High Protein diet-120grams Protein daily. 3: If stable and discharged, should follow up with Dr. Arriaga. Will not follow further on this admission. Call if new problems arise. Thanks. Medications: Medications Added to Medication List This Visit Category Date Time Status Calcium (Elemental) [Os-Ovidio 500] Med 08/27/19 08:00 Active 2,000 mg PO DAILYCM Dexamethasone [Decadron] Med 08/28/19 08:00 Active 4 mg PO DAILY@0800 Enoxaparin [Lovenox] Med 08/27/19 10:00 Active 40 mg SC DAILY@1000 Ensure Enlive Med 08/27/19 10:00 Active 120 ml PO 4X/DAY Gabapentin [Neurontin] Med 08/27/19 22:00 Active 300 mg PO QHS Lactobacillus Acidophilus [Acidophilus] Med 08/27/19 10:00 Active 1 tablet PO BID Multivitamins,Therapeutic [Multivitamin] Med 08/27/19 08:00 Active 1 tablet PO DAILYCM Primary Care Provider: Mitchell Whiteside MD Referring Provider: - Problem List (1) Malnutrition Status: Acute Qualifiers: Malnutrition type: protein-calorie malnutrition Protein-calorie malnutrition severity: severe Qualified Code(s): E43 - Unspecified severe protein-calorie malnutrition (2) SCLC (small cell lung carcinoma) Status: Chronic Code Visit Office Visits / Consults: [id number] IP Consult L5
[2019-08-27] MEDS: Magnesium Hydroxide 30 ML UDC 15 ML PO (17:59)
--- NOTE | 2019-08-27 18:20 | NURSING ---
read and reviewed SN documentation
[2019-08-28] VITALS (15 sets, daily range): BP systolic 115–133; BP diastolic 68–80; PULSE 101–120; RESP 14–24; TEMP 36.6–36.9; O2SAT 92–97
[2019-08-28] MEDS: Acetaminophen/Codeine #3 Tablet 1 TABLET PO ×3 (03:24→21:13)
[2019-08-28] MEDS: Ipratropium/Albuterol Sulfate 3 ML AMPUL.NEB INHALATION ×4 (07:16→20:04)
[2019-08-28] MEDS: Multivitamins,Therapeutic Tablet 1 TABLET PO (08:54)
[2019-08-28] MEDS: Calcium (Elemental) 500 MG Tablet 2000 MG PO (08:54)
[2019-08-28] MEDS: dexAMETHasone 4 MG Tablet PO (08:54)
[2019-08-28] MEDS: Enoxaparin 40 MG/0.4 ML Syringe SC (08:56)
[2019-08-28] MEDS: Polyethylene Glycol 3350 17 GM PACKET PO (10:14)
[2019-08-28 11:04] LABS: Magnesium 1.9 mg/dL (1.6-2.6)
[2019-08-28] MEDS: Metoprolol Tartrate 25 MG Tablet PO (11:56)
[2019-08-28] MEDS: Magnesium Oxide 400 MG Tablet 800 MG PO (11:56)
[2019-08-28] MEDS: 0.9% NaCl VAD Flush IV (11:58)
--- NOTE | 2019-08-28 13:16 | NURSING ---
read and reviewed all SN documentation
[2019-08-28] MEDS: Magnesium Citrate 300 ML 150 ML PO ×2 (13:46→15:53)
--- NOTE | 2019-08-28 13:54 | PN_ITS ---
<Frantz Jose - Last Filed: 08/28/19 13:54> Patient Problems: Active and Suspected Problems (Last Reviewed 08/27/19 @ 04:10 by Butch Ruiz MD) Malnutrition (Acute) Subjective: Pt continues to be tachycardic. She also reported she wants to go home and that she walks fine, however today she declined ambulation with physical therapy. LE edema is markedly improved. Still significant SOB with any exertion. Denies cold hands, pulses in wrists are normal. - Physical Exam General: Alert, Oriented x3, Cooperative HEENT: Atraumatic, PERRLA, EOMI, Normocephalic Neck: Supple, No JVD, Negative Carotid Bruits Lungs: Diminished Cardiovascular: Regular rate, Tachycardic Abdomen: Bowel Sounds Present, Soft, Non Tender Extremities: No edema, Capillary Refill Less than 3 Seconds, Peripheral Pulses Normal Skin: No rashes, No breakdown Musculoskeletal: No Tenderness to Palpation of Joints or Extremities Neurological: Cranial nerves II-XII grossly intact Psych/Mental Status: Normal Affect, Appropriate, Alert and oriented to time, place, person, mood and affect Vital Signs Temp Pulse Resp BP Pulse Ox 98 F 120 H 16 127/69 H 95 08/28/19 08:20 08/28/19 11:56 08/28/19 10:54 08/28/19 08:20 08/28/19 08:20 Oxygen Delivery Method Room Air Weight: 193 lb 9.054 oz Body Mass Index (BMI) 34.4 Intake and Output for Last 24 Hours 08/26/19 08/27/19 08/28/19 23:59 23:59 23:59 Intake Total 1040 / 1040 610 / 610 Balance 1040 / 1040 610 / 610 Laboratory Tests Past 24 Hrs 08/28/19 10:30 Magnesium 1.9 Medical Necessity - Tobacco Use Smoking Status: Current some day smoker Tobacco Use: Cigarettes Assessment/Plan All Active Problems (Last Reviewed 08/27/19 @ 04:10 by Butch Ruiz MD) Fatigue (Acute) Malnutrition (Acute) 1. Dyspnea/Debility - likely 2/2 underlying lung cancer or side effect of keytruda. Oncology is consulted and recommends decadron. Doubt CHF. Echo pending. BNP mildly elevated. CXR not suggestive of CHF. CTA shows enlarging masses, no PE or pleural effusion. Echo with EF 55% and mild segmental hypo kinesis. 2. 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 recently on Keytruda. Recent radiation therapy to the brain at [facility]. LFTs elevated. 3. BL LE edema - Apply VERÓNICA wraps as needed and encourage elevation.. Zeus protein/albumin. LE edema is resolved. CTA has no clots. Cancel venous US. Furthermore pulses are readily palpable in the wrists - Cancel arterial US 4. Indeterminate troponin - has remained flat. No CP. Echo with mild segmental hypokinesis, preserved EF. Maintain on tele. Started beta boyd with ongoing tachycardia. Mag suplemented. Further workup not indicated with her terminal condition. 5. Thrombocytopenia - stable, unclear etiology, liver dz vs oncologic process, vs medication reaction. 6. SIADH - stopped declomycin. 7. Hx cdiff. No diarrhea. Constipated - laxatives trial today. DVT ppx: lovenox DC planning: PTOT. Refused to walk with therapy. If she cannot walk she is unsafe to go home. She lives by herself. This patient was seen by Frantz Jose PA-C under the supervision of Dr. Bassett. <Kenney Bassett - Last Filed: 08/28/19 14:28> - Physical Exam General: Alert, Cooperative HEENT: Atraumatic, Normocephalic Neck: No Nodes, Thyroid Normal Size and Texture Lungs: Clear to auscultation, Normal air movement, No rhonchi, No wheeze, No rales Cardiovascular: Regular rate, Regular Rhythm, Normal S1, Normal S2, Tachycardic Abdomen: Bowel Sounds Present, Soft, Non Tender Skin: No rashes, No breakdown Psych/Mental Status: Normal Affect, Appropriate Vital Signs Temp Pulse Resp BP Pulse Ox 36.6 C 104 H 16 115/68 96 08/28/19 14:10 08/28/19 14:10 08/28/19 14:10 08/28/19 14:10 08/28/19 14:10 Oxygen Delivery Method Room Air Weight: 87.8 kg Body Mass Index (BMI) 34.4 Intake and Output for Last 24 Hours 08/26/19 08/27/19 08/28/19 23:59 23:59 23:59 Intake Total 1040 / 1040 610 / 610 Balance 1040 / 1040 610 / 610 Laboratory Tests Past 24 Hrs 08/28/19 10:30 Magnesium 1.9 Assessment/Plan Patient seen and examined independently. Data reviewed. I agree with the above note by the physician certified physical therapist assistant. 1. Failure to thrive: Likely multifactorial due to the patient's underlying malignancy and possibly with a recent withdrawal of the Decadron. We will restart Decadron 4 mg daily[address] Discuss[address] with Dr. Lynch, who advised for patient to follow-up with Dr. Thomason, to see how long that will need to be continued. Patient be evaluated by physical and occupational therapy and look to have placement in a detention facility if she qualifies. 2. SIADH, malignancy induced: Currently her sodiums are stable at 139. Patient requesting been taking off demeclocycline which is used for SIADH. I told her that that would be fine and part of my concern is to help palliate her symptoms. Being that her sodium is well within normal limits I think that is more than reasonable at this time. 3. Stage IV lung cancer, small cell lung cancer. Numerous metastasis. Follow- up with oncology as outpatient. 4. Elevated troponin: Unclear etiology. Echo shows ejection fraction of 55%. Mid anterior is mildly hypokinetic, mid anterior septal is mildly hypokinetic. Ideally, patient should undergo a stress test for further cardiac risk stratification and potential heart cath if warranted. However, given the patient's stage IV cancer any cardiac intervention would essentially be futile as it would not change the ultimate outcome, which unfortunately is poor. Given that we are trying to palliate her symptoms, would not pursue any other additional work-up at this time. 5. Tachycardia: started metoprolol. unclear if this is contributing to any of her symptoms. 6. Debility: seen by PT, though she declined to stand with them. They are recommending additional therapy. Await case mgmt input. Code Visit Inpatient E&M: 04628 Subs Hosp L2
[2019-08-28] MEDS: Acetaminophen 325 MG Tablet 650 MG PO (16:07)
[2019-08-28] MEDS: Gabapentin 300 MG Capsule PO (21:09)
--- NOTE | 2019-08-28 23:51 | NURSING ---
This nurse handing over care of this patient to Manasa Flores RN. Report complete.
[2019-08-29] VITALS (8 sets, daily range): BP systolic 108–126; BP diastolic 61–63; PULSE 104–117; RESP 18–20; TEMP 36.7–36.8; O2SAT 90–97
[2019-08-29] MEDS: Acetaminophen/Codeine #3 Tablet 1 TABLET PO (04:05)
[2019-08-29] MEDS: Ipratropium/Albuterol Sulfate 3 ML AMPUL.NEB INHALATION (07:02)
[2019-08-29] MEDS: Multivitamins,Therapeutic Tablet 1 TABLET PO (09:14)
[2019-08-29] MEDS: Enoxaparin 40 MG/0.4 ML Syringe SC (09:15)
[2019-08-29] MEDS: Calcium (Elemental) 500 MG Tablet 2000 MG PO (09:15)
[2019-08-29] MEDS: Metoprolol Tartrate 50 MG Tablet PO (09:22)
[2019-08-29] MEDS: dexAMETHasone 4 MG Tablet PO (09:22)
[2019-08-29] MEDS: Acetaminophen 325 MG Tablet 650 MG PO (09:33)
--- NOTE | 2019-08-29 09:57 | DCINST_ITS ---
- Discharge Diagnoses Current Active Problems: Current Active and Chronic Problems (Last Reviewed 08/27/19 @ 04:10 by Butch Ruiz MD) Malnutrition (Acute) You will use the following diet at home:: No restrictions Your food should be the consistency of: Regular Your liquids should be the consistency of: Regular/Thin Discharge Activity: May Not Drive Allergies/Adverse Reactions: Allergies diazepam [From Valium] Adverse Reaction (Severe, Verified 08/24/19 15:55) Other Medications to take at Discharge Probiotic 1 tab PO BID 12/10/17 Calcium Carbonate [Calcium] 2,000 mg PO DAILY 01/05/18 Acetaminophen/Codeine #3 [Tylenol #3 Tablet] 1 tab PO TID PRN 07/13/18 cholecalciferol (vitamin D3) 2,000 unit capsule 2,000 unit PO DAILY 07/16/18 multivitamin capsule 1 cap PO DAILY 07/16/18 Methocarbamol [Robaxin] 500 mg PO BID PRN 09/13/18 Cyanocobalamin (Vitamin B-12) [Vitamin B-12] 2,000 mcg PO BID 11/30/18 Gabapentin [Neurontin] 300 mg PO QHS 03/28/19 Lidocaine/Prilocaine HCl [Emla Cream W/Tegaderm] 1 applicatio TOPICAL X1 PRN #1 tube 05/16/19 Dexamethasone [Decadron] 4 mg PO DAILY@0800 #30 tab 08/29/19 Ipratropium/Albuterol Sulfate [Duoneb] 3 ml INHALATION Q6H PRN #120 ampul.neb 08/29/19 Magnesium Hydroxide [Milk Of Magnesia] 15 ml PO DAILY PRN #30 udc 08/29/19 Metoprolol Tartrate [Lopressor (beta boyd)] 50 mg PO BID #60 tab 08/29/19 The following prescriptions were given: Dexamethasone [Decadron] 4 mg PO DAILY@0800 #30 tab Transmission Status: Sent to [address] Ipratropium/Albuterol Sulfate [Duoneb] 3 ml INHALATION Q6H PRN #120 ampul.neb PRN Reason: Sob &/Or Wheezing Transmission Status: Sent to [address] Metoprolol Tartrate [Lopressor (beta boyd)] 50 mg PO BID #60 tab Transmission Status: Pending to [address] Magnesium Hydroxide [Milk Of Magnesia] 15 ml PO DAILY PRN #30 udc PRN Reason: Constipation Transmission Status: Sent to [address] Primary Care Physician: Mitchell Whiteside MD [Primary Care Provider] - Please follow up with your Primary Care Physician in: 1-2 weeks Test Results: Test results from this visit will be discussed in further detail at your follow- up appointment, if applicable. Please Follow Up With: Shayla Arriaga MD When: 1 week Proposed Discharge Date: 08/29/19
--- NOTE | 2019-08-29 10:43 | CASEMGMT ---
LW/POA forms scanned into [employer], however the POA form is not signed. Pt has daughter Michelle John listed as POA. Daughter had pt sign the POA form here, and she thinks that the original is signed at home. SW will place form in the paper chart. CAMDEN Malone
--- NOTE | 2019-08-29 10:46 | CASEMGMT ---
When SW spoke w/pt about LW/POA, pt asked about code status. Upon further discussion, pt explains I would want them to try at least one time in regard to chest compressions. SW explained that this would be a full code then, not a DNRCC-A as pt is listed. Pt and daughter state understanding. SW let physician and RN know. Also, pt asked about accessing the pt portal. SW printed off information in regard to the pt portal from the website and gave it to pt's daughter. CAMDEN Malone
--- NOTE | 2019-08-29 11:56 | CASEMGMT ---
Therapy is recommending further skilled therapy and pt is insisting to go home with daughter, Rebecca, at this time, but is agreeable to [facility]. List of in-network [facility] companies provided to pt/daughter(Michelle) at this time. Pt/daughter are agreeable to , PT/OT at this time. Pt/daughter then state they would like [facility] at this time. Referral faxed to [facility] and call to notify of referral and per Lyndsay at [facility], they can take pt at this time. Per Gerald KIMBLE, pt also to be sent home with nebulizer at discharge. Per Federica DONOVAN, pt did not qualify for home oxygen at this time. Pt/daughter provided with list of in-network DME companies and pt states would like [facility] for nebulizer at this time. Referral faxed to [facility] at this time. This [facility] answered all pt/daughter questions at this time and pt/daughter voice no further questions/concerns/needs at this time. Kim DONOVAN CM
[2019-08-29 12:04] LABS: Pathologist Review Reviewed
[2019-08-29 12:05] LABS: Pathologist Review Reviewed
[2019-08-29] MEDS: 0.9% NaCl VAD Flush IV (12:15)
--- NOTE | 2019-08-29 14:40 | DS.PCM_ITS ---
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, spine, ribs, lymph nodes, liver Indeterminate troponin Thrombocytopenia, unclear etiology SIADH Hx Cdiff - Secondary Discharge Diagnosis Chronic Problems (Last Reviewed 08/27/19 @ 04:10 by Butch Ruiz MD) Brain metastases (Chronic) SIADH (syndrome of inappropriate ADH production) (Chronic) Liver metastases (Chronic) Small cell lung cancer (Chronic) 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 CT/CTA Chest W/WO Contrast IMPRESSION: Negative for pulmonary embolus. Atherosclerotic plaque of the aorta. Coronary calcifications. Modest increase size of the middle mediastinal mass/retrocaval to anterior jaymie. Modest increase in left hilar and AP window lymph nodes. Stable right hilar adenopathy. No change or slightly larger lobular nodule of the anterior right lower lobe. Elongated or flattened nodule of the anterior right lower lobe unchanged. Somewhat more prominent bronchial thickening in the bilateral lower lobes without new major consolidation, atelectasis or pleural effusion. Otherwise stable chronic changes as previously described. Metastatic disease of the thoracic spine and ribs. Stable pathologic compression fracture of T10 status post spinal fusion of T9-T11. Echo: Interpretation Summary The estimated ejection fraction is 55 %. Mid-Anterior : Mildly hypokinetic Mid-anteroseptal : Mildly hypokinetic Unable to estimate RV systolic pressure due to insufficient tricuspid regurgitant envelope. The study was technically difficult. Contrast injection was performed. There is no comparison study available. 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 Troponin was indeterminate, she had mild tachycardia, EKG with mild sinus tach, LFTs were somewhat elevated, she had low platelets, and protoin/albumin were low. CTA of the chest was negative for PE, did show mets to the spone and ribs, mediastinal mass, and a RLL nodule. She recently had brain radiation for brain mets and recently completed post radiation decadron. She was admitted to the PCU on tele, with oncology consulted. She was started on decadron by oncology. Her declamycin for SIADH was discontinued as she could not swallow the large pill, and her sodium was normal. VERÓNICA wraps were applied to the legs and edema resolved. Troponin remained flat. She had no chest pain. No further workup was done given her underlying StIV cancer with extensive mets. We offered palliative care and hospice however she was not interested. She was started on lopressor with her tachycardia, which she tolerated. She was weaned off O2 at rest and did not require it with ambulation. We did get her a nebulizer and prescribed She remained significantly weak and debilitated, and we recommended SNF, however she was not interested, and wanted to go home. She was discharged home with home health care in stable condition and will need follow up with her PCP in 1-2 weeks and Oncology in 1 week. This patient was seen by Frantz Jose PA-C under the supervision of Doctor Sharpe. [] - Physical Exam General: Alert, Oriented x3, Cooperative HEENT: Atraumatic, PERRLA, EOMI, Normocephalic Neck: Supple, No JVD, Negative Carotid Bruits Lungs: Clear to auscultation, Normal air movement Cardiovascular: Regular rate, No murmurs Abdomen: Bowel Sounds Present, Soft, Non Tender Extremities: No edema, Capillary Refill Less than 3 Seconds Skin: No rashes, No breakdown Musculoskeletal: No Tenderness to Palpation of Joints or Extremities Neurological: Cranial nerves II-XII grossly intact Psych/Mental Status: Normal Affect, Appropriate, Alert and oriented to time, place, person, mood and affect Vital Signs Temp Pulse Resp BP Pulse Ox 98.2 F 116 H 18 108/63 90 08/29/19 07:45 08/29/19 09:22 08/29/19 07:45 08/29/19 07:45 08/29/19 11:09 Oxygen Flow Rate (L/min) 2 Oxygen Delivery Method Nasal Cannula Weight: 194 lb 0.108 oz Body Mass Index (BMI) 34.4 Intake and Output for Last 24 Hours 08/27/19 08/28/19 08/29/19 23:59 23:59 23:59 Intake Total 1040 / 1040 1450 / 1450 Balance 1040 / 1040 1450 / 1450 Laboratory Tests Past 24 Hrs 08/26/19 08/27/19 19:10 06:30 Diff Path Review Reviewed Reviewed Discharge Activity: May Not Drive Home Medications: Medications to take at Discharge Probiotic 1 tab PO BID 12/10/17 Calcium Carbonate [Calcium] 2,000 mg PO DAILY 01/05/18 Acetaminophen/Codeine #3 [Tylenol #3 Tablet] 1 tab PO TID PRN 07/13/18 cholecalciferol (vitamin D3) 2,000 unit capsule 2,000 unit PO DAILY 07/16/18 multivitamin capsule 1 cap PO DAILY 07/16/18 Methocarbamol [Robaxin] 500 mg PO BID PRN 09/13/18 Cyanocobalamin (Vitamin B-12) [Vitamin B-12] 2,000 mcg PO BID 11/30/18 Gabapentin [Neurontin] 300 mg PO QHS 03/28/19 Lidocaine/Prilocaine HCl [Emla Cream W/Tegaderm] 1 applicatio TOPICAL X1 PRN #1 tube 05/16/19 Dexamethasone [Decadron] 4 mg PO DAILY@0800 #30 tab 08/29/19 Ipratropium/Albuterol Sulfate [Duoneb] 3 ml INHALATION Q6H PRN #120 ampul.neb 08/29/19 Magnesium Hydroxide [Milk Of Magnesia] 15 ml PO DAILY PRN #30 udc 08/29/19 Metoprolol Tartrate [Lopressor (beta boyd)] 50 mg PO BID #60 tab 08/29/19 Following Prescrptions Were Given to Patient: Dexamethasone [Decadron] 4 mg PO DAILY@0800 #30 tab Transmission Status: Received by [facility] Ipratropium/Albuterol Sulfate [Duoneb] 3 ml INHALATION Q6H PRN #120 ampul.neb PRN Reason: Sob &/Or Wheezing Transmission Status: Received by GARO [facility] Metoprolol Tartrate [Lopressor (beta obyd)] 50 mg PO BID #60 tab Transmission Status: Received by [facility]IG[facility] Magnesium Hydroxide [Milk Of Magnesia] 15 ml PO DAILY PRN #30 udc PRN Reason: Constipation Transmission Status: Received by [facility] SOR[facility] SHANTEL Primary Care Physician: Mitchell Whiteside MD [Primary Care Provider] - Please follow up with your Primary Care Physician in: 1-2 weeks Please Follow Up With: Shayla Arriaga MD When: 1 week Please Follow Up With: Jaya Adams NP-C Disposition: Home with Home Health Minutes spent on discharge:: 35 Patient Condition:: Stable Medical Necessity - Tobacco Use Smoking Status: Current some day smoker Tobacco Use: Cigarettes Meaningful Use Info Meaningful Use Diagnoses (Choose all that apply): None applicable <Lam Sharpe - Last Filed: 08/29/19 15:16> Discharge Date and Diagnosis - Secondary Discharge Diagnosis Chronic Problems (Last Reviewed 08/27/19 @ 04:10 by Butch Ruiz MD) Brain metastases (Chronic) SIADH (syndrome of inappropriate ADH production) (Chronic) Liver metastases (Chronic) Small cell lung cancer (Chronic) 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 I have independently interviewed and examined the patient and reviewed pertinent historical, laboratory, and other data. Please refer to Frantz Jose PA-C note for details of this patient's presentation, findings, and recommendations. I have reviewed Frantz Jose PA-C note and concur with documented findings. In brief, patient is a 74-year-old lady with history of non-small cell carcinoma with metastasis to bone brain liver lymph nodes and mediastinum admitted with progressive shortness of breath. Assessment of adult failure to thrive on account of patient metastatic lung disease was made. She was also found to be hyponatremic. Patient was admitted to a monitored bed where she was managed Hospital course: As documented above - Physical Exam Vital Signs Temp Pulse Resp BP Pulse Ox 98.2 F 116 H 18 108/63 90 08/29/19 07:45 08/29/19 09:22 08/29/19 07:45 08/29/19 07:45 08/29/19 11:09 Oxygen Flow Rate (L/min) 2 Oxygen Delivery Method Nasal Cannula Weight: 88 kg Body Mass Index (BMI) 34.4 Intake and Output for Last 24 Hours 08/27/19 08/28/19 08/29/19 23:59 23:59 23:59 Intake Total 1040 / 1040 1450 / 1450 Balance 1040 / 1040 1450 / 1450 Laboratory Tests Past 24 Hrs 08/26/19 08/27/19 19:10 06:30 Diff Path Review Reviewed Reviewed Code Visit Inpatient E&M: 34333 Disch Hosp
--- NOTE | 2019-08-29 16:23 | CASEMGMT ---
D/C summary faxed to [facility] and per Rosy, they will call pt to speak with her regarding nebulizer delivery. Kim DONOVAN CM
--- NOTE | 2019-08-30 12:39 | CASEMGMT ---
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- [facility] [employer]: 09/25 Called patient's listed cell number on demographics, answered and introduced self and role. Patient states that she is doing ok and that she had an upset stomach this morning after waking up but felt better after eating. States she just received her nebulizer and was educated on it. Denies any questions/concerns/issues with [facility], Medications or f/u. Has an appointment on Thursday with Dr Arriaga where she will ask/clarify some questions regarding her plan of care regarding her medications. States has not heard from [facility] yet but confirmed her dtr does have their contact information, this headline writer encouraged her to call by the end of the day if they have not heard from them. Patient appeared to be brief on conversation, this headline writer thanked patient for choosing [facility] for her care and ended the conversation. Heena Dickson, RNCM
== END 2019-08-29 12:40 | disposition home or self-care (01) | DRG 181 ==
LOC: ED 08-27 00:32 → PCU 08-27 00:34
PROVIDERS: Physician Assistant; Admitting Provider Hospitalist; Emergency Provider Emergency Medicine; Family Provider Internal Medicine; PCP Internal Medicine; Visit Provider Internal Medicine
DX: C34.90 Malignant neoplasm of unspecified part of unspecified bronchus or lung (principal); E22.2 Syndrome of inappropriate secretion of antidiuretic hormone; C79.31 Secondary malignant neoplasm of brain; C79.51 Secondary malignant neoplasm of bone; C78.7 Secondary malignant neoplasm of liver and intrahepatic bile duct; C77.8 Secondary and unspecified malignant neoplasm of lymph nodes of multiple regions; F17.210 Nicotine dependence, cigarettes, uncomplicated; R62.7 Adult failure to thrive; D69.6 Thrombocytopenia, unspecified; D64.9 Anemia, unspecified; Z68.34 Body mass index [BMI] 34.0-34.9, adult; Z92.3 Personal history of irradiation; R60.0 Localized edema
CPT/HCPCS: 36415; 71045; 71275; 80048; 80053; 80076; 82728; 83540; 83550; 83735; 83880; 84443; 84484; 85025; 93005; 93306; 94640; 97110; 97162; 97165; 97535; 97802; 99282; J2997; Q9957; Q9967; A4216; C8929

== ENCOUNTER 2019-09-12 10:16 | Inpatient (IN) | payer MEDICARE, SELFPAY ==
[2018-07-19 10:18] VITALS: BMI 33.9
[2019-09-06 12:07] VITALS: BMI 33.8
[2019-09-12] VITALS (8 sets, daily range): BP systolic 108–145; BP diastolic 63–93; PULSE 113–117; RESP 15–21; TEMP 36.5–37.3; O2SAT 93–96; BMI 32.6; BMI 32.0
--- NOTE | 2019-09-12 10:51 | EKG12_ITS ---
Test Reason : Blood Pressure : / mmHG Vent. Rate : 114 BPM Atrial Rate : 114 BPM P-R Int : 140 ms QRS Dur : 074 ms QT Int : 326 ms P-R-T Axes : 071 015 090 degrees QTc Int : 449 ms Sinus tachycardia Low voltage QRS Borderline ECG Confirmed by SEAN PEREZ MD ([id number]), web editor JOHN PINZON ([id number]) on 09/16/2019 10:33:19 AM Referred By: Jaya Banerjee Confirmed By:SEAN PEREZ MD
[2019-09-12 11:21] LABS: Absolute Lymphocyte Count 2.34 X10^3/uL (0.83-4.51); Absolute Neutrophil Count 9.5 X10^3/uL (2.0-7.7); Basophil# 0.07 X10^3/uL; Basophil% 0.5 % (0-1); Eosinophil# 0.02 X10^3/uL; Eosinophils% 0.1 % (0-5); Hematocrit 32.5 % (37-47); Hemoglobin 10.7 g/dL (12.0-15.0); Lymphocyte # 2.34 X10^3/ul (4.0); Lymphocyte % 16.2 % (19-41); Mean Corp Hgb Conc 32.9 g/dL (32-36); Mean Corpuscular Hgb 32.5 pg (27.0-32.0); Mean Corpuscular Volume 98.8 fL (81-99); Mean Platelet Vol. 10.6 fl (6.2-12.0); Monocyte# 1.77 X10^3/uL; Monocyte% 12.3 % (0-10); NRBC Flagged by Analyzer 0.3 % (0-5); Neutrophil # 9.52 X10^3/uL (2.7-7.7); Neutrophil % 66.1 % (47-70); POSITIVE DIFFERENTIAL YES; Platelet Count 80 K/mm3 (150-450); RBC Distribution Width CV 15.6 % (11.6-14.6); Red Blood Count 3.29 M/mm3 (4.2-5.4); White Blood Count 14.4 K/mm3 (4.4-11.0)
[2019-09-12 11:22] LABS: Differential Indicated SCAN CRITERIA MET
[2019-09-12] MEDS: Morphine 4 MG/ML Syringe IV ×2 (11:22→16:25)
[2019-09-12] MEDS: Ondansetron 4 MG/2 ML Vial IV (11:23)
[2019-09-12] MEDS: 0.9% Normal Saline 1,000 ML 1000 ML IV (11:23)
[2019-09-12 11:36] LABS: ALB/GLOB Ratio 0.5 RATIO (0.9-2.4); AST(SGOT) 198 U/L (15-37); Alanine Aminotransfer ALT/SGPT 105 U/L (13-56); Albumin, Serum 2.2 g/dL (3.2-5.0); Alkaline Phosphatase 298 U/L (45-117); Anion Gap 10 (5-15); BUN 29 mg/dL (7-18); BUN/Creat Ratio 30.5 RATIO (10-20); Calcium,Total 8.9 mg/dL (8.5-10.1); Chloride 102 mmol/L (98-107); Creatinine, Serum 0.95 mg/dL (0.55-1.02); EST Glomerular Filtration Rate 61 mL/min (>60); Est Glom Filt Rate - Afr Amer 74 mL/min (>60); Estimated Creatinine Clearance 44.28 ml/min; Globulin 4.5 g/dL (2.2-4.2); Glucose 107 mg/dL (74-106); Potassium 3.8 mmol/L (3.5-5.1); Protein, Total 6.7 g/dL (6.4-8.2); Sodium Level 135 mmol/L (136-145)
--- NOTE | 2019-09-12 11:41 | ED.DCSUM_ITS ---
History of Present Illness Chief Complaint: General Illness Detail of Chief Complaint: Functional decline Informant: Patient, Family Onset: Days Context: Sudden Onset Timing: Continuous Quality: Generalized weakness, decreased appetite and neck pain Location: Resides with daughter Current Severity: Mild Maximum Severity: Moderate Worsened by: Nothing specific Relieved by: Nothing Associated Symptoms: Pain Narrative: Patient with stage IV small cell carcinoma diagnosed 2 years ago who presents with generalized weakness, neck pain, poor appetite, weight loss and no energy. She had 2 sips of soup last evening. She is had decreased urine output. The last couple of days she is gotten up out of bed to use a bedside commode and attempt to eat. Otherwise she stays in bed. She denies fever, chills or night sweats. Denies headache. Denies visual, ocular auditory symptoms. She denies difficulty swallowing. There is been no drooling. She denies cardiac respiratory symptoms. She denies abdominal discomfort. She states her legs appear normal. She was admitted recently and her ankles at that time were swollen. We will need to review prior records since she is not a good informant. Prior similar symptoms: Yes Recent Illness/Hospitalization: Yes - Past Medical History (1) History of Clostridium difficile infection Status: Chronic (2) Hypothyroidism Status: Chronic (3) Neuroendocrine carcinoma metastatic to multiple sites Status: Chronic (4) SCLC (small cell lung carcinoma) Status: Chronic Past Medical History - Allergies and Home Meds Allergies/Adverse Reactions: Allergies diazepam [From Valium] Adverse Reaction (Severe, Verified 09/12/19 10:18) Other Primary Care Physician: Mitchell Whiteside MD [Primary Care Provider] - Prior records reviewed: Yes - Metastatic small cell carcinoma Surgical History: - Lives: With Family Smoking Status: Current some day smoker Alcohol: None Drugs: None - Family History Maternal Family History: Family History (Last Reviewed 09/06/19 @ 11:56 by Christy Herrera) Brother Heart disease Myocardial infarction, Onset Age: 50 Father Cerebral aneurysm rupture Family History: Reports: No pertinent history Paternal Family History: Family History (Last Reviewed 09/06/19 @ 11:56 by Christy Herrera) Brother Heart disease Myocardial infarction, Onset Age: 50 Father Cerebral aneurysm rupture Family History: Reports: - - from an aneurysm at age 38. Review of Systems General: Reports: Chills, Malaise, Weight loss. Denies: Fever, Subjective, Sweats Eyes: Denies: Visual changes - bilaterally, Blurred Vision - bilaterally, Diplopia ENT: Denies: Bilateral ear pain, Rhinorrhea, Sore throat Cardiovascular: Denies: Chest pain, Palpitations Respiratory: Reports: Dyspnea - Patient states the shortness of breath is chronic, Cough, Dyspnea on exertion. Denies: Sputum, Orthopnea, Paroxysmal nocturnal dyspnea Gastrointestinal: Denies: Abdominal pain, Nausea, Vomiting, Diarrhea, Melena, Hematochezia Genitourinary: Denies: Dysuria, Hematuria, Frequency Musculoskeletal: Reports: Myalgias, Arthralgias, Back pain. Denies: Swelling, Extremity Pain Skin: Denies: Rash, Wounds Neurological: Reports: Weakness. Denies: Headache Psych: Reports: Depression Hematologic: Denies: Easy bruising, Easy bleeding Physical Exam Vital Signs/Narrative: Vital Signs Temp Pulse Resp BP Pulse Ox 09/12/19 10:23 97.7 F L 116 H 20 H 124/71 H 96 09/12/19 10:18 97.7 F L 116 H 20 H 124/71 H 96 Inital Vital Signs reviewed: Yes General: Well nourished, Well developed, No Acute Distress Head: Normocephalic, Atraumatic Eyes: Perrl, EOMI, Pale conjunctiva. Negative for: Scleral icterus ENT: No rhinorrhea, TM's clear, Dry mucous membranes Neck: Supple, Nontender, No lymphadenopathy, No JVD Cardiovascular: Regular rhythm, No murmurs, Normal S1, Normal S2, Tachycardia Respiratory: CTA bilaterally, Chest nontender, Decreased Air Movement Abdomen: Soft, Nontender, Nondistended, Normal bowel sounds Rectal: Deferred Back: Nontender, Normal Inspection Extremities: Nontender, No edema Skin: No rash, No Trauma, Pallor. Negative for: Normal color, Cyanosis, Diaphoresis, Jaundice Neurological: Oriented x3, Cranial nerves II-XII grossly intact, Normal Strength, Normal Sensation. Negative for: Alert, Normal Gait Psychological: Depressed Diagnostic/Tx/Re-eval Impressions Brain CT 09/12/19 11:47 IMPRESSION: Chronic involutional changes of the brain. Electronically Signed: Rashi Frank, at 13:02 EDT , Service support , 09/12/19 11:47 CT Head [Brain/Head without Contrast] [CT] Stat Laboratory Results 09/12/19 09/12/19 11:13 11:13 WBC 14.4 H RBC 3.29 L Hgb 10.7 L Hct 32.5 L MCV 98.8 MCH 32.5 H MCHC 32.9 RDW Std Deviation 55.0 H RDW Coeff of Apple 15.6 H Plt Count 80 L MPV 10.6 Immature Gran % (Auto) 4.800 H Neut % (Auto) 66.1 Lymph % (Auto) 16.2 L Elmore % (Auto) 12.3 H Eos % (Auto) 0.1 Baso % (Auto) 0.5 Absolute Neuts (auto) 9.5 H Absolute Lymphs (auto) 2.34 Nucleated RBC % 0.3 Diff Path Review Reviewed Platelet Estimate MOD DEC Polychromasia RARE Hypochromasia RARE Sodium 135 L Potassium 3.8 Chloride 102 Carbon Dioxide 23.0 Anion Gap 10 BUN 29 H Creatinine 0.95 Estim Creat Clear Calc 44.28 Est GFR (MDRD) Af Amer 74 Est GFR (MDRD) Non-Af 61 BUN/Creatinine Ratio 30.5 H Glucose 107 H Calcium 8.9 Total Bilirubin 0.70 AST 198 H ALT 105 H Alkaline Phosphatase 298 H Total Protein 6.7 Albumin 2.2 L Globulin 4.5 H Albumin/Globulin Ratio 0.[address] of the head reveals no acute pathology. White count is elevated. Prior white counts were elevated. H&H is unchanged. BUN to creatinine ratio is elevated consistent with dehydration. AST, ALT and alk phos are elevated. Levels are similar to prior results. - Medical Decision Making History of metastatic small cell carcinoma to the head, spine, liver asked what her prognosis was and daughters responded she is getting immunotherapy. Will obtain CBC to assess for anemia and white count. Basic meta panel was obtained to assess renal function, CO2/anion gap and electrolytes. With history of metastasis to brain will obtain CT of the head. ED Disposition - Plan for ED Patient: Disposition: Acute Care [facility] Diagnosis: Complaint of debility and malaise, Metastatic small cell carcinoma to bone, Metastatic small cell carcinoma to brain, Metastatic small cell carcinoma to liver Referrals: Mitchell Whiteside MD [Primary Care Provider] -
[2019-09-12 11:42] LABS: Hypochromasia RARE; Platelet Estimate MOD DEC (ADEQ); Polychromasia RARE
--- NOTE | 2019-09-12 11:47 | CT_ITS ---
STUDY: CT BRAIN WITHOUT CONTRAST REASON FOR EXAM: Female, 74 years old. Confusion. Change in mental status. The patient has a history of metastatic lung cancer. Generalized weakness. RADIATION DOSAGE (If Supplied By Facility): CTDIvol = ( 44.99 ) mGy, DLP = ( 779.24 ) mGycm TECHNIQUE: Transaxial CT imaging of the brain was performed without administration of intravenous contrast material. Individualized dose optimization techniques were used for this CT. COMPARISON: No relevant priors. FINDINGS: Normal soft tissue structures. Normal calvarium. There is mild cerebral atrophy with widening of the extra-axial spaces and ventricular dilatation. Normal white matter tracts of the cerebral hemispheres. There are small punctate calcifications of the basal ganglia which are seen in the aging brain as a normal variant. Normal brainstem. Normal cerebellum. There is no intracranial hemorrhage. There are no findings of an acute ischemic infarction. Normal visualized paranasal sinuses. CT/Brain/Head without Contrast IMPRESSION: Chronic involutional changes of the brain. Electronically Signed: Rashi Frank, at 13:02 EDT , Service support ,
[2019-09-12 14:07] LABS: Pathologist Review Reviewed
[2019-09-12] MEDS: 0.9% Normal Saline 1,000 ML 125 ML IV ×2 (16:04→23:27)
[2019-09-12] MEDS: Acetaminophen/Codeine #3 Tablet 1 TABLET PO ×2 (18:29→21:09)
--- NOTE | 2019-09-12 20:29 | PCM.HP.STD ---
Problem List (1) Debility Status: Acute (2) Generalized weakness Status: Acute History of Present Illness Date of Admission: 09/12/19 Chief Complaint: Generalized weakness, debility The patient is a 74 year old F was brought to the emergency room at [facility] for evaluation by her daughter due to generalized weakness and debility over the last several days. She had been admitted to this hospital earlier in the month for the same major problem. Patient lives with her daughter and the daughter states the patient has not been eating or drinking for several days and has been progressively getting weaker and the daughter is not able to take care of her. Patient was diagnosed with lung cancer approximately 2 years ago, she is currently being treated with immunological therapy, she has known metastatic disease to the liver, thoracic vertebrae, brain, and ribs. Labs obtained in the emergency room dated white blood cell count 14.4, hemoglobin was 10.7, AST was elevated at 198, ALT was elevated at 105, alkaline phosphatase was elevated at 298. CT of the brain was performed which was remarkable only for involutional changes. Had a lengthy discussion with the patient and the patient's daughters, patient was adamant that she did not want to be a hospice patient, she wanted to talk to her oncologist before she made any decisions. Patient would not not make any direct eye contact with me during these discussions. I explained to the patient, with her daughters present, that she was too weak to go home at this time and that she would either need to go to an extended care facility or to inpatient hospice. Daughters understood this and I distinctly got the impression that the daughters wanted the patient to give permission for hospice to see her but the patient again refused to do that. Patient appeared to be mildly agitated at times during my conversation with her (? frustration).. I talked to her oncologist by phone today, he is not available to see the patient until this , he agreed that he would not be administering any more immunotherapy to the patient due to her functional decline. I also talked to her about this and told her that I talked to him by phone today. Patient will be placed in observation status on MedSur 3-prognosis is overall poor, PT and OT will see the patient. 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) History of Clostridium difficile infection (Chronic) History of tobacco use (Chronic) Obesity (BMI 30.0-34.9) (Chronic) SCLC (small cell lung carcinoma) (Chronic) Regional lymph node metastasis present (Chronic) Small cell carcinoma (Chronic) Bone metastases (Chronic) 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 difficile colitis (Inactive) A04.72 Allergies diazepam [From Valium] Adverse Reaction (Severe, Verified 09/12/19 15:51) confusion Home Medications: Ambulatory Orders Medication Instructions Recorded Acetaminophen/Codeine #3 [Tylenol 1 tab PO 4X/DAY 07/13/18 #3 Tablet] Methocarbamol [Robaxin] 500 mg PO BID PRN PRN 09/13/18 Gabapentin [Neurontin] 300 mg PO QHS 03/28/19 Lidocaine/Prilocaine HCl [Emla 1 applicatio TOPICAL X1 PRN #1 tube 05/16/19 Cream W/Tegaderm] Ipratropium/Albuterol Sulfate 3 ml INHALATION Q6H PRN #120 08/29/19 [Duoneb] ampul.neb Ondansetron [Zofran] 8 mg PO Q8H PRN PRN #30 tab 09/05/19 dexamethasone 4 mg tablet 2 mg PO DAILY@0800 tab 09/06/19 metoprolol tartrate 50 mg tablet 50 mg PO BID #180 tab 09/06/19 Calcium Carbonate/Vitamin D3 1 tab PO BID 09/12/19 [Calcium 600 + Vit D Tablet] Cholecalciferol (Vitamin D3) 1,000 unit PO BID 09/12/19 [Vitamin D3] Cyanocobalamin (Vitamin B-12) 1,000 mcg PO BID 09/12/19 [B-12] Demeclocycline HCl 300 mg PO DAILY 09/12/19 Famotidine 20 mg PO DAILY 09/12/19 Multivit-Min/Iron/Folic/Lutein 1 ea PO BID 09/12/19 [Centrum Silver Women Tablet] Saccharomyces Boulardii [Florastor] 250 mg PO BID 09/12/19 Surgical History: Surgical History (Last Reviewed 09/06/19 @ 11:56 by Christy Herrera) History of back surgery (Inactive) Z98.890 Surgical History: - - History of back surgery, type unknown Psychiatric History: No pertinent psych hx HORSE RACE TIMER History: No pertinent HORSE RACE TIMER history Lives: With Family Smoking Status: Current some day smoker Tobacco Use: Cigarettes Alcohol: None Drugs: None - *Family History Maternal Family History: Family History (Last Reviewed 09/06/19 @ 11:56 by Christy Herrera) Brother Heart disease Myocardial infarction, Onset Age: 50 Father Cerebral aneurysm rupture History Items: No pertinent history Paternal Family History: Family History (Last Reviewed 09/06/19 @ 11:56 by Christy Herrera) Brother Heart disease Myocardial infarction, Onset Age: 50 Father Cerebral aneurysm rupture History Items: - - from an aneurysm at age 38. Review of Systems Constitutional: Reports: Weakness, Fatigue. Denies: Anorexia, Chills, Fever, Night Sweats Eyes: Denies: Cataracts, Conjunctivae Inflammation, Double vision, Drainage HEENT: Denies: Difficulty Swallowing, Dysphasia, Ear Pain, Eye Pain, Hearing Changes, Nasal bleeding, Nasal Congestion, Post Nasal Drip Cardiovascular: Denies: Chest Pain, Claudication, Chest Pressure, Chest Tightness, Edema, Heaviness, Palpitations Respiratory: Denies: Cough, Hemoptysis, Pleuritic Pain, Shortness of Breath, Shortness of breath at rest, Shortness of breath upon exertion Gastrointestinal: Denies: Abdominal Pain, Constipation, Diarrhea, Hematemesis, Hematochezia, Nausea, Melena, Vomiting Genitourinary: Denies: Dysuria, Frequency, Hematuria, Hesitancy, Nocturia, Retention, Urgency Musculoskeletal: Denies: Back Pain, Foot Pain, Hand Pain, Joint Pain, Joint stiffness, Joint swelling, Joint Tenderness, Leg Pain Skin: Denies: Dryness, Pruritis, Rash Neurological: Denies: Balance problems, Blurred vision, Double vision, Slurred speech, Difficulty swallowing, Focal weakness, Headaches, Incoordination, Numbness, Tingling Psychiatric: Denies: Anxiety, Depression, Homicidal Ideations, Suicidal Ideations Endocrine: Denies: Change in Body Habitus, Heat/ Cold Intolerance, Polydipsia, Polyuria Hematologic/ Lymphatic: Denies: Adenopathy, Anemia, Easy Bruising, Easy Bleeding, Petechiae, Purpura VTE Information - Inpt Only VTE Present on Admission: No VTE Mechan Device Prophylaxis: None VTE Pharm Prophylaxis ordered?: Yes Patient Problems: Active and Suspected Problems (Last Reviewed 09/06/19 @ 11:56 by Christy Herrera) Complaint of debility and malaise (Acute) Metastatic small cell carcinoma to bone (Acute) Metastatic small cell carcinoma to brain (Acute) Metastatic small cell carcinoma to liver (Acute) Debility (Acute) Generalized weakness (Acute) - Physical Exam Vitals/I&O's: Vital Signs Temp Pulse Resp BP Pulse Ox 99.2 F H 117 H 18 145/74 H 93 09/12/19 16:09 09/12/19 16:09 09/12/19 16:09 09/12/19 16:09 09/12/19 16:09 Oxygen Delivery Method Room Air Weight: 82.01 kg Body Mass Index (BMI) 32.0 Intake and Output for Last 24 Hours 09/10/19 09/11/19 09/12/19 23:59 23:59 23:59 Intake Total 1200 / 1200 Balance 1200 / 1200 General: Alert, Oriented x3, Cooperative, No apparent distress, - - Patient appears frail and weak, patient does not make eye contact with examiner HEENT: Atraumatic, PERRLA, EOMI, Normocephalic Oral: Dry Mucosa Neck: Supple, No JVD, Negative Carotid Bruits, Trachea Midline, Thyroid Normal Size and Texture Lungs: Clear to auscultation, Normal air movement, No rhonchi, No wheeze, No rales Cardiovascular: Regular rate, Regular Rhythm, Normal S1, Normal S2, No murmurs, Tachycardic Abdomen: Bowel Sounds Present, Soft, Non Tender, Non-Distended, No hernias noted Extremities: No clubbing, No cyanosis, No edema, Capillary Refill Less than 3 Seconds Skin: No rashes, No breakdown Musculoskeletal: No Tenderness to Palpation of Joints or Extremities Neurological: Cranial nerves II-XII grossly intact, Neuro grossly intact, Sensory exam intact to light touch and pain Psych/Mental Status: Agitated - Patient appears agitated at times when asked questions by this examiner, Flat Affect Laboratory Results 09/12/19 11:13: WBC 14.4 H, RBC 3.29 L, Hgb 10.7 L, Hct 32.5 L, MCV 98.8, MCH 32.5 H, MCHC 32.9, RDW Std Deviation 55.0 H, RDW Coeff of Apple 15.6 H, Plt Count 80 L, MPV 10.6, Immature Gran % (Auto) 4.800 H, Neut % (Auto) 66.1, Lymph % (Auto) 16.2 L, [place] % (Auto) 12.3 H, Eos % (Auto) 0.1, Baso % (Auto) 0.5, Absolute Neuts (auto) 9.5 H, Absolute Lymphs (auto) 2.34, Nucleated RBC % 0.3, Diff Path Review Reviewed, Platelet Estimate MOD DEC, Polychromasia RARE, Hypochromasia RARE 09/12/19 11:13: Sodium 135 L, Potassium 3.8, Chloride 102, Carbon Dioxide 23.0, Anion Gap 10, BUN 29 H, Creatinine 0.95, Estim Creat Clear Calc 44.28, Est GFR (MDRD) Af Amer 74, Est GFR (MDRD) Non-Af 61, BUN/Creatinine Ratio 30.5 H, Glucose 107 H, Calcium 8.9, Total Bilirubin 0.70, AST 198 H, ALT 105 H, Alkaline Phosphatase 298 H, Total Protein 6.7, Albumin 2.2 L, Globulin 4.5 H, Albumin/Globulin Ratio 0.5 L Current Medications Acetaminophen/Codeine Phosphate (Tylenol#3) 1 tablet PO 4X/DAY [facility] Last Admin: 09/12/19 18:29 Dose: 1 tablet Documented by: Albuterol Sulfate (Ventolin Aerosols) 2.5 mg INHALATION Q2H PRN PRN PRN Reason: DYSPNEA Albuterol/Ipratropium (Duoneb) 3 ml INHALATION Q6H PRN PRN Reason: SOB &/OR WHEEZING Dexamethasone (Decadron) 2 mg PO DAILY@0800 [facility] Enoxaparin Sodium (Lovenox) 40 mg SC DAILY@1000 [facility] Famotidine (Pepcid) 20 mg PO DAILY [facility] Gabapentin (Neurontin) 300 mg PO QHS [facility] Heparin Sodium (Beef Lung) () 50 units IV UD PRN PRN Reason: Port-a-Cath (VAD)Heparin Flush Sodium Chloride () 1,000 mls @ 125 mls/hr IV .Q8H [facility] Last Admin: 09/12/19 16:04 Dose: 125 mls/hr Documented by: Methocarbamol (Robaxin) 500 mg PO BID PRN PRN PRN Reason: nerve pain Metoprolol Tartrate (Lopressor (Beta Kenn)) 50 mg PO BID [facility] Morphine Sulfate () 4 mg IV Q3H PRN PRN PRN Reason: Severe pain (7-09/01) Last Admin: 09/12/19 16:25 Dose: 4 mg Documented by: Nutritional Formula (Lactose Free) (Ensure Enlive) 120 ml PO 4X/DAY [facility] Last Admin: 09/12/19 18:29 Dose: 120 ml Documented by: Ondansetron HCl (Zofran) 4 mg IV Q8H PRN PRN PRN Reason: NAUSEA/VOMITING Sodium Chloride () 10 - 40 ml IV UD PRN PRN Reason: Port-a-Cath (VAD) Flush Sodium Chloride (0.9% Nacl (Sterile) Posiflush) 10 - 40 ml IV UD PRN PRN Reason: Port access or dressing change Assessment/Plan All Active Problems (Last Reviewed 09/06/19 @ 11:56 by Christy Herrera) Complaint of debility and malaise (Acute) Metastatic small cell carcinoma to bone (Acute) Metastatic small cell carcinoma to brain (Acute) Metastatic small cell carcinoma to liver (Acute) Debility (Acute) Generalized weakness (Acute) Fatigue (Acute) Malnutrition (Acute) #1 generalized debility secondary to metastatic lung cancer-patient will be placed in observation status on Surg 3, she will be seen by PT and OT, patient understands that she cannot return home in this weakened state, daughter refuses to take care of her at home and is unable to take care of her, again at this time patient refuses consultation by hospice. Patient will be seen on Thursday by her oncologist (Corina). Again I talked him by phone today. #2 metastatic lung cancer-again due to patient's poor functional status, oncology has intimated that she will receive no more immunotherapy or additional treatment. I told the patient this but she still wants to talk with her oncologist personally. #3 hypothyroidism #4 history compression fracture T10 Code Visit OBSV E&M: 07671 Initial observation care L3
[2019-09-12] MEDS: Metoprolol Tartrate 50 MG Tablet PO (21:06)
[2019-09-12] MEDS: Gabapentin 300 MG Capsule PO (21:07)
[2019-09-13 03:49] VITALS: BP 119/73; PULSE 98; RESP 16; TEMP 37.2; O2SAT 94
[2019-09-13] MEDS: 0.9% Normal Saline 1,000 ML 125 ML IV ×3 (06:52→21:56)
--- NOTE | 2019-09-13 06:55 | PN_ITS ---
Patient Problems: Active and Suspected Problems (Last Reviewed 09/06/19 @ 11:56 by Christy Herrera) Complaint of debility and malaise (Acute) Debility (Acute) Generalized weakness (Acute) Subjective: The patient is a 74-year-old female with a past medical history of hypothyroidism, SIADH, small cell lung cancer diagnosed approximately 2 years ago (with mets to the liver, bone, lymph nodes and brain with radiation to the brain for metastatic dz), neuroendocrine carcinoma metastatic to multiple sites, tobacco dependence in remission and obesity who was brought to the emergency department at [facility] on 09/11/2019 with complaints of generalized weakness and debility. She had been admitted to [facility] earlier in the month for the same problem. She has not been eating or drinking for several days now and is getting progressively weaker and the daughter is not able to take care of her. The patient refuses hospice. Dr. Banerjee spoke to Dr. Arriaga who is discontinuing Keytruda due to her functional decline. Vital signs at presentation to the emergency department were temperature 97.7, pulse rate 116, blood pressure 124/71, respiratory rate 20 and she was 96% saturated on room air. White blood cell count was 14.4 with 66% neutrophils. Hemoglobin was 10.7 and platelets were 80,000. Sodium was decreased at 135 and the BUN was 29 with a creatinine of 0.95 and a BUN/creatinine ratio 30.5. AST was elevated at 198, ALT was elevated at 105 and the alkaline phosphatase was elevated at 298. A noncontrasted brain CT showed chronic involutional changes. She was admitted to the hospital for observation. All events of the past 24 hours of been reviewed. She has been afebrile since admission. Her last heart rate at 4 AM was 98 but she was tachycardic prior to that. Blood pressures are within normal limits. She is maintaining appropriate oxygen saturations on room air. Echocardiogram in August 2019 showed an ejection fraction of 55% and mild hypokinesis of the mid anterior and mid anteroseptal areas. Objective: PHYSICAL EXAM: GENERAL: alert, oriented X 3, uncooperative, placing the pillow over her head. does not want to talk with a physician other than Dr. Arriaga. Will not converse with me when I am trying to assess her for pain, anxiety. She is confrontational and yelling. ORAL: dry mucosa, no mucosal lesions but, exam limited by her inability to cooperate NECK: No JVD, supple, trachea midline LUNGS: CTA anterior and lateral, symmetric chest expansion HEART: RRR, Normal S1 and S2, no rub, no gallop ABDOMEN: soft, NT, ND, BS present, no guarding with palpation but keeps pushing my hands away EXTREMITIES: no edema, no cyanosis, no calf tenderness SKIN: No rashes, no breakdown NEUROLOGIC: no focal neurologic deficits, moving all extremities PSYCH: Uncooperative, confrontational, making irrational statements - Physical Exam Vitals/I&O's: Vital Signs Temp Pulse Resp BP Pulse Ox 99.0 F 98 16 119/73 94 09/13/19 03:49 09/13/19 03:49 09/13/19 03:49 09/13/19 03:49 09/13/19 03:49 Oxygen Delivery Method Room Air Weight: 180 lb 12.8 oz Body Mass Index (BMI) 32.0 Intake and Output for Last 24 Hours 09/11/19 09/12/19 09/13/19 23:59 23:59 23:59 Intake Total 2122.92 / 2242.92 1107.09 / 1107.09 Output Total 350 / 350 Balance 2122.92 / 1892.92 757.09 / 757.09 Laboratory Results 09/12/19 11:13: WBC 14.4 H, RBC 3.29 L, Hgb 10.7 L, Hct 32.5 L, MCV 98.8, MCH 32.5 H, MCHC 32.9, RDW Std Deviation 55.0 H, RDW Coeff of Apple 15.6 H, Plt Count 80 L, MPV 10.6, Immature Gran % (Auto) 4.800 H, Neut % (Auto) 66.1, Lymph % (Auto) 16.2 L, [place] % (Auto) 12.3 H, Eos % (Auto) 0.1, Baso % (Auto) 0.5, Absolute Neuts (auto) 9.5 H, Absolute Lymphs (auto) 2.34, Nucleated RBC % 0.3, Diff Path Review Reviewed, Platelet Estimate MOD DEC, Polychromasia RARE, Hypochromasia RARE 09/12/19 11:13: Sodium 135 L, Potassium 3.8, Chloride 102, Carbon Dioxide 23.0, Anion Gap 10, BUN 29 H, Creatinine 0.95, Estim Creat Clear Calc 44.28, Est GFR (MDRD) Af Amer 74, Est GFR (MDRD) Non-Af 61, BUN/Creatinine Ratio 30.5 H, Glucose 107 H, Calcium 8.9, Total Bilirubin 0.70, AST 198 H, ALT 105 H, Alkaline Phosphatase 298 H, Total Protein 6.7, Albumin 2.2 L, Globulin 4.5 H, Albumin/Globulin Ratio 0.5 L Current Medications Acetaminophen/Codeine Phosphate (Tylenol#3) 1 tablet PO 4X/DAY [facility] Last Admin: 09/12/19 21:09 Dose: 1 tablet Documented by: Albuterol Sulfate (Ventolin Aerosols) 2.5 mg INHALATION Q2H PRN PRN PRN Reason: DYSPNEA Albuterol/Ipratropium (Duoneb) 3 ml INHALATION Q6H PRN PRN Reason: SOB &/OR WHEEZING Dexamethasone (Decadron) 2 mg PO DAILY@0800 [facility] Enoxaparin Sodium (Lovenox) 40 mg SC DAILY@1000 [facility] Famotidine (Pepcid) 20 mg PO DAILY [facility] Gabapentin (Neurontin) 300 mg PO QHS [facility] Last Admin: 09/12/19 21:07 Dose: 300 mg Documented by: Heparin Sodium (Beef Lung) () 50 units IV UD PRN PRN Reason: Port-a-Cath (VAD)Heparin Flush Sodium Chloride () 1,000 mls @ 125 mls/hr IV .Q8H [facility] Last Admin: 09/13/19 06:52 Dose: 125 mls/hr Documented by: Methocarbamol (Robaxin) 500 mg PO BID PRN PRN PRN Reason: nerve pain Metoprolol Tartrate (Lopressor (Beta Kenn)) 50 mg PO BID [facility] Last Admin: 09/12/19 21:06 Dose: 50 mg Documented by: Morphine Sulfate () 4 mg IV Q3H PRN PRN PRN Reason: Severe pain (7-10/10) Last Admin: 09/12/19 16:25 Dose: 4 mg Documented by: Nutritional Formula (Lactose Free) (Ensure Enlive) 120 ml PO 4X/DAY [facility] Last Admin: 09/12/19 21:10 Dose: 120 ml Documented by: Ondansetron HCl (Zofran) 4 mg IV Q8H PRN PRN PRN Reason: NAUSEA/VOMITING Sodium Chloride () 10 - 40 ml IV UD PRN PRN Reason: Port-a-Cath (VAD) Flush Sodium Chloride (0.9% Nacl (Sterile) Posiflush) 10 - 40 ml IV UD PRN PRN Reason: Port access or dressing change Medical Necessity - Tobacco Use Smoking Status: Current some day smoker Tobacco Use: Cigarettes Assessment/Plan All Active Problems (Last Reviewed 09/06/19 @ 11:56 by Christy Herrera) Altered mental status (Acute) Complaint of debility and malaise (Acute) Debility (Acute) Generalized weakness (Acute) Fatigue (Acute) Malnutrition (Acute) Rocephin day #1 Impressions 1. 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 Has been getting Keytruda from Dr. Arriaga. Had radiation to the brain in July 2. generalized weakness and debility - Dtr is no longer able to care for at home 3. encephalopathy - likely multifactorial and due to radiation to the brain, mets to the brain, UTI, 4. UTI - present at admission - due to Lock sensitive E. Coli. Transition to Duricef today 5. hx of C. Diff in the past - will order a probiotic 6. Hypothyroidism 7. Macrocytic anemia-stable 8. Abnormal liver function studies-secondary to metastatic disease versus autoimmune hepatitis secondary to Keytruda? Will discuss with Dr. Arriaga 9. irrational confrontational behavior. She is afraid and anxious and likely in some pain. Will add a Fentanyl patch to her drug regimen and also Ativan Intensol and Seroquel. Talked with her dtr Rebecca and updated her on Carmelina's condition. She will be at the hospital tomorrow and will ask to speak with me when she arrives. Awaiting Dr. Arriaga to talk with the pt on when he is back in town......likely will discontinue Keytruda/tx at that time due to continued functional decline. ' Code Visit Inpatient E&M: 57991 Subs Hosp L2
[2019-09-13] MEDS: Morphine 4 MG/ML Syringe IV ×2 (07:22→11:18)
[2019-09-13 08:59] VITALS: BP 108/53; PULSE 110; RESP 18; TEMP 36.6; O2SAT 95
[2019-09-13] MEDS: Famotidine 20 MG Tablet PO (09:10)
[2019-09-13] MEDS: dexAMETHasone 4 MG Tablet 2 MG PO (09:10)
[2019-09-13] MEDS: Acetaminophen/Codeine #3 Tablet 1 TABLET PO ×4 (09:17→21:55)
[2019-09-13] MEDS: 0.9% Saline Lock 10 ML Syringe IV (11:18)
[2019-09-13 13:03] VITALS: BP 120/64; PULSE 104; RESP 18; TEMP 36.6; O2SAT 93
--- NOTE | 2019-09-13 13:12 | CASEMGMT ---
Addendum entered by Halima Ricks 09/13/19 15:25: SW spoke with physician who states pt is Hospice appropriate and will be discussed again. SW spoke with RN who states different family is at [facility] now and pt is requesting to not speak to this worker today. SW updated RN that this worker will wait until physician speaks with pt regarding Hospice and then will likely follow up with pt tomorrow to confirm discharge plans. Original Note: Social Work Note SW attempted to meet with pt to discuss discharge plans. RN informed this worker that pt has family visiting from [place] and doesn't want to speak to anybody at this time. RN states pt is becoming agitated. SW will attempt to meet with pt later today as time allows or will follow up with pt tomorrow. Halima Ricks [employer], PST MANAGER
--- NOTE | 2019-09-13 13:43 | NURSING ---
Patient requesting to wait on 1000meds and for a break from interruptions to visit with her family that arrived from [place]. Therapy was turned away by pt as she wanted to visit family- therapy states they will reassess later this afternoon. Pt agitated with all of the interruptions and was speaking in front of this nurse how now all of the sudden everyone comes in at once. Sign placed on door to offer some privacy and this RN left and advised social work to come back later as pt is requesting no interruptions at this time.
--- NOTE | 2019-09-13 14:08 | CASEMGMT ---
Intro role of CM to patient and KHANNA form explained re: Observation status for treatment of debility and weakness. Explained hospitalization will be paid per? insurance policy for Outpatient billing?and condition will continue to be evaluated for Inpt necessity. Also let pt know that [facility] sends paper in the billing packet with their phone number if questions arise. Discussed Pharmacy section of KHANNA form and self administered medication guideline.? Pt verbalizes understanding and does not have further questions. Form signed and placed in chart, copy to pt. JAREN DONOVAN BSN CM
[2019-09-13 14:45] VITALS: PULSE 95
[2019-09-13] MEDS: Metoprolol Tartrate 50 MG Tablet PO ×2 (14:45→21:47)
--- NOTE | 2019-09-13 15:18 | NURSING ---
received call from [facility] who sees patient at home. provided update. they requested that we continue to update them on pt status and discharge plan. [phone]
[2019-09-13 17:29] VITALS: BP 115/62; PULSE 101; RESP 16; TEMP 36.6; O2SAT 93
[2019-09-13 21:11] LABS: Mucous, Urine 0 SEEN /hpf (<or=2+)
[2019-09-13 21:17] LABS: Color, Urine Yellow (Yellow); Glucose, Dipstick 50 mg/dl (Normal); Ketone-Dipstick 5 mg/dl (Negative); Leukocyte Esterase-Dipstick 500 /ul (Negative); Nitrite-Dipstick Negative (Negative); Occult Blood-Urine 50 /ul (Negative); Protein-Dipstick 30 mg/dl (Negative); Specific Gravity, Urine 1.015 (1.002-1.030); Urine Bilirubin Dipstick Negative (Negative); Urine Clarity Cloudy (Clear); Urine Urobilinogen 1 mg/dl (Normal)
[2019-09-13 21:30] LABS: Bacteria 4+ /hpf (None Seen)
[2019-09-13 21:32] LABS: Hyaline Cast 0-5 SEEN /lpf (0-5); Squamous Epithelial Cells - UA 0-5 SEEN /hpf (5-10); White Blood Cells 50-100 SEEN /hpf (0-5)
[2019-09-13 21:33] LABS: Red Blood Cells-Urine 0-5 SEEN /hpf (0-5); Transitional Epithelial - Ur 0-5 SEEN /hpf (0-5)
[2019-09-13] MEDS: QUEtiapine 25 MG Tablet PO (21:45)
[2019-09-13] MEDS: Gabapentin 300 MG Capsule PO (21:46)
[2019-09-13 21:47] VITALS: BP 130/68; PULSE 89; RESP 18; TEMP 36.7; O2SAT 93
[2019-09-13] MEDS: Ceftriaxone 1 GM/50 ML BAG IV (22:04)
[2019-09-14 04:30] VITALS: BP 148/80; PULSE 98; RESP 20; TEMP 36.6; O2SAT 95
[2019-09-14 06:02] LABS: Hematocrit 29.3 % (37-47); Hemoglobin 9.4 g/dL (12.0-15.0); Mean Corp Hgb Conc 32.1 g/dL (32-36); Mean Corpuscular Hgb 32.2 pg (27.0-32.0); Mean Corpuscular Volume 100.3 fL (81-99); Mean Platelet Vol. 11.3 fl (6.2-12.0); POSITIVE COUNT YES; POSITIVE MORPHOLOGY YES; Platelet Count 68 K/mm3 (150-450); RBC Distribution Width CV 15.9 % (11.6-14.6); RBC Distribution Width SD 58.1 fl (35.1-43.9); Red Blood Count 2.92 M/mm3 (4.2-5.4); White Blood Count 11.6 K/mm3 (4.4-11.0)
[2019-09-14] MEDS: 0.9% Saline Lock 10 ML Syringe IV ×2 (06:03→19:17)
[2019-09-14] MEDS: 0.9% Normal Saline 1,000 ML 125 ML IV ×2 (06:03→14:14)
[2019-09-14 06:12] LABS: Differential Indicated MANUAL DIFF
[2019-09-14 06:24] LABS: ALB/GLOB Ratio 0.4 RATIO (0.9-2.4); AST(SGOT) 129 U/L (15-37); Alanine Aminotransfer ALT/SGPT 90 U/L (13-56); Albumin, Serum 1.8 g/dL (3.2-5.0); Alkaline Phosphatase 312 U/L (45-117); Anion Gap 6 (5-15); BUN 23 mg/dL (7-18); BUN/Creat Ratio 33.7 RATIO (10-20); Chloride 111 mmol/L (98-107); Creatinine, Serum 0.68 mg/dL (0.55-1.02); EST Glomerular Filtration Rate 90 mL/min (>60); Est Glom Filt Rate - Afr Amer 109 mL/min (>60); Estimated Creatinine Clearance 42.07 ml/min; Globulin 4.1 g/dL (2.2-4.2); Glucose 107 mg/dL (74-106); Potassium 3.6 mmol/L (3.5-5.1); Protein, Total 5.9 g/dL (6.4-8.2); Sodium Level 140 mmol/L (136-145)
[2019-09-14 06:47] LABS: Eosinophil 1 % (0-5); Lymphocyte 17 % (19-41); Monocyte 10 % (0-10); Neutrophil-Band 1 % (0-5); Neutrophil-Segmented 71 % (47-70); Nucleated Red Bld Cells,Manual 1 % (0-5); Total Cells Counted 100 (MANUAL DIFF)
[2019-09-14 06:48] LABS: Anisocytosis 1+; Hypochromasia 1+; Microcytosis 1+; Polychromasia 1+; Reactive Lymphocyte RARE
[2019-09-14 06:49] LABS: Platelet Estimate MOD DEC (ADEQ)
[2019-09-14 06:50] LABS: Absolute Lymphocyte Count 1.97 X10^3/uL (0.83-4.51); Absolute Neutrophil Count 8.4 X10^3/uL (2.0-7.7)
--- NOTE | 2019-09-14 07:28 | PN_ITS ---
Patient Problems: Active and Suspected Problems (Last Reviewed 09/06/19 @ 11:56 by Christy Herrera) Complaint of debility and malaise (Acute) Debility (Acute) Generalized weakness (Acute) Subjective: Day #2 Ning Afebrile. Vital signs are stable Pulse ox is 93 to 95% on room air and she is not tachypneic and has nonlabored respirations. White blood cell count today is 11.6. Hemoglobin is 9.4 following hydration. Platelets are low at 68,000. LFTs remain elevated. Albumin is low at 1.8. The UA showed 50-100 WBCs per high-power field with 4+ bacteria. There were 0-5 squamous epithelial cells. Urine culture is pending. Nursing tells me she rested pretty well last night after the Seroquel. She was calm this AM but, she became more agitated in the afternoon. does not appear to be in any significant discomfort. Objective: Ning Day #2 Very agitated again this afternoon. Dtr Rebecca was in the room and dtr Michelle on the phone listening in and she was confused, disagreeable, yelling and she was unable to effectively participate in a discussion about her plan for tx going forward. We then took Rebecca to a conference room and discussed plans for tx. The pt and family are to meet with Dr. Arriaga tomorrow. Refuses to believe she has a UTI. She is paranoid and emotionally labile. When I saw her in the morning she was pleasant and able to talk to me without being irrational. She is afebrile. Blood pressures are mildly elevated but she has been extremely agitated. She is maintaining appropriate oxygen saturation on room air. All lab was personally reviewed. Hemoglobin is 9.4 today. BMP is remarkable for a BUN of 23, down from 29 yesterday, and a creatinine of 0.68. Sodium is now within normal limits at 140. LFTs remain abnormal but the transaminases have decreased somewhat from 09/12. - Physical Exam Vitals/I&O's: Vital Signs Temp Pulse Resp BP Pulse Ox 98 F 98 20 H 148/80 H 95 09/14/19 04:30 09/14/19 04:30 09/14/19 04:30 09/14/19 04:30 09/14/19 04:30 Oxygen Delivery Method Room Air Weight: 180 lb 12.817 oz Body Mass Index (BMI) 32.0 Intake and Output for Last 24 Hours 09/12/19 09/13/19 09/14/19 23:59 23:59 23:59 Intake Total 2122.92 / 2242.92 3865.43 / 3865.43 935.42 / 935.42 Output Total 850 / 850 225 / 225 Balance 2122.92 / 1892.92 3015.43 / 3015.43 710.42 / 710.42 General: Alert, No apparent distress, - - seated in the recliner and starting to eat her breakfast Neck: Trachea Midline Lungs: Clear to auscultation, - - No tachypnea, no conversational dyspnea, no accessory muscle use. Cardiovascular: Regular rate, Regular Rhythm, No Gallop Abdomen: Bowel Sounds Present, Soft, Non Tender, Non-Distended Extremities: No edema Neurological: Cranial nerves II-XII grossly intact, Neuro grossly intact Psych/Mental Status: Irrational Behavior - intemittently Laboratory Results 09/13/19 21:05: Urine Color Yellow, Urine Clarity Cloudy, Urine pH 6.0, Ur Specific [place] 1.015, Urine Protein 30 H, Urine Glucose (UA) 50 H, Urine Ketones 5 H, Urine Occult Blood 50 H, Urine Nitrite Negative, Urine Bilirubin Negative, Urine Urobilinogen 1 H, Ur Leukocyte Esterase 500 H, Urine RBC 0-5 SEEN, Urine WBC 50-100 SEEN, Ur Squamous Epith Cells 0-5 SEEN, Ur Transition Epith Cell 0-5 SEEN, Urine Bacteria 4+, Hyaline Casts 0-5 SEEN, Urine Mucus 0 SEEN 09/14/19 05:42: WBC 11.6 H, RBC 2.92 L, Hgb 9.4 L, Hct 29.3 L, MCV 100.3 H, MCH 32.2 H, MCHC 32.1, RDW Std Deviation 58.1 H, RDW Coeff of Apple 15.9 H, Plt Count 68 L, MPV 11.3, Neut % (Auto) Not Reportable, Absolute Neuts (auto) 8.4 H, Absolute Lymphs (auto) 1.97, Total Counted 100, Neutrophils % (Manual) 71 H, Band Neutrophils % 1, Lymphocytes % (Manual) 17 L, Monocytes % (Manual) 10, Eosinophils % (Manual) 1, Nucleated RBCs/100 WBC 1, Diff Path Review May foll, Reactive Lymphocytes RARE, Platelet Estimate MOD DEC, Polychromasia 1+, Hypochromasia 1+, Anisocytosis 1+, Microcytosis 1+ 09/14/19 05:42: Sodium 140, Potassium 3.6, Chloride 111 H, Carbon Dioxide 23.0, Anion Gap 6, BUN 23 H, Creatinine 0.68, Estim Creat Clear Calc 42.07, Est GFR (MDRD) Af Amer 109, Est GFR (MDRD) Non-Af 90, BUN/Creatinine Ratio 33.7 H, Glucose 107 H, Calcium 8.0 L, Total Bilirubin 0.40, AST 129 H, ALT 90 H, Alkaline Phosphatase 312 H, Total Protein 5.9 L, Albumin 1.8 L, Globulin 4.1, Albumin/Globulin Ratio 0.4 L Current Medications Acetaminophen/Codeine Phosphate (Tylenol#3) 1 tablet PO 4X/DAY [facility] Last Admin: 09/13/19 21:55 Dose: 1 tablet Documented by: Albuterol Sulfate (Ventolin Aerosols) 2.5 mg INHALATION Q2H PRN PRN PRN Reason: DYSPNEA Albuterol/Ipratropium (Duoneb) 3 ml INHALATION Q6H PRN PRN Reason: SOB &/OR WHEEZING Dexamethasone (Decadron) 2 mg PO DAILY@0800 [facility] Last Admin: 09/13/19 09:10 Dose: 2 mg Documented by: Famotidine (Pepcid) 20 mg PO DAILY [facility] Last Admin: 09/13/19 09:10 Dose: 20 mg Documented by: Fentanyl (Duragesic Patch) 12 mcg TRANSDERM. Q3D [facility] Last Admin: 09/13/19 21:44 Dose: 12 mcg Documented by: Gabapentin (Neurontin) 300 mg PO QHS [facility] Last Admin: 09/13/19 21:46 Dose: 300 mg Documented by: Heparin Sodium (Beef Lung) () 50 units IV UD PRN PRN Reason: Port-a-Cath (VAD)Heparin Flush Sodium Chloride () 1,000 mls @ 125 mls/hr IV .Q8H [facility] Last Admin: 09/14/19 06:03 Dose: 125 mls/hr Documented by: Ceftriaxone Sodium (Rocephin) 1 gm in 50 mls @ 100 mls/hr IV Q24@2200 [facility] Ketorolac Tromethamine (Toradol) 15 mg IV Q8H PRN PRN PRN Reason: bone pain Stop: 09/18/19 18:41 Lorazepam (Ativan Intensol) 0.5 mg PO Q6H PRN PRN PRN Reason: AGITATION Methocarbamol (Robaxin) 500 mg PO BID PRN PRN PRN Reason: nerve pain Metoprolol Tartrate (Lopressor (Beta Kenn)) 50 mg PO BID [facility] Last Admin: 09/13/19 21:47 Dose: 50 mg Documented by: Morphine Sulfate () 4 mg IV Q3H PRN PRN PRN Reason: Severe pain (-09/01) Last Admin: 09/13/19 11:18 Dose: 4 mg Documented by: Nutritional Formula (Lactose Free) (Ensure Enlive) 120 ml PO 4X/DAY [facility] Last Admin: 09/13/19 21:56 Dose: Not Given Documented by: Ondansetron HCl (Zofran) 4 mg IV Q8H PRN PRN PRN Reason: NAUSEA/VOMITING Quetiapine Fumarate (Seroquel) 25 mg PO BID [facility] Last Admin: 09/13/19 21:45 Dose: 25 mg Documented by: Sodium Chloride () 10 - 40 ml IV UD PRN PRN Reason: Port-a-Cath (VAD) Flush Last Admin: 09/14/19 06:03 Dose: 10 ml Documented by: Sodium Chloride (0.9% Nacl (Sterile) Posiflush) 10 - 40 ml IV UD PRN PRN Reason: Port access or dressing change Medical Necessity - Tobacco Use Smoking Status: Current some day smoker Tobacco Use: Cigarettes Assessment/Plan All Active Problems (Last Reviewed 09/06/19 @ 11:56 by Christy Herrera) Altered mental status (Acute) Complaint of debility and malaise (Acute) Debility (Acute) Generalized weakness (Acute) Fatigue (Acute) Malnutrition (Acute) Impressions 1. 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 Has been getting Keytruda from Dr. Arriaga. Had radiation to the brain in July 2. generalized weakness and debility - Dtr is no longer able to care for at home 3. encephalopathy - likely multifactorial and due to radiation to the brain, mets to the brain, UTI, 4. UTI - present at admission - due to Lock sensitive E. Coli. Transition to Duricef today 5. hx of C. Diff in the past - will order a probiotic 6. Hypothyroidism 7. Macrocytic anemia-stable 8. Abnormal liver function studies-secondary to metastatic disease versus autoimmune hepatitis secondary to Keytruda? Will discuss with Dr. Arriaga 9. irrational confrontational behavior. She is afraid and anxious and likely in some pain. Will add a Fentanyl patch to her drug regimen and also Ativan Intensol and Seroquel. start decadron - dtr stated her mental status and agitation improved with this in the past. she had radiation to the brain in July. Continue the seroquel. Continue the fentanyl patch - denies pain today but I am not sure she is able to verbalize this., Pt and family will meet with Dr. Arriaga tomorrow at 12:30 and if he informs her that he will no longer be recommending tx due to her functional decline than her dtr's would like to meet with hospice. I suspect she will require admission to the inpt unit for sx management if I can not get the agitation under control. she is confused and forgetful and unable to figure out even how to use her cell phone...she is angry and aggressive and yelling at her dtrs and at me..... Code Visit Inpatient E&M: 95925 Subs Hosp L2
[2019-09-14] MEDS: dexAMETHasone 4 MG Tablet 2 MG PO (09:10)
[2019-09-14] MEDS: QUEtiapine 25 MG Tablet PO ×2 (09:11→20:21)
[2019-09-14] MEDS: Famotidine 20 MG Tablet PO (09:11)
[2019-09-14] MEDS: Acetaminophen/Codeine #3 Tablet 1 TABLET PO ×3 (09:16→17:55)
[2019-09-14 09:19] VITALS: PULSE 108
[2019-09-14] MEDS: Metoprolol Tartrate 50 MG Tablet PO ×2 (09:19→20:21)
[2019-09-14 09:20] VITALS: BP 142/81; PULSE 108; RESP 16; TEMP 37.1; O2SAT 95
--- NOTE | 2019-09-14 09:27 | CASEMGMT ---
LW/POA forms scanned into summary tab of echart. Pt's medical POA is Michelle Bowers and Rebecca Ch is the alternate. CAMDEN Malone
--- NOTE | 2019-09-14 10:19 | CASEMGMT ---
Addendum entered by Halima Ricks 09/14/19 14:51: Pt's family is wanting information on Palliative Care and Hospice but doesn't want this worker speaking to pt about it. SW provided pt's family with Palliative Care and Hospice brochure. Original Note: Social Work Note Physician states pt's daughters will be coming to [facility] today and she will be meeting with them. Physician states pt's oncologist Dr. Arriaga is not available until and pt will not make any decisions until Dr. Arriaga speaks to her. SW will allow physician and oncologist to speak with pt and pt's family regarding Hospice. SW will remain available should a Hospice consult be requested or if pt will need SNF/ECF at discharge. Halima Ricks SEISMOGRAPH SUPERVISOR, TAX MAP TECHNICIAN
[2019-09-14] MEDS: Morphine 4 MG/ML Syringe IV (12:42)
[2019-09-14 12:53] LABS: Pathologist Review Reviewed
[2019-09-14 14:15] VITALS: BP 137/86; PULSE 93; RESP 18; TEMP 37.9; O2SAT 98
[2019-09-14] MEDS: dexAMETHasone 4 MG/ML Vial IV (19:17)
[2019-09-14 20:11] VITALS: BP 143/92; PULSE 95; RESP 18; TEMP 36.6; O2SAT 96
[2019-09-14 20:21] VITALS: PULSE 95
[2019-09-14] MEDS: Gabapentin 300 MG Capsule PO (20:21)
--- NOTE | 2019-09-14 23:21 | NURSING ---
two attempts made to give pt scheduled IV antibiotic and IV decadron. pt agitated with this RN at both attempts. pt is a/o to person, place and time but appears to be very agitated to the situation. pt states why would you do that? come in here and try to give someone an antibiotic! who are you?. this RN attempted to provide emotional support and explained my position and role in pt's care. this RN discussed prescribed medications and their purposes with pt and pt repeatedly says i don't need it, i'm not taking anything! informed pt this RN would document that the pt is refusing the prescribed medications, pt states it's not refusing when i just don't need it
[2019-09-15 02:20] VITALS: BP 143/92; PULSE 88; RESP 20; TEMP 36.6; O2SAT 97
[2019-09-15] MEDS: dexAMETHasone 4 MG/ML Vial IV ×4 (05:51→23:01)
[2019-09-15] MEDS: 0.9% Saline Lock 10 ML Syringe IV ×4 (05:51→23:00)
[2019-09-15 08:34] VITALS: PULSE 110
[2019-09-15] MEDS: Famotidine 20 MG Tablet PO (08:34)
[2019-09-15] MEDS: QUEtiapine 25 MG Tablet PO ×2 (08:34→20:31)
[2019-09-15] MEDS: Metoprolol Tartrate 50 MG Tablet PO ×2 (08:34→20:32)
[2019-09-15 08:35] VITALS: BP 164/88; PULSE 109; RESP 18; TEMP 36.7; O2SAT 95
--- NOTE | 2019-09-15 10:08 | US_ITS ---
STUDY: ABDOMINAL ULTRASOUND - RIGHT UPPER QUADRANT REASON FOR VISIT: Female, 74 years old for exam abnormal labs. TECHNIQUE: Ultrasound evaluation of the right upper quadrant was performed with real-time and static cain-scale imaging. TECHNICAL QUALITY: Adequate. COMPARISON: None. FINDINGS: Liver: The liver measures 20.4 cm. There is a heterogeneous echotexture of the liver parenchyma with innumerable hypodensities consistent with multiple metastases throughout the liver parenchyma. The bile ducts are within normal limits. There is hepatic color flow. The direction of portal flow is hepatopetal. There is no demonstrated mass lesion. Gallbladder: Normal distended gallbladder. The gallbladder wall measures 3 mm. There is a focal hyperechoic region of the anterior gallbladder wall with noted ring down artifact concerning for region of adenomyomatosis with polyp not excluded. There is a negative sonographic Hoff's sign. There is no pericholecystic fluid. There are no gallstones. Common Bile Duct (C.B.D.): The common bile duct measures 4 mm. Pancreas: Normal size of the head, body and tail of the pancreas. There is normal echogenicity of the pancreas. There is no demonstrated pancreatic mass or cyst. Right Kidney: Normal size of the right kidney. The right kidney measures 10.2 x 5.2 x 4.8 cm. Normal renal cortex. The right cortex measures 1.1 cm. There is a hypoechoic well-circumscribed region of the right kidney along the cortex measuring 1.6 x 1.4 x 1.3 cm consistent with cortical cyst. There is no right hydronephrosis. US/Liver IMPRESSION: 1. Innumerable hypodensities throughout the liver parenchyma consistent with diffuse hepatic metastases, clinically correlate. Further evaluation may be obtained with MRI versus CT as clinically warranted. 2. Focal hypoechoic region of the anterior gallbladder wall with ring down artifact concerning for adenomyomatosis with underlying small polyp also a consideration. 3. Cortical cyst of the right kidney as above. Electronically Signed: Ron Qureshi DO at 21:15 EDT , Service support ,
[2019-09-15] MEDS: Acetaminophen 325 MG Tablet 650 MG PO (10:39)
--- NOTE | 2019-09-15 11:19 | CASEMGMT ---
Social Work Note Physician states Dr. Arriaga will be meeting with pt and pt's family around 12:30pm today and then pt will likely need hospice consult. SW to remain available to assist. Halima Ricks CUT PRESS OPERATOR, ETHNOARCHAEOLOGIST
[2019-09-15] MEDS: Morphine 4 MG/ML Syringe IV (11:23)
--- NOTE | 2019-09-15 13:40 | CASEMGMT ---
Social Work Note RN updated this worker that Dr. Arriaga spoke with pt and pt's family. The plan is for pt to receive ultrasound tomorrow and then Dr. Arriaga will speak with pt and pt's family again regarding Hospice as he will be stopping treatments for pt. Dr. Arriaga requests Palliative/Hospice referral be made. HAILEE met with pt and pt's daughters Rebecca and Michelle. SW introduced self and role at [facility]. Pt is alert and orientated x3. Rebecca and Michelle agreeable to Palliative/Hospice care referral but would like appointment to be tomorrow afternoon after Dr. Arriaga speaks with them again regarding ultrasounds results. SW informed Rebecca and Michelle that this worker will make initial referral to [facility]. Rebecca asks that she be called regarding Hospice appointment and her number is [phone]. HAILEE placed a call to [facility] and provided referral to [facility] Fernandez. HAILEE faxed referral to [facility]. Halima Ricks MATHEMATICAL SCIENTIST, FLOATMAN
--- NOTE | 2019-09-15 13:43 | ONC.CON.INP2 ---
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 Status: Chronic (5) Metastatic small cell carcinoma to liver Status: Chronic (6) SIADH (syndrome of inappropriate ADH production) Status: Chronic (7) Hypothyroidism Status: Chronic Consult Referring Physician: Hospitalist service Consult Results: Relapsed extensive stage small cell lung cancer Subjective Date of Service:: 09/15/19 Chief Complaint: Debility/Malaise History of Present Illness: Patient with relapsed extensive stage small cell lung cancer hospitalized with increasing debility and altered mental status to a point where she can no longer take care of herself even with the support of her daughters. Her oncologic history can be summarized as follows: She smoked cigarettes since her teens until the diagnosis of cancer in September 2017 when she presented at [facility] in [place] with increasing right hip and back pain that escalated rapidly over the course of a few days. 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 Tumor does not express PDL 1 (0%) She had extensive workup at [facility] including a PET scan that revealed pathologic adenopathy in the right supraclavicular and mediastinal lymph nodes but no primary in the lung visualized. She has evidence for widely spread metastatic disease to bones including multiple levels in the supine, skull, ribs, and left iliac bone. No evidence for spinal cord compression or spinal canal encroachment was seen on MRIs of the spine. Brain MRI did not show evidence for metastatic disease either. She recovered well from her spinal fusion and in late September through October 23 received her first cycle of chemotherapy with carboplatin and etoposide. This was complicated with Pseudomonas sepsis, pneumonia and UTI requiring hospitalization in October 2017 and after recovery from her sepsis is suffered from C. difficile colitis treated with vancomycin completed course December 07, 2017 and appeared to have recovered from , then prior to resuming chemotherapy rehospitalized at [facility] with recurrent C. difficile colitis and treatment had to be put on hold again. Eventually by January 2018 recovered from the infectious complications and off to resume systemic chemotherapy. Restaging CAT scan of the chest abdomen did reveal a mass in the right lung with extensive adenopathy. Since then she was treated with carboplatin and etoposide to a total 6 cycles concluded April 2018 with a good partial remission of her disease until February 2019 when she developed radiographic evidence (by bone scan) for disease relapse in bone. She then was treated with Taxol weekly schedule second line therapy March 14-May 23 2019 but had progressive disease including new liver metastases. She was then treated with Keytruda May -July,. In addition to systemic treatment she received palliative radiation therapy that included: 2000 cGy of 10 MV photons in 5 fractions to the T8-T12 region with a 3D conformal technique consisting of a wedge pair and dynamic conformal arc. Date of First Treatment: 08/09/18 Date of Last Treatment: 08/13/18 SBRT at [facility], 2 a right frontal single brain lesion August 02, 2019. She has been on demeclocycline for SIADH with correction of hyponatremia since her relapse in 2018. Since then she had a significant functional decline becoming dependent on her daughters for ADLs and systemic therapy with Keytruda was held. Mild hypothyroidism was noted August 2019 possibly secondary to Keytruda and an elevation of liver enzymes with normal bilirubin were also noted and followed. 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) History of Clostridium difficile infection (Chronic) History of tobacco use (Chronic) Obesity (BMI 30.0-34.9) (Chronic) SCLC (small cell lung carcinoma) (Chronic) Regional lymph node metastasis present (Chronic) Small cell carcinoma (Chronic) Bone metastases (Chronic) 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) Past Medical/Surgical History: Past Medical History - Most Recent Inpatient Visit Past Medical History Start: 09/12/19 15:36 Text: Status: Complete Freq: ONCE Protocol: Document 09/12/19 15:54 FRANSICO (Rec: 09/12/19 15:57 KEVON [id number]) BMI Required to complete PMH What is Patient's BMI 32 Past Medical History Unable History Recalled No Query Text:Pt Unable/Family Not Present Neurologic Medical History Hx Stroke/TIA No Hx Dementia/Alzheimer's No Hx Parkinson's Disease No Hx Seizures No Hx Multiple Sclerosis No Hx Migraines No Cardiac Medical History VTE Present on Admission No Hx of Deep Vein Thrombosis/VTE/PE No Hx Hypertension No Hx Chest Pain/Angina No Hx Heart Attack No Hx Cardiac Surgery/Stents/Etc. No Hx Heart Failure No Hx Pacemaker/AICD No Hx Irregular Heartbeat and/or Afib No Hx Anticoagulant Therapy No Query Text:(Coumadin, Aspirin, Plavix, Xarelto, etc.) Hx Pain in Legs when Walking/Leg Cramps No Respiratory Medical History Hx COPD No Hx Emphysema No Hx Smoking Yes Smoking Status Current some day smoker Tobacco Use Cigarettes Hx Tobacco Use in last 12 months Yes Sent to [facility] Yes Hx Sleep Apnea No Do you snore loudly (louder than talking No or can be heard through closed doors)? Do you often feel tired/ fatigued/ Yes sleepy during daytime? Has anyone observed you stop breathing No during sleep? STOP Results Negative GI Medical History Hx Ulcer No Hx Hepatitis No Hx Cirrhosis No Hx GI Bleed No Hx Unplanned Weight Loss Yes: 20 pounds Genitourinary Medical History Indwelling Catheter in Place on Arrival/ No Admission Hx Renal Disease No Hx Dialysis No Musculoskeletal History Hx Arthritis No Hx Rheumatoid Arthritis No Endocrine Medical History Hx Diabetes No Hx Thyroid Disease No Hematologic Medical History Hx of Blood Transfusion No Hx of Transfusion in last 3 Months No Ever experience any problems with No transfusion(s)? Hx of Preganancy in last 3 Months No Nurse Filling Out Transfusion & SGESSEL Questions: Date: 09/12/19 Time: 15:56 Psycho/Social Medical History Hx Depression No Hx Anxiety No Hx Behavior Disorder No Hx Alcohol Use No Hx Substance Use No Other Medical History Hx Blood Disorders No Hx Anemia Yes Hx Cancer Yes: bone w/mets to brain- immunotherapy Hx Drug Resistant Organism Yes: c-diff Wound/Pressure Injury Present on Arrival No: to be assessed oer /Admission oriuanry Query Text:If yes, chart assessment in Shift/Clinical Findings Central Line/PICC/VAD Present on Arrival Yes /Admission Antibiotics within last 7 days? 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 difficile colitis (Inactive) Past Surgical History (Last Reviewed 09/06/19 @ 11:56 by Christy Herrera) History of back surgery (Inactive) Maternal Family History: Family History (Last Reviewed 09/06/19 @ 11:56 by Christy Herrera) Brother Heart disease Myocardial infarction, Onset Age: 50 Father Cerebral aneurysm rupture Family History: No pertinent history Paternal Family History: Family History (Last Reviewed 09/06/19 @ 11:56 by Christy Herrera) Brother Heart disease Myocardial infarction, Onset Age: 50 Father Cerebral aneurysm rupture Family History: - - from an aneurysm at age 38. - Social History Lives: With Family Smoking Status: Current some day smoker Tobacco Use: Cigarettes Alcohol: None Drugs: None Allergies/Adverse Reactions: Allergy/AdvReac Type Severity Reaction Status Date / Time diazepam [From Valium] AdvReac Severe confusion Verified 09/12/19 15:51 Review of Systems Constitutional:: Reports: Weakness, Fatigue, Appetite change, - - Weight has recently fluctuated depending on fluid status. Denies: Fever, Sweats, Weight loss, Chills Cardiovascular:: Reports: Dyspnea on exertion. Denies: Chest pain, Palpitations, Orthopnea, PND, Shortness of breath Respiratory: Reports: Shortness of breath upon exertion. Denies: Cough, Hemoptysis, Shortness of Breath, Wheezing Gastrointestinal:: Denies: Abdominal pain, Nausea, Vomiting, Diarrhea, Constipation, Hematochezia Genitourinary: Denies: Dysuria, Hematuria, 15, Flank pain Musculoskeletal:: Reports: Back pain - And ribs pain chronic manageable unchanged no recent changes and analgesics use. Denies: Myalgia, Arthralgia Skin: Denies: Rash, Skin Changes, Wounds Neurological:: Reports: Memory loss - Recent memory recall has been noted to decline rapidly, she has become irritable and frustrated as noted by daughters. Her mobility has declined but there had been no falls. Denies: Headache, Dizziness, Visual changes, Tinnitus, Hearing loss Psychiatric: Reports: - - Has become increasingly irritable, easily frustrated partly due to memory decline. Denies: Anxiety, Depression, Homicidal Ideations, Suicidal Ideations Vital Signs Height 5 ft 3 in Weight: 82.01 kg Weight in Pounds 180.8 lbs BMI 33.9 Pulse Ox 95 Temperature 98.1 F Pulse Rate 109 Respiratory Rate 18 Blood Pressure 164/88 Blood Pressure Position Semi-Fowlers - Physical Exam General: No apparent distress, - - Oriented in person and place but not in time (date) recent memory recall is impaired. Overweight, ECOG 2-3 HEENT: Atraumatic, PERRLA, EOMI, Normocephalic Oropharynx:: Dry mucosa Neck:: Supple, Trachea midline, - - Port okay. Negative for: JVD, bilateral Cardiac:: Regular rate, Regular rhythm, Normal S1, Normal S2. Negative for: Murmur Lungs: Clear to auscultation, Diminished, Excusion symmetrical. Negative for: Rhonchi, Wheezes Abdomen:: Soft, Non-tender, Non-distended. Negative for: Hepatosplenomegaly Extremities:: Negative for: Cyanosis, Edema Neurological: Neuro grossly intact - No signs of lateralization, - - Recent memory recall impaired Skin:: Negative for: Lesions, Rash, Petechiae, Ecchymosis Psychiatric:: Poor memory - For recent events, - - Irritable, frustrated, easily bursting into arguments at her daughter's. Lymphatics:: Negative for: Cervical lymphadenopathy, Supraclavicular lymphadenopathy, Axillary lymphadenopathy Laboratory Data: Updated CBC, CMP, TSH and T4 August 2019 reviewed in EMR Diagnostic Data: Diagnostic Data Brain CT 09/12/19 11:47 IMPRESSION: Chronic involutional changes of the brain. Electronically Signed: Rashi Frank, at 13:02 EDT , Service support , Assessment and Plan 74-year-old female with extensive stage small cell lung cancer extensively treated since initial diagnosis in September 2017. Patient is status post carboplatin and etoposide in 2017?2018 with partial remission of her disease to relapse in 2019 status post single agent Taxol (had progressive disease including new metastases to liver), single agent immune therapy with Keytruda immune therapy May-July,. In addition to systemic therapies he received palliative radiation to painful bone metastases in the thoracic spine in 2018 and SBRT for right frontal brain metastases in July 2019. July through August 2019 had a rather rapid functional decline both physically and mentally. A mild hypothyroidism was noted August 2019 new onset probably immune mediated secondary to Keytruda. Also recently noted is increasing abnormalities of liver functions suspect cancer progression in the liver less likely Keytruda induced immune hepatitis (rare) Recommendations: 1-ultrasound of liver to assess extent of metastatic disease in the liver as a cause for health decline and abnormal liver functions. In the less likely event that she has immune mediated hepatitis, Keytruda has been on hold since July 2019 and patient may have some improvement with high-dose steroids. 2-systemic therapy has been on hold since July 2019 due to increasing functional decline and while undergoing SBRT for brain metastases. She is not a candidate for further systemic therapy due to continued decline of performance status and liver dysfunction. I advised comfort measures on the hospice program. 3-until recently she was on steroids for brain metastases from which she was weaned then resumed due to functional decline as a palliative measure. 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 I met with the patient and her 2 daughters at the bedside. Discussed my impression and recommendations outlined above. Patient was emotional and in tears when I discussed hospice with her. She is willing to meet the palliative team today with anticipation of accepting hospice after review of the liver ultrasound findings once available with her. Shayla Arriaga MD Manager Retail, [facility] [place] Divisions of Medical Oncology & Hematology Department of Internal Medicine [place] [id number] This note was generated using a voice recognition system software. Although it was reviewed by the author prior to finalization, it may still contain incorrect words, spelling, and punctuation that were not noted when reviewing prior to saving. If a clinically significant typo or inaccurately typed phrase is noted, please notify the author. Medications: Prescriptions This Visit Medication Instructions Recorded Calcium Carbonate/Vitamin D3 1 tab PO BID 09/12/19 [Calcium 600 + Vit D Tablet] Cholecalciferol (Vitamin D3) 1,000 unit PO BID 09/12/19 [Vitamin D3] Cyanocobalamin (Vitamin B-12) 1,000 mcg PO BID 09/12/19 [B-12] Demeclocycline HCl 300 mg PO DAILY 09/12/19 Famotidine 20 mg PO DAILY 09/12/19 Multivit-Min/Iron/Folic/Lutein 1 ea PO BID 09/12/19 [Centrum Silver Women Tablet] Saccharomyces Boulardii [Florastor] 250 mg PO BID 09/12/19 Primary Care Provider: Mitchell Whiteside MD Referring Provider: Jaya Banerjee DO
[2019-09-15 14:35] VITALS: BP 157/88; PULSE 98; RESP 16; TEMP 36.7; O2SAT 94
[2019-09-15 19:50] VITALS: BP 145/80; PULSE 99; RESP 18; TEMP 36.6; O2SAT 96
[2019-09-15] MEDS: Gabapentin 300 MG Capsule PO (20:30)
[2019-09-15] MEDS: Levothyroxine 25 MCG TABLET PO (20:30)
[2019-09-15] MEDS: Cefadroxil 500 MG CAPSULE 1000 MG PO (20:31)
[2019-09-15 20:32] VITALS: PULSE 99
--- NOTE | 2019-09-15 20:56 | PN_ITS ---
Patient Problems: Active and Suspected Problems (Last Reviewed 09/06/19 @ 11:56 by Christy Herrera) Complaint of debility and malaise (Acute) Debility (Acute) Generalized weakness (Acute) Subjective: All events of the past 24 hours of been reviewed. She is afebrile. Blood pressures are mildly elevated. She is 94 to 96% saturated on room air. Urine culture is positive for pansensitive E. coli. Patient slept well last night per nursing. She is still emotionally labile but she was not yelling when I spoke with her today. she and her dtr's met with Dr. Arriaga today and he ordered a US of the liver.....? as to whether the abnormal LFT's are due to metastasis or to autoimmune hepatitis. She is fixated on taking tylenol with Codeine today. She admits to having some pain today and got MS which helped. she was able to make some eye contact with me today. - Physical Exam Vitals/I&O's: Vital Signs Temp Pulse Resp BP Pulse Ox 98 F 99 18 145/80 H 96 09/15/19 19:50 09/15/19 20:32 09/15/19 19:50 09/15/19 19:50 09/15/19 19:50 Oxygen Delivery Method Room Air Weight: 180 lb 12.817 oz Body Mass Index (BMI) 32.0 Intake and Output for Last 24 Hours 09/13/19 09/14/19 09/15/19 23:59 23:59 23:59 Intake Total 3865.43 / 3865.43 3172.92 / 3372.92 600 / 600 Output Total 850 / 850 325 / 325 400 / 400 Balance 3015.43 / 3015.43 2847.92 / 3047.92 200 / 200 General: Alert, - - more calm today. still confused and having trouble with memory. HEENT: Atraumatic, PERRLA, EOMI, Normocephalic Oral: Moist Mucosa Neck: Supple, No Nodes, Trachea Midline Lungs: Clear to auscultation Cardiovascular: Regular rate, Regular Rhythm, Normal S1, Normal S2, No rub noted, No Gallop, - - resting HR is increased in the 90's Abdomen: Bowel Sounds Present, Soft, Non-Distended, - - no guarding with palpation Extremities: No cyanosis, No edema Skin: No rashes, No breakdown Neurological: Cranial nerves II-XII grossly intact, Neuro grossly intact Microbiology Past 72 Hours 09/13/19 21:05 Urine, Clean Catch Urine Culture - Final Presumptive E. coli Current Medications Acetaminophen/Codeine Phosphate (Tylenol#3) 1 tablet PO Q4H PRN PRN PRN Reason: Pain Score 1-10/10 Albuterol Sulfate (Ventolin Aerosols) 2.5 mg INHALATION Q2H PRN PRN PRN Reason: DYSPNEA Albuterol/Ipratropium (Duoneb) 3 ml INHALATION Q6H PRN PRN Reason: SOB &/OR WHEEZING Cefadroxil (Duricef) 1,000 mg PO DAILY [facility] Last Admin: 09/15/19 20:31 Dose: 1,000 mg Documented by: Dexamethasone Sodium Phosphate (Decadron) 4 mg IV Q6 [facility] Last Admin: 09/15/19 19:39 Dose: 4 mg Documented by: Famotidine (Pepcid) 20 mg PO DAILY [facility] Last Admin: 09/15/19 08:34 Dose: 20 mg Documented by: Fentanyl (Duragesic Patch) 12 mcg TRANSDERM. Q3D [facility] Last Admin: 09/13/19 21:44 Dose: 12 mcg Documented by: Gabapentin (Neurontin) 300 mg PO QHS [facility] Last Admin: 09/15/19 20:30 Dose: 300 mg Documented by: Heparin Sodium (Beef Lung) () 50 units IV UD PRN PRN Reason: Port-a-Cath (VAD)Heparin Flush Ketorolac Tromethamine (Toradol) 15 mg IV Q8H PRN PRN PRN Reason: bone pain Stop: 09/18/19 18:41 Levothyroxine Sodium (Synthroid) 25 mcg PO DAILY@0600 [facility] Last Admin: 09/15/19 20:30 Dose: 25 mcg Documented by: Lorazepam (Ativan Intensol) 0.5 mg PO Q6H PRN PRN PRN Reason: AGITATION Methocarbamol (Robaxin) 500 mg PO BID PRN PRN PRN Reason: nerve pain Metoprolol Tartrate (Lopressor (Beta Kenn)) 50 mg PO BID [facility] Last Admin: 09/15/19 20:32 Dose: 50 mg Documented by: Morphine Sulfate () 4 mg IV Q3H PRN PRN PRN Reason: Severe pain (7-10/10) Last Admin: 09/15/19 11:23 Dose: 4 mg Documented by: Nutritional Formula (Lactose Free) (Ensure Enlive) 120 ml PO 4X/DAY [facility] Last Admin: 09/15/19 20:29 Dose: 120 ml Documented by: Ondansetron HCl (Zofran) 4 mg IV Q8H PRN PRN PRN Reason: NAUSEA/VOMITING Quetiapine Fumarate (Seroquel) 25 mg PO 1000,1999 [facility] Last Admin: 09/15/19 20:31 Dose: 25 mg Documented by: Sodium Chloride () 10 - 40 ml IV UD PRN PRN Reason: Port-a-Cath (VAD) Flush Last Admin: 09/15/19 19:39 Dose: 10 ml Documented by: Sodium Chloride (0.9% Nacl (Sterile) Posiflush) 10 - 40 ml IV UD PRN PRN Reason: Port access or dressing change Medical Necessity - Tobacco Use Smoking Status: Current some day smoker Tobacco Use: Cigarettes Assessment/Plan All Active Problems (Last Reviewed 09/06/19 @ 11:56 by Christy Herrera) Altered mental status (Acute) Complaint of debility and malaise (Acute) Debility (Acute) Generalized weakness (Acute) Fatigue (Acute) Malnutrition (Acute) Impressions 1. 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 2. generalized weakness and debility 3. encephalopathy - likely multifactorial and due to radiation to the brain, mets to the brain, UTI, 4. UTI - present at admission - due to Lock sensitive E. Coli. Transition to Duricef today 5. hx of C. Diff in the past 6. Hypothyroidism 7. Macrocytic anemia-stable 8. Abnormal liver function studies-secondary to metastatic disease versus autoimmune hepatitis secondary to Keytruda 9. Moderate to severe malnutrition secondary to suboptimal energy intake and weight loss. I did review the dietitian's recommendations and nutritional supplements have been ordered. Await the results of the Liver US. If there is no significant increase in the tumor burden then will need to consider tx for autoimmune hepatitis and she would have to quit the Keytruda. If there is increased metastatic dz then she is progressing and she has had significant decline in her functional status and Chemo will be discontinued. Dr. Arriaga has recommended to the pt and her family that they consider hospice. Lesvia will meet with the family tomorrow after they discuss the results of the liver US with Dr. Arriaga. Continue Seroquel, PRN Ativan Intensol, fentanyl patch. DC Tylenol and start Tylenol with codeine for breakthrough pain. Continue IV dexamethasone for now and transition to p.o. tomorrow. ' Code Visit Inpatient E&M: 14268 Subs Hosp L2
[2019-09-15] MEDS: Acetaminophen/Codeine #3 Tablet 1 TABLET PO (22:59)
[2019-09-16 02:50] VITALS: BP 147/92; PULSE 89; RESP 20; TEMP 36.6; O2SAT 97
[2019-09-16] MEDS: 0.9% Saline Lock 10 ML Syringe IV ×4 (05:54→17:46)
[2019-09-16] MEDS: Levothyroxine 25 MCG TABLET PO (05:54)
[2019-09-16] MEDS: dexAMETHasone 4 MG/ML Vial IV ×3 (05:55→17:44)
[2019-09-16 08:16] VITALS: BP 144/97; PULSE 101; RESP 16; TEMP 36.6; O2SAT 97
--- NOTE | 2019-09-16 09:53 | PN_ITS ---
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 Her oncologic history can be summarized as follows: She smoked cigarettes since her teens until the diagnosis of cancer in September 2017 when she presented at [facility] in [place] with increasing right hip and back pain that escalated rapidly over the course of a few days. 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 Tumor does not express PDL 1 (0%) She had extensive workup at [facility] including a PET scan that revealed pathologic adenopathy in the right supraclavicular and mediastinal lymph nodes but no primary in the lung visualized. She has evidence for widely spread metastatic disease to bones including multiple levels in the supine, skull, ribs, and left iliac bone. No evidence for spinal cord compression or spinal canal encroachment was seen on MRIs of the spine. Brain MRI did not show evidence for metastatic disease either. She recovered well from her spinal fusion and in late September through October 23 received her first cycle of chemotherapy with carboplatin and etoposide. This was complicated with Pseudomonas sepsis, pneumonia and UTI requiring hospitalization in October 2017 and after recovery from her sepsis is suffered from C. difficile colitis treated with vancomycin completed course December 07, 2017 and appeared to have recovered from , then prior to resuming chemotherapy rehospitalized at [facility] with recurrent C. difficile colitis and treatment had to be put on hold again. Eventually by January 2018 recovered from the infectious complications and off to resume systemic chemotherapy. Restaging CAT scan of the chest abdomen did reveal a mass in the right lung with extensive adenopathy. Since then she was treated with carboplatin and etoposide to a total 6 cycles concluded April 2018 with a good partial remission of her disease until February 2019 when she developed radiographic evidence (by bone scan) for disease relapse in bone. She then was treated with Taxol weekly schedule second line therapy March 14- May 23 2019 but had progressive disease including new liver metastases. She was then treated with Keytruda May -July,. In addition to systemic treatment she received palliative radiation therapy that included: * 2000 cGy of 10 MV photons in 5 fractions to the T8-T12 region with a 3D conformal technique consisting of a wedge pair and dynamic conformal arc. Date of First Treatment: 08/09/18 Date of Last Treatment: 08/13/18 * SBRT at [facility], 2 a right frontal single brain lesion August 02, 2019. She has been on demeclocycline for SIADH with correction of hyponatremia since her relapse in 2018. Since then she had a significant functional decline becoming dependent on her daughters for ADLs and systemic therapy with Keytruda was held. Mild hypothyroidism was noted August 2019 possibly secondary to Keytruda and an elevation of liver enzymes with normal bilirubin were also noted and followed. Weak, anorexic, not in pain, recent memory recall remains clouded at times. 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) History of Clostridium difficile infection (Chronic) History of tobacco use (Chronic) Obesity (BMI 30.0-34.9) (Chronic) SCLC (small cell lung carcinoma) (Chronic) Regional lymph node metastasis present (Chronic) Small cell carcinoma (Chronic) Bone metastases (Chronic) 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) Past Medical History - Most Recent Inpatient Visit Past Medical History Start: 09/12/19 15:36 Text: Status: Complete Freq: ONCE Protocol: Document 09/12/19 15:54 FRANSICO (Rec: 09/12/19 15:57 FRANSICO [id number]) BMI Required to complete PMH What is Patient's BMI 32 Past Medical History Unable History Recalled No Query Text:Pt Unable/Family Not Present Neurologic Medical History Hx Stroke/TIA No Hx Dementia/Alzheimer's No Hx Parkinson's Disease No Hx Seizures No Hx Multiple Sclerosis No Hx Migraines No Cardiac Medical History VTE Present on Admission No Hx of Deep Vein Thrombosis/VTE/PE No Hx Hypertension No Hx Chest Pain/Angina No Hx Heart Attack No Hx Cardiac Surgery/Stents/Etc. No Hx Heart Failure No Hx Pacemaker/AICD No Hx Irregular Heartbeat and/or Afib No Hx Anticoagulant Therapy No Query Text:(Coumadin, Aspirin, Plavix, Xarelto, etc.) Hx Pain in Legs when Walking/Leg Cramps No Respiratory Medical History Hx COPD No Hx Emphysema No Hx Smoking Yes Smoking Status Current some day smoker Tobacco Use Cigarettes Hx Tobacco Use in last 12 months Yes Sent to [facility] Yes Hx Sleep Apnea No Do you snore loudly (louder than talking No or can be heard through closed doors)? Do you often feel tired/ fatigued/ Yes sleepy during daytime? Has anyone observed you stop breathing No during sleep? STOP Results Negative GI Medical History Hx Ulcer No Hx Hepatitis No Hx Cirrhosis No Hx GI Bleed No Hx Unplanned Weight Loss Yes: 20 pounds Genitourinary Medical History Indwelling Catheter in Place on Arrival/ No Admission Hx Renal Disease No Hx Dialysis No Musculoskeletal History Hx Arthritis No Hx Rheumatoid Arthritis No Endocrine Medical History Hx Diabetes No Hx Thyroid Disease No Hematologic Medical History Hx of Blood Transfusion No Hx of Transfusion in last 3 Months No Ever experience any problems with No transfusion(s)? Hx of Preganancy in last 3 Months No Nurse Filling Out Transfusion & SGESSEL Questions: Date: 09/12/19 Time: 15:56 Psycho/Social Medical History Hx Depression No Hx Anxiety No Hx Behavior Disorder No Hx Alcohol Use No Hx Substance Use No Other Medical History Hx Blood Disorders No Hx Anemia Yes Hx Cancer Yes: bone w/mets to brain- immunotherapy Hx Drug Resistant Organism Yes: c-diff Wound/Pressure Injury Present on Arrival No: to be assessed oer /Admission oriuanry Query Text:If yes, chart assessment in Shift/Clinical Findings Central Line/PICC/VAD Present on Arrival Yes /Admission Antibiotics within last 7 days? 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 difficile colitis (Inactive) Past Surgical History (Last Reviewed 09/06/19 @ 11:56 by Christy Herrera) History of back surgery (Inactive) Maternal Family History: Family History (Last Reviewed 09/06/19 @ 11:56 by Christy Herrera) Brother Heart disease Myocardial infarction, Onset Age: 50 Father Cerebral aneurysm rupture Family History: No pertinent history Paternal Family History: Family History (Last Reviewed 09/06/19 @ 11:56 by Christy Herrera) Brother Heart disease Myocardial infarction, Onset Age: 50 Father Cerebral aneurysm rupture Family History: - - from an aneurysm at age 38. - Social History Lives: With Family Smoking Status: Current some day smoker Tobacco Use: Cigarettes Alcohol: None Drugs: None Vital Signs Height 5 ft 3 in Weight: 82.01 kg Weight in Pounds 180.8 lbs BMI 33.9 Pulse Ox 97 Temperature 97.9 F Pulse Rate 101 Respiratory Rate 16 Blood Pressure 144/97 Blood Pressure Position Semi-Fowlers - Physical Exam General: Alert, Cooperative, No apparent distress, - - Oriented in person and place Laboratory Data: Microbiology 09/13/19 21:05 Urine Culture - Final Urine, Clean Catch Presumptive E. coli Diagnostic Data: Diagnostic Data Brain CT 09/12/19 11:47 IMPRESSION: Chronic involutional changes of the brain. Electronically Signed: Rashi Frank, at 13:02 EDT , Service support , Liver Ultrasound 09/15/19 10:08 IMPRESSION: 1. Innumerable hypodensities throughout the liver parenchyma consistent with diffuse hepatic metastases, clinically correlate. Further evaluation may be obtained with MRI versus CT as clinically warranted. 2. Focal hypoechoic region of the anterior gallbladder wall with ring down artifact concerning for adenomyomatosis with underlying small polyp also a consideration. 3. Cortical cyst of the right kidney as above. Electronically Signed: Ron Qursehi, DO at 21:15 EDT , Service support , Assessment and Plan 74-year-old female with extensive stage small cell lung cancer extensively treated since initial diagnosis in September 2017. Patient is status post carboplatin and etoposide in 2016?2017 with partial remission of her disease to relapse in 2019 status post single agent Taxol (had progressive disease including new metastases to liver), single agent immune therapy with Keytruda immune therapy May-July,. In addition to systemic therapies he received palliative radiation to painful bone metastases in the thoracic spine in 2017 and SBRT for right frontal brain metastases in July 2019. July through August 2019 had a rather rapid functional decline both physically and mentally with rapidly progressively worsening liver functions and Doppler ultrasound September 15, 2019 shows diffuse progression of her disease in the liver. A mild hypothyroidism was noted August 2019 new onset probably immune mediated secondary to Keytruda. Recommendations: Comfort measures only on the hospice program. I met with patient and her daughter at the bedside discussed the updated findings and recommendation. They have an appointment to meet with the hospice team this afternoon. Shayla Arriaga MD Petal Shaper Hand, [facility] Divisions of Medical Oncology & Hematology Department of Internal Medicine [facility] [place] [id number] This note was generated using a voice recognition system software. Although it was reviewed by the author prior to finalization, it may still contain incorrect words, spelling, and punctuation that were not noted when reviewing prior to saving. If a clinically significant typo or inaccurately typed phrase is noted, please notify the author. Medications: Prescriptions This Visit Medication Instructions Recorded Calcium Carbonate/Vitamin D3 1 tab PO BID 09/12/19 [Calcium 600 + Vit D Tablet] Cholecalciferol (Vitamin D3) 1,000 unit PO BID 09/12/19 [Vitamin D3] Cyanocobalamin (Vitamin B-12) 1,000 mcg PO BID 09/12/19 [B-12] Demeclocycline HCl 300 mg PO DAILY 09/12/19 Famotidine 20 mg PO DAILY 09/12/19 Multivit-Min/Iron/Folic/Lutein 1 ea PO BID 09/12/19 [Centrum Silver Women Tablet] Saccharomyces Boulardii [Florastor] 250 mg PO BID 09/12/19 Primary Care Provider: Mitchell Whiteside MD Referring Provider: Jaya Banerjee DO
[2019-09-16 10:07] VITALS: PULSE 101
[2019-09-16] MEDS: Metoprolol Tartrate 50 MG Tablet PO ×2 (10:07→22:30)
[2019-09-16] MEDS: Famotidine 20 MG Tablet PO (10:07)
[2019-09-16] MEDS: Morphine 4 MG/ML Syringe IV (10:07)
[2019-09-16] MEDS: QUEtiapine 25 MG Tablet PO ×2 (10:07→20:28)
[2019-09-16] MEDS: Cefadroxil 500 MG CAPSULE 1000 MG PO (10:09)
[2019-09-16] MEDS: Acetaminophen/Codeine #3 Tablet 1 TABLET PO ×2 (12:53→22:29)
[2019-09-16 14:20] VITALS: BP 153/94; PULSE 95; RESP 16; TEMP 36.6; O2SAT 96
--- NOTE | 2019-09-16 15:08 | CASEMGMT ---
Social Work Note Remigio from [facility] updated this worker that pt signed with Hospice and family is requesting pt go to ECF with Hospice. HAILEE met with pt and pt's two daughters Rebecca and Michelle. Rebecca and Michelle confirm that they signed with Hospice and are wanting pt to go to ECF with Hospice. Rebecca states that pt has a terminal superintendent usp policy but states the policy was in [facility] and is not sure if the pt will need to go to usp in [facility] or if the policy will pay for pt to go to usp in [facility]. HAILEE informed Rebecca that she will need to call pt's insurance to determine the terminal superintendent care policy. HAILEE informed Rebecca that while they figure out the intermediate care policy, pt will need to go to usp with Hospice and room and board will be private pay until terminal superintendent policy can be confirmed. Rebecca states that they are able to pay privately until intermediate policy is confirmed. HAILEE provided Rebecca with list of SNF. HAILEE informed Rebecca that pt can go to any SNF with Hospice. Rebecca states that [facility] is right down the road from her and prefers [facility]. HAILEE explained that this worker will have to send referral and determine if they have any beds available. HAILEE placed a call to Desire at [facility] and provided referral. HAILEE faxed referral. Rebecca asked to speak to this worker. Rebecca states that pt's skilled policy is only good for [facility]. HAILEE informed Rebecca that pt is not going skilled and that pt is going terminal superintendent with Hospice services. Michelle states that pt doesn't have intermediate policy then. HAILEE informed Rebecca and Michelle that the next step then is to apply for Medicaid as Medicaid will cover room and board for pt. HAILEE provided Rebecca with Medicaid application. HAILEE informed Rebecca that she can drop off application at [facility] or [facility] will be able to fax and assist Rebecca with completing the application. Rebecca states she will work on application and look for documents tonight for pt. HAILEE again informed Rebecca that it will be private pay for room and board until Medicaid becomes active. Rebecca states understanding, states pt has funds to pay privately. HAILEE received call from Desire at [facility] stating she is able to accept pt with Hospice. HAILEE asked Desire about having to complete convalescent 7000 or PAS/RR. Desire states PAS/RR will need to be completed. Physician updated on acceptance to [facility] with Hospice. HAILEE updated Rebecca on acceptance to [facility]. Rebecca requests pt be transported to [facility] tomorrow. HAILEE completed PAS/RR in [facility]. Original on pt's chart. Green sheet and transportation form on pt's chart. Plan: [facility] with Hospice when medically cleared Halima Ricks [employer], DIRECTOR OF WORKFORCE DEVELOPMENT
--- NOTE | 2019-09-16 17:21 | EKG12_ITS ---
Test Reason : Blood Pressure : / mmHG Vent. Rate : 106 BPM Atrial Rate : 106 BPM P-R Int : 144 ms QRS Dur : 070 ms QT Int : 330 ms P-R-T Axes : 069 011 088 degrees QTc Int : 438 ms Sinus tachycardia Low voltage QRS Borderline ECG Confirmed by NATASHA FAGAN, JH ([id number]), rewrite editor MARJORIE ZURITA ([id number]) on 09/21/2019 10:13:32 AM Referred By: Jaya Banerjee Confirmed By:JH KAUR MD
[2019-09-16] MEDS: Ondansetron 4 MG/2 ML Vial IV (17:44)
[2019-09-16] MEDS: LORazepam 2 MG/ML Bottle 0.5 MG PO (17:44)
--- NOTE | 2019-09-16 17:46 | PCM.PROGNOTE ---
Patient Problems: Active and Suspected Problems (Last Reviewed 09/06/19 @ 11:56 by Christy Herrera) Complaint of debility and malaise (Acute) Debility (Acute) Generalized weakness (Acute) Subjective: Patient seen and examined. Nursing reports patient complaining of chest pain. EKG completed and showed sinus tachycardia, no ST-T changes. Heart rate 108. Upon arriving to the room patient reports chest pain has resolved. She reports anxiety and restlessness. Reports she does not want to be transported to SNF tonight, her and daughter both voice preference to transport to SNF in the morning. - Physical Exam Vitals/I&O's: Vital Signs Temp Pulse Resp BP Pulse Ox 97.9 F 95 16 153/94 H 96 09/16/19 14:20 09/16/19 14:20 09/16/19 14:20 09/16/19 14:20 09/16/19 14:20 Oxygen Delivery Method Room Air Weight: 180 lb 12.817 oz Body Mass Index (BMI) 32.0 Intake and Output for Last 24 Hours 09/14/19 09/15/19 09/16/19 23:59 23:59 23:59 Intake Total 3172.92 / 3372.92 600 / 840 580 / 580 Output Total 325 / 325 400 / 1200 1450 / 1450 Balance 2847.92 / 3047.92 200 / -360 -870 / -870 General: Alert, Cooperative, - - Restless HEENT: Atraumatic, PERRLA, EOMI, Normocephalic Neck: Supple, No JVD, Negative Carotid Bruits Lungs: Clear to auscultation, Normal air movement Cardiovascular: Regular Rhythm, Normal S1, Normal S2, No murmurs, Tachycardic Abdomen: Bowel Sounds Present, Soft, Non Tender, Non-Distended, Obese Extremities: No clubbing, No cyanosis, No edema, Capillary Refill Less than 3 Seconds Skin: No rashes, No breakdown Musculoskeletal: No Tenderness to Palpation of Joints or Extremities Neurological: Cranial nerves II-XII grossly intact, Neuro grossly intact Psych/Mental Status: Agitated Microbiology Past 72 Hours 09/13/19 21:05 Urine, Clean Catch Urine Culture - Final Presumptive E. coli Current Medications Acetaminophen/Codeine Phosphate (Tylenol#3) 1 tablet PO Q4H PRN PRN PRN Reason: Pain Score 1-10/10 Last Admin: 09/16/19 12:53 Dose: 1 tablet Documented by: Albuterol Sulfate (Ventolin Aerosols) 2.5 mg INHALATION Q2H PRN PRN PRN Reason: DYSPNEA Albuterol/Ipratropium (Duoneb) 3 ml INHALATION Q6H PRN PRN Reason: SOB &/OR WHEEZING Cefadroxil (Duricef) 1,000 mg PO DAILY [facility] Last Admin: 09/16/19 10:09 Dose: 1,000 mg Documented by: Dexamethasone Sodium Phosphate (Decadron) 4 mg IV Q6 [facility] Last Admin: 09/16/19 17:44 Dose: 4 mg Documented by: Famotidine (Pepcid) 20 mg PO DAILY [facility] Last Admin: 09/16/19 10:07 Dose: 20 mg Documented by: Fentanyl (Duragesic Patch) 12 mcg TRANSDERM. Q3D [facility] Last Admin: 09/13/19 21:44 Dose: 12 mcg Documented by: Gabapentin (Neurontin) 300 mg PO QHS [facility] Last Admin: 09/15/19 20:30 Dose: 300 mg Documented by: Heparin Sodium (Beef Lung) () 50 units IV UD PRN PRN Reason: Port-a-Cath (VAD)Heparin Flush Ketorolac Tromethamine (Toradol) 15 mg IV Q8H PRN PRN PRN Reason: bone pain Stop: 09/18/19 18:41 Levothyroxine Sodium (Synthroid) 25 mcg PO DAILY@0600 [facility] Last Admin: 09/16/19 05:54 Dose: 25 mcg Documented by: Lorazepam (Ativan Intensol) 0.5 mg PO Q6H PRN PRN PRN Reason: AGITATION Last Admin: 09/16/19 17:44 Dose: 0.5 mg Documented by: Methocarbamol (Robaxin) 500 mg PO BID PRN PRN PRN Reason: nerve pain Metoprolol Tartrate (Lopressor (Beta Kenn)) 50 mg PO BID [facility] Last Admin: 09/16/19 10:07 Dose: 50 mg Documented by: Morphine Sulfate () 4 mg IV Q3H PRN PRN PRN Reason: Severe pain (7-10/10) Last Admin: 09/16/19 10:07 Dose: 4 mg Documented by: Nutritional Formula (Lactose Free) (Ensure Enlive) 120 ml PO 4X/DAY [facility] Last Admin: 09/16/19 17:45 Dose: Not Given Documented by: Ondansetron HCl (Zofran) 4 mg IV Q8H PRN PRN PRN Reason: NAUSEA/VOMITING Last Admin: 09/16/19 17:44 Dose: 4 mg Documented by: Quetiapine Fumarate (Seroquel) 25 mg PO 1000,1999 [facility] Last Admin: 09/16/19 10:07 Dose: 25 mg Documented by: Sodium Chloride () 10 - 40 ml IV UD PRN PRN Reason: Port-a-Cath (VAD) Flush Last Admin: 09/16/19 12:54 Dose: 10 ml Documented by: Sodium Chloride (0.9% Nacl (Sterile) Posiflush) 10 - 40 ml IV UD PRN PRN Reason: Port access or dressing change Medical Necessity - Tobacco Use Smoking Status: Current some day smoker Tobacco Use: Cigarettes Assessment/Plan All Active Problems (Last Reviewed 09/06/19 @ 11:56 by Christy Herrera) Altered mental status (Acute) Complaint of debility and malaise (Acute) Debility (Acute) Generalized weakness (Acute) Fatigue (Acute) Malnutrition (Acute) 1. Small cell lung cancer with mets to brain, bone and liver-oncology following. Plan for hospice transition. Transition to comfort measures. 2. Generalized weakness, debility-secondary to #1. SNF with hospice at discharge. 3. Toxic and metabolic encephalopathy-secondary to above. 4. Acute E. coli UTI-continue Duricef regimen. 5. History of C. difficile 6. Hypothyroidism-continue Synthroid regimen. 7. Severe protein calorie malnutrition-nutrition consult. DVT prophylaxis-not indicated, hospice transition Discharge planning: Discharge to the [facility] with hospice tomorrow morning per family preference. This patient was seen by Adenike Noland NP-C under the supervision of Dr. Carrasquillo.
--- NOTE | 2019-09-16 17:56 | NURSING ---
Fentanyl patch in place to right upper arm- due to be changed tonight
[2019-09-16 20:24] VITALS: BP 156/95; PULSE 105; RESP 16; TEMP 36.7; O2SAT 96
[2019-09-16 22:30] VITALS: BP 156/95; PULSE 105
[2019-09-16] MEDS: Gabapentin 300 MG Capsule PO (22:30)
[2019-09-17] MEDS: dexAMETHasone 4 MG/ML Vial IV ×2 (00:07→06:04)
[2019-09-17] MEDS: LORazepam 2 MG/ML Bottle 0.5 MG PO (00:08)
[2019-09-17 02:58] VITALS: BP 153/89; PULSE 93; RESP 16; TEMP 36.8; O2SAT 95
[2019-09-17] MEDS: Levothyroxine 25 MCG TABLET PO (06:04)
--- NOTE | 2019-09-17 09:32 | PCM.EXTCARCO ---
- Diet 09/12/19 15:46 Diet: Regular Diet Food consistency:: Regular Liquid Consistency:: Regular/Thin - Routine Orders/Code Status Enema Type: Fleetz Enema Frequency: Daily PRN Suppository Type: Dulcolax 10mg Suppository Frequency: Daily PRN Code Status: DNRCC - Wound(s) right lateral ankle Wound Type: Abrasion - Problem/Diagnosis (1) Debility Status: Chronic (2) Hypothyroidism Status: Chronic (3) Brain metastases Status: Chronic (4) Liver metastases Status: Chronic (5) History of Clostridium difficile infection Status: Chronic (6) SCLC (small cell lung carcinoma) Status: Chronic (7) Bone metastases Status: Chronic - Allergies/Procedures Done in Hospital Allergies/Adverse Reactions: Allergies diazepam [From Valium] Adverse Reaction (Severe, Verified 09/12/19 15:51) confusion Procedures: None - Type of Care/Length of Stay Estimated LOS: Convalescent Care Less Than 30 days Type of Care Needed: Inpt Hospice Facility - SNF with Hospice Rehab Potential: Poor Prognosis: Poor - Additional Orders/Day of Discharge H&P will serve as current which was dated: 09/12/19 Day of Discharge: 09/17/19 - Dietary and Speech Recommendations Dietitian Recommendations/Changes: Rec continue Regular diet w/ supplements at meals. Rec continue Ensure Enlive 120ml 4 x day. - Follow Up Care Primary Care Physician: Mitchell Whiteside MD [Primary Care Provider] - Please Follow Up With: Lam Flores DO When: Hospice to follow at [place]
[2019-09-17 10:00] VITALS: BP 141/83; PULSE 104; RESP 18; TEMP 36.9; O2SAT 97
[2019-09-17 10:01] VITALS: PULSE 104
[2019-09-17] MEDS: Metoprolol Tartrate 50 MG Tablet PO (10:01)
[2019-09-17] MEDS: Cefadroxil 500 MG CAPSULE 1000 MG PO (10:01)
[2019-09-17] MEDS: Famotidine 20 MG Tablet PO (10:02)
[2019-09-17] MEDS: QUEtiapine 25 MG Tablet PO (10:02)
[2019-09-17] MEDS: Acetaminophen/Codeine #3 Tablet 1 TABLET PO ×2 (10:06→13:33)
--- NOTE | 2019-09-17 10:12 | DS.PCM_ITS ---
<Adenike Noland - Last Filed: 09/17/19 15:27> Discharge Date and Diagnosis Date of Admission: 09/12/19 Date of Discharge: 09/17/19 - Primary Discharge Diagnosis Active and Suspected Problems (Last Reviewed 09/06/19 @ 11:56 by Christy Herrera) 1. 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 Generalized weakness, debility 3. Toxic and metabolic encephalopathy-secondary to above. 4. Acute E. coli UTI 5. History of C. difficile 6. Hypothyroidism 7. 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 Electronically Signed: Rashi Frank, at 13:02 EDT , Service support , Liver Ultrasound 09/15/19 10:08 IMPRESSION: 1. Innumerable hypodensities throughout the liver parenchyma consistent with diffuse hepatic metastases, clinically correlate. Further evaluation may be obtained with MRI versus CT as clinically warranted. 2. Focal hypoechoic region of the anterior gallbladder wall with ring down artifact concerning for adenomyomatosis with underlying small polyp also a consideration. 3. Cortical cyst of the right kidney as above. Electronically Signed: Ron Qureshi DO at 21:15 EDT , Service support , Dr. Arriaga- Oncology Operations: None Procedures: None Summary of Care Provided: The patient is a 74 year old F admitted 09/12/2019 due to generalized weakness and debility. 1. 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 Plan for hospice transition. Transition to comfort measures. 2. Generalized weakness, debility-secondary to #1. SNF with hospice at discharge. 3. Toxic and metabolic encephalopathy-secondary to above. 4. Acute E. coli UTI-continue Duricef regimen x3 more days at discharge. 5. History of C. difficile 6. Hypothyroidism-continue Synthroid regimen. 7. Severe protein calorie malnutrition-nutrition consulted. General: Alert, Cooperative, - - Restless HEENT: Atraumatic, PERRLA, EOMI, Normocephalic Neck: Supple, No JVD, Negative Carotid Bruits Lungs: Clear to auscultation, Normal air movement Cardiovascular: Regular Rhythm, Normal S1, Normal S2, No murmurs, Tachycardic Abdomen: Bowel Sounds Present, Soft, Non Tender, Non-Distended, Obese Extremities: No clubbing, No cyanosis, No edema, Capillary Refill Less than 3 Seconds Skin: No rashes, No breakdown Musculoskeletal: No Tenderness to Palpation of Joints or Extremities Neurological: Cranial nerves II-XII grossly intact, Neuro grossly intact Psych/Mental Status: Intermittent agitation Patient seen and examined prior to discharge. Physical assessment as noted above. SNF with hospice at discharge. This patient was seen by FRAN Calvillo under the supervision of Dr. Carver. - Physical Exam Vitals/I&O's: Vital Signs Temp Pulse Resp BP Pulse Ox 98.2 F 104 H 16 153/89 H 95 09/17/19 02:58 09/17/19 10:01 09/17/19 02:58 09/17/19 02:58 09/17/19 02:58 Oxygen Delivery Method Room Air Weight: 180 lb 12.817 oz Body Mass Index (BMI) 32.0 Intake and Output for Last 24 Hours 09/15/19 09/16/19 09/17/19 23:59 23:59 23:59 Intake Total 600 / 840 1030 / 1530 600 / 600 Output Total 400 / 1200 1850 / 2225 775 / 775 Balance 200 / -360 -820 / -695 -175 / -175 Microbiology Past 72 Hours 09/13/19 21:05 Urine, Clean Catch Urine Culture - Final Presumptive E. coli Current Medications Acetaminophen/Codeine Phosphate (Tylenol#3) 1 tablet PO Q4H PRN PRN PRN Reason: Pain Score 1-10/10 Last Admin: 09/17/19 10:06 Dose: 1 tablet Documented by: Albuterol Sulfate (Ventolin Aerosols) 2.5 mg INHALATION Q2H PRN PRN PRN Reason: DYSPNEA Albuterol/Ipratropium (Duoneb) 3 ml INHALATION Q6H PRN PRN Reason: SOB &/OR WHEEZING Cefadroxil (Duricef) 1,000 mg PO DAILY [facility] Last Admin: 09/17/19 10:01 Dose: 1,000 mg Documented by: Dexamethasone Sodium Phosphate (Decadron) 4 mg IV Q6 [facility] Last Admin: 09/17/19 06:04 Dose: 4 mg Documented by: Famotidine (Pepcid) 20 mg PO DAILY [facility] Last Admin: 09/17/19 10:02 Dose: 20 mg Documented by: Fentanyl (Duragesic Patch) 12 mcg TRANSDERM. Q3D [facility] Last Admin: 09/16/19 22:31 Dose: 12 mcg Documented by: Gabapentin (Neurontin) 300 mg PO QHS [facility] Last Admin: 09/16/19 22:30 Dose: 300 mg Documented by: Heparin Sodium (Beef Lung) () 50 units IV UD PRN PRN Reason: Port-a-Cath (VAD)Heparin Flush Ketorolac Tromethamine (Toradol) 15 mg IV Q8H PRN PRN PRN Reason: bone pain Stop: 09/18/19 18:41 Levothyroxine Sodium (Synthroid) 25 mcg PO DAILY@0600 [facility] Last Admin: 09/17/19 06:04 Dose: 25 mcg Documented by: Lorazepam (Ativan Intensol) 0.5 mg PO Q6H PRN PRN PRN Reason: AGITATION Last Admin: 09/17/19 00:08 Dose: 0.5 mg Documented by: Methocarbamol (Robaxin) 500 mg PO BID PRN PRN PRN Reason: nerve pain Metoprolol Tartrate (Lopressor (Beta Kenn)) 50 mg PO BID [facility] Last Admin: 09/17/19 10:01 Dose: 50 mg Documented by: Morphine Sulfate () 4 mg IV Q3H PRN PRN PRN Reason: Severe pain (-09/01) Last Admin: 09/16/19 10:07 Dose: 4 mg Documented by: Nutritional Formula (Lactose Free) (Ensure Enlive) 120 ml PO 4X/DAY [facility] Last Admin: 09/16/19 22:31 Dose: 120 ml Documented by: Ondansetron HCl (Zofran) 4 mg IV Q8H PRN PRN PRN Reason: NAUSEA/VOMITING Last Admin: 09/16/19 17:44 Dose: 4 mg Documented by: Quetiapine Fumarate (Seroquel) 25 mg PO 999,1999 [facility] Last Admin: 09/17/19 10:02 Dose: 25 mg Documented by: Sodium Chloride () 10 - 40 ml IV UD PRN PRN Reason: Port-a-Cath (VAD) Flush Last Admin: 09/16/19 17:46 Dose: 10 ml Documented by: Sodium Chloride (0.9% Nacl (Sterile) Posiflush) 10 - 40 ml IV UD PRN PRN Reason: Port access or dressing change Discharge Diet: No Restrictions Home Medications: Medications to take at Discharge Acetaminophen/Codeine #3 [Tylenol #3 Tablet] 1 tab PO 4X/DAY 07/13/18 Methocarbamol [Robaxin] 500 mg PO BID PRN PRN 09/13/18 Gabapentin [Neurontin] 300 mg PO QHS 03/28/19 Lidocaine/Prilocaine HCl [Emla Cream W/Tegaderm] 1 applicatio TOPICAL X1 PRN #1 tube 05/16/19 Ipratropium/Albuterol Sulfate [Duoneb] 3 ml INHALATION Q6H PRN #120 ampul.neb 08/29/19 Ondansetron [Zofran] 8 mg PO Q8H PRN PRN #30 tab 09/05/19 dexamethasone 4 mg tablet 2 mg PO DAILY@0800 tab 09/06/19 metoprolol tartrate 50 mg tablet 50 mg PO BID #180 tab 09/06/19 Calcium Carbonate/Vitamin D3 [Calcium 600 + Vit D Tablet] 1 tab PO BID 09/12/19 Cholecalciferol (Vitamin D3) [Vitamin D3] 1,000 unit PO BID 09/12/19 Cyanocobalamin (Vitamin B-12) [B-12] 1,000 mcg PO BID 09/12/19 Demeclocycline HCl 300 mg PO DAILY 09/12/19 Famotidine 20 mg PO DAILY 09/12/19 Multivit-Min/Iron/Folic/Lutein [Centrum Silver Women Tablet] 1 ea PO BID 09/12/19 Saccharomyces Boulardii [Florastor] 250 mg PO BID 09/12/19 Cefadroxil [Duricef] 1,000 mg PO DAILY 3 Days cap 09/17/19 Levothyroxine [Synthroid] 25 mcg PO DAILY@0600 tab 09/17/19 Quetiapine Fumarate [Seroquel] 25 mg PO 1000,1999 tab 09/17/19 Primary Care Physician: Mitchell Whiteside MD [Primary Care Provider] - Please Follow Up With: Lam Flores DO When: Hospice to follow at [place] Disposition: Half-Way facility - With hospice Minutes spent on discharge:: 35 Patient Condition:: Guarded Medical Necessity - Tobacco Use Smoking Status: Current some day smoker Tobacco Use: Cigarettes Meaningful Use Info Meaningful Use Diagnoses (Choose all that apply): None applicable <Jan Carver - Last Filed: 09/19/19 11:20> Discharge Date and Diagnosis - Secondary Discharge Diagnosis Chronic Problems (Last Reviewed 09/06/19 @ 11:56 by Christy Herrera) Metastatic small cell carcinoma to bone (Chronic) Metastatic small cell carcinoma to brain (Chronic) Metastatic small cell carcinoma to liver (Chronic) Debility (Chronic) Hypothyroidism (Chronic) Brain metastases (Chronic) SIADH (syndrome of inappropriate ADH production) (Chronic) Liver metastases (Chronic) Small cell lung cancer (Chronic) 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 I have independently interviewed and examined the patient and reviewed pertinent history, examination findings, laboratory and plan of management. I have reviewed the note and agree with the documented findings with the few additional points. In brief, patient is admitted for generalized weakness and debility with declining functional capacity with dementia. Pt has E coli cystitis on treated with Antibiotic as per sensitivity and discharged on Druicef. Has small cell lung cancer with mets to Brain, bone and liver. Pt accepted by for inpatient hospice service. Pt's POA her daughters are aware and agree with t hat. Severe protein calorie malnutrition. Pt is discharged to inpatient hospice service. Discharge meds reconciliation done. 35 mins spent in exam of patient, completing discharge instructions, discharge process and discussion with family members. I have discussed my assessment with SENIOR HARDWARE DESIGN ENGINEER, Adenike and orders have been reviewed. Subjective: seen and examined. Pt clinical course and diagnosis discussed with patient's 2 daughter present in room. has dementia and not aware of her diagnosis - Physical Exam Vitals/I&O's: Vital Signs Temp Pulse Resp BP Pulse Ox 98.5 F 104 H 18 141/83 H 97 09/17/19 10:00 09/17/19 10:01 09/17/19 10:00 09/17/19 10:00 09/17/19 10:00 Oxygen Delivery Method Room Air Weight: 180 lb 12.817 oz Body Mass Index (BMI) 32.0 Intake and Output for Last 24 Hours 09/15/19 09/16/19 09/17/19 23:59 23:59 23:59 Intake Total 600 / 840 1030 / 1530 600 / 600 Output Total 400 / 1200 1850 / 2225 775 / 775 Balance 200 / -360 -820 / -695 -175 / -175 General: Confused, Disoriented HEENT: Atraumatic, PERRLA, EOMI, Normocephalic Oral: Moist Mucosa Neck: Supple, No JVD, Negative Carotid Bruits Lungs: Clear to auscultation, No rhonchi, No wheeze, Diminished - in right lung base Cardiovascular: Regular Rhythm, Normal S1, Normal S2, No murmurs, Tachycardic Abdomen: Bowel Sounds Present, Soft, Non Tender Extremities: No edema, Capillary Refill Less than 3 Seconds Skin: No rashes, No breakdown Musculoskeletal: No Tenderness to Palpation of Joints or Extremities, Arthritic Changes Neurological: Cranial nerves II-XII grossly intact, Deep Tendon Reflexes 2+/4 and Symmetrical Psych/Mental Status: Agitated Microbiology Past 72 Hours 09/13/19 21:05 Urine, Clean Catch Urine Culture - Final Presumptive E. coli Code Visit Inpatient E&M: [id number] Disch Hosp
[2019-09-17] MEDS: Morphine 4 MG/ML Syringe IV (11:41)
[2019-09-17] MEDS: 0.9% Saline Lock 10 ML Syringe IV (11:42)
--- NOTE | 2019-09-17 14:35 | NURSING ---
Report given to Pushpa DONOVAN at [facility].
== END 2019-09-17 13:52 | disposition hospice, inpatient (51) | DRG 180 ==
LOC: ED 14:24 → MS3 15:28
PROVIDERS: Internal Medicine; Admitting Provider Internal Medicine; Emergency Provider Emergency Medicine; Family Provider Internal Medicine; PCP Internal Medicine; Referring Provider Internal Medicine; Visit Provider Internal Medicine
DX: C34.90 Malignant neoplasm of unspecified part of unspecified bronchus or lung (principal); E43 Unspecified severe protein-calorie malnutrition; G93.41 Metabolic encephalopathy; C78.7 Secondary malignant neoplasm of liver and intrahepatic bile duct; C79.51 Secondary malignant neoplasm of bone; C79.31 Secondary malignant neoplasm of brain; E03.9 Hypothyroidism, unspecified; N30.90 Cystitis, unspecified without hematuria; F17.210 Nicotine dependence, cigarettes, uncomplicated; Z92.3 Personal history of irradiation; Z51.5 Encounter for palliative care; R53.81 Other malaise; B96.20 Unspecified Escherichia coli [E. coli] as the cause of diseases classified elsewhere; Z86.19 Personal history of other infectious and parasitic diseases; Z68.32 Body mass index [BMI] 32.0-32.9, adult
CPT/HCPCS: 36591; 70450; 76705; 80053; 81001; 85025; 87086; 87088; 87186; 93005; 97802; 99285; 99406; J7030; J7040; A4216; J2405